=== PATIENT | female | born 1965 | race American Indian/Alaskan Native ===

== ENCOUNTER 2022-03-15 17:10 | Emergency (ER) | payer MEDICARE ==
[2022-03-15 18:33] LABS: Basophils % (Auto) 0.3 % (0.0-1.8); Eosinophils % (Auto) 0.7 % (0.0-4.3); Hematocrit 37.6 % (30.3-42.9); Hemoglobin 12.7 gm/dl (10.1-14.3); Lymphocytes # (Auto) 1.6 K/mm3 (1.2-5.4); Lymphocytes % (Auto) 24.8 % (13.4-35.0); Mean Corpuscular HGB Conc 34 % (30-34); Mean Corpuscular Volume 92 fl (79-97); Monocytes # (Auto) 0.2 K/mm3 (0.0-0.8); Monocytes % (Auto) 3.7 % (0.0-7.3); Platelet Count 331 K/mm3 (140-440); Red Blood Count 4.07 M/mm3 (3.65-5.03); Red Cell Distribution Width 14.6 % (13.2-15.2)
[2022-03-15 18:53] LABS: Alanine Aminotransferase 14 units/L (7-56); Albumin 3.9 g/dL (3.9-5); BUN/Creatinine Ratio 15; Blood Urea Nitrogen 17 mg/dL (7-17); Calcium 8.9 mg/dL (8.4-10.2); Hemolysis Index 5
[2022-03-16] MEDS ORDERED: POTASSIUM CHLORIDE ER 20 MEQ TAB PO ONE (08:43)
[2022-03-16 11:48] LABS: Bacteria,Urine 1+ /HPF (Negative); Hyaline Casts,Urine 48 /LPF
[2022-03-16 11:56] LABS: Bilirubin,Urine Negative (Negative); Blood,Urine Negative (Negative); Color,Urine Yellow (Yellow)
--- NOTE | 2022-03-16 12:18 | Cat Scan Report ---
CT head/brain wo con INDICATION: Weakness, dizziness. TECHNIQUE: Routine CT head. All CT scans at this location are performed using CT dose reduction for A BILL by means of automated exposure control. COMPARISON: None. FINDINGS: Intracranial: Bifrontal midline encephalomalacia which extends into the frontal horns of the lateral ventricles. Garrett-white matter differentiation is maintained. No intracranial hemorrhage. No extra axi al collection. No hydrocephalus. No herniation. Sinuses: Paranasal sinuses and mastoid air cells are essentially clear. Orbits: Globes are intact. Calvarium: Prior left frontal craniectomy. IMPRESSION: 1. No acute intracranial abnormality. 2. Postoperative changes. Signer Name: Lon Christianson MD Signed: 03/16/2022 12:14 PM Workstation Name: [id number]
--- NOTE | 2022-03-16 13:09 | Emergency Department Report ---
ED General Adult HPI - General Chief complaint: Weakness Stated complaint: GENERAL WEAKNESS Time Seen by Provider: 03/16/22 08:43 Source: EMS Mode of arrival: Stretcher Limitations: Other - History of Present Illness Initial comments: Patient is a 57-year-old female with history of cognitive delay brought in by EMS for evaluation. Family reports patient has been weak and falling at home. - Related Data Allergies Allergy/AdvReac Type Severity Reaction Status Date / Time No Known Allergies Allergy Verified 03/15/22 17:15 ED Review of Systems ROS: Stated complaint: GENERAL WEAKNESS Other details as noted in HPI Constitutional: denies: chills, fever Respiratory: denies: cough, shortness of breath, wheezing Cardiovascular: denies: chest pain, palpitations Gastrointestinal: denies: abdominal pain, nausea, diarrhea Genitourinary: denies: urgency, dysuria, discharge Musculoskeletal: denies: back pain, joint swelling, arthralgia Skin: denies: rash, lesions Neurological: denies: headache, weakness, paresthesias Psychiatric: denies: anxiety, depression ED Past Medical Hx - Past Medical History Previous Medical History?: Yes Hx Seizures: Yes Additional medical history: CAREGIVER STATES PATIENT IS MR. - Surgical History Past Surgical History?: Yes Additional Surgical History: PT HAS A SCAR ON THE SIDE OF HER HEAD, CAREGIVER IS UNSURE OF SURGERY ED Physical Exam - General Limitations: Other General appearance: alert, in no apparent distress - Head Head exam: Present: atraumatic, normocephalic - Respiratory Respiratory exam: Present: normal lung sounds bilaterally. Absent: respiratory distress - Cardiovascular Cardiovascular Exam: Present: regular rate, normal rhythm, normal heart sounds - GI/Abdominal GI/Abdominal exam: Present: soft. Absent: distended, tenderness - Rectal Rectal exam: Present: deferred - Neurological Exam Neurological exam: Present: alert, oriented X3 - Psychiatric Psychiatric exam: Present: normal affect, normal mood - Skin Skin exam: Present: warm, dry, intact, normal color ED Course Vital Signs 03/15/22 03/16/22 03/16/22 17:14 10:30 11:02 Temperature 98 F Pulse Rate 93 H 84 Respiratory 18 13 18 Rate Blood Pressure 121/78 Blood Pressure 108/55 143/82 [Left] O2 Sat by Pulse 96 99 99 Oximetry ED Medical Decision Making - Lab Data Result diagrams: 03/15/22 17:47 03/15/22 17:47 - Medical Decision Making CT head shows no acute processes. Serum potassium 3.2. Patient given oral replacement. UTI also present. Vital signs are stable. Will discharge home on Keflex with instructions to follow-up with PCP in 1 week. Critical care attestation.: If time is entered above; I have spent that time in minutes in the direct care of this critically ill patient, excluding procedure time. ED Disposition Clinical Impression: Urinary tract infection, Generalized weakness Disposition: 01 HOME / SELF CARE / HOMELESS Is pt being admited?: No Condition: Stable Instructions: Weakness, Urinary Tract Infection, Adult, [id number] Referrals: PRIMARY CARE, [Primary Care Provider] - 3-5 Days
[2022-03-16 15:18] VITALS: BP 142/65
--- NOTE | 2022-03-16 18:50 | Electrocardiograph Report ---
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
== END 2022-03-16 15:17 | disposition home or self-care (01) ==
LOC: ED 17:10
DX: N39.0 Urinary tract infection, site not specified (principal); R53.1 Weakness
CPT/HCPCS: 36415; 70450; 80053; 81001; 83735; 84484; 85025; 93005; 99284; 99285

== ENCOUNTER 2022-03-21 20:30 | Inpatient (IN) | payer MEDICARE ==
[2022-03-22 13:03] LABS: Basophils % (Auto) 0.2 % (0.0-1.8); Eosinophils % (Auto) 0.3 % (0.0-4.3); Hematocrit 39.9 % (30.3-42.9); Lymphocytes # (Auto) 1.5 K/mm3 (1.2-5.4); Lymphocytes % (Auto) 18.8 % (13.4-35.0); Mean Corpuscular HGB Conc 33 % (30-34); Mean Corpuscular Volume 93 fl (79-97); Monocytes # (Auto) 0.4 K/mm3 (0.0-0.8); Monocytes % (Auto) 4.5 % (0.0-7.3); Red Blood Count 4.31 M/mm3 (3.65-5.03); Red Cell Distribution Width 14.9 % (13.2-15.2)
[2022-03-22 13:07] LABS: Alanine Aminotransferase 16 units/L (7-56); Albumin 4.1 g/dL (3.9-5); BUN/Creatinine Ratio 23; Blood Urea Nitrogen 25 mg/dL (7-17); Calcium 9.3 mg/dL (8.4-10.2); Hemolysis Index 47
[2022-03-22 13:10] LABS: Platelet Count 374 K/mm3 (140-440)
[2022-03-22] MEDS ORDERED: SODIUM CHLORIDE 0.9% 1000 ML 1,000 ML IV ONE (13:10)
--- NOTE | 2022-03-22 13:30 | Emergency Department Report ---
- General Chief complaint: Weakness Stated complaint: FAILURE TO THRIVE Time Seen by Provider: 03/22/22 10:41 Source: patient, EMS Mode of arrival: Stretcher Limitations: Physical Limitation - History of Present Illness Initial comments: 57-year-old female with a past medical history of MR and seizures presents to the hospital with increased weakness and inability to ambulate for the last week. Information obtained from both patient and her caregiver Felicia. Pascual has been her cousin/caregiver and guardian for 3 years. Up until 1 week ago patient was able to ambulate unassisted. For the past week she has been unable to stand and having frequent falls. She has been crawling on the floor on her knees. Patient complains of generalized leg pain not worse with movement or palpation. She denies headache or neck pain. Patient was seen here on March 16 with similar symptoms and prescribed Keflex for UTI PID x7 days. Patient currently has 7 tablets left (3.5 days worth). Severity scale (0 -10): 0 - Related Data Previous Rx's Medication Instructions Recorded Last Taken Type cephALEXin [Keflex] 500 mg PO Q12HR #14 cap 03/16/22 Unknown Rx Allergies Allergy/AdvReac Type Severity Reaction Status Date / Time No Known Allergies Allergy Verified 03/15/22 17:15 ED Review of Systems ROS: Stated complaint: FAILURE TO THRIVE Other details as noted in HPI Comment: All other systems reviewed and negative ED Past Medical Hx - Past Medical History Hx Seizures: Yes Additional medical history: CAREGIVER STATES PATIENT IS MR. - Surgical History Additional Surgical History: PT HAS A SCAR ON THE SIDE OF HER HEAD, CAREGIVER IS UNSURE OF SURGERY - Social History Smoking Status: Never Smoker Substance Use Type: None - Medications Home Medications: Home Medications Medication Instructions Recorded Confirmed Last Taken Type cephALEXin [Keflex] 500 mg PO Q12HR #14 cap 03/16/22 Unknown Rx ED Physical Exam - General Limitations: Physical Limitation - Other Other exam information: General: No acute distress Head: Atraumatic Eyes: normal appearance ENT: Moist mucous membranes Neck: Normal appearance, no midline tenderness Chest: Clear to auscultation bilaterally CV: Regular rate and rhythm Abdomen: Soft, normal bowel sounds, nontender, nondistended, no rebound or guarding Back: Normal inspection Extremity: Normal inspection, full range of motion Neuro: Alert O x 3, no facial asymmetry, speech clear, unable to lift right leg off the bed (3/5) compared to left (5/5), upper extermity left and right 5/5 strength Psych: Appropriate behavior Skin: No rash ED Course Vital Signs 03/21/22 03/22/22 03/22/22 21:13 10:47 14:46 Temperature 98.9 F 97.5 F L 98.6 F Pulse Rate 88 86 72 Respiratory 16 20 20 Rate Blood Pressure 150/88 Blood Pressure 151/90 150/88 134/78 [Right] O2 Sat by Pulse 100 100 97 Oximetry - EJ/Peripheral Line Neck R Time Out Performed: Yes Indications: nurses unable to establis Skin Cleansed in Sterile Fashion: Yes Dressing Placed: Tegaderm, tape Patient Tolerated Procedure: well, no complications ED Medical Decision Making - Lab Data Result diagrams: 03/22/22 11:49 03/22/22 11:49 Lab Results 03/22/22 03/22/22 03/22/22 Range/Units 11:49 11:49 11:49 WBC 8.0 (4.5-11.0) K/mm3 RBC 4.31 (3.65-5.03) M/mm3 Hgb 13.0 (10.1-14.3) gm/dl Hct 39.9 (30.3-42.9) % MCV 93 (79-97) fl MCH 30 (28-32) pg MCHC 33 (30-34) % RDW 14.9 (13.2-15.2) % Plt Count 374 (140-440) K/mm3 Lymph % (Auto) 18.8 (13.4-35.0) % [place] % (Auto) 4.5 (0.0-7.3) % Eos % (Auto) 0.3 (0.0-4.3) % Baso % (Auto) 0.2 (0.0-1.8) % Lymph # (Auto) 1.5 (1.2-5.4) K/mm3 [place] # (Auto) 0.4 (0.0-0.8) K/mm3 Eos # (Auto) 0.0 (0.0-0.4) K/mm3 Baso # (Auto) 0.0 (0.0-0.1) K/mm3 Seg Neutrophils % 76.2 H (40.0-70.0) % Seg Neutrophils # 6.1 (1.8-7.7) K/mm3 Sodium 138 (137-145) mmol/L Potassium 4.0 (3.6-5.0) mmol/L Chloride 100.2 (98-107) mmol/L Carbon Dioxide 24 (22-30) mmol/L Anion Gap 18 mmol/L BUN 25 H (7-17) mg/dL Creatinine 1.1 (0.6-1.2) mg/dL Estimated GFR > 60 ml/min BUN/Creatinine Ratio 23 % Glucose 113 H (65-100) mg/dL Calcium 9.3 (8.4-10.2) mg/dL Magnesium 2.00 (1.7-2.3) mg/dL Total Bilirubin 0.20 (0.1-1.2) mg/dL AST 19 (5-40) units/L ALT 16 (7-56) units/L Alkaline Phosphatase 153 H (35-129) units/L Total Protein 8.7 H (6.3-8.2) g/dL Albumin 4.1 (3.9-5) g/dL Albumin/Globulin Ratio 0.9 % - EKG Data -: EKG Interpreted by Mn EKG shows normal: sinus rhythm, ST-T waves (no stemi) Rate: normal - Radiology Data Radiology results: report reviewed CT head/brain wo con INDICATION: unable to ambulate, left leg weakness. TECHNIQUE: Routine CT head. All CT scans at this location are performed using CT dose reduction for ALARA by means of automated exposure control. COMPARISON: 03/16/2022. FINDINGS: Intracranial: Encephalomalacia extending from the left frontal craniectomy site in the midline and extending inferiorly from the superior frontal gyri to the frontal horns of the lateral ventricles. Brain parenchyma is also unchanged. Garrett-white matter differentiation is maintained. No intracranial hemorrhage. No extra axial collection. No hydrocephalus. No herniation. Sinuses: Paranasal sinuses and mastoid air cells are essentially clear. Orbits: Globes are intact. Calvarium: Prior left frontal craniectomy. IMPRESSION: 1. No acute intracranial abnormality or significant change. 2. Postoperative changes. CT lumbar spine wo con INDICATION: unable to ambulate, left leg weakness. TECHNIQUE: Axial CT images of the lumbar spine were obtained. Sagittal and coronal reformatted images were produced. All CT scans at this location are performed using CT dose reduction for ALARA by means of automated exposure control. COMPARISON: None available. FINDINGS: ALIGNMENT: Normal alignment. VERTEBRAE: No fracture. Vertebral body heights are preserved. SPONDYLOSIS: Advanced right L5-S1 facet arthropathy. Moderate right L3-4 and mild L4-5 facet arthropathy.. No significant spinal canal or foraminal stenosis at any level. SOFT TISSUES: No significant soft tissue abnormality. ADDITIONAL FINDINGS: Calcified fibroids in the uterus. Remote right 11th rib fracture.. IMPRESSION: 1. No acute lumbar spine abnormality. 2. Advanced right L5-S1 facet arthropathy. No significant spinal canal foramin al stenosis and level. - Medical Decision Making 57-year-old female presents to the hospital with inability to ambulate for about 1 week. There is new onset as per cousin and strategic sourcing specialist. Because of inability to ambulate not identified during ED visit. No significant abnormality seen on CT head, CT lumbar spine, and labs show only mild dehydration as indicated by e levated BUN level. Normal renal function noted. Repeat urine collection pending. Case management consult appreciated with recommendation and arrangements for physical therapy, Occupational Therapy, and snf assistance. Hospitalist to admit for further evaluation and work-up Critical Care Time: No Critical care attestation.: If time is entered above; I have spent that time in minutes in the direct care of this critically ill patient, excluding procedure time. ED Disposition Clinical Impression: Unable to ambulate, Right leg weakness, Mental disability, Dehydration Disposition: ADMITTED INPATIENT Is pt being admited?: Yes Condition: Stable Time of Disposition: 15:01 (Dr Ling/Hospital)
--- NOTE | 2022-03-22 14:21 | Cat Scan Report ---
CT head/brain wo con INDICATION: unable to ambulate, left leg weakness. TECHNIQUE: Routine CT head. All CT scans at this location are performed using CT dose reduction for A BILL by means of automated exposure control. COMPARISON: 03/16/2022. FINDINGS: Intracranial: Encephalomalacia extending from the left frontal craniectomy site in the midline and ex tending inferiorly from the superior frontal gyri to the frontal horns of the lateral ventricles. Bra in parenchyma is also unchanged. Garrett-white matter differentiation is maintained. No intracranial hem orrhage. No extra axial collection. No hydrocephalus. No herniation. Sinuses: Paranasal sinuses and mastoid air cells are essentially clear. Orbits: Globes are intact. Calvarium: Prior left frontal craniectomy. IMPRESSION: 1. No acute intracranial abnormality or significant change. 2. Postoperative changes. Signer Name: Lon Christianson MD Signed: 03/22/2022 2:17 PM Workstation Name: [id number]
--- NOTE | 2022-03-22 14:25 | Cat Scan Report ---
CT lumbar spine wo con INDICATION: unable to ambulate, left leg weakness. TECHNIQUE: Axial CT images of the lumbar spine were obtained. Sagittal and coronal reformatted images were produ shay. All CT scans at this location are performed using CT dose reduction for ALARA by means of automa ugo exposure control. COMPARISON: None available. FINDINGS: ALIGNMENT: Normal alignment. VERTEBRAE: No fracture. Vertebral body heights are preserved. SPONDYLOSIS: Advanced right L5-S1 facet arthropathy. Moderate right L3-4 and mild L4-5 facet arthropa thy.. No significant spinal canal or foraminal stenosis at any level. SOFT TISSUES: No significant soft tissue abnormality. ADDITIONAL FINDINGS: Calcified fibroids in the uterus. Remote right 11th rib fracture.. IMPRESSION: 1. No acute lumbar spine abnormality. 2. Advanced right L5-S1 facet arthropathy. No significant spinal canal foraminal stenosis and level. Signer Name: Lon Christianson MD Signed: 03/22/2022 2:21 PM Workstation Name: [id number]
[2022-03-22] MEDS ORDERED: ONDANSETRON 4 MG/2 ML INJ IV PRN (15:02)
[2022-03-22] MEDS ORDERED: MORPHINE 2 MG/1 ML INJ IV PRN (15:03)
[2022-03-22 16:05] LABS: Bilirubin,Urine Negative (Negative); Blood,Urine Negative (Negative); Color,Urine Straw (Yellow)
[2022-03-22 17:20] LABS: Bacteria,Urine 2+ /HPF (Negative)
--- NOTE | 2022-03-22 21:06 | History and Physical Report ---
History of Present Illness Date of examination: 03/22/22 Date of admission: 03/22/22 15:02 Chief complaint: Difficulty walking for 1 week History of present illness: 57-year-old female with a past medical history of MR and seizures presents to the hospital with increased weakness and inability to ambulate for the last week. Information obtained from both patient and her caregiver Samara. Samara has been her cousin/caregiver and guardian for 3 years. Up until 1 week ago patient was able to ambulate unassisted. For the past week she has been unable to stand and having frequent falls. She has been crawling on the floor on her knees. Patient complains of generalized leg pain not worse with movement or palpation. She denies headache or neck pain. Patient was seen here on March 16 with similar symptoms and prescribed Keflex for UTI PID x7 days. Debbie parson currently has 7 tablets left (3.5 days worth). Patient is a very poor historian. The only complaint she has difficulty walking for 1 week - Past Medical History Hx Seizures: Yes Additional medical history: CAREGIVER STATES PATIENT IS MR. - Surgical History Additional Surgical History: PT HAS A SCAR ON THE SIDE OF HER HEAD, CAREGIVER IS UNSURE OF SURGERY - Social History Smoking Status: Never Smoker Substance Use Type: None - Medications Home Medications: Home Medications Medication Instructions Recorded Confirmed Last Taken Type cephALEXin [Keflex] 500 mg PO Q12HR #14 cap 03/16/22 Unknown Rx Review of Systems ROS: Stated complaint: FAILURE TO THRIVE Other details as noted in HPI Comment: All other systems reviewed and negative Medications and Allergies Allergies Allergy/AdvReac Type Severity Reaction Status Date / Time No Known Allergies Allergy Verified 03/15/22 17:15 Home Medications Medication Instructions Recorded Confirmed Last Taken Type cephALEXin [Keflex] 500 mg PO Q12HR #14 cap 03/16/22 03/22/22 Unknown Rx AtorvaSTATin [Lipitor] 20 mg PO QHS 03/22/22 03/22/22 Unknown History Phenytoin Sodium Extended 200 mg PO BID 03/22/22 03/22/22 Unknown History Active Meds: Active Medications Acetaminophen (Acetaminophen 325 Mg Tab) 650 mg PO Q4H PRN PRN Reason: Pain MILD(1-3)/Fever >100.5/VALLADARES Morphine Sulfate (Morphine 2 Mg/1 Ml Inj) 2 mg IV Q4H PRN PRN Reason: Pain, Moderate (4-6) Ondansetron HCl (Ondansetron 4 Mg/2 Ml Inj) 4 mg IV Q8H PRN PRN Reason: Nausea And Vomiting Sodium Chloride (Sodium Chloride 0.9% 10 Ml Flush Syringe) 10 ml IV BID ISIAH Sodium Chloride (Sodium Chloride 0.9% 10 Ml Flush Syringe) 10 ml IV PRN PRN PRN Reason: LINE FLUSH Exam - Constitutional Vitals: Temp Pulse Resp BP Pulse Ox 98.6 F 72 20 134/78 100 03/22/22 14:46 03/22/22 14:46 03/22/22 16:14 03/22/22 14:46 03/22/22 16:14 General appearance: Present: no acute distress, well-nourished - EENT Eyes: Present: PERRL ENT: hearing intact, clear oral mucosa - Neck Neck: Present: supple, normal ROM - Respiratory Respiratory effort: normal Respiratory: bilateral: CTA - Cardiovascular Rhythm: regular Heart Sounds: Present: S1 & S2. Absent: rub, click - Extremities Extremities: no ischemia (78), pulses symmetrical, No edema, abnormal (Unable to lift both lower extremities more than 6 inches) Peripheral Pulses: within normal limits - Abdominal General gastrointestinal: Present: soft, non-tender, non-distended, normal bowel sounds Female genitourinary: Present: normal - Integumentary Integumentary: Present: clear, warm, dry - Musculoskeletal Musculoskeletal: generalized weakness - Psychiatric Psychiatric: appropriate mood/affect, intact judgment & insight - Neurologic Neurologic: CNII-XII intact, moves all extremities (3/5 power both lower EXTREMITIES) - Allied Health Allied health notes reviewed: nursing, case management Results - Labs CBC & Chem 7: 03/22/22 11:49 03/22/22 11:49 Labs: Laboratory Last Values WBC 8.0 K/mm3 (4.5-11.0) 03/22/22 11:49 RBC 4.31 M/mm3 (3.65-5.03) 03/22/22 11:49 Hgb 13.0 gm/dl (10.1-14.3) 03/22/22 11:49 Hct 39.9 % (30.3-42.9) 03/22/22 11:49 MCV 93 fl (79-97) 03/22/22 11:49 MCH 30 pg (28-32) 03/22/22 11:49 MCHC 33 % (30-34) 03/22/22 11:49 RDW 14.9 % (13.2-15.2) 03/22/22 11:49 Plt Count 374 K/mm3 (140-440) 03/22/22 11:49 Lymph % (Auto) 18.8 % (13.4-35.0) 03/22/22 11:49 [place] % (Auto) 4.5 % (0.0-7.3) 03/22/22 11:49 Eos % (Auto) 0.3 % (0.0-4.3) 03/22/22 11:49 Baso % (Auto) 0.2 % (0.0-1.8) 03/22/22 11:49 Lymph # (Auto) 1.5 K/mm3 (1.2-5.4) 03/22/22 11:49 [place] # (Auto) 0.4 K/mm3 (0.0-0.8) 03/22/22 11:49 Eos # (Auto) 0.0 K/mm3 (0.0-0.4) 03/22/22 11:49 Baso # (Auto) 0.0 K/mm3 (0.0-0.1) 03/22/22 11:49 Seg Neutrophils % 76.2 % (40.0-70.0) H 03/22/22 11:49 Seg Neutrophils # 6.1 K/mm3 (1.8-7.7) 03/22/22 11:49 Sodium 138 mmol/L (137-145) 03/22/22 11:49 Potassium 4.0 mmol/L (3.6-5.0) 03/22/22 11:49 Chloride 100.2 mmol/L (98-107) 03/22/22 11:49 Carbon Dioxide 24 mmol/L (22-30) 03/22/22 11:49 Anion Gap 18 mmol/L 03/22/22 11:49 BUN 25 mg/dL (7-17) H 03/22/22 11:49 Creatinine 1.1 mg/dL (0.6-1.2) 03/22/22 11:49 Estimated GFR > 60 ml/min 03/22/22 11:49 BUN/Creatinine Ratio 23 % 03/22/22 11:49 Glucose 113 mg/dL (65-100) H 03/22/22 11:49 Calcium 9.3 mg/dL (8.4-10.2) 03/22/22 11:49 Magnesium 2.00 mg/dL (1.7-2.3) 03/22/22 11:49 Total Bilirubin 0.20 mg/dL (0.1-1.2) 03/22/22 11:49 AST 19 units/L (5-40) 03/22/22 11:49 ALT 16 units/L (7-56) 03/22/22 11:49 Alkaline Phosphatase 153 units/L (35-129) H 03/22/22 11:49 Total Protein 8.7 g/dL (6.3-8.2) H 03/22/22 11:49 Albumin 4.1 g/dL (3.9-5) 03/22/22 11:49 Albumin/Globulin Ratio 0.9 % 03/22/22 11:49 Urine Color Straw (Yellow) 03/22/22 14:33 Urine Turbidity Clear (Clear) 03/22/22 14:33 Urine pH 6.0 (5.0-7.0) 03/22/22 14:33 Ur Specific [place] 1.015 (1.003-1.030) 03/22/22 14:33 Urine Protein 30 mg/dl mg/dL (Negative) 03/22/22 14:33 Urine Glucose (UA) Negative mg/dL (Negative) 03/22/22 14:33 Urine Ketones Negative mg/dL (Negative) 03/22/22 14:33 Urine Blood Negative (Negative) 03/22/22 14:33 Urine Nitrite Negative (Negative) 03/22/22 14:33 Urine Bilirubin Negative (Negative) 03/22/22 14:33 Urine Urobilinogen 0.0 mg/dL (<2.0) 03/22/22 14:33 Ur Leukocyte Esterase 1+ (Negative) 03/22/22 14:33 Urine WBC (Auto) 0.0 /HPF (0.0-6.0) 03/22/22 14:33 Urine RBC (Auto) 2.0 /HPF (0.0-6.0) 03/22/22 14:33 U Epithel Cells (Auto) 5.0 /HPF (0-13.0) 03/22/22 14:33 Urine Bacteria (Auto) 2+ /HPF (Negative) 03/22/22 14:33 - Imaging and Cardiology EKG: report reviewed (No acute ST-T wave changes) Imaging and Cardiology: CT LS-spine No acute lumbar spine abnormality Advanced right L5-S1 facet arthropathy. No significant spinal cord canal foraminal stenosis and level. Head CT No acute intracranial abnormalities or significant change Postoperative changes Mckeon/IV: Voiding Method External Female Catheter Assessment and Plan Advance Directives: Yes (Full code) VTE prophylaxis?: Chemical Plan of care discussed with patient/family: Yes - Patient Problems (1) Physical debility Current Visit: Yes Status: Acute Plan to address problem: Severe physical debility Patient needs physical therapy and Occupational Therapy Patient needs placement Unable to ambulate Possible myopathy Statin started (2) Seizure disorder Current Visit: Yes Status: Chronic Plan to address problem: No recent seizures Continue phenytoin Check phenytoin level Will defer to primary team regarding switching to Keppra (3) Advance care planning Current Visit: Yes Status: Acute Plan to address problem: Disease education collected, care plan discussed, diagnosis discussed and prognosis discussed. Patient acknowledged understanding with care plan. +30 mi nutes. (4) DVT prophylaxis Current Visit: Yes Status: Acute Plan to address problem: On heparin GI prophylaxis
--- NOTE | 2022-03-23 09:43 | Progress Note ---
Assessment and Plan Assessment and plan: - Patient Problems -- General physical debility Severe physical debility PT evaluated the patient, recommend oral rolling walker and home health PT OT evaluated the patient recommend rolling walker and home health OT Continue supportive care --Dilantin toxicity /overdose DC Dilantin, closely monitor levels Seizure precautions --seizure disorder No new episodes of seizures Dilantin toxicity, Dilantin discontinued Check phenytoin level After Dilantin levels come back to normal levels We may switch to Keppra -- Advance care planning Disease education collected, care plan discussed, diagnosis discussed and prognosis discussed. Patient acknowledged understanding with care plan. +30 minutes. --DVT prophylaxis On heparin GI prophylaxis We will closely monitor the patient and adjust management as needed Plan of care reviewed with the patient and her nurse DC planning per case management History Interval history: Seen and examined the patient at the bedside Patient's chart and medications reviewed Patient has mild encephalopathy Has history of craniotomy in the past Vital signs noted Hospitalist Physical - Constitutional Vitals: Temp Pulse Resp BP Pulse Ox 98 F 84 20 141/86 98 03/23/22 06:14 03/23/22 06:14 03/23/22 06:14 03/23/22 06:14 03/23/22 06:14 General appearance: Present: no acute distress, well-nourished - EENT Eyes: Present: PERRL, EOM intact - Neck Neck: Present: supple, normal ROM - Respiratory Respiratory effort: normal Respiratory: bilateral: diminished, negative: rales, rhonchi, wheezing - Cardiovascular Rhythm: regular Heart Sounds: Present: S1 & S2 - Extremities Extremities: no ischemia, No edema - Integumentary Integumentary: Present: clear, warm - Psychiatric Psychiatric: appropriate mood/affect, cooperative, other (Confused) - Neurologic Neurologic: moves all extremities Results - Labs CBC & Chem 7: 03/22/22 11:49 03/22/22 11:49 Labs: Laboratory Last Values WBC 8.0 K/mm3 (4.5-11.0) 03/22/22 11:49 RBC 4.31 M/mm3 (3.65-5.03) 03/22/22 11:49 Hgb 13.0 gm/dl (10.1-14.3) 03/22/22 11:49 Hct 39.9 % (30.3-42.9) 03/22/22 11:49 MCV 93 fl (79-97) 03/22/22 11:49 MCH 30 pg (28-32) 03/22/22 11:49 MCHC 33 % (30-34) 03/22/22 11:49 RDW 14.9 % (13.2-15.2) 03/22/22 11:49 Plt Count 374 K/mm3 (140-440) 03/22/22 11:49 Lymph % (Auto) 18.8 % (13.4-35.0) 03/22/22 11:49 [place] % (Auto) 4.5 % (0.0-7.3) 03/22/22 11:49 Eos % (Auto) 0.3 % (0.0-4.3) 03/22/22 11:49 Baso % (Auto) 0.2 % (0.0-1.8) 03/22/22 11:49 Lymph # (Auto) 1.5 K/mm3 (1.2-5.4) 03/22/22 11:49 [place] # (Auto) 0.4 K/mm3 (0.0-0.8) 03/22/22 11:49 Eos # (Auto) 0.0 K/mm3 (0.0-0.4) 03/22/22 11:49 Baso # (Auto) 0.0 K/mm3 (0.0-0.1) 03/22/22 11:49 Seg Neutrophils % 76.2 % (40.0-70.0) H 03/22/22 11:49 Seg Neutrophils # 6.1 K/mm3 (1.8-7.7) 03/22/22 11:49 Sodium 138 mmol/L (137-145) 03/22/22 11:49 Potassium 4.0 mmol/L (3.6-5.0) 03/22/22 11:49 Chloride 100.2 mmol/L (98-107) 03/22/22 11:49 Carbon Dioxide 24 mmol/L (22-30) 03/22/22 11:49 Anion Gap 18 mmol/L 03/22/22 11:49 BUN 25 mg/dL (7-17) H 03/22/22 11:49 Creatinine 1.1 mg/dL (0.6-1.2) 03/22/22 11:49 Estimated GFR > 60 ml/min 03/22/22 11:49 BUN/Creatinine Ratio 23 % 03/22/22 11:49 Glucose 113 mg/dL (65-100) H 03/22/22 11:49 Calcium 9.3 mg/dL (8.4-10.2) 03/22/22 11:49 Magnesium 2.00 mg/dL (1.7-2.3) 03/22/22 11:49 Total Bilirubin 0.20 mg/dL (0.1-1.2) 03/22/22 11:49 AST 19 units/L (5-40) 03/22/22 11:49 ALT 16 units/L (7-56) 03/22/22 11:49 Alkaline Phosphatase 153 units/L (35-129) H 03/22/22 11:49 Total Protein 8.7 g/dL (6.3-8.2) H 03/22/22 11:49 Albumin 4.1 g/dL (3.9-5) 03/22/22 11:49 Albumin/Globulin Ratio 0.9 % 03/22/22 11:49 Urine Color Straw (Yellow) 03/22/22 14:33 Urine Turbidity Clear (Clear) 03/22/22 14:33 Urine pH 6.0 (5.0-7.0) 03/22/22 14:33 Ur Specific [place] 1.015 (1.003-1.030) 03/22/22 14:33 Urine Protein 30 mg/dl mg/dL (Negative) 03/22/22 14:33 Urine Glucose (UA) Negative mg/dL (Negative) 03/22/22 14:33 Urine Ketones Negative mg/dL (Negative) 03/22/22 14:33 Urine Blood Negative (Negative) 03/22/22 14:33 Urine Nitrite Negative (Negative) 03/22/22 14:33 Urine Bilirubin Negative (Negative) 03/22/22 14:33 Urine Urobilinogen 0.0 mg/dL (<2.0) 03/22/22 14:33 Ur Leukocyte Esterase 1+ (Negative) 03/22/22 14:33 Urine WBC (Auto) 0.0 /HPF (0.0-6.0) 03/22/22 14:33 Urine RBC (Auto) 2.0 /HPF (0.0-6.0) 03/22/22 14:33 U Epithel Cells (Auto) 5.0 /HPF (0-13.0) 03/22/22 14:33 Urine Bacteria (Auto) 2+ /HPF (Negative) 03/22/22 14:33 Mckeon/IV: Voiding Method External Female Catheter Active Medications - Current Medications Current Medications: Generic Name Dose Route Start Last Admin Trade Name Freq PRN Reason Stop Dose Admin Acetaminophen 650 mg 03/22/22 15:02 Acetaminophen 325 Mg Tab PO Q4H PRN Pain MILD(1-3)/Fever >100.5/VALLADARES Morphine Sulfate 2 mg 03/22/22 15:03 Morphine 2 Mg/1 Ml Inj IV Q4H PRN Pain, Moderate (4-6) Ondansetron HCl 4 mg 03/22/22 15:02 Ondansetron 4 Mg/2 Ml Inj IV Q8H PRN Nausea And Vomiting Phenytoin 200 mg 03/23/22 10:00 Phenytoin 100 Mg Capsule.Er PO BID ISIAH Sodium Chloride 10 ml 03/22/22 22:00 03/22/22 22:11 Sodium Chloride 0.9% 10 Ml Flush Syringe IV 10 ml BID ISIAH Administration Sodium Chloride 10 ml 03/22/22 15:02 Sodium Chloride 0.9% 10 Ml Flush Syringe IV PRN PRN LINE FLUSH
[2022-03-23] MEDS ORDERED: PHENYTOIN 100 MG CAPSULE.ER PO SCH (10:00)
--- NOTE | 2022-03-24 08:48 | Electrocardiograph Report ---
[facility] Test Date: 2022-03-22 Test Time: 13:34:25 Pat Name: ELIZABETH MATHUR Department: Room: A366 1 Gender: F Bottle Gauger: 911 : 1965 Requested By: GRACE FINN Order Number: [id number] Reading MD: Dandy Regalado Measurements Intervals [place] Rate: 77 P: 67 MO: 169 QRS: -9 QRSD: 89 T: 76 QT: 369 QTc: 419 Interpretive Statements Sinus rhythm Consider left ventricular hypertrophy nonspecific st-t anterior leads Compared to ECG 03/16/2022 10:39:19 No significant changes Electronically Signed On 03-24-2022 8:48:06 EDT by Dandy Regalado
--- NOTE | 2022-03-24 19:50 | Progress Note ---
Assessment and Plan Assessment and plan: Dilantin level 44.0-41.7 --Dilantin toxicity /overdose DC Dilantin, closely monitor levels Seizure precautions -- General physical debility Severe physical debility PT evaluated the patient, recommend oral rolling walker and home health PT OT evaluated the patient recommend rolling walker and home health OT Continue supportive care --seizure disorder No new episodes of seizures Dilantin toxicity, Dilantin discontinued Check phenytoin level After Dilantin levels come back to normal levels We may switch to Keppra -- Advance care planning Disease education collected, care plan discussed, diagnosis discussed and prognosis discussed. Patient acknowledged understanding with care plan. +30 minutes. --DVT prophylaxis On heparin GI prophylaxis We will closely monitor the patient and adjust management as needed Plan of care reviewed with the patient and her nurse DC planning per case management 03/24/2022 Dilantin level 44.0-41.7 Closely monitor Possible discharge in 1 to 2 days if stable and Dilantin levels are reasonable Plan of care reviewed with the patient and her nurse History Interval history: I have seen and examined the patient at the bedside Patient's chart and medications reviewed Patient states that she does not feel good Slow speech probably baseline Patient is admitted with Dilantin toxicity Dilantin #still above 40 Vital signs noted Hospitalist Physical - Constitutional Vitals: Temp Pulse Resp BP Pulse Ox 97.6 F 91 H 20 135/74 98 03/24/22 15:35 03/24/22 15:35 03/24/22 15:35 03/24/22 15:35 03/24/22 16:00 General appearance: Present: no acute distress, well-nourished - EENT Eyes: Present: PERRL, EOM intact - Neck Neck: Present: supple, normal ROM - Respiratory Respiratory effort: normal Respiratory: bilateral: diminished, negative: rales, rhonchi, wheezing - Cardiovascular Rhythm: regular Heart Sounds: Present: S1 & S2 - Extremities Extremities: no ischemia, No edema - Abdominal General gastrointestinal: soft, non-tender, non-distended, normal bowel sounds - Integumentary Integumentary: Present: clear, warm - Psychiatric Psychiatric: other (Slight confusion and coagulopathy) - Neurologic Neurologic: other (Slight confusion encephalopathy/history of craniotomy) Results - Labs CBC & Chem 7: 03/22/22 11:49 03/22/22 11:49 Labs: Laboratory Last Values WBC 8.0 K/mm3 (4.5-11.0) 03/22/22 11:49 RBC 4.31 M/mm3 (3.65-5.03) 03/22/22 11:49 Hgb 13.0 gm/dl (10.1-14.3) 03/22/22 11:49 Hct 39.9 % (30.3-42.9) 03/22/22 11:49 MCV 93 fl (79-97) 03/22/22 11:49 MCH 30 pg (28-32) 03/22/22 11:49 MCHC 33 % (30-34) 03/22/22 11:49 RDW 14.9 % (13.2-15.2) 03/22/22 11:49 Plt Count 374 K/mm3 (140-440) 03/22/22 11:49 Lymph % (Auto) 18.8 % (13.4-35.0) 03/22/22 11:49 [place] % (Auto) 4.5 % (0.0-7.3) 03/22/22 11:49 Eos % (Auto) 0.3 % (0.0-4.3) 03/22/22 11:49 Baso % (Auto) 0.2 % (0.0-1.8) 03/22/22 11:49 Lymph # (Auto) 1.5 K/mm3 (1.2-5.4) 03/22/22 11:49 [place] # (Auto) 0.4 K/mm3 (0.0-0.8) 03/22/22 11:49 Eos # (Auto) 0.0 K/mm3 (0.0-0.4) 03/22/22 11:49 Baso # (Auto) 0.0 K/mm3 (0.0-0.1) 03/22/22 11:49 Seg Neutrophils % 76.2 % (40.0-70.0) H 03/22/22 11:49 Seg Neutrophils # 6.1 K/mm3 (1.8-7.7) 03/22/22 11:49 Sodium 138 mmol/L (137-145) 03/22/22 11:49 Potassium 4.0 mmol/L (3.6-5.0) 03/22/22 11:49 Chloride 100.2 mmol/L (98-107) 03/22/22 11:49 Carbon Dioxide 24 mmol/L (22-30) 03/22/22 11:49 Anion Gap 18 mmol/L 03/22/22 11:49 BUN 25 mg/dL (7-17) H 03/22/22 11:49 Creatinine 1.1 mg/dL (0.6-1.2) 03/22/22 11:49 Estimated GFR > 60 ml/min 03/22/22 11:49 BUN/Creatinine Ratio 23 % 03/22/22 11:49 Glucose 113 mg/dL (65-100) H 03/22/22 11:49 Calcium 9.3 mg/dL (8.4-10.2) 03/22/22 11:49 Magnesium 2.00 mg/dL (1.7-2.3) 03/22/22 11:49 Total Bilirubin 0.20 mg/dL (0.1-1.2) 03/22/22 11:49 AST 19 units/L (5-40) 03/22/22 11:49 ALT 16 units/L (7-56) 03/22/22 11:49 Alkaline Phosphatase 153 units/L (35-129) H 03/22/22 11:49 Total Protein 8.7 g/dL (6.3-8.2) H 03/22/22 11:49 Albumin 4.1 g/dL (3.9-5) 03/22/22 11:49 Albumin/Globulin Ratio 0.9 % 03/22/22 11:49 Urine Color Straw (Yellow) 03/22/22 14:33 Urine Turbidity Clear (Clear) 03/22/22 14:33 Urine pH 6.0 (5.0-7.0) 03/22/22 14:33 Ur Specific [place] 1.015 (1.003-1.030) 03/22/22 14:33 Urine Protein 30 mg/dl mg/dL (Negative) 03/22/22 14:33 Urine Glucose (UA) Negative mg/dL (Negative) 03/22/22 14:33 Urine Ketones Negative mg/dL (Negative) 03/22/22 14:33 Urine Blood Negative (Negative) 03/22/22 14:33 Urine Nitrite Negative (Negative) 03/22/22 14:33 Urine Bilirubin Negative (Negative) 03/22/22 14:33 Urine Urobilinogen 0.0 mg/dL (<2.0) 03/22/22 14:33 Ur Leukocyte Esterase 1+ (Negative) 03/22/22 14:33 Urine WBC (Auto) 0.0 /HPF (0.0-6.0) 03/22/22 14:33 Urine RBC (Auto) 2.0 /HPF (0.0-6.0) 03/22/22 14:33 U Epithel Cells (Auto) 5.0 /HPF (0-13.0) 03/22/22 14:33 Urine Bacteria (Auto) 2+ /HPF (Negative) 03/22/22 14:33 Phenytoin 41.7 ug/mL (10.0-20.0) H* 03/24/22 05:55 Mckeon/IV: Voiding Method External Female Catheter Active Medications - Current Medications Current Medications: Generic Name Dose Route Start Last Admin Trade Name Freq PRN Reason Stop Dose Admin Acetaminophen 650 mg 03/22/22 15:02 Acetaminophen 325 Mg Tab PO Q4H PRN Pain MILD(1-3)/Fever >100.5/VALLADARES Morphine Sulfate 2 mg 03/22/22 15:03 Morphine 2 Mg/1 Ml Inj IV Q4H PRN Pain, Moderate (4-6) Ondansetron HCl 4 mg 03/22/22 15:02 Ondansetron 4 Mg/2 Ml Inj IV Q8H PRN Nausea And Vomiting Sodium Chloride 10 ml 03/22/22 22:00 03/23/22 22:13 Sodium Chloride 0.9% 10 Ml Flush Syringe IV 10 ml BID ISIAH Administration Sodium Chloride 10 ml 03/22/22 15:02 Sodium Chloride 0.9% 10 Ml Flush Syringe IV PRN PRN LINE FLUSH Nutrition/Malnutrition Assess - Dietary Evaluation Nutrition/Malnutrition Findings: Nutrition Notes Start: 03/23/22 15:24 Freq: Status: Active Protocol: Document 03/23/22 15:24 JOSI (Rec: 03/23/22 15:40 JOSI [id number]) Nutrition Notes Need for Assessment generated from: tree scout,MST Initial or Follow up Assessment Other Pertinent Diagnosis Seizure Disorder, Debility. Current Diet Regular Diet (since L 03/23). Labs/Tests 03/23: BUN 25, Glu 113. Pertinent Medications 03/23: Nutritionally unremarkable. 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 Weight Status Overweight Subjective/Other Information RD consult for risk of malnutrition assessment. Pt's PO intake of meals has been Good (100%) and well tolerated, according to ADL notes. Pt is on Room Air, O2 saturation @ 98%, according to Physical Assessment History notes. Pt has missing teeth, according to Physical Assessment History notes. Pt shows no signs of concern for risk of malnutritiona at the time, according to Physical Assessment History notes. Percent of energy/protein needs met: Prescribed Regular Diet provides for energy/protein needs (2,289 Kcal/89 g) during LOS. Burn Absent Trauma Absent GI Symptoms None Food Allergy No Skin Integrity/Comment Assessment WNL. Current % PO Good (75-100%) Minimum of two criteria No Fluid Accumulation N/A Reduced Can Filling And Closing Machine Tender Strength N/A (non-severe) Protein-Calorie Malnutrition N\A #1 Nutrition Diagnosis No nutrition diagnosis at this time Is patient on ventilator? No Is Patient Ambulatory and/or Out of Bed No REE-([facility]-confined to bed) 3091.712 Calculation Used for Recommendations [facility] Additional Notes Protein: 0.8-1 g/Kg ABW; 70-87 g/day. Fluids: 1 ml/Kcal, or as per MD. Nutrition Intervention Change Diet Order: Continue Regular Diet as tolerated. Follow-Up By: 03/30/22 Additional Comments Continue monitoring food tolerance, %PO intake of meals , and BM.
[2022-03-25 07:26] LABS: BUN/Creatinine Ratio 23; Blood Urea Nitrogen 18 mg/dL (7-17); Calcium 8.6 mg/dL (8.4-10.2); Hemolysis Index 7
--- NOTE | 2022-03-25 09:32 | Progress Note ---
Assessment and Plan Assessment and plan: Dilantin level 44.0-41.7-34.3 --Dilantin toxicity /overdose DC Dilantin, closely monitor levels Seizure precautions -- General physical debility Severe physical debility PT evaluated the patient, recommend oral rolling walker and home health PT OT evaluated the patient recommend rolling walker and home health OT Continue supportive care --seizure disorder No new episodes of seizures Dilantin toxicity, Dilantin discontinued Check phenytoin level After Dilantin levels come back to normal levels We may switch to Keppra -- Advance care planning Disease education collected, care plan discussed, diagnosis discussed and prognosis discussed. Patient acknowledged understanding with care plan. +30 minutes. --DVT prophylaxis On heparin GI prophylaxis We will closely monitor the patient and adjust management as needed Plan of care reviewed with the patient and her nurse DC planning per case management 03/24/2022 Dilantin level 44.0-41.7 Closely monitor 03/25; Dilantin levels 34.3 Possible discharge in 1 to 2 days if stable and Dilantin levels are reasonable Plan of care reviewed with the patient and her nurse History Interval history: I have seen and examined the patient at the bedside Patient's chart and medications reviewed No new events reported per the nursing Patient does not want to get out of the bed as she is scared where she will fall PT has recommended rolling walker Dilantin levels significantly trending down today 34.3 Vital signs noted Hospitalist Physical - Constitutional Vitals: Temp Pulse Resp BP Pulse Ox 98.3 F 86 20 141/73 96 03/25/22 05:00 03/25/22 05:00 03/25/22 05:00 03/25/22 05:00 03/25/22 05:00 General appearance: Present: no acute distress, well-nourished - EENT Eyes: Present: PERRL, EOM intact - Neck Neck: Present: supple, normal ROM - Respiratory Respiratory effort: normal Respiratory: bilateral: diminished, negative: rales, rhonchi, wheezing - Cardiovascular Rhythm: regular Heart Sounds: Present: S1 & S2 - Extremities Extremities: no ischemia, No edema - Abdominal General gastrointestinal: soft, non-tender, non-distended, normal bowel sounds - Integumentary Integumentary: Present: clear, warm - Psychiatric Psychiatric: appropriate mood/affect, cooperative - Neurologic Neurologic: CNII-XII intact, moves all extremities Results - Labs CBC & Chem 7: 03/22/22 11:49 03/25/22 06:40 Labs: Laboratory Last Values WBC 8.0 K/mm3 (4.5-11.0) 03/22/22 11:49 RBC 4.31 M/mm3 (3.65-5.03) 03/22/22 11:49 Hgb 13.0 gm/dl (10.1-14.3) 03/22/22 11:49 Hct 39.9 % (30.3-42.9) 03/22/22 11:49 MCV 93 fl (79-97) 03/22/22 11:49 MCH 30 pg (28-32) 03/22/22 11:49 MCHC 33 % (30-34) 03/22/22 11:49 RDW 14.9 % (13.2-15.2) 03/22/22 11:49 Plt Count 374 K/mm3 (140-440) 03/22/22 11:49 Lymph % (Auto) 18.8 % (13.4-35.0) 03/22/22 11:49 [place] % (Auto) 4.5 % (0.0-7.3) 03/22/22 11:49 Eos % (Auto) 0.3 % (0.0-4.3) 03/22/22 11:49 Baso % (Auto) 0.2 % (0.0-1.8) 03/22/22 11:49 Lymph # (Auto) 1.5 K/mm3 (1.2-5.4) 03/22/22 11:49 [place] # (Auto) 0.4 K/mm3 (0.0-0.8) 03/22/22 11:49 Eos # (Auto) 0.0 K/mm3 (0.0-0.4) 03/22/22 11:49 Baso # (Auto) 0.0 K/mm3 (0.0-0.1) 03/22/22 11:49 Seg Neutrophils % 76.2 % (40.0-70.0) H 03/22/22 11:49 Seg Neutrophils # 6.1 K/mm3 (1.8-7.7) 03/22/22 11:49 Sodium 141 mmol/L (137-145) 03/25/22 06:40 Potassium 4.7 mmol/L (3.6-5.0) 03/25/22 06:40 Chloride 101.3 mmol/L (98-107) 03/25/22 06:40 Carbon Dioxide 27 mmol/L (22-30) 03/25/22 06:40 Anion Gap 17 mmol/L 03/25/22 06:40 BUN 18 mg/dL (7-17) H 03/25/22 06:40 Creatinine 0.8 mg/dL (0.6-1.2) 03/25/22 06:40 Estimated GFR > 60 ml/min 03/25/22 06:40 BUN/Creatinine Ratio 23 % 03/25/22 06:40 Glucose 92 mg/dL (65-100) 03/25/22 06:40 Calcium 8.6 mg/dL (8.4-10.2) 03/25/22 06:40 Magnesium 2.00 mg/dL (1.7-2.3) 03/22/22 11:49 Total Bilirubin 0.20 mg/dL (0.1-1.2) 03/22/22 11:49 AST 19 units/L (5-40) 03/22/22 11:49 ALT 16 units/L (7-56) 03/22/22 11:49 Alkaline Phosphatase 153 units/L (35-129) H 03/22/22 11:49 Total Protein 8.7 g/dL (6.3-8.2) H 03/22/22 11:49 Albumin 4.1 g/dL (3.9-5) 03/22/22 11:49 Albumin/Globulin Ratio 0.9 % 03/22/22 11:49 Urine Color Straw (Yellow) 03/22/22 14:33 Urine Turbidity Clear (Clear) 03/22/22 14:33 Urine pH 6.0 (5.0-7.0) 03/22/22 14:33 Ur Specific [place] 1.015 (1.003-1.030) 03/22/22 14:33 Urine Protein 30 mg/dl mg/dL (Negative) 03/22/22 14:33 Urine Glucose (UA) Negative mg/dL (Negative) 03/22/22 14:33 Urine Ketones Negative mg/dL (Negative) 03/22/22 14:33 Urine Blood Negative (Negative) 03/22/22 14:33 Urine Nitrite Negative (Negative) 03/22/22 14:33 Urine Bilirubin Negative (Negative) 03/22/22 14:33 Urine Urobilinogen 0.0 mg/dL (<2.0) 03/22/22 14:33 Ur Leukocyte Esterase 1+ (Negative) 03/22/22 14:33 Urine WBC (Auto) 0.0 /HPF (0.0-6.0) 03/22/22 14:33 Urine RBC (Auto) 2.0 /HPF (0.0-6.0) 03/22/22 14:33 U Epithel Cells (Auto) 5.0 /HPF (0-13.0) 03/22/22 14:33 Urine Bacteria (Auto) 2+ /HPF (Negative) 03/22/22 14:33 Phenytoin 34.3 ug/mL (10.0-20.0) H 03/25/22 06:40 Mckeon/IV: Voiding Method Incontinent Active Medications - Current Medications Current Medications: Generic Name Dose Route Start Last Admin Trade Name Freq PRN Reason Stop Dose Admin Acetaminophen 650 mg 03/22/22 15:02 Acetaminophen 325 Mg Tab PO Q4H PRN Pain MILD(1-3)/Fever >100.5/VALLADARES Morphine Sulfate 2 mg 03/22/22 15:03 Morphine 2 Mg/1 Ml Inj IV Q4H PRN Pain, Moderate (4-6) Ondansetron HCl 4 mg 03/22/22 15:02 Ondansetron 4 Mg/2 Ml Inj IV Q8H PRN Nausea And Vomiting Sodium Chloride 10 ml 03/22/22 22:00 03/25/22 09:02 Sodium Chloride 0.9% 10 Ml Flush Syringe IV 10 ml BID ISIAH Administration Sodium Chloride 10 ml 03/22/22 15:02 Sodium Chloride 0.9% 10 Ml Flush Syringe IV PRN PRN LINE FLUSH Nutrition/Malnutrition Assess - Dietary Evaluation Nutrition/Malnutrition Findings: Nutrition Notes Start: 03/23/22 15:24 Freq: Status: Active Protocol: Document 03/23/22 15:24 JOSI (Rec: 03/23/22 15:40 JOSI [id number]) Nutrition Notes Need for Assessment generated from: food and nutrition teacher,MST Initial or Follow up Assessment Other Pertinent Diagnosis Seizure Disorder, Debility. Current Diet Regular Diet (since L 03/23). Labs/Tests 03/23: BUN 25, Glu 113. Pertinent Medications 03/23: Nutritionally unremarkable. 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 Weight Status Overweight Subjective/Other Information RD consult for risk of malnutrition assessment. Pt's PO intake of meals has been Good (100%) and well tolerated, according to ADL notes. Pt is on Room Air, O2 saturation @ 98%, according to Physical Assessment History notes. Pt has missing teeth, according to Physical Assessment History notes. Pt shows no signs of concern for risk of malnutritiona at the time, according to Physical Assessment History notes. Percent of energy/protein needs met: Prescribed Regular Diet provides for energy/protein needs (2,289 Kcal/89 g) during LOS. Burn Absent Trauma Absent GI Symptoms None Food Allergy No Skin Integrity/Comment Assessment WNL. Current % PO Good (75-100%) Minimum of two criteria No Fluid Accumulation N/A Reduced Poll Watcher Strength N/A (non-severe) Protein-Calorie Malnutrition N\A #1 Nutrition Diagnosis No nutrition diagnosis at this time Is patient on ventilator? No Is Patient Ambulatory and/or Out of Bed No REE-([facility]-confined to bed) 2995.386 Calculation Used for Recommendations [facility] Additional Notes Protein: 0.8-1 g/Kg ABW; 70-87 g/day. Fluids: 1 ml/Kcal, or as per MD. Nutrition Intervention Change Diet Order: Continue Regular Diet as tolerated. Follow-Up By: 03/30/22 Additional Comments Continue monitoring food tolerance, %PO intake of meals , and BM.
[2022-03-25] MEDS: ACETAMINOPHEN 325 MG TAB PO PRN (21:25)
[2022-03-26 06:19] VITALS: BP 114/63
[2022-03-26] MEDS: ACETAMINOPHEN 325 MG TAB PO PRN (06:20)
--- NOTE | 2022-03-26 09:10 | Discharge Summary ---
Providers - Providers Date of Admission: 03/22/22 15:02 Date of discharge: 03/26/22 Attending physician: DEMETRIO LANDA 03/22/22 11:37 Consult to Case Management [CONS] Urgent Services Needed at Discharge: [employer] Officer Notified:: y 03/22/22 21:08 Occupational Therapy Evaluate and Treat [CONS] Routine Comment: Reason For Exam: Severe debility Physical Therapy Evaluation and Treat [CONS] Routine Comment: Reason For Exam: Severe debility Speech Therapy Evaluation and Treat [CONS] Routine Reason For Exam: Dysphagia 03/23/22 06:33 Physical Therapy Evaluation and Treat [CONS] Routine Comment: Reason For Exam: Neuro deficits Primary care physician: [employer]ESS [employer] TE[employer] Hospitalization Reason for admission: Difficulty walking for 1 week Condition: Stable Hospital course: 57-year-old female patient with significant past medical history of craniotomy mental retardation and seizure disorder was admitted through emergency room with generalized weakness inability to walk for the last 1 week. Patient has a caregiver by name Samara who gives a history 1 week prior to admission patient was able to walk unassisted patient also had frequent falls initial examination in the ED with CT head with contrast no acute abnormality noted and CT lumbar spine no acute abnormality noted. Patient was admitted symptomatically managed with IV fluids physical therapy occupational therapy evaluated and recommended home health PT and rolling walker. However patient's Dilantin levels were in toxic range at 44.0, Dilantin was discontinued patient managed symptomatically and with supportive care.. Gradually Dilantin levels decreased to 40.7 and then 234.3 Meanwhile patient symptoms significantly improved. Today patient is comfortable, no new complaints, vital signs seem stable, physical examination prior to discharge no new changes. Patient is hemodynamically and clinically stable at discharge Patient also complains of some respiratory symptoms and an mild cough. Today patient is comfortable no new complaints, generalized weakness significantly improved, hemodynamically stable And patient is being discharged home with home health and rolling walker Total time spent to coordinate this discharge 65 minutes. 57-year-old female patient with a past medical history of MR /craniotomy and seizures presents to the hospital with increased weakness and inability to ambulate for the last week. Information obtained from both patient and her caregiver Felicia. Pascual has been her cousin/caregiver and guardian for 3 years. Up until 1 week ago patient was able to ambulate unassisted. For the past week she has been unable to stand and having frequent falls. She has been crawling on the floor on her knees. Patient complains of generalized leg pain not worse with movement or palpation. She denies headache or neck pain. Patient was seen here on March 16 with similar symptoms and prescribed Keflex for UTI PID x7 days. Patient currently has 7 tablets left (3.5 days worth). Patient is a very poor historian. The only complaint she has difficulty walking for 1 week - Past Medical History Hx Seizures: Yes Additional medical history: CAREGIVER STATES PATIENT IS MR. - Surgical History Additional Surgical History: PT HAS A SCAR ON THE SIDE OF HER HEAD, CAREGIVER IS UNSURE OF SURGERY --Dilantin toxicity ; DC Dilantin, closely monitor levels Seizure precautions -- General physical debility Severe physical debility PT evaluated the patient, recommend oral rolling walker and home health PT OT evaluated the patient recommend rolling walker and home health OT Continue supportive care --seizure disorder No new episodes of seizures Dilantin toxicity, Dilantin discontinued Check phenytoin level After Dilantin levels come back to normal levels We may switch to Keppra -- Advance care planning Disease education collected, care plan discussed, diagnosis discussed and prognosis discussed. Patient acknowledged understanding with care plan. +30 minutes. --DVT prophylaxis On heparin GI prophylaxis We will closely monitor the patient and adjust management as needed Plan of care reviewed with the patient and her nurse DC planning per case management 03/24/2022 Dilantin level 44.0-41.7 Closely monitor 03/25; Dilantin levels 34.3 Possible discharge in 1 to 2 days if stable and Dilantin levels are reasonable Plan of care reviewed with the patient and her nurse Disposition: 06 HOME HEALTH CARE SERVICE Final Discharge Diagnosis (Prints w/discharge instructions): I Dilantin toxicity /Dilantin levels improved. General physical debility/probably due to Dilantin toxicity improved. History of seizure disorder/no new episodes of seizure Time spent for discharge: 35 minutes Core Measure Documentation - Palliative Care Palliative Care/ Comfort Measures: Not Applicable - Core Measures Any of the following diagnoses?: none Exam - Constitutional Vitals: Temp Pulse Resp BP Pulse Ox 100.1 F H 100 H 17 114/63 97 03/26/22 06:14 03/26/22 06:14 03/26/22 07:20 03/26/22 06:14 03/26/22 06:14 General appearance: Present: no acute distress, well-nourished - EENT Eyes: Present: PERRL, EOM intact - Neck Neck: Present: supple, normal ROM - Respiratory Respiratory effort: normal Respiratory: bilateral: diminished, negative: rales, rhonchi, wheezing - Cardiovascular Rhythm: regular Heart Sounds: Present: S1 & S2 - Extremities Extremities: no ischemia, No edema - Abdominal General gastrointestinal: Present: soft, non-tender, non-distended, normal bowel sounds - Integumentary Integumentary: Present: clear, warm - Musculoskeletal Musculoskeletal: strength equal bilaterally, generalized weakness - Psychiatric Psychiatric: appropriate mood/affect, cooperative - Neurologic Neurologic: moves all extremities Plan Activity: advance as tolerated, no driving until cleared by PCP, fall precautions, other (Seizure precautions) Diet: regular Special Instructions: physical therapy Additional Instructions: If you have worsening symptoms contact MD or go to the nearest emergency room as needed. Fall precautions. Seizure precaution advised to see primary care physician in 1 week. Advised to see primary neurologist in 1 to 2 weeks. Advised to use rolling walker for safety Follow up with: PRIMARY CARE, [Primary Care Provider] - 3-5 Days BRANDI RESTREPO MD [Staff Physician] - 14 Days Prescriptions: Acetaminophen [Acetaminophen TAB] 650 mg PO Q4H PRN #20 tablet PRN Reason: Pain MILD(1-3)/Fever >100.5/VALLADARES levETIRAcetam [Keppra TAB] 500 mg PO BID #60 tablet guaiFENesin [Robitussin] 200 mg PO Q4H #20 Azithromycin [Zithromax Z-SAI] 0 mg PO DAILY #1 tab
[2022-03-26] MEDS ORDERED: levETIRAcetam 500 MG/5 ML ORAL LIQD PO SCH (10:00)
== END 2022-03-26 14:45 | disposition home health service (06) | DRG 918 ==
LOC: ED 20:30 → 3A 03-22 15:02
PROVIDERS: ADMIT Internal Medicine; ATTEND Internal Medicine
DX: T42.0X1A Poisoning by hydantoin derivatives, accidental (unintentional), initial encounter (principal); R29.898 Other symptoms and signs involving the musculoskeletal system; R26.2 Difficulty in walking, not elsewhere classified; E86.0 Dehydration; R53.81 Other malaise; G40.909 Epilepsy, unspecified, not intractable, without status epilepticus; Y92.89 Other specified places as the place of occurrence of the external cause
CPT/HCPCS: 36415; 70450; 72131; 80048; 80053; 80185; 81001; 83735; 85025; 93005; 99406; G0378; J7030

== ENCOUNTER 2022-04-12 09:01 | Inpatient (IN) | payer MEDICARE ==
[2022-04-12] MEDS ORDERED: levETIRAcetam 1000 MG/NS 0.75% 1,000 MG/100 ML BAG IV ONE (09:07)
[2022-04-12] MEDS ORDERED: SODIUM CHLORIDE 0.9% 500 ML 500 ML IV ONE (09:07)
[2022-04-12] MEDS ORDERED: MIDAZOLAM 2 MG/2 ML INJ IM STA (09:09)
[2022-04-12] MEDS ORDERED: MIDAZOLAM 5 MG/5 ML INJ MDV IV NR (09:30)
[2022-04-12] MEDS ORDERED: SODIUM CHLORIDE 0.9% 1000 ML IV SOLN IV ONE (09:32)
[2022-04-12] MEDS ORDERED: cefTRIAXone/NS 2 GM/100 ML 2 GM/100 ML BAG IV ONE (09:33)
[2022-04-12] MEDS ORDERED: LIP THERAPY VASELINE TP PRN (09:35)
[2022-04-12] MEDS ORDERED: MINERAL OIL/PETROLATUM, WHITE OPHTH OINT 3.5 GM OU PRN (09:35)
[2022-04-12] MEDS ORDERED: MIDAZOLAM 2 MG/2 ML INJ IV PRN (09:36)
--- NOTE | 2022-04-12 09:45 | Emergency Department Report ---
ED General Adult HPI - General Chief complaint: Seizure Stated complaint: SEIZURES Time Seen by Provider: 04/12/22 09:07 Source: EMS (Verbal report received from emergency medical services. EMS documentation not available at time of chart dictation ), RN notes reviewed, old records reviewed Mode of arrival: Stretcher Limitations: Altered Mental Status, Physical Limitation - History of Present Illness Initial comments: The patient was evaluated in the emergency department for symptoms described in the history of present illness. He/she was evaluated in the context of the global COVID-19 pandemic, which necessitated consideration that the patient might be at risk for infection with the virus that causes COVID-19. Institutional protocols and algorithms that pertain to the evaluation of patients at risk for COVID-19 are in a state of rapid change based on information released by regulatory bodies including the CDC and federal and state organizations. These policies and algorithms were followed during the patient's care in the emergency department. Please note that these policies, procedures and recommendations changed on a rapid basis. The patient is a 57-year-old female. Her past medical history is remarkable for craniotomy, mental retardation, and seizure disorder. Patient is brought to the hospital by emergency medical services with an EMS articulated complaint of possible seizures and altered mental status. EMS reports unremarkable vital signs and Accu-Chek in the field, and report that they are unable to obtain IV access. They state that there is no history of trauma that they are aware of, and the patient is picked up from the bed. They gave the patient 5 mg of midazolam in the field. In the emergency room, the patient is having a seizure, and we are unable to initially obtain IV access. Her Accu-Chek is within normal limits. Patient received an additional 5 mg of midazolam IM under my direct instruction. She has improvement in convulsive activity, definitive IV access is required. I obtained emergent ultrasound-guided IV access, and patient received additional midazolam, 5 mg, Keppra is also ordered. Seizure stopped. No further convulsive activity is noted. At this point time, the patient had difficulty breathing, did not have a gag reflex, and was intubated with RSI techniques for airway protection. No history is available at this time. Her last known well time is not known. -: unknown - Related Data Home Medications Medication Instructions Recorded Confirmed Last Taken AtorvaSTATin [Lipitor] 20 mg PO QHS 03/22/22 03/22/22 Unknown Previous Rx's Medication Instructions Recorded Last Taken Type Acetaminophen [Acetaminophen TAB] 650 mg PO Q4H PRN #20 tablet 03/26/22 Unknown Rx Azithromycin [Zithromax Z-SAI] 0 mg PO DAILY #1 tab 03/26/22 Unknown Rx guaiFENesin [Robitussin] 200 mg PO Q4H #20 03/26/22 Unknown Rx levETIRAcetam [Keppra TAB] 500 mg PO BID #60 tablet 03/26/22 Unknown Rx Allergies Allergy/AdvReac Type Severity Reaction Status Date / Time No Known Allergies Allergy Verified 03/15/22 17:15 ED Review of Systems ROS: Stated complaint: SEIZURES Other details as noted in HPI ED Past Medical Hx - Past Medical History Hx Seizures: Yes Additional medical history: CAREGIVER STATES PATIENT IS MR. - Surgical History Additional Surgical History: PT HAS A SCAR ON THE SIDE OF HER HEAD, CAREGIVER IS UNSURE OF SURGERY - Social History Smoking Status: Current Some Day Smoker - Medications Home Medications: Home Medications Medication Instructions Recorded Confirmed Last Taken Type AtorvaSTATin [Lipitor] 20 mg PO QHS 03/22/22 03/22/22 Unknown History Acetaminophen [Acetaminophen TAB] 650 mg PO Q4H PRN #20 tablet 03/26/22 Unknown Rx Azithromycin [Zithromax Z-SAI] 0 mg PO DAILY #1 tab 03/26/22 Unknown Rx guaiFENesin [Robitussin] 200 mg PO Q4H #20 03/26/22 Unknown Rx levETIRAcetam [Keppra TAB] 500 mg PO BID #60 tablet 03/26/22 Unknown Rx ED Physical Exam - General Limitations: Altered Mental Status General appearance: lethargic, in distress - Head Head exam: Present: atraumatic, normocephalic - Eye Eye exam: Present: normal appearance - ENT ENT exam: Present: mucous membranes dry, normal external ear exam - Neck Neck exam: Present: normal inspection. Absent: tenderness, meningismus - Respiratory Respiratory exam: Present: respiratory distress, rhonchi. Absent: stridor - Cardiovascular Cardiovascular Exam: Present: normal rhythm, tachycardia, normal heart sounds. Absent: bradycardia, irregular rhythm, systolic murmur, diastolic murmur, rubs, gallop - GI/Abdominal GI/Abdominal exam: Present: soft. Absent: distended, tenderness, guarding, rebound, rigid, pulsatile mass - Rectal Rectal exam: Present: normal inspection - External exam: Present: normal external exam - Extremities Exam Extremities exam: Present: full ROM (The patient is moving 4 extremities.), pedal edema, other (2+ pulses noted in the bilateral upper and lower extremitie s. There is no palpable cord. negative Homans sign. Muscular compartments are soft. The pelvis is stable.). Absent: normal inspection (Chronic appearing garcia noted to the upper extremity) - Back Exam Back exam: Present: normal inspection. Absent: tenderness, CVA tenderness (R), CVA tenderness (L), paraspinal tenderness, vertebral tenderness - Neurological Exam Neurological exam: Present: altered, other (Patient moving 4 extremities. Patient is postictal) - Skin Skin exam: Present: warm, dry, intact, normal color. Absent: rash ED Course Vital Signs 04/12/22 04/12/22 04/12/22 09:01 09:45 09:57 Temperature 100.7 F H Pulse Rate 96 H 124 H Respiratory 16 18 Rate Blood Pressure Blood Pressure 70/45 75/42 [Left] O2 Sat by Pulse 98 100 Oximetry 04/12/22 04/12/22 04/12/22 10:13 10:22 10:30 Temperature Pulse Rate 108 H 105 H 101 H Respiratory 18 16 19 Rate Blood Pressure Blood Pressure 90/64 [Left] O2 Sat by Pulse 100 100 100 Oximetry 04/12/22 04/12/22 04/12/22 10:46 11:00 11:01 Temperature Pulse Rate 96 H 94 H 99 H Respiratory 18 18 19 Rate Blood Pressure 132/101 135/94 Blood Pressure 135/94 [Left] O2 Sat by Pulse 100 100 100 Oximetry 04/12/22 04/12/22 04/12/22 11:16 11:30 11:58 Temperature Pulse Rate 94 H 105 H 106 H Respiratory 18 18 15 Rate Blood Pressure 143/96 137/97 151/98 Blood Pressure [Left] O2 Sat by Pulse 100 100 97 Oximetry 04/12/22 12:00 Temperature Pulse Rate Respiratory Rate Blood Pressure Blood Pressure [Left] O2 Sat by Pulse 100 Oximetry - Reevaluation(s) Reevaluation #1: 04/12/22 11:17 Differential diagnosis, including but limited to: Seizure, pneumonia, UTI, renal insufficiency, intracranial lesion, perforated viscus Assessment and plan: 57-year-old female presenting with seizures, required multiple rounds of midazolam to terminate seizures. Seizures terminated, but after multiple doses of midazolam, requires intubation for airway protection. It should be noted that seizure stopped after midazolam doses Patient intubated for airway protection, and a code sepsis is called overhead. She is found to have lactic acidosis, renal insufficiency, and systemic inflammatory response syndrome. Rectal acetaminophen ordered. Urinalysis pending. Noncontrast CT scan of the brain pending. Noncontrast CT scan abdomen pelvis pending. She is also loaded with Keppra. EKG is pending. Discussed the patient's history, physical, and clinical impression with critical care physician on-call, Dr. Heather Ortiz, who will follow in consultation. Once remainder of imaging studies have resulted, we will admit the patient to the ICU 04/12/22 12:23 Patient found to have evidence of UTI, COVID, renal insufficiency, right l sided pneumonia. Noncontrast CT scan of the brain negative for acute findings. CT scan abdomen pelvis demonstrates uterine fibroid disease, and right-sided pneumonia. Blood pressure improved at this time. Antibiotics, fluids are ordered. Isolation precautions are continued. Hospital physician, Dr. Hartman, to admit patient to the medical service - EJ/Peripheral Line Other Additional Comments: Patient actively seizing. Unable to obtain peripheral IV access. Using ultraso und guidance in real-time, a 3 inch 18-gauge Angiocath was inserted under direct visualization in the left internal jugular vein, under emergent circumstances The skin was prepped with typical alcohol swabs. This line may be used for up to 24 hours, but it should be taken out as soon as possible, as it was placed under crash situation, without maximum barrier sterile technique. - Intubation Time Out Performed: No (Emergency situation) Sedative: Etomidate Mg Given: 20 Paralytic: Rocuronium Mg Given: 50 Size: 3 Assist Device Used: fiberoptic device ET Tube Size: 7.5 Tube Secured Depth (cm): 24 Tube Secured Location: teeth Tube Placement Confirmation: visualized tube passing t, equal breath sounds bilat, no breath sounds over epi, confirmation by capnometr Patient Tolerated Procedure: well Intubation Complications: none Additional Comments: Patient placed on nasal cannula 15 L/min. Received simultaneous [id number] ventilation. Preoxygenated to 99/100%. Video laryngoscopy is performed, with a curved S4 video laryngoscope scope blade, and a 7.5 endotracheal tube is gently inserted into the oropharynx, after appropriate suctioning. The tube is placed through the trachea without difficulty, stylette is removed, helicopter pilot balloon is inflated, and end-tidal capnography confirmatory device is attached to the endotracheal tube, and there is appropriate end-tidal capnography color change. Condensation is noted on the tube, and there are appropriate breath sounds appreciated bilaterally. The patient tolerated the procedure well, without obvious complication ED Medical Decision Making - Lab Data Result diagrams: 04/12/22 09:11 04/12/22 09:11 Vital Signs 04/12/22 04/12/22 04/12/22 09:01 09:45 09:57 Temperature 100.7 F H Pulse Rate 96 H 124 H Respiratory 16 18 Rate Blood Pressure Blood Pressure 70/45 75/42 [Left] O2 Sat by Pulse 98 100 Oximetry 04/12/22 04/12/22 04/12/22 10:13 10:22 10:30 Temperature Pulse Rate 108 H 105 H 101 H Respiratory 18 16 19 Rate Blood Pressure Blood Pressure 90/64 [Left] O2 Sat by Pulse 100 100 100 Oximetry 04/12/22 04/12/22 10:46 11:01 Temperature Pulse Rate 96 H 99 H Respiratory 18 19 Rate Blood Pressure 132/101 Blood Pressure 135/94 [Left] O2 Sat by Pulse 100 100 Oximetry Lab Results 04/12/22 04/12/22 04/12/22 Range/Units 09:11 09:11 09:11 WBC 12.8 H (4.5-11.0) K/mm3 RBC 4.08 (3.65-5.03) M/mm3 Hgb 12.8 (10.1-14.3) gm/dl Hct 37.7 (30.3-42.9) % MCV 92 (79-97) fl MCH 31 (28-32) pg MCHC 34 (30-34) % RDW 14.2 (13.2-15.2) % Plt Count 366 (140-440) K/mm3 Seg Neutrophils % Mixing Plant Operator PT (12.2-14.9) Sec. INR (0.87-1.13) APTT (24.2-36.6) Sec. Sodium 148 H (137-145) mmol/L Potassium 4.7 (3.6-5.0) mmol/L Chloride 107.2 H (98-107) mmol/L Carbon Dioxide 21 L (22-30) mmol/L Anion Gap 25 mmol/L BUN 37 H (7-17) mg/dL Creatinine 3.2 H (0.6-1.2) mg/dL Estimated GFR 18 ml/min BUN/Creatinine Ratio 12 % Glucose 102 H (65-100) mg/dL Lactic Acid (0.7-2.0) mmol/L Calcium 10.2 (8.4-10.2) mg/dL Total Bilirubin 0.50 (0.1-1.2) mg/dL AST 48 H (5-40) units/L ALT 35 (7-56) units/L Alkaline Phosphatase 118 (35-129) units/L Total Protein 9.0 H (6.3-8.2) g/dL Albumin 4.6 (3.9-5) g/dL Albumin/Globulin Ratio 1.0 % Salicylates < 0.3 L (2.8-20.0) mg/dL Acetaminophen (10.0-30.0) ug/mL Valproic Acid < 2.8 L (50-100) ug/mL Plasma/Serum Alcohol (0-0.07) % 04/12/22 04/12/22 04/12/22 Range/Units 09:11 09:11 09:11 WBC (4.5-11.0) K/mm3 RBC (3.65-5.03) M/mm3 Hgb (10.1-14.3) gm/dl Hct (30.3-42.9) % MCV (79-97) fl MCH (28-32) pg MCHC (30-34) % RDW (13.2-15.2) % Plt Count (140-440) K/mm3 Seg Neutrophils % PT 15.3 H (12.2-14.9) Sec. INR 1.09 (0.87-1.13) APTT 27.4 (24.2-36.6) Sec. Sodium (137-145) mmol/L Potassium (3.6-5.0) mmol/L Chloride (98-107) mmol/L Carbon Dioxide (22-30) mmol/L Anion Gap mmol/L BUN (7-17) mg/dL Creatinine (0.6-1.2) mg/dL Estimated GFR ml/min BUN/Creatinine Ratio % Glucose (65-100) mg/dL Lactic Acid (0.7-2.0) mmol/L Calcium (8.4-10.2) mg/dL Total Bilirubin (0.1-1.2) mg/dL AST (5-40) units/L ALT (7-56) units/L Alkaline Phosphatase (35-129) units/L Total Protein (6.3-8.2) g/dL Albumin (3.9-5) g/dL Albumin/Globulin Ratio % Salicylates (2.8-20.0) mg/dL Acetaminophen 5.0 L (10.0-30.0) ug/mL Valproic Acid (50-100) ug/mL Plasma/Serum Alcohol < 0.01 (0-0.07) % 04/12/22 Range/Units 09:38 WBC (4.5-11.0) K/mm3 RBC (3.65-5.03) M/mm3 Hgb (10.1-14.3) gm/dl Hct (30.3-42.9) % MCV (79-97) fl MCH (28-32) pg MCHC (30-34) % RDW (13.2-15.2) % Plt Count (140-440) K/mm3 Seg Neutrophils % PT (12.2-14.9) Sec. INR (0.87-1.13) APTT (24.2-36.6) Sec. Sodium (137-145) mmol/L Potassium (3.6-5.0) mmol/L Chloride (98-107) mmol/L Carbon Dioxide (22-30) mmol/L Anion Gap mmol/L BUN (7-17) mg/dL Creatinine (0.6-1.2) mg/dL Estimated GFR ml/min BUN/Creatinine Ratio % Glucose (65-100) mg/dL Lactic Acid 3.30 H* (0.7-2.0) mmol/L Calcium (8.4-10.2) mg/dL Total Bilirubin (0.1-1.2) mg/dL AST (5-40) units/L ALT (7-56) units/L Alkaline Phosphatase (35-129) units/L Total Protein (6.3-8.2) g/dL Albumin (3.9-5) g/dL Albumin/Globulin Ratio % Salicylates (2.8-20.0) mg/dL Acetaminophen (10.0-30.0) ug/mL Valproic Acid (50-100) ug/mL Plasma/Serum Alcohol (0-0.07) % - EKG Data 04/12/22 12:22 The EKG is interpreted at 12: 10 Sinus tachycardia, rate 104 bpm. Left axis deviation. Left anterior fascicular block. LVH. Nonspecific T wave abnormalities. Not a STEMI. - Radiology Data Radiology results: pending, report reviewed, image reviewed XR chest 1V ap, XR abdomen 1V ap INDICATION / CLINICAL INFORMATION: Seizures with rhonchi. COMPARISON: None available. FINDINGS: TUBES / LINES: Endotracheal tube projects in the midtrachea. Enteric catheter tip projects over the proximal duodenum. CHEST: Heart size is normal. Lungs are clear. No pleural effusion or pneumothorax. BOWEL GAS PATTERN: Gas-filled small and large bowel loops with moderate colonic stool burden in the right colon. No significant small bowel dilatation. FREE AIR / EXTRALUMINAL GAS: None seen. ADDITIONAL FINDINGS: Calcified uterine fibroids. IMPRESSION: 1. No acute findings the chest. 2. Nonspecific bowel gas pattern. Diffuse gas-filled small and large bowel loops likely reflect ileus. No evidence of obstruction. 3. Support devices, as above. Signer Name: Quentin Kent MD Signed: 04/12/2022 8:58 AM Workstation Name: [email or web address] cn CT ABDOMEN AND PELVIS WITHOUT CONTRAST HISTORY: Abdominal distention with renal insufficiency COMPARISON: None. TECHNIQUE: Axial CT images were obtained through the abdomen and pelvis without IV contrast. Sagittal and coronal reformatted images. All CT scans at this location are performed using CT dose reduction for ALARA by means of automated exposure control. FINDINGS: CT ABDOMEN: Lung Bases: There is infiltrate or atelectasis in the medial right lower lobe. Otherwise the lung bases are clear. Normal heart size. Liver: No significant abnormality. Biliary: The gallbladder appears to be collapsed and unremarkable. No biliary dilatation. Spleen: No significant abnormality. Unenlarged. Pancreas: No significant abnormality. Adrenals: No significant abnormality. Kidneys: The right kidney is anteriorly rotated. No evidence for obstructive uropathy, nephrolithiasis or focal renal lesion. Lymphatics: No lymphadenopathy. Vasculature: No significant abnormality. Bowel/Peritoneum: A nasogastric tube terminates in the duodenal bulb. No evidence for bowel ob struction or focal inflammation. The appendix is not confidently identified. CT PELVIS: : There is a large partially calcified fibroid in the posterior fundal region measuring up to 6 cm in diameter. Smaller noncalcified fibroids are suspected. No adnexal abnormality. A Mckeon catheter is present in the bladder. There is poor bladder distention there is suggestion of mild bladder wall thickening. A cystitis could be considered. Osseous Structures: No significant abnormality. Additional Findings: None IMPRESSION: Right lower lobe infiltrate or atelectasis. Uterine fibroid disease. Mild bladder wall thickening is suggested which could represent cystitis. Signer Name: Smith Gallardo Jr, MD Signed: 04/12/2022 11:08 AM Workstation Name: [id number] CT HEAD WITHOUT CONTRAST INDICATION / CLINICAL INFORMATION: Seizure. TECHNIQUE: Axial imaging performed from the skull apex through the skull base without the use of contrast. Sagittal and coronal reformatted images. All CT scans at this location are performed using CT dose reduction for [place] by means of automated exposure control. COMPARISON: 03/22/2022 FINDINGS: CEREBRAL PARENCHYMA: Moderate sized areas of encephalomalacia in the medial right frontal lobe and anterolateral left frontal lobe are unchanged. No acute parenchymal a bnormality is detected. HEMORRHAGE: None. EXTRA-AXIAL SPACES: Normal in size and morphology for the patient's age. VENTRICULAR SYSTEM: Normal in size and morphology for the patient's age. MIDLINE SHIFT OR HERNIATION: None. CEREBELLUM / BRAINSTEM: No significant abnormality. 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 ORBITS: Normal as visualized. PARANASAL SINUSES / MASTOID AIR CELLS: Normal as visualized. SOFT TISSUES of HEAD: No significant abnormality. ADDITIONAL FINDINGS: None. IMPRESSION: No acute intracranial abnormality. Chronic encephalomalacia/surgical changes in the frontal lobes as described. No change since 03/22/2022. Signer Name: Smith Gallardo Jr, MD Signed: 04/12/2022 11:04 AM Workstation Name: [id number] Critical Care Time: Yes Critical care time in (mins) excluding proc time.: 45 Critical care attestation.: If time is entered above; I have spent that time in minutes in the direct care of this critically ill patient, excluding procedure time. ED Disposition Clinical Impression: Acute respiratory failure, Acute renal failure, Systemic inflammatory response syndrome (SIRS), Seizure, UTI (urinary tract infection), COVID-19, Pulmonary infiltrate Disposition: 09 ADMITTED INPATIENT Is pt being admited?: Yes Does the pt Need Aspirin: No Condition: Critical Referrals: PRIMARY CARE,MD [Primary Care Provider] - 3-5 Days
[2022-04-12] MEDS ORDERED: MIDAZOLAM/NS Drip 100mg/100ml 100 MG/100 ML BAG IV SCH (10:00)
--- NOTE | 2022-04-12 10:03 | XRay Report ---
XR chest 1V ap, XR abdomen 1V ap INDICATION / CLINICAL INFORMATION: Seizures with rhonchi. COMPARISON: None available. FINDINGS: TUBES / LINES: Endotracheal tube projects in the midtrachea. Enteric catheter tip projects over the p roximal duodenum. CHEST: Heart size is normal. Lungs are clear. No pleural effusion or pneumothorax. BOWEL GAS PATTERN: Gas-filled small and large bowel loops with moderate colonic stool burden in the r ight colon. No significant small bowel dilatation. FREE AIR / EXTRALUMINAL GAS: None seen. ADDITIONAL FINDINGS: Calcified uterine fibroids. IMPRESSION: 1. No acute findings the chest. 2. Nonspecific bowel gas pattern. Diffuse gas-filled small and large bowel loops likely reflect ileus . No evidence of obstruction. 3. Support devices, as above. Signer Name: Quentin Kent MD Signed: 04/12/2022 9:58 AM Workstation Name: [id number]
[2022-04-12 10:12] LABS: Hematocrit 37.7 % (30.3-42.9); Hemoglobin 12.8 gm/dl (10.1-14.3); Mean Corpuscular HGB Conc 34 % (30-34); Mean Corpuscular Volume 92 fl (79-97); Platelet Count 366 K/mm3 (140-440); Red Blood Count 4.08 M/mm3 (3.65-5.03); Red Cell Distribution Width 14.2 % (13.2-15.2)
[2022-04-12 10:24] LABS: INR 1.09 (0.87-1.13)
[2022-04-12 10:25] LABS: Albumin 4.6 g/dL (3.9-5); Calcium 10.2 mg/dL (8.4-10.2); Partial Thromboplastin Time 27.4 Sec. (24.2-36.6)
[2022-04-12] MEDS ORDERED: levETIRAcetam 1,000 MG in DEXTROSE 5% IN WATER 100 ML IV ONE (10:30)
[2022-04-12] MEDS: SENNOSIDES/DOCUSATE SODIUM 8.6/50 MG TAB FEEDTUBE SCH ×2 (10:30→22:20)
[2022-04-12] MEDS ORDERED: ACETAMINOPHEN 650 MG RECT SUPP PR ONE (11:08)
[2022-04-12 11:16] LABS: Mucus,Urine 3+ /HPF
[2022-04-12 11:20] LABS: Color,Urine Yellow (Yellow); WBC,Urine < 182.0 /HPF (0.0-6.0)
[2022-04-12 12:04] LABS: ABG Base Excess -4.2 mmol/L (-2.0-3.0); ABG HCO3 20.3 mmol/L (20.0-26.0); ABG Methemoglobin 0.6 % (0.0-1.5); ABG Oxygen Saturation 98.9 % (95.0-99.0); ABG PCO2 35.4 mm Hg; ABG PH 7.376 pH Units (7.350-7.450); ABG PO2 152.6 mm Hg (80.0-90.0)
--- NOTE | 2022-04-12 12:09 | Cat Scan Report ---
CT HEAD WITHOUT CONTRAST INDICATION / CLINICAL INFORMATION: Seizure. TECHNIQUE: Axial imaging performed from the skull apex through the skull base without the use of cont rast. Sagittal and coronal reformatted images. All CT scans at this location are performed using CT dose reduction for ALARA by means of automated exposure control. COMPARISON: 03/22/2022 FINDINGS: CEREBRAL PARENCHYMA: Moderate sized areas of encephalomalacia in the medial right frontal lobe and an terolateral left frontal lobe are unchanged. No acute parenchymal abnormality is detected. HEMORRHAGE: None. EXTRA-AXIAL SPACES: Normal in size and morphology for the patient's age. VENTRICULAR SYSTEM: Normal in size and morphology for the patient's age. MIDLINE SHIFT OR HERNIATION: None. CEREBELLUM / BRAINSTEM: No significant abnormality. 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 ORBITS: Normal as visualized. PARANASAL SINUSES / MASTOID AIR CELLS: Normal as visualized. SOFT TISSUES of HEAD: No significant abnormality. ADDITIONAL FINDINGS: None. IMPRESSION: No acute intracranial abnormality. Chronic encephalomalacia/surgical changes in the frontal lobes as described. No change since 03/22/2022. Signer Name: Smith Gallardo Jr, MD Signed: 04/12/2022 12:04 PM Workstation Name: [id number]
--- NOTE | 2022-04-12 12:12 | Cat Scan Report ---
CT ABDOMEN AND PELVIS WITHOUT CONTRAST HISTORY: Abdominal distention with renal insufficiency COMPARISON: None. TECHNIQUE: Axial CT images were obtained through the abdomen and pelvis without IV contrast. Sagittal and coronal reformatted images. All CT scans at this location are performed using CT dose reduction for ALARA by means of automated exposure control. FINDINGS: CT ABDOMEN: Lung Bases: There is infiltrate or atelectasis in the medial right lower lobe. Otherwise the lung bas es are clear. Normal heart size. Liver: No significant abnormality. Biliary: The gallbladder appears to be collapsed and unremarkable. No biliary dilatation. Spleen: No significant abnormality. Unenlarged. Pancreas: No significant abnormality. Adrenals: No significant abnormality. Kidneys: The right kidney is anteriorly rotated. No evidence for obstructive uropathy, nephrolithiasi s or focal renal lesion. Lymphatics: No lymphadenopathy. Vasculature: No significant abnormality. Bowel/Peritoneum: A nasogastric tube terminates in the duodenal bulb. No evidence for bowel obstructi on or focal inflammation. The appendix is not confidently identified. CT PELVIS: : There is a large partially calcified fibroid in the posterior fundal region measuring up to 6 cm in diameter. Smaller noncalcified fibroids are suspected. No adnexal abnormality. A Mckeon catheter is present in the bladder. There is poor bladder distention there is suggestion of mild bladder wall th ickening. A cystitis could be considered. Osseous Structures: No significant abnormality. Additional Findings: None IMPRESSION: Right lower lobe infiltrate or atelectasis. Uterine fibroid disease. Mild bladder wall thickening is suggested which could represent cystitis. Signer Name: Smith Gallardo Jr, MD Signed: 04/12/2022 12:08 PM Workstation Name: [id number]
[2022-04-12] MEDS ORDERED: ONDANSETRON 4 MG/2 ML INJ IV PRN (12:38)
[2022-04-12] MEDS ORDERED: ACETAMINOPHEN 325 MG TAB PO PRN (12:38)
[2022-04-12] MEDS ORDERED: ALBUTEROL 2.5 MG/3 ML NEBU IH PRN (12:38)
[2022-04-12] MEDS ORDERED: oxyCODONE /ACETAMINOPHEN 5-325MG TAB PO PRN (12:38)
--- NOTE | 2022-04-12 12:38 | History and Physical Report ---
History of Present Illness Chief complaint: She is having seizures History of present illness: 57 YO Female with Obesity, MR, Nicotine Dependence, Seizure Disorder presents to ED for evaluation. Patient is intubated and on ventilatory support at time of evaluation and is unable to provide history. Patient history taken by EMS staff, ED staff, as well as patient family was made available by telephone for interview. As per family the patient was found to have multiple recurrent seizures this morning. EMS was notified and upon arrival the patient was found to be in distress and subsequently transported to [facility] for further care and evaluation of the aforementioned symptoms. Patient seen and evaluated in the em ergency department. All lab and imaging studies reviewed. Patient found to have multiple recurrent seizures while in the emergency department which is consistent with status epilepticus. Patient also was found to become hypoxic and and unable to protect her airway. The patient was found to have acute hypoxemic respiratory failure and was intubated and placed on ventilatory support. The patient was also found to have coronavirus infection, as well as urinary tract infection. No reports of fever, chills, chest pain, palpitation, trauma, recent contact, known exposure to COVID-19. Prior mission on 1821 reviewed. All medication listed at time of admission has been reconciled. Advanced care planning conducted in ED. Past History Past Medical History: seizures, other (See HPI) Past Surgical History: Other (Craniotomy) Social history: single, smoking. denies: alcohol abuse, prescription drug abuse Family history: hypertension Medications and Allergies Allergies Allergy/AdvReac Type Severity Reaction Status Date / Time No Known Allergies Allergy Verified 03/15/22 17:15 Home Medications Medication Instructions Recorded Confirmed Last Taken Type AtorvaSTATin [Lipitor] 20 mg PO QHS 03/22/22 03/22/22 Unknown History Acetaminophen [Acetaminophen TAB] 650 mg PO Q4H PRN #20 tablet 03/26/22 Unknown Rx Azithromycin [Zithromax Z-SAI] 0 mg PO DAILY #1 tab 03/26/22 Unknown Rx guaiFENesin [Robitussin] 200 mg PO Q4H #20 03/26/22 Unknown Rx levETIRAcetam [Keppra TAB] 500 mg PO BID #60 tablet 03/26/22 Unknown Rx Active Meds: Active Medications Famotidine (Famotidine 20 Mg/2 Ml Inj) 20 mg IV BID ISIAH Hydrophilic Ointment (Lip Therapy Vaseline) 1 applic TP Q2HR PRN PRN Reason: Dry Lips MIDAZOLAM/NS Drip 100mg/100ml (Midazolam/Ns Drip 100mg/100ml) 100 mg in 100 mls @ 1 mls/hr IV TITR ISIAH; Protocol Midazolam HCl (Midazolam 5 Mg/5 Ml Inj Mdv) 5 mg IV ONCE NR Stop: 04/12/22 13:00 Last Admin: 04/12/22 09:30 Dose: 5 mg Midazolam HCl (Midazolam 2 Mg/2 Ml Inj) 2 mg IV Q10MIN PRN PRN Reason: Sedation Multi-Ingred Cream/Lotion/Oil/Oint (Mineral Oil/Petrolatum, White Ophth Oint 3.5 Gm) 1 applic OU Q4HR PRN PRN Reason: Dry Eye(s) Senna/Docusate Sodium (Sennosides/Docusate Sodium 8.6/50 Mg Tab) 1 tab FEEDTUBE BID ISIAH Last Admin: 04/12/22 10:30 Dose: Not Given Review of Systems ROS unobtainable: due to endotracheal tube, due to mental status Exam - Constitutional Vitals: Temp Pulse Resp BP Pulse Ox 100.7 F H 106 H 15 151/98 100 04/12/22 09:01 04/12/22 11:58 04/12/22 11:58 04/12/22 11:58 04/12/22 12:00 General appearance: Present: mild distress, obese - EENT Eyes: Present: miosis ENT: hearing decreased - Neck Neck: Present: supple, normal ROM - Respiratory Respiratory effort: labored Respiratory: bilateral: diminished - Cardiovascular Heart Sounds: Present: S1 & S2. Absent: rub, click - Extremities Extremities: pulses symmetrical, No edema Peripheral Pulses: within normal limits - Abdominal General gastrointestinal: Present: soft, non-tender, non-distended, normal bowel sounds Female genitourinary: Present: normal - Integumentary Integumentary: Present: clear, warm, dry - Musculoskeletal Musculoskeletal: generalized weakness - Psychiatric Psychiatric: no appropriate mood/affect, no intact judgment & insight, no memory intact - Neurologic Neurologic: CNII-XII intact, no focal deficits, moves all extremities, no gait normal Results - Labs CBC & Chem 7: 04/12/22 09:11 04/12/22 09:11 Labs: Abnormal lab results 04/12/22 04/12/22 04/12/22 Range/Units 09:11 09:11 09:11 WBC 12.8 H (4.5-11.0) K/mm3 PT (12.2-14.9) Sec. ABG pO2 (80.0-90.0) mm Hg ABG Base Excess (-2.0-3.0) mmol/L Sodium 148 H (137-145) mmol/L Chloride 107.2 H (98-107) mmol/L Carbon Dioxide 21 L (22-30) mmol/L BUN 37 H (7-17) mg/dL Creatinine 3.2 H (0.6-1.2) mg/dL Glucose 102 H (65-100) mg/dL Lactic Acid (0.7-2.0) mmol/L AST 48 H (5-40) units/L Total Creatine Kinase (30-135) units/L Total Protein 9.0 H (6.3-8.2) g/dL Urine WBC (Auto) (0.0-6.0) /HPF Salicylates < 0.3 L (2.8-20.0) mg/dL Acetaminophen (10.0-30.0) ug/mL Phenytoin 1.2 L (10.0-20.0) ug/mL Valproic Acid < 2.8 L (50-100) ug/mL SARS-CoV-2 (PCR) (Negative) 04/12/22 04/12/22 04/12/22 Range/Units 09:11 09:11 09:38 WBC (4.5-11.0) K/mm3 PT 15.3 H (12.2-14.9) Sec. ABG pO2 (80.0-90.0) mm Hg ABG Base Excess (-2.0-3.0) mmol/L Sodium (137-145) mmol/L Chloride (98-107) mmol/L Carbon Dioxide (22-30) mmol/L BUN (7-17) mg/dL Creatinine (0.6-1.2) mg/dL Glucose (65-100) mg/dL Lactic Acid 3.30 H* (0.7-2.0) mmol/L AST (5-40) units/L Total Creatine Kinase (30-135) units/L Total Protein (6.3-8.2) g/dL Urine WBC (Auto) (0.0-6.0) /HPF Salicylates (2.8-20.0) mg/dL Acetaminophen 5.0 L (10.0-30.0) ug/mL Phenytoin (10.0-20.0) ug/mL Valproic Acid (50-100) ug/mL SARS-CoV-2 (PCR) (Negative) 04/12/22 04/12/22 04/12/22 Range/Units 10:56 11:29 11:42 WBC (4.5-11.0) K/mm3 PT (12.2-14.9) Sec. ABG pO2 152.6 H (80.0-90.0) mm Hg ABG Base Excess -4.2 L (-2.0-3.0) mmol/L Sodium (137-145) mmol/L Chloride (98-107) mmol/L Carbon Dioxide (22-30) mmol/L BUN (7-17) mg/dL Creatinine (0.6-1.2) mg/dL Glucose (65-100) mg/dL Lactic Acid (0.7-2.0) mmol/L AST (5-40) units/L Total Creatine Kinase 1568 H (30-135) units/L Total Protein (6.3-8.2) g/dL Urine WBC (Auto) (0.0-6.0) /HPF Salicylates (2.8-20.0) mg/dL Acetaminophen (10.0-30.0) ug/mL Phenytoin (10.0-20.0) ug/mL Valproic Acid (50-100) ug/mL SARS-CoV-2 (PCR) Positive A (Negative) 04/12/22 Range/Units Unknown WBC (4.5-11.0) K/mm3 PT (12.2-14.9) Sec. ABG pO2 (80.0-90.0) mm Hg ABG Base Excess (-2.0-3.0) mmol/L Sodium (137-145) mmol/L Chloride (98-107) mmol/L Carbon Dioxide (22-30) mmol/L BUN (7-17) mg/dL Creatinine (0.6-1.2) mg/dL Glucose (65-100) mg/dL Lactic Acid (0.7-2.0) mmol/L AST (5-40) units/L Total Creatine Kinase (30-135) units/L Total Protein (6.3-8.2) g/dL Urine WBC (Auto) < 182.0 H (0.0-6.0) /HPF Salicylates (2.8-20.0) mg/dL Acetaminophen (10.0-30.0) ug/mL Phenytoin (10.0-20.0) ug/mL Valproic Acid (50-100) ug/mL SARS-CoV-2 (PCR) (Negative) Assessment and Plan - Patient Problems (1) Acute respiratory failure Current Visit: Yes Status: Acute Plan to address problem: Patient intubated and on ventilatory support. Wean vent as tolerated, critical care team consulted, wean vent as tolerated, sedation holiday, daily spontaneous breathing trial, daily arterial blood gas. The high probability of a clinically significant, sudden or life threatening deterioration of the [pulmonary, neuro, infectious disease] system(s) required my full and direct attention, intervention and personal management. The aggregate critical care time was [95] minutes. This time is in addition to time spent performing reported procedures but includes the following: [x] Data Review and interpretation [x] Patient assessment and monitoring of vital signs [x] Documentation [x] Medication orders and management (2) Coronavirus infection Current Visit: Yes Status: Acute Plan to address problem: Coronavirus protocol: IV antibiotic therapy, vitamin C therapy, vitamin D therapy, zinc therapy, prophylactic anticoagulation (3) UTI (urinary tract infection) Current Visit: Yes Status: Acute Qualifiers: Encounter type: initial encounter Plan to address problem: Urinalysis, IV antibiotic therapy, (4) Mental disability Current Visit: No Status: Acute Plan to address problem: Chronic, supportive care. (5) DVT prophylaxis Current Visit: No Status: Acute Plan to address problem: SCD to bilateral lower extremities while in bed (6) Advance care planning Current Visit: No Status: Acute Plan to address problem: Disease education done, care plan discussed, diagnoses discussed, prognosis discussed, +30 minutes. (7) Preventative health care Current Visit: Yes Status: Acute Plan to address problem: Patient to follow-up with primary care physician for age and risk factor appropriate screening tests, risk factor reduction, +30 minutes.
--- NOTE | 2022-04-12 12:41 | Procedure Note ---
Date of procedure: 04/12/22 Pre-op diagnosis: Acute hypoxemic respiratory failure Post-op diagnosis: same Procedure: Right internal jugular vein triple-lumen catheter under ultrasound guidance After informed consent was obtained the patient was prepped and draped in the usual sterile fashion. A timeout was taken with the patient's nurse at bedside to verify the correct patient, the correct procedure, and the correct operative site. Local anesthesia obtained with 1% lidocaine. The Seldinger technique was utilized to access the right internal jugular vein with a seeker needle under ultrasound guidance without difficulty. A guidewire was then advanced via the seeker needle into the right internal jugular vein and the seeker needle subsequently removed over the guidewire. A scalpel was used to incise the skin at the insertion site. A dilator was then passed over the guidewire into the right internal jugular vein without difficulty and subsequently removed. A preflush triple-lumen catheter was then advanced into the right internal jugular vein and the guidewire removed. A Biopatch was placed at the insertion site. 3-0 silk suture was utilized to suture the the triple-lumen catheter in place. A sterile dressing was then applied over the triple-lumen catheter. Estimated blood loss minimal. Complications none. Postoperative chest x-ray reveals the right internal jugular veins triple-lumen catheter in expected position. No evidence of pneumothorax. Anesthesia: local Surgeon: LIAM AVILES Estimated blood loss: none Pathology: none Condition: critical Disposition: ICU
--- NOTE | 2022-04-12 13:13 | XRay Report ---
CHEST 1 VIEW 04/12/2022 12:04 PM INDICATION / CLINICAL INFORMATION: central line. COMPARISON: Exam done earlier today FINDINGS: SUPPORT DEVICES: Right IJ central venous catheter tip projects over the superior cavoatrial junction. Otherwise stable. HEART / MEDIASTINUM: No significant abnormality. LUNGS / PLEURA: No significant pulmonary or pleural abnormality. No pneumothorax. ADDITIONAL FINDINGS: No significant additional findings. IMPRESSION: 1. Right IJ CVL in good position. Signer Name: Aj Catherine MD Signed: 04/12/2022 1:09 PM Workstation Name: [email or web address]
[2022-04-12] MEDS: FAMOTIDINE 20 MG/2 ML INJ IV SCH ×2 (13:20→22:20)
--- NOTE | 2022-04-12 15:58 | Consultation ---
History of Present Illness Consult date: 04/12/22 Requesting physician: PAIGE GRAY Reason for consult: other (Acute hypoxemic resp failure on MVS; Seizures) History of present illness: This is a 57-year-old female with known past medical history of MR, obesity, nicotine dependence, seizure disorder admitted for status epilepticus and was intubated in the ED for airway protection Patient had a low-grade fever of 100.7 F. Labs showed leukocytosis, UA showed significant pyuria. Patient tested positive for COVID-19, Creatinine was 3.2, showing improvement Total CK was 1568 Chest x-ray did not reveal any pneumonia. CT head showed no acute intracranial abnormality CT abdomen pelvis without contrast revealed mild bladder wall thickening suggestive of cystitis, right lower lobe infiltrate versus atelectasis. Patient admitted to the ICU for ongoing care. Patient seen and examined. Orally inubated, calm Past History Past Medical History: seizures, other (See HPI) Past Surgical History: Other (Craniotomy) Social history: single, smoking. denies: alcohol abuse, prescription drug abuse Family history: hypertension Medications and Allergies Allergies Allergy/AdvReac Type Severity Reaction Status Date / Time No Known Allergies Allergy Verified 04/12/22 15:15 Home Medications Medication Instructions Recorded Confirmed Last Taken Type AtorvaSTATin [Lipitor] 20 mg PO QHS 03/22/22 04/13/22 Unknown History levETIRAcetam [Keppra TAB] 500 mg PO BID #60 tablet 03/26/22 04/13/22 Unknown Rx Active Meds: Active Medications Acetaminophen (Acetaminophen 325 Mg Tab) 650 mg PO Q6H PRN PRN Reason: Pain MILD(1-3)/Fever >100.5/VALLADARES Albuterol (Albuterol 2.5 Mg/3 Ml Nebu) 2.5 mg IH Q3HRT PRN PRN Reason: Shortness Of Breath Ascorbic Acid (Ascorbic Acid 500 Mg Tab) 500 mg PO BID ISIAH Azithromycin (Azithromycin 250 Mg Tab) 500 mg PO QDAY [facility]; Protocol Cholecalciferol (Cholecalciferol (Vit D3) 1000 Unit (25 Mcg) Tab) 1,000 unit PO QDAY ISIAH Famotidine (Famotidine 20 Mg/2 Ml Inj) 20 mg IV BID [facility] Last Admin: 04/12/22 13:20 Dose: 20 mg Heparin Sodium (Porcine) (Heparin 5,000 Unit/1 Ml Vial) 5,000 unit SUB-Q Q12HR ISIAH Hydromorphone HCl (Hydromorphone 0.5 Mg/0.5 Ml Inj) 0.5 mg IV Q23H PRN PRN Reason: Pain , Severe (7-10) Hydrophilic Ointment (Lip Therapy Vaseline) 1 applic TP Q2HR PRN PRN Reason: Dry Lips MIDAZOLAM/NS Drip 100mg/100ml (Midazolam/Ns Drip 100mg/100ml) 100 mg in 100 mls @ 1 mls/hr IV TITR ISIAH; Protocol Levetiracetam 500 mg/ Dextrose 105 mls @ 400 mls/hr IV Q12H ISIAH Ceftriaxone Sodium (Rocephin/Ns 2 Gm/100 Ml) 2 gm in 100 mls @ 200 mls/hr IV Q24H [facility]; Protocol Methylprednisolone Sodium Succinate (Methylprednisolone Sod Succinate 40 Mg/1 Ml Inj) 40 mg IV Q8H ISIAH Midazolam HCl (Midazolam 2 Mg/2 Ml Inj) 2 mg IV Q10MIN PRN PRN Reason: Sedation Multi-Ingred Cream/Lotion/Oil/Oint (Mineral Oil/Petrolatum, White Ophth Oint 3.5 Gm) 1 applic OU Q4HR PRN PRN Reason: Dry Eye(s) Ondansetron HCl (Ondansetron 4 Mg/2 Ml Inj) 4 mg IV Q8H PRN PRN Reason: Nausea And Vomiting Oxycodone/Acetaminophen (Oxycodone /Acetaminophen 5-325mg Tab) 1 tab PO Q16H PRN PRN Reason: Pain, Moderate (4-6) Senna/Docusate Sodium (Sennosides/Docusate Sodium 8.6/50 Mg Tab) 1 tab FEEDTUBE BID [facility] Last Admin: 04/12/22 10:30 Dose: Not Given Sodium Chloride (Sodium Chloride 0.9% 10 Ml Flush Syringe) 10 ml IV BID [facility] Sodium Chloride (Sodium Chloride 0.9% 10 Ml Flush Syringe) 10 ml IV PRN PRN PRN Reason: LINE FLUSH Zinc Sulfate (Zinc Sulfate 220 Mg Cap) 220 mg PO BID [facility] Review of Systems ROS unobtainable: due to endotracheal tube, due to mental status Physical Examination Vital signs: Vital Signs Temp 100.7 F H 04/12/22 09:01 Constitutional: no acute distress, other (middle aged female with normal respiratory effort at rest on MVS) Eyes: non-icteric ENT: oropharynx moist, other (ETT 24 cm RUBÉN) Neck: supple, no lymphadenopathy, no JVD Effort: normal Ascultation: Bilateral: diminished breath sounds, rhonchi (scant) Percussion: Bilateral: not dull Cardiovascular: regular rate and rhythm Gastrointestinal: normoactive bowel sounds, soft, non-tender, non-distended Integumentary: normal Extremities: no cyanosis, no edema, pulses normal, no ischemia or petechiae Neurologic: pupils equal and round, unable to assess, other (mot moving limbs to command but increased tone in left sided musculature) Results - Laboratory Findings CBC and BMP: 04/14/22 04:04 04/14/22 04:04 ABG ABG pH 7.376 pH Units (7.350-7.450) 04/12/22 11:42 ABG pCO2 35.4 mm Hg 04/12/22 11:42 ABG pO2 152.6 mm Hg (80.0-90.0) H 04/12/22 11:42 ABG O2 Saturation 98.9 % (95.0-99.0) 04/12/22 11:42 PT/INR, D-dimer PT 15.3 Sec. (12.2-14.9) H 04/12/22 09:11 INR 1.09 (0.87-1.13) 04/12/22 09:11 Abnormal lab findings: Abnormal Labs 04/12/22 04/12/22 04/12/22 09:11 09:11 09:11 WBC 12.8 H PT ABG pO2 ABG Base Excess Sodium 148 H Chloride 107.2 H Carbon Dioxide 21 L BUN 37 H Creatinine 3.2 H Glucose 102 H Lactic Acid AST 48 H Total Creatine Kinase Total Protein 9.0 H Urine WBC (Auto) Salicylates < 0.3 L Acetaminophen Phenytoin 1.2 L Valproic Acid < 2.8 L SARS-CoV-2 (PCR) 04/12/22 04/12/22 04/12/22 09:11 09:11 09:38 WBC PT 15.3 H ABG pO2 ABG Base Excess Sodium Chloride Carbon Dioxide BUN Creatinine Glucose Lactic Acid 3.30 H* AST Total Creatine Kinase Total Protein Urine WBC (Auto) Salicylates Acetaminophen 5.0 L Phenytoin Valproic Acid SARS-CoV-2 (PCR) 04/12/22 04/12/22 04/12/22 10:56 11:29 11:42 WBC PT ABG pO2 152.6 H ABG Base Excess -4.2 L Sodium Chloride Carbon Dioxide BUN Creatinine Glucose Lactic Acid AST Total Creatine Kinase 1568 H Total Protein Urine WBC (Auto) Salicylates Acetaminophen Phenytoin Valproic Acid SARS-CoV-2 (PCR) Positive A 04/12/22 Unknown WBC PT ABG pO2 ABG Base Excess Sodium Chloride Carbon Dioxide BUN Creatinine Glucose Lactic Acid AST Total Creatine Kinase Total Protein Urine WBC (Auto) < 182.0 H Salicylates Acetaminophen Phenytoin Valproic Acid SARS-CoV-2 (PCR) Assessment and Plan Acute hypoxemic respiratory failure on MVS Seizures UTI (urinary tract infection) Mental disability Chronic Left Frontal encephalomalacia / Post surgical changes- COVID positive - continue to titrate supplemental oxygen to keep SpO2 90-92% - VAP bundle addressed, aspiration precautions HOB >40 -On minimal vent support- start SAT,SBT in the morning -Get EEG -Continue with seizure precautions and AEDs - continue lung protective strategies - bronchodilators with pulmonary hygiene per RT - avoid nephrotoxins - accuchecks with glycemic control per SSI (While critically ill target blood glucose of 140-180 mg/dL; avoid hypoglycemia) - sedation prn for target RASS 0 to -1 - reduce the possibility of delirium - Has elevated inflammatory markers and leukocytosis- empiric antibiotics, monitor hemodynamics closely, follow up cultures then adjust the antibiotics and de-escalate per clinical response and culture data - prn analgesia per CPOT score - Maintenance of sleep-wake cycle, avoid delirium - enteral nutritional support , place OGT and initiate tube feeding once placement is confirmed - Stress and VTE prophylaxis - PT/OT/ROM exercises - Mobility per protocol - continue other care per attending / other consultants COVID SPECIFIC INTERVENTIONS - Remdesivir as per ID/Pulmonary developed protocols - Monitor inflammatory markers per facility protocol - ferritin, D-dimer, CRP - therapeutic anticoagulation per system Protocol based on d-dimer and clinical considerations - Contact and airborne isolation -ID consult placed by primary service CONDITION: CRITICAL PROGNOSIS: GUARDED CODE STATUS: FULL CODE The high probability of a clinically significant, sudden or life-threatening deterioration of the [respiratory, cardiovascular, renal & neurologic] system(s) required my full and direct attention, intervention and personal management. The aggregate critical care time was [35] minutes without overlap. Time includes spent on; [x] Data Review and interpretation [x] Patient assessment and monitoring of vital signs [x] Documentation [x] Medication orders and management
[2022-04-12 16:43] LABS: Basophils % (Manual) 0 % (0.0-1.8); Eosinophils % (Manual) 0 % (0.0-4.3); Platelet Estimate Consistent w Auto; RBC Morphology Normal; Total Cells Counted 100
[2022-04-12] MEDS: methylPREDNISolone Sod Succinate 40 MG/1 ML INJ IV SCH (18:06)
[2022-04-12] MEDS: AZITHROMYCIN 250 MG TAB PO SCH (18:06)
[2022-04-12] MEDS: SODIUM CHLORIDE 0.45% 1000 ML 1,000 ML IV SCH (19:38)
[2022-04-12] MEDS: ASCORBIC ACID 500 MG TAB PO SCH (22:20)
[2022-04-12] MEDS: ZINC SULFATE 220 MG CAP PO SCH (22:20)
[2022-04-12] MEDS: HEPARIN 5,000 UNIT/1 ML VIAL SUB-Q SCH (22:20)
[2022-04-13] MEDS: methylPREDNISolone Sod Succinate 40 MG/1 ML INJ IV SCH ×3 (00:33→16:15)
[2022-04-13] MEDS: levETIRAcetam 500 MG in DEXTROSE 5% IN WATER 100 ML IV SCH ×2 (00:33→09:24)
[2022-04-13] MEDS: SODIUM CHLORIDE 0.45% 1000 ML 1,000 ML IV SCH ×2 (03:24→11:22)
--- NOTE | 2022-04-13 03:46 | XRay Report ---
CHEST 1 VIEW INDICATION / CLINICAL INFORMATION: follow up respiratory failure. Dyspnea FINDINGS: SUPPORT DEVICES: No significant change in position. HEART / MEDIASTINUM: The cardiomediastinal silhouette has not significantly changed in the interim. LUNGS / PLEURA: Lungs remain clear. No pneumothorax. Signer Name: Lexa Pires MD Signed: 04/13/2022 3:41 AM Workstation Name: [email or web address]
[2022-04-13 04:01] LABS: Hematocrit 37.7 % (30.3-42.9); Hemoglobin 12.2 gm/dl (10.1-14.3); Mean Corpuscular HGB Conc 32 % (30-34); Mean Corpuscular Volume 93 fl (79-97); Platelet Count 267 K/mm3 (140-440); Red Blood Count 4.04 M/mm3 (3.65-5.03); Red Cell Distribution Width 14.3 % (13.2-15.2)
[2022-04-13 04:08] LABS: Calcium 8.9 mg/dL (8.4-10.2)
[2022-04-13 04:44] LABS: Basophils % (Manual) 0 % (0.0-1.8); Eosinophils % (Manual) 0 % (0.0-4.3); Platelet Estimate Consistent w Auto; Total Cells Counted 100
[2022-04-13 05:02] LABS: ABG Base Excess -2.7 mmol/L (-2.0-3.0); ABG HCO3 21.4 mmol/L (20.0-26.0); ABG Methemoglobin 0.6 % (0.0-1.5); ABG Oxygen Saturation 98.7 % (95.0-99.0); ABG PCO2 34.7 mm Hg; ABG PH 7.407 pH Units (7.350-7.450); ABG PO2 135.1 mm Hg (80.0-90.0)
[2022-04-13] MEDS ORDERED: POTASSIUM CHLORIDE 20 MEQ PACKET FEEDTUBE SCH ×3 (09:00→12:00)
[2022-04-13] MEDS: cefTRIAXone/NS 2 GM/100 ML 2 GM/100 ML BAG IV SCH (09:19)
[2022-04-13] MEDS: FAMOTIDINE 20 MG/2 ML INJ IV SCH (09:19)
[2022-04-13] MEDS: AZITHROMYCIN 250 MG TAB PO SCH (09:20)
[2022-04-13] MEDS: HEPARIN 5,000 UNIT/1 ML VIAL SUB-Q SCH ×2 (09:20→21:30)
[2022-04-13] MEDS: ZINC SULFATE 220 MG CAP PO SCH ×2 (09:20→21:30)
[2022-04-13] MEDS: SENNOSIDES/DOCUSATE SODIUM 8.6/50 MG TAB FEEDTUBE SCH ×2 (09:20→21:30)
[2022-04-13] MEDS: ASCORBIC ACID 500 MG TAB PO SCH ×2 (09:20→21:30)
[2022-04-13] MEDS: CHOLECALCIFEROL (VIT D3) 1000 UNIT (25 mcg) TAB PO SCH (09:20)
--- NOTE | 2022-04-13 11:57 | Progress Note ---
<RIKKI FINK - Last Filed: 04/13/22 19:05> Assessment and Plan Assessment and plan: This is a 57-year-old female with known past medical history of MR, obesity, nicotine dependence, seizure disorder admitted for status epilepticus and was intubated in the ED for airway protection Hospital Course to Date: 04/13: Stable on low vent setting this am. Off sedation, awake and tracking, not following commands. Patient does have history of MR, patient is functional and can voice her needs per the caregiver. No seizure like activity reported, EEG and Neurology consult pending. Continue IV Keppra. Patient remains afebrile and hemodynamicaly stable. PRN hydralazine added for hypertension. Continue current IV steroids, and empiric IV Abx. ID consulted for further rec for COVID infection. Renal function and CKP are improving post IVF hydration, continue IVF resuscitation. K repleted, continue to monitor electrolytes and replete as needed. Plan for PSV trial today, plan to wean for possible extubation per CCM. Assessment and Plan #Status Epilepticus #H/o Seizure Disorder #H/o Mental Retardation(MR) - Multifactorial - Patient with UTI and COVID positive - Per records from 09/2021, patient phenytoin level was elevated last admit and meds was held. Patient was D/Dany with PO Keppra BID - CT head/brain with chronic encephalomalacia/surgical changes in the frontal lobes. No acute intracranial abnormality. - Treated underlying cause, currently on empiric IV abx. ID consulted - Intubated, awake and tracking. S/p Versed gtt. - Continue IV keppra - EEG and Neurology consult pending - PRN Ativan for seizure like activities - Frequent reorientation - Aspiration and Seizure precaution - PRN Analgesia for CPOT greater than 3 - Maintenance of sleep-wake cycle #Acute Hypoxic Respiratory Failure - Intubated in the ED on 04/12 for airway protection secondary to above - Vent setting: PRVC-30%,6,6,420 - AM ABG noted - CCM consulted, appreciate recommendations - VAP bundle addressed - Aspiration precaution HOB above 30 - Daily PSV trial as tolerated - Daily ABG and CXR - Continue SPO2 monitoring for SPO2 goal above 92% #Sepsis #Possible RLL Pneumonia #Coronavirus Infection #Urinary Tract Infection(UTI)/Cystitis - COVID PCR came back positive - CT reveal right lower lobe infiltrate vs atelectasis - UA consistent with UTI, CT scan shows mild bladder wall thickening suggesting cystitis - COVID PCR came back positive - Blood cultures and sputum culture pending - Patient is afebrile, with Leukocytosis, VSS - On IV steroids and empiric IV Abx - ID consulted - F/U on cultures - Daily CBC monitor #Rhabdomyolysis - Probably due to multiple seizures - Continue IVF resuscitation - Trend CPK #Acute Kidney Injury(JONA) most likely Vasomotor Nephropathy #Hypokalemia - probably secondary to above - Per records, baseline scr is 1.1, Scr. as high as 3.2 this admit - Renal function with significant improvement post IVF Hydration - Continue IVF resuscitation for now - Strict intake and output - Avoid nephrotoxic medications; Renally dose medications - Luo in place, UOP improved. Keep luo X1 more day - Monitor and replace electrolytes as needed - Trend BMP #Hypertension - SBP in the 170-180s this am, no prior history of HTN reported - PRN analgesia for pain control - Continue blood pressure monitor per protocol - PRN Hydralazine for SBP greater than 160 - Might benefits from antihypertensive regimen at discharge #GI/DVT Prophylaxis - PPI- Pepcid - Heparin SubQ - SCD to bilateral lower extremities while in bed #Advance Care Planning - Disease education data, care plan, diagnoses, and prognosis were discussed with patient's cousin and caregiver via phone. Patient is a FULL code. Patient's family acknowledged understanding and agreed with current care plan. The high probability of a clinically significant, sudden or life threatening deterioration of the [multiple] system(s) required my full and direct attention, intervention and personal management. The aggregate critical care time was [60] minutes. This time is in addition to time spent performing reported procedures but includes the following: [x] Data Review and interpretation [x] Patient assessment and monitoring of vital signs [x] Documentation [x] Medication orders and management Disposition Plan: ICU Total Time Spent with Patient (Minutes): 60 History Interval history: Patient seen and examined at the bedside. Stable on the vent, off sedation. Awake and tracking, not following commands. Hypertensive this am, otherwise vital signs are stable. Hospitalist Physical - Constitutional Vitals: Temp Pulse Resp BP Pulse Ox 98.6 F 111 H 20 143/100 100 04/13/22 11:36 04/13/22 11:40 04/13/22 11:40 04/13/22 11:39 04/13/22 11:40 General appearance: Present: no acute distress, well-nourished, obese, other (on the vent) - EENT Eyes: Present: PERRL ENT: hearing intact - Neck Neck: Present: normal ROM - Respiratory Respiratory effort: normal Respiratory: bilateral: rhonchi - Cardiovascular Rhythm: regular Heart Sounds: Present: S1 & S2 - Extremities Extremities: no ischemia, pulses intact, pulses symmetrical Extremity abnormal: edema - Peripheral Assessment Bilateral Lower Extremity Edema Type: Non-pitting Edema Degree: 2+ Capillary Refill: < 3 seconds Skin Temperature: Warm Generalized Edema Type: Non-pitting Edema Degree: 1+ Capillary Refill: < 3 seconds Skin Temperature: Warm Peripheral Pulses: within normal limits - Abdominal General gastrointestinal: soft, non-distended, normal bowel sounds - Integumentary Integumentary: Present: warm, dry - Psychiatric Psychiatric: other (Awake and tracking, not following commands) - Neurologic Neurologic: moves all extremities, other (Awake and tracking, not following co mmands) - Allied Health Allied health notes reviewed: nursing, case management Results - Labs CBC & Chem 7: 04/13/22 03:44 04/13/22 03:44 Labs: Laboratory Last Values WBC 18.7 K/mm3 (4.5-11.0) H 04/13/22 03:44 RBC 4.04 M/mm3 (3.65-5.03) 04/13/22 03:44 Hgb 12.2 gm/dl (10.1-14.3) 04/13/22 03:44 Hct 37.7 % (30.3-42.9) 04/13/22 03:44 MCV 93 fl (79-97) 04/13/22 03:44 MCH 30 pg (28-32) 04/13/22 03:44 MCHC 32 % (30-34) 04/13/22 03:44 RDW 14.3 % (13.2-15.2) 04/13/22 03:44 Plt Count 267 K/mm3 (140-440) 04/13/22 03:44 Add Manual Diff Complete 04/13/22 03:44 Total Counted 100 04/13/22 03:44 Seg Neutrophils % Registered Nurse First Assistant 04/13/22 03:44 Seg Neuts % (Manual) 97.0 % (40.0-70.0) H 04/13/22 03:44 Band Neutrophils % 0 % 04/13/22 03:44 Lymphocytes % (Manual) 2.0 % (13.4-35.0) L 04/13/22 03:44 Reactive Lymphs % (Man) 0 % 04/13/22 03:44 Monocytes % (Manual) 1.0 % (0.0-7.3) 04/13/22 03:44 Eosinophils % (Manual) 0 % (0.0-4.3) 04/13/22 03:44 Basophils % (Manual) 0 % (0.0-1.8) 04/13/22 03:44 Metamyelocytes % 0 % 04/13/22 03:44 Myelocytes % 0 % 04/13/22 03:44 Promyelocytes % 0 % 04/13/22 03:44 Blast Cells % 0 % 04/13/22 03:44 Nucleated RBC % Not Reportable 04/13/22 03:44 Seg Neutrophils # Man 18.1 K/mm3 (1.8-7.7) H 04/13/22 03:44 Band Neutrophils # 0.0 K/mm3 04/13/22 03:44 Lymphocytes # (Manual) 0.4 K/mm3 (1.2-5.4) L 04/13/22 03:44 Abs React Lymphs (Man) 0.0 K/mm3 04/13/22 03:44 Monocytes # (Manual) 0.2 K/mm3 (0.0-0.8) 04/13/22 03:44 Eosinophils # (Manual) 0.0 K/mm3 (0.0-0.4) 04/13/22 03:44 Basophils # (Manual) 0.0 K/mm3 (0.0-0.1) 04/13/22 03:44 Metamyelocytes # 0.0 K/mm3 04/13/22 03:44 Myelocytes # 0.0 K/mm3 04/13/22 03:44 Promyelocytes # 0.0 K/mm3 04/13/22 03:44 Blast Cells # 0.0 K/mm3 04/13/22 03:44 WBC Morphology Not Reportable 04/13/22 03:44 Hypersegmented Neuts Not Reportable 04/13/22 03:44 Hyposegmented Neuts Not Reportable 04/13/22 03:44 Hypogranular Neuts Not Reportable 04/13/22 03:44 Smudge Cells Not Reportable 04/13/22 03:44 Toxic Granulation Not Reportable 04/13/22 03:44 Toxic Vacuolation Not Reportable 04/13/22 03:44 Dohle Bodies Not Reportable 04/13/22 03:44 Pelger-Huet Anomaly Not Reportable 04/13/22 03:44 Neeta Rods Not Reportable 04/13/22 03:44 Platelet Estimate Consistent w auto 04/13/22 03:44 Clumped Platelets Not Reportable 04/13/22 03:44 Plt Clumps, EDTA Not Reportable 04/13/22 03:44 Large Platelets Not Reportable 04/13/22 03:44 Giant Platelets Not Reportable 04/13/22 03:44 Platelet Satelliting Not Reportable 04/13/22 03:44 Plt Morphology Comment Not Reportable 04/13/22 03:44 RBC Morphology Not Reportable 04/13/22 03:44 Dimorphic RBCs Not Reportable 04/13/22 03:44 Polychromasia Not Reportable 04/13/22 03:44 Hypochromasia Not Reportable 04/13/22 03:44 Poikilocytosis Not Reportable 04/13/22 03:44 Anisocytosis Not Reportable 04/13/22 03:44 Microcytosis Not Reportable 04/13/22 03:44 Macrocytosis Not Reportable 04/13/22 03:44 Spherocytes Not Reportable 04/13/22 03:44 Pappenheimer Bodies Not Reportable 04/13/22 03:44 Sickle Cells Not Reportable 04/13/22 03:44 Target Cells Not Reportable 04/13/22 03:44 Tear Drop Cells Not Reportable 04/13/22 03:44 Ovalocytes Not Reportable 04/13/22 03:44 Helmet Cells Not Reportable 04/13/22 03:44 [place] Bodies Not Reportable 04/13/22 03:44 [place] Rings Not Reportable 04/13/22 03:44 Raj Cells Not Reportable 04/13/22 03:44 Bite Cells Not Reportable 04/13/22 03:44 Crenated Cell Not Reportable 04/13/22 03:44 Elliptocytes Not Reportable 04/13/22 03:44 Acanthocytes (Spur) Not Reportable 04/13/22 03:44 Rouleaux Not Reportable 04/13/22 03:44 Hemoglobin C Crystals Not Reportable 04/13/22 03:44 Schistocytes Not Reportable 04/13/22 03:44 Malaria parasites Not Reportable 04/13/22 03:44 Sanjay Bodies Not Reportable 04/13/22 03:44 Hem Pathologist Commnt No 04/13/22 03:44 PT 15.3 Sec. (12.2-14.9) H 04/12/22 09:11 INR 1.09 (0.87-1.13) 04/12/22 09:11 APTT 27.4 Sec. (24.2-36.6) 04/12/22 09:11 ABG pH 7.407 pH Units (7.350-7.450) 04/13/22 04:15 ABG pCO2 34.7 mm Hg 04/13/22 04:15 ABG pO2 135.1 mm Hg (80.0-90.0) H 04/13/22 04:15 ABG HCO3 21.4 mmol/L (20.0-26.0) 04/13/22 04:15 ABG O2 Saturation 98.7 % (95.0-99.0) 04/13/22 04:15 ABG O2 Content 16.5 (0.0-44) 04/13/22 04:15 ABG Base Excess -2.7 mmol/L (-2.0-3.0) L 04/13/22 04:15 ABG Hemoglobin 11.9 gm/dl (12.0-16.0) L 04/13/22 04:15 ABG Carboxyhemoglobin 1.2 % (0.0-5.0) 04/13/22 04:15 ABG Methemoglobin 0.6 % (0.0-1.5) 04/13/22 04:15 Oxyhemoglobin 97.0 % (95.0-99.0) 04/13/22 04:15 FiO2 30 % 04/13/22 04:15 Sodium 142 mmol/L (137-145) 04/13/22 03:44 Potassium 3.3 mmol/L (3.6-5.0) L D 04/13/22 03:44 Chloride 107.2 mmol/L (98-107) H 04/13/22 03:44 Carbon Dioxide 22 mmol/L (22-30) 04/13/22 03:44 Anion Gap 16 mmol/L 04/13/22 03:44 BUN 41 mg/dL (7-17) H 04/13/22 03:44 Creatinine 1.4 mg/dL (0.6-1.2) H D 04/13/22 03:44 Estimated GFR 47 ml/min 04/13/22 03:44 BUN/Creatinine Ratio 29 % 04/13/22 03:44 Glucose 123 mg/dL (65-100) H 04/13/22 03:44 POC Glucose 119 mg/dL (70-105) H 04/13/22 11:47 Lactic Acid 1.60 mmol/L (0.7-2.0) 04/12/22 11:42 Calcium 8.9 mg/dL (8.4-10.2) 04/13/22 03:44 Total Bilirubin 0.50 mg/dL (0.1-1.2) 04/12/22 09:11 AST 48 units/L (5-40) H 04/12/22 09:11 ALT 35 units/L (7-56) 04/12/22 09:11 Alkaline Phosphatase 118 units/L (35-129) 04/12/22 09:11 Total Creatine Kinase 1568 units/L (30-135) H 04/12/22 11:29 Total Protein 9.0 g/dL (6.3-8.2) H 04/12/22 09:11 Albumin 4.6 g/dL (3.9-5) 04/12/22 09:11 Albumin/Globulin Ratio 1.0 % 04/12/22 09:11 Urine Color Yellow (Yellow) 04/12/22 Unknown Urine Turbidity Cloudy (Clear) 04/12/22 Unknown Specific [place] (Man) 1.020 (1.003-1.030) 04/12/22 Unknown Ur Protein (Man) 4+ mg/dL (Negative) 04/12/22 Unknown Ur Ketones (Man) Negative (Negative) 04/12/22 Unknown Ur Nitrite (Man) Negative (Negative) 04/12/22 Unknown Ur Reducing Substances Not Reportable 04/12/22 Unknown Urine Bilirubin (Man) Negative (Negative) 04/12/22 Unknown Urine Ictotest Not Reportable 04/12/22 Unknown Leukocyte Esterase (Man) Large (Negative) 04/12/22 Unknown Urine WBC (Auto) < 182.0 /HPF (0.0-6.0) H 04/12/22 Unknown Urine RBC (Auto) 60.0 /HPF (0.0-6.0) 04/12/22 Unknown U Epithel Cells (Auto) 12.0 /HPF (0-13.0) 04/12/22 Unknown Urine RBC (Manual) 3+ (Negative) 04/12/22 Unknown Urine WBC Clumps 3+ /HPF 04/12/22 Unknown Urine Mucus 3+ /HPF 04/12/22 Unknown Salicylates < 0.3 mg/dL (2.8-20.0) L 04/12/22 09:11 Acetaminophen 5.0 ug/mL (10.0-30.0) L 04/12/22 09:11 Phenytoin 1.2 ug/mL (10.0-20.0) L 04/12/22 09:11 Valproic Acid < 2.8 ug/mL (50-100) L 04/12/22 09:11 Plasma/Serum Alcohol < 0.01 % (0-0.07) 04/12/22 09:11 SARS-CoV-2 (PCR) Positive (Negative) A 04/12/22 10:56 Microbiology: Microbiology 04/12/22 09:38 Peripheral/Venous Blood Culture - Preliminary NO GROWTH AFTER 24 HOURS 04/12/22 09:38 Peripheral/Venous Blood Culture - Preliminary NO GROWTH AFTER 24 HOURS Luo/IV: Voiding Method Indwelling Catheter Active Medications - Current Medications Current Medications: Generic Name Dose Route Start Last Admin Trade Name Freq PRN Reason Stop Dose Admin Acetaminophen 650 mg 04/12/22 12:38 Acetaminophen 325 Mg Tab PO Q6H PRN Pain MILD(1-3)/Fever >100.5/VALLADARES Albuterol 2.5 mg 04/12/22 12:38 Albuterol 2.5 Mg/3 Ml Nebu IH Q3HRT PRN Shortness Of Breath Ascorbic Acid 500 mg 04/12/22 22:00 04/13/22 09:20 Ascorbic Acid 500 Mg Tab PO 500 mg BID ISIAH Administration Azithromycin 500 mg 04/12/22 16:00 04/13/22 09:20 Azithromycin 250 Mg Tab PO 500 mg QDAY ISIAH Administration Protocol Cholecalciferol 1,000 unit 04/13/22 10:00 04/13/22 09:20 Cholecalciferol (Vit D3) 1000 Unit (25 Mcg) Tab PO 1,000 unit QDAY ISIAH Administration Famotidine 10 mg 04/13/22 22:00 Famotidine 10 Mg Tab FEEDTUBE BID ISIAH Heparin Sodium (Porcine) 5,000 unit 04/12/22 22:00 04/13/22 09:20 Heparin 5,000 Unit/1 Ml Vial SUB-Q 5,000 unit Q12HR ISIAH Administration Hydromorphone HCl 0.5 mg 04/12/22 12:38 Hydromorphone 0.5 Mg/0.5 Ml Inj IV Q23H PRN Pain , Severe (7-10) Hydrophilic Ointment 1 applic 04/12/22 09:35 Lip Therapy Vaseline TP Q2HR PRN Dry Lips MIDAZOLAM/NS Drip 100mg/100ml 100 mg in 100 mls @ 1 mls/hr 04/12/22 10:00 04/13/22 00:54 Midazolam/Ns Drip 100mg/100ml IV 0 mg/hr TITR ISIAH 0 mls/hr Titration Protocol 1 MG/HR Levetiracetam 500 mg/ Dextrose 105 mls @ 400 mls/hr 04/12/22 22:00 04/13/22 09:40 IV Infused Q12H ISIAH Infusion Ceftriaxone Sodium 2 gm in 100 mls @ 200 mls/hr 04/13/22 10:00 04/13/22 09:49 Rocephin/Ns 2 Gm/100 Ml IV Infused Q24H ISIAH Infusion Protocol Sodium Chloride 1,000 mls @ 125 mls/hr 04/12/22 20:00 04/13/22 11:22 Nacl 0.45% 1000 Ml IV 125 mls/hr DIRECT ISIAH Administration Methylprednisolone Sodium Succinate 40 mg 04/12/22 16:00 04/13/22 08:00 Methylprednisolone Sod Succinate 40 Mg/1 Ml Inj IV 40 mg Q8H ISIAH Administration Midazolam HCl 2 mg 04/12/22 09:36 Midazolam 2 Mg/2 Ml Inj IV Q10MIN PRN Sedation Multi-Ingred Cream/Lotion/Oil/Oint 1 applic 04/12/22 09:35 Mineral Oil/Petrolatum, White Ophth Oint 3.5 Gm OU Q4HR PRN Dry Eye(s) Ondansetron HCl 4 mg 04/12/22 12:38 Ondansetron 4 Mg/2 Ml Inj IV Q8H PRN Nausea And Vomiting Oxycodone/Acetaminophen 1 tab 04/12/22 12:38 Oxycodone /Acetaminophen 5-325mg Tab PO Q16H PRN Pain, Moderate (4-6) Potassium Chloride 40 meq 04/13/22 09:00 04/13/22 09:20 Potassium Chloride 20 Meq Packet FEEDTUBE 04/13/22 12:00 40 meq ONCE@0900 ISIAH Administration Potassium Chloride 20 meq 04/13/22 12:00 04/13/22 11:22 Potassium Chloride 20 Meq Packet FEEDTUBE 04/13/22 15:00 20 meq ONCE@1200 ISIAH Administration Senna/Docusate Sodium 1 tab 04/12/22 10:00 04/13/22 09:20 Sennosides/Docusate Sodium 8.6/50 Mg Tab FEEDTUBE 1 tab BID ISIAH Administration Sodium Chloride 10 ml 04/12/22 22:00 04/13/22 09:20 Sodium Chloride 0.9% 10 Ml Flush Syringe IV 10 ml BID ISIAH Administration Sodium Chloride 10 ml 04/12/22 12:38 Sodium Chloride 0.9% 10 Ml Flush Syringe IV PRN PRN LINE FLUSH Zinc Sulfate 220 mg 04/12/22 22:00 04/13/22 09:20 Zinc Sulfate 220 Mg Cap PO 220 mg BID ISIAH Administration Nutrition/Malnutrition Assess - Dietary Evaluation Nutrition/Malnutrition Findings: Nutrition Notes Start: 04/12/22 16:12 Freq: Status: Active Protocol: Document 04/13/22 10:05 JOSI (Rec: 04/13/22 10:58 JOSI [id number]) Nutrition Notes Need for Assessment generated from: MD Order Initial or Follow up Assessment Current Diagnosis Respiratory Failure Other Pertinent Diagnosis Seizures, COVID-19, UTI, Mental Disability. Current Diet NPO (since 04/12 04/21), TF- Vital AF 1.2 Dajuan @ 65 ml/hr ( from L 04/13). Labs/Tests 04/13: K 3.3, Cl 107.2, BUN 41 , Crea 1.4, Glu 123. Pertinent Medications 04/13: Vit C, Vit D3 , KCl 40mEq, ZnSo4, otrhers nutritionally unremarkable. Height 5 ft 8 in Weight 113.398 kg [place] Body Weight (kg) 63.63 BMI 38.0 Weight change and time frame No body weight change reported in 1 day. Weight Status Obese Subjective/Other Information RD consult for write/mange TF assessment. Pt continues on NPO. I will prescribe TF to provide Pt with energy/protein needs during LOS. Pt is on Mechanical Ventilation, O2 saturation @ 100%, according to Physical Assessment Histroy notes. Pt is incontinent, according to Physical Assessment Histroy notes. Pt has missing teeth, according to Physical Assessment Histroy notes. Pt shows a R-Hip wound as sign of concern for skin risk at the time, according to Physical Assessment Histroy notes. Percent of energy/protein needs met: Prescribed TF-Vital AF 1.2 Dajuan @ 65 ml/hr provides for energy/protein needs (1,860 Kcal/116 g) during LOS, 103% Kcal; 100% AA. Burn Absent Trauma Absent GI Symptoms Other Food Allergy No Skin Integrity/Comment R-Hip wound. Current % PO Other Minimum of two criteria No Fluid Accumulation N/A Reduced Towel Stretcher Strength N/A (non-severe) Protein-Calorie Malnutrition N\A #1 Nutrition Diagnosis Inadequate oral intake Etiology Pt is on Mechanical Ventilation. As Evidenced by Signs and Symptoms Pt on NPO. Is patient on ventilator? Yes Is Patient Ambulatory and/or Out of Bed No REE-([facility]-confined to bed) 2136.900 Kcal/Kg value to use for calculation 16 Approximate Energy Requirements Using 1814 kcal/Kg Calculation Used for Recommendations Kcal/kg Additional Notes Protein: 1.2-2 g/Kg AdjBW; 107 -178 g/day. Fluids: 1 ml/Kcal, or as per MD. Nutrition Intervention Nutrition Support: Start TF-Vital AF 1.2 Dajuan @ 65 ml/hr. Flush: 100 ml water Q 4 hr, or as per MD. Kcal 1,860 Protein (gm) 116 Carbohydrates (gm) 171 Fat (gm) 84 Fluid (mL) 1,257 Fiber (gm) 8 % RDI: 103% Kcal; 100% AA. Goal #1 Provide at least 75% of energy /protein needs through Enteral Feeding during LOS. Follow-Up By: 04/14/22 Additional Comments Start monitoring TF tolerance and BM. <PAIGE GRAY - Last Filed: 04/13/22 19:43> Assessment and Plan Assessment and plan: I saw and evaluated the patient. I agree with the findings and the plan of care as documented in the Nurse Practitioner's~note, with the following corrections and additions. Hospitalist Physical - Constitutional Vitals: Temp Pulse Resp BP Pulse Ox 98.6 F 91 H 12 146/87 100 04/13/22 19:34 04/13/22 18:30 04/13/22 18:30 04/13/22 18:30 04/13/22 18:30 Results - Labs CBC & Chem 7: 04/13/22 03:44 04/13/22 15:45 Labs: Laboratory Last Values WBC 18.7 K/mm3 (4.5-11.0) H 04/13/22 03:44 RBC 4.04 M/mm3 (3.65-5.03) 04/13/22 03:44 Hgb 12.2 gm/dl (10.1-14.3) 04/13/22 03:44 Hct 37.7 % (30.3-42.9) 04/13/22 03:44 MCV 93 fl (79-97) 04/13/22 03:44 MCH 30 pg (28-32) 04/13/22 03:44 MCHC 32 % (30-34) 04/13/22 03:44 RDW 14.3 % (13.2-15.2) 04/13/22 03:44 Plt Count 267 K/mm3 (140-440) 04/13/22 03:44 Add Manual Diff Complete 04/13/22 03:44 Total Counted 100 04/13/22 03:44 Seg Neutrophils % Registered Nurse First Assistant 04/13/22 03:44 Seg Neuts % (Manual) 97.0 % (40.0-70.0) H 04/13/22 03:44 Band Neutrophils % 0 % 04/13/22 03:44 Lymphocytes % (Manual) 2.0 % (13.4-35.0) L 04/13/22 03:44 Reactive Lymphs % (Man) 0 % 04/13/22 03:44 Monocytes % (Manual) 1.0 % (0.0-7.3) 04/13/22 03:44 Eosinophils % (Manual) 0 % (0.0-4.3) 04/13/22 03:44 Basophils % (Manual) 0 % (0.0-1.8) 04/13/22 03:44 Metamyelocytes % 0 % 04/13/22 03:44 Myelocytes % 0 % 04/13/22 03:44 Promyelocytes % 0 % 04/13/22 03:44 Blast Cells % 0 % 04/13/22 03:44 Nucleated RBC % Not Reportable 04/13/22 03:44 Seg Neutrophils # Man 18.1 K/mm3 (1.8-7.7) H 04/13/22 03:44 Band Neutrophils # 0.0 K/mm3 04/13/22 03:44 Lymphocytes # (Manual) 0.4 K/mm3 (1.2-5.4) L 04/13/22 03:44 Abs React Lymphs (Man) 0.0 K/mm3 04/13/22 03:44 Monocytes # (Manual) 0.2 K/mm3 (0.0-0.8) 04/13/22 03:44 Eosinophils # (Manual) 0.0 K/mm3 (0.0-0.4) 04/13/22 03:44 Basophils # (Manual) 0.0 K/mm3 (0.0-0.1) 04/13/22 03:44 Metamyelocytes # 0.0 K/mm3 04/13/22 03:44 Myelocytes # 0.0 K/mm3 04/13/22 03:44 Promyelocytes # 0.0 K/mm3 04/13/22 03:44 Blast Cells # 0.0 K/mm3 04/13/22 03:44 WBC Morphology Not Reportable 04/13/22 03:44 Hypersegmented Neuts Not Reportable 04/13/22 03:44 Hyposegmented Neuts Not Reportable 04/13/22 03:44 Hypogranular Neuts Not Reportable 04/13/22 03:44 Smudge Cells Not Reportable 04/13/22 03:44 Toxic Granulation Not Reportable 04/13/22 03:44 Toxic Vacuolation Not Reportable 04/13/22 03:44 Dohle Bodies Not Reportable 04/13/22 03:44 Pelger-Huet Anomaly Not Reportable 04/13/22 03:44 Neeta Rods Not Reportable 04/13/22 03:44 Platelet Estimate Consistent w auto 04/13/22 03:44 Clumped Platelets Not Reportable 04/13/22 03:44 Plt Clumps, EDTA Not Reportable 04/13/22 03:44 Large Platelets Not Reportable 04/13/22 03:44 Giant Platelets Not Reportable 04/13/22 03:44 Platelet Satelliting Not Reportable 04/13/22 03:44 Plt Morphology Comment Not Reportable 04/13/22 03:44 RBC Morphology Not Reportable 04/13/22 03:44 Dimorphic RBCs Not Reportable 04/13/22 03:44 Polychromasia Not Reportable 04/13/22 03:44 Hypochromasia Not Reportable 04/13/22 03:44 Poikilocytosis Not Reportable 04/13/22 03:44 Anisocytosis Not Reportable 04/13/22 03:44 Microcytosis Not Reportable 04/13/22 03:44 Macrocytosis Not Reportable 04/13/22 03:44 Spherocytes Not Reportable 04/13/22 03:44 Pappenheimer Bodies Not Reportable 04/13/22 03:44 Sickle Cells Not Reportable 04/13/22 03:44 Target Cells Not Reportable 04/13/22 03:44 Tear Drop Cells Not Reportable 04/13/22 03:44 Ovalocytes Not Reportable 04/13/22 03:44 Helmet Cells Not Reportable 04/13/22 03:44 [place] Bodies Not Reportable 04/13/22 03:44 [place] Rings Not Reportable 04/13/22 03:44 Raj Cells Not Reportable 04/13/22 03:44 Bite Cells Not Reportable 04/13/22 03:44 Crenated Cell Not Reportable 04/13/22 03:44 Elliptocytes Not Reportable 04/13/22 03:44 Acanthocytes (Spur) Not Reportable 04/13/22 03:44 Rouleaux Not Reportable 04/13/22 03:44 Hemoglobin C Crystals Not Reportable 04/13/22 03:44 Schistocytes Not Reportable 04/13/22 03:44 Malaria parasites Not Reportable 04/13/22 03:44 Sanjay Bodies Not Reportable 04/13/22 03:44 Hem Pathologist Commnt No 04/13/22 03:44 PT 15.3 Sec. (12.2-14.9) H 04/12/22 09:11 INR 1.09 (0.87-1.13) 04/12/22 09:11 APTT 27.4 Sec. (24.2-36.6) 04/12/22 09:11 ABG pH 7.380 pH Units (7.350-7.450) 04/13/22 18:18 ABG pCO2 36.2 mm Hg 04/13/22 18:18 ABG pO2 119.0 mm Hg (80.0-90.0) H 04/13/22 18:18 ABG HCO3 20.9 mmol/L (20.0-26.0) 04/13/22 18:18 ABG O2 Saturation 98.2 % (95.0-99.0) 04/13/22 18:18 ABG O2 Content 16.3 (0.0-44) 04/13/22 18:18 ABG Base Excess -3.7 mmol/L (-2.0-3.0) L 04/13/22 18:18 ABG Hemoglobin 11.8 gm/dl (12.0-16.0) L 04/13/22 18:18 ABG Carboxyhemoglobin 0.9 % (0.0-5.0) 04/13/22 18:18 ABG Methemoglobin 0.5 % (0.0-1.5) 04/13/22 18:18 Oxyhemoglobin 96.8 % (95.0-99.0) 04/13/22 18:18 FiO2 30 % 04/13/22 18:18 Sodium 140 mmol/L (137-145) 04/13/22 15:45 Potassium 5.1 mmol/L (3.6-5.0) H D 04/13/22 15:45 Chloride 107.5 mmol/L (98-107) H 04/13/22 15:45 Carbon Dioxide 14 mmol/L (22-30) L D 04/13/22 15:45 Anion Gap 24 mmol/L 04/13/22 15:45 BUN 36 mg/dL (7-17) H 04/13/22 15:45 Creatinine 1.2 mg/dL (0.6-1.2) 04/13/22 15:45 Estimated GFR 56 ml/min 04/13/22 15:45 BUN/Creatinine Ratio 30 % 04/13/22 15:45 Glucose 104 mg/dL (65-100) H 04/13/22 15:45 POC Glucose 119 mg/dL (70-105) H 04/13/22 11:47 Lactic Acid 1.60 mmol/L (0.7-2.0) 04/12/22 11:42 Calcium 9.0 mg/dL (8.4-10.2) 04/13/22 15:45 Total Bilirubin 0.40 mg/dL (0.1-1.2) 04/13/22 15:45 AST 47 units/L (5-40) H 04/13/22 15:45 ALT 24 units/L (7-56) 04/13/22 15:45 Alkaline Phosphatase 101 units/L (35-129) 04/13/22 15:45 Total Creatine Kinase 1568 units/L (30-135) H 04/12/22 11:29 Total Protein 7.4 g/dL (6.3-8.2) 04/13/22 15:45 Albumin 3.6 g/dL (3.9-5) L 04/13/22 15:45 Albumin/Globulin Ratio 0.9 % 04/13/22 15:45 Urine Color Yellow (Yellow) 04/12/22 Unknown Urine Turbidity Cloudy (Clear) 04/12/22 Unknown Specific [place] (Man) 1.020 (1.003-1.030) 04/12/22 Unknown Ur Protein (Man) 4+ mg/dL (Negative) 04/12/22 Unknown Ur Ketones (Man) Negative (Negative) 04/12/22 Unknown Ur Nitrite (Man) Negative (Negative) 04/12/22 Unknown Ur Reducing Substances Not Reportable 04/12/22 Unknown Urine Bilirubin (Man) Negative (Negative) 04/12/22 Unknown Urine Ictotest Not Reportable 04/12/22 Unknown Leukocyte Esterase (Man) Large (Negative) 04/12/22 Unknown Urine WBC (Auto) < 182.0 /HPF (0.0-6.0) H 04/12/22 Unknown Urine RBC (Auto) 60.0 /HPF (0.0-6.0) 04/12/22 Unknown U Epithel Cells (Auto) 12.0 /HPF (0-13.0) 04/12/22 Unknown Urine RBC (Manual) 3+ (Negative) 04/12/22 Unknown Urine WBC Clumps 3+ /HPF 04/12/22 Unknown Urine Mucus 3+ /HPF 04/12/22 Unknown Salicylates < 0.3 mg/dL (2.8-20.0) L 04/12/22 09:11 Acetaminophen 5.0 ug/mL (10.0-30.0) L 04/12/22 09:11 Phenytoin 1.2 ug/mL (10.0-20.0) L 04/12/22 09:11 Valproic Acid < 2.8 ug/mL (50-100) L 04/12/22 09:11 Plasma/Serum Alcohol < 0.01 % (0-0.07) 04/12/22 09:11 SARS-CoV-2 (PCR) Positive (Negative) A 04/12/22 10:56 Microbiology: Microbiology 04/13/22 Unknown Tracheal Aspirate Sputum Culture - Preliminary 04/12/22 09:38 Peripheral/Venous Blood Culture - Preliminary 04/12/22 09:38 Peripheral/Venous Blood Culture - Preliminary NO GROWTH AFTER 24 HOURS Luo/IV: Voiding Method Indwelling Catheter Active Medications - Current Medications Current Medications: Generic Name Dose Route Start Last Admin Trade Name Freq PRN Reason Stop Dose Admin Acetaminophen 650 mg 04/12/22 12:38 Acetaminophen 325 Mg Tab PO Q6H PRN Pain MILD(1-3)/Fever >100.5/VALLADARES Albuterol 2.5 mg 04/12/22 12:38 Albuterol 2.5 Mg/3 Ml Nebu IH Q3HRT PRN Shortness Of Breath Ascorbic Acid 500 mg 04/12/22 22:00 04/13/22 09:20 Ascorbic Acid 500 Mg Tab PO 500 mg BID ISIAH Administration Cholecalciferol 1,000 unit 04/13/22 10:00 04/13/22 09:20 Cholecalciferol (Vit D3) 1000 Unit (25 Mcg) Tab PO 1,000 unit QDAY ISIAH Administration Famotidine 10 mg 04/13/22 22:00 Famotidine 10 Mg Tab FEEDTUBE BID ISIAH Heparin Sodium (Porcine) 5,000 unit 04/12/22 22:00 04/13/22 09:20 Heparin 5,000 Unit/1 Ml Vial SUB-Q 5,000 unit Q12HR ISIAH Administration Hydralazine HCl 10 mg 04/13/22 13:00 04/13/22 14:12 Hydralazine 20 Mg/1 Ml Inj IV 10 mg Q4H PRN Administration Hypertension Hydromorphone HCl 0.5 mg 04/12/22 12:38 04/13/22 18:11 Hydromorphone 0.5 Mg/0.5 Ml Inj IV 0.5 mg Q23H PRN Administration Pain , Severe (7-10) Hydrophilic Ointment 1 applic 04/12/22 09:35 Lip Therapy Vaseline TP Q2HR PRN Dry Lips MIDAZOLAM/NS Drip 100mg/100ml 100 mg in 100 mls @ 1 mls/hr 04/12/22 10:00 04/13/22 14:31 Midazolam/Ns Drip 100mg/100ml IV 0 mg/hr TITR ISIAH 0 mls/hr Titration Protocol 1 MG/HR Ceftriaxone Sodium 2 gm in 100 mls @ 200 mls/hr 04/13/22 10:00 04/13/22 09:49 Rocephin/Ns 2 Gm/100 Ml IV Infused Q24H ISIAH Infusion Protocol Sodium Chloride 1,000 mls @ 75 mls/hr 04/12/22 20:00 04/13/22 11:22 Nacl 0.45% 1000 Ml IV 125 mls/hr DIRECT ISIAH Administration Remdesivir 100 mg/ Sodium 250 mls @ 500 mls/hr 04/14/22 14:00 Chloride IV 04/17/22 14:29 Q24HR@1400 ISIAH Levetiracetam 750 mg/ Dextrose 107.5 mls @ 400 mls/hr 04/13/22 22:00 IV Q12H ISIAH Labetalol HCl 10 mg 04/13/22 17:00 04/13/22 16:28 Labetalol 20 Mg/4 Ml Inj IV 10 mg ONCE ISIAH Administration Methylprednisolone Sodium Succinate 40 mg 04/12/22 16:00 04/13/22 16:15 Methylprednisolone Sod Succinate 40 Mg/1 Ml Inj IV 40 mg Q8H ISIAH Administration Midazolam HCl 2 mg 04/12/22 09:36 Midazolam 2 Mg/2 Ml Inj IV Q10MIN PRN Sedation Multi-Ingred Cream/Lotion/Oil/Oint 1 applic 04/12/22 09:35 Mineral Oil/Petrolatum, White Ophth Oint 3.5 Gm OU Q4HR PRN Dry Eye(s) Ondansetron HCl 4 mg 04/12/22 12:38 Ondansetron 4 Mg/2 Ml Inj IV Q8H PRN Nausea And Vomiting Oxycodone/Acetaminophen 1 tab 04/12/22 12:38 Oxycodone /Acetaminophen 5-325mg Tab PO Q16H PRN Pain, Moderate (4-6) Senna/Docusate Sodium 1 tab 04/12/22 10:00 04/13/22 09:20 Sennosides/Docusate Sodium 8.6/50 Mg Tab FEEDTUBE 1 tab BID IISAH Administration Sodium Chloride 10 ml 04/12/22 22:00 04/13/22 09:20 Sodium Chloride 0.9% 10 Ml Flush Syringe IV 10 ml BID ISIAH Administration Sodium Chloride 10 ml 04/12/22 12:38 Sodium Chloride 0.9% 10 Ml Flush Syringe IV PRN PRN LINE FLUSH Sodium Chloride 50 ml 04/13/22 15:00 04/13/22 15:04 Sodium Chloride 0.9% 50 Ml Ivpb IV 04/17/22 14:01 50 ml Q24HR@1400 ISIAH Administration Zinc Sulfate 220 mg 04/12/22 22:00 04/13/22 09:20 Zinc Sulfate 220 Mg Cap PO 220 mg BID ISIAH Administration Nutrition/Malnutrition Assess - Dietary Evaluation Nutrition/Malnutrition Findings: Nutrition Notes Start: 04/12/22 16:12 Freq: Status: Active Protocol: Document 04/13/22 10:05 JOSI (Rec: 04/13/22 10:58 JOSI [id number]) Nutrition Notes Need for Assessment generated from: 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 Current Diet NPO (since 04/12 04/21), TF- Vital AF 1.2 Dajuan @ 65 ml/hr ( from L 04/13). Labs/Tests 04/13: K 3.3, Cl 107.2, BUN 41 , Crea 1.4, Glu 123. Pertinent Medications 04/13: Vit C, Vit D3 , KCl 40mEq, ZnSo4, otrhers nutritionally unremarkable. Height 5 ft 8 in Weight 113.398 kg [place] Body Weight (kg) 63.63 BMI 38.0 Weight change and time frame No body weight change reported in 1 day. Weight Status Obese Subjective/Other Information RD consult for risk of malnutrition and write/mange TF assessments. Pt continues on NPO. I will prescribe TF to provide Pt with energy/protein needs during LOS. Pt is on Mechanical Ventilation, O2 saturation @ 100%, according to Physical Assessment Histroy notes. Pt is incontinent, according to Physical Assessment Histroy notes. Pt has missing teeth, according to Physical Assessment Histroy notes. Pt shows a R-Hip wound as sign of concern for skin risk at the time, according to Physical Assessment Histroy notes. Pt shows no signs of concern for risk of malnutrition at the time, according to Physical Assessment Histroy notes. Percent of energy/protein needs met: Prescribed TF-Vital AF 1.2 Dajuan @ 65 ml/hr provides for energy/protein needs (1,860 Kcal/116 g) during LOS, 103% Kcal; 100% AA. Burn Absent Trauma Absent GI Symptoms Other Food Allergy No Skin Integrity/Comment R-Hip wound. Current % PO Other Minimum of two criteria No Fluid Accumulation N/A Reduced Towel Stretcher Strength N/A (non-severe) Protein-Calorie Malnutrition N\A #1 Nutrition Diagnosis Inadequate oral intake Etiology Pt is on Mechanical Ventilation. As Evidenced by Signs and Symptoms Pt on NPO. Is patient on ventilator? Yes Is Patient Ambulatory and/or Out of Bed No REE-([facility]-confined to bed) 2136.900 Kcal/Kg value to use for calculation 16 Approximate Energy Requirements Using 1814 kcal/Kg Calculation Used for Recommendations Kcal/kg Additional Notes Protein: 1.2-2 g/Kg AdjBW; 107 -178 g/day. Fluids: 1 ml/Kcal, or as per MD. Nutrition Intervention Nutrition Support: Start TF-Vital AF 1.2 Dajuan @ 65 ml/hr. Flush: 100 ml water Q 4 hr, or as per MD. Kcal 1,860 Protein (gm) 116 Carbohydrates (gm) 171 Fat (gm) 84 Fluid (mL) 1,257 Fiber (gm) 8 % RDI: 103% Kcal; 100% AA. Goal #1 Provide at least 75% of energy /protein needs through Enteral Feeding during LOS. Follow-Up By: 04/14/22 Additional Comments Start monitoring TF tolerance and BM.
--- NOTE | 2022-04-13 12:44 | Progress Note ---
Assessment and Plan Acute hypoxemic respiratory failure COVID-19 infection UTI (urinary tract infection) Mental disability - increase Keppra to 750 mg q12h re: breakthrough seizures - neurology evaluation - placed back on SBT vis PSV with p-supp @ 10 cm H2O - ABG at 9 pm if still tolerating - tentative trial of extubation in am - otherwise continue daily SAT and SBT assessment as tolerated - continue to wean supplemental oxygen for target O2 sat's > 90% acutely - VAP bundle addressed - continue lung protective strategies - bronchodilators with pulmonary hygiene per RT - wean per pulmonary driven protocols otherwise - avoid nephrotoxins, renally dose all medications - accuchecks with glycemic control per SSI (While critically ill target blood glucose of 140-180 mg/dL; avoid hypoglycemia) - sedation prn for target RASS 0 to -1 - reduce the possibility of delirium - AB's per ID rec's (empiric CAP Rx with Rocephin and Azithromycin - prn analgesia per CPOT score - Maintenance of sleep-wake cycle, avoid delirium - enteral nutritional support at goal rate as tolerated - G.I. & VTE prophylaxis - PT/OT/ROM exercises - continue mobility protocols for pressure ulcer prophylaxis - Monitor hemodynamics closely - continue other care per attending / other consultants - discharge planning ongoing concurrently COVID SPECIFIC INTERVENTIONS - Remdesivir as per ID/Pulmonary developed protocols (ordered) - systemic steroids for severe COVID-19 infection empirically (receiving) - follow repeat COVID tests results - zinc and vitamin C supplementation - Monitor inflammatory markers per facility protocol - ferritin, D-dimer, CRP - therapeutic anticoagulation per system Protocol based on d-dimer and clinical considerations - Continue contact and airborne isolation .... Re-evaluate in am & prn CONDITION: CRITICAL PROGNOSIS: GUARDED CODE STATUS: FULL CODE The high probability of a clinically significant, sudden or life-threatening d eterioration of the [respiratory, cardiovascular, renal & neurologic] system(s) required my full and direct attention, intervention and personal management. The aggregate critical care time was [35] minutes without overlap. Time includes spent on; [x] Data Review and interpretation [x] Patient assessment and monitoring of vital signs [x] Documentation [x] Medication orders and management Subjective Date of service: 04/13/22 Principal diagnosis: Acute hypoxemic respiratory failure; COVID-19 infxn; UTI; Mental disability Interval history: Patient is seen today for: Acute hypoxemic respiratory failure; COVID-19 infection; UTI (urinary tract infection); Mental disability Seen and examined at bedside; 24hour events reviewed; nursing and respiratory care staff consulted; no adverse overnight events reported to me; resting peacefully in bed; remains on MVS; nodded head yes to pain question but did not move right side to command; no emesis or overt aspiration; afebrile; no active seizures at my exam Objective Vital Signs - 12hr 04/13/22 04/13/22 04/13/22 01:00 01:30 02:00 Temperature Pulse Rate 110 H 113 H 105 H Pulse Rate [ From Monitor] Respiratory 18 18 18 Rate Blood Pressure 143/90 147/95 150/99 O2 Sat by Pulse 100 100 Oximetry 04/13/22 04/13/22 04/13/22 02:30 03:00 03:30 Temperature Pulse Rate 98 H 113 H 103 H Pulse Rate [ From Monitor] Respiratory 18 18 18 Rate Blood Pressure 159/91 156/99 153/97 O2 Sat by Pulse 100 100 100 Oximetry 04/13/22 04/13/22 04/13/22 04:00 04:27 04:30 Temperature 98.8 F Pulse Rate 105 H 109 H 108 H Pulse Rate [ 108 H From Monitor] Respiratory 19 18 Rate Blood Pressure 161/89 161/89 166/95 O2 Sat by Pulse 100 100 100 Oximetry 04/13/22 04/13/22 04/13/22 05:00 05:30 06:00 Temperature Pulse Rate 111 H 105 H 101 H Pulse Rate [ From Monitor] Respiratory 18 18 21 Rate Blood Pressure 175/97 155/96 160/104 O2 Sat by Pulse 100 100 100 Oximetry 04/13/22 04/13/22 04/13/22 06:30 07:00 07:20 Temperature 98.8 F Pulse Rate 103 H 93 H Pulse Rate [ From Monitor] Respiratory 18 18 Rate Blood Pressure 175/97 180/87 O2 Sat by Pulse 100 100 Oximetry 04/13/22 04/13/22 04/13/22 07:28 07:30 07:36 Temperature Pulse Rate 98 H 99 H Pulse Rate [ 98 H From Monitor] Respiratory 19 18 Rate Blood Pressure 183/107 O2 Sat by Pulse 100 Oximetry 04/13/22 04/13/22 04/13/22 08:00 08:30 09:00 Temperature Pulse Rate 105 H 102 H 103 H Pulse Rate [ From Monitor] Respiratory 17 19 18 Rate Blood Pressure 171/96 171/96 170/93 O2 Sat by Pulse 100 99 Oximetry 04/13/22 04/13/22 04/13/22 09:30 10:00 10:30 Temperature Pulse Rate 94 H 101 H 106 H Pulse Rate [ From Monitor] Respiratory 19 22 19 Rate Blood Pressure 175/97 156/82 158/99 O2 Sat by Pulse 100 100 100 Oximetry 04/13/22 04/13/22 04/13/22 11:00 11:30 11:36 Temperature 98.6 F Pulse Rate 103 H 110 H Pulse Rate [ From Monitor] Respiratory 18 17 Rate Blood Pressure 158/99 143/100 O2 Sat by Pulse 100 Oximetry 04/13/22 04/13/22 04/13/22 11:37 11:39 11:40 Temperature Pulse Rate 111 H 106 H Pulse Rate [ 111 H From Monitor] Respiratory 20 Rate Blood Pressure 143/100 O2 Sat by Pulse 99 100 Oximetry 04/13/22 04/13/22 12:00 12:30 Temperature Pulse Rate 98 H 101 H Pulse Rate [ From Monitor] Respiratory 16 16 Rate Blood Pressure 145/81 149/86 O2 Sat by Pulse 100 Oximetry Constitutional: no acute distress, other (middle aged female with normal res piratory effort at rest on MVS) Eyes: non-icteric ENT: oropharynx moist, other (ETT 24 cm RUBÉN) Neck: supple, no lymphadenopathy, no JVD Effort: normal Ascultation: Bilateral: diminished breath sounds, rhonchi (scant) Percussion: Bilateral: not dull Cardiovascular: regular rate and rhythm Gastrointestinal: normoactive bowel sounds, soft, non-tender, non-distended Integumentary: normal Extremities: no cyanosis, no edema, pulses normal, no ischemia or petechiae Neurologic: pupils equal and round, unable to assess, other (mot moving right leg or arms to command) CBC and BMP: 04/13/22 03:44 04/13/22 03:44 ABG, PT/INR, D-dimer: ABG ABG pH 7.407 pH Units (7.350-7.450) 04/13/22 04:15 ABG pCO2 34.7 mm Hg 04/13/22 04:15 ABG pO2 135.1 mm Hg (80.0-90.0) H 04/13/22 04:15 ABG O2 Saturation 98.7 % (95.0-99.0) 04/13/22 04:15 PT/INR, D-dimer PT 15.3 Sec. (12.2-14.9) H 04/12/22 09:11 INR 1.09 (0.87-1.13) 04/12/22 09:11 Abnormal lab findings: Abnormal Labs 04/12/22 04/12/22 04/12/22 09:11 09:11 09:11 WBC 12.8 H Seg Neuts % (Manual) 83.0 H Lymphocytes % (Manual) 12.0 L Seg Neutrophils # Man 10.6 H Lymphocytes # (Manual) PT ABG pO2 ABG Base Excess ABG Hemoglobin Sodium 148 H Potassium Chloride 107.2 H Carbon Dioxide 21 L BUN 37 H Creatinine 3.2 H Glucose 102 H POC Glucose Lactic Acid AST 48 H Total Creatine Kinase Total Protein 9.0 H Urine WBC (Auto) Salicylates < 0.3 L Acetaminophen Phenytoin 1.2 L Valproic Acid < 2.8 L SARS-CoV-2 (PCR) 04/12/22 04/12/22 04/12/22 09:11 09:11 09:38 WBC Seg Neuts % (Manual) Lymphocytes % (Manual) Seg Neutrophils # Man Lymphocytes # (Manual) PT 15.3 H ABG pO2 ABG Base Excess ABG Hemoglobin Sodium Potassium Chloride Carbon Dioxide BUN Creatinine Glucose POC Glucose Lactic Acid 3.30 H* AST Total Creatine Kinase Total Protein Urine WBC (Auto) Salicylates Acetaminophen 5.0 L Phenytoin Valproic Acid SARS-CoV-2 (PCR) 04/12/22 04/12/22 04/12/22 10:56 11:29 11:42 WBC Seg Neuts % (Manual) Lymphocytes % (Manual) Seg Neutrophils # Man Lymphocytes # (Manual) PT ABG pO2 152.6 H ABG Base Excess -4.2 L ABG Hemoglobin Sodium Potassium Chloride Carbon Dioxide BUN Creatinine Glucose POC Glucose Lactic Acid AST Total Creatine Kinase 1568 H Total Protein Urine WBC (Auto) Salicylates Acetaminophen Phenytoin Valproic Acid SARS-CoV-2 (PCR) Positive A 04/12/22 04/13/22 04/13/22 Unknown 00:56 03:44 WBC 18.7 H Seg Neuts % (Manual) 97.0 H Lymphocytes % (Manual) 2.0 L Seg Neutrophils # Man 18.1 H Lymphocytes # (Manual) 0.4 L PT ABG pO2 ABG Base Excess ABG Hemoglobin Sodium Potassium Chloride Carbon Dioxide BUN Creatinine Glucose POC Glucose 111 H Lactic Acid AST Total Creatine Kinase Total Protein Urine WBC (Auto) < 182.0 H Salicylates Acetaminophen Phenytoin Valproic Acid SARS-CoV-2 (PCR) 04/13/22 04/13/22 04/13/22 03:44 04:15 11:47 WBC Seg Neuts % (Manual) Lymphocytes % (Manual) Seg Neutrophils # Man Lymphocytes # (Manual) PT ABG pO2 135.1 H ABG Base Excess -2.7 L ABG Hemoglobin 11.9 L Sodium Potassium 3.3 L D Chloride 107.2 H Carbon Dioxide BUN 41 H Creatinine 1.4 H D Glucose 123 H POC Glucose 119 H Lactic Acid AST Total Creatine Kinase Total Protein Urine WBC (Auto) Salicylates Acetaminophen Phenytoin Valproic Acid SARS-CoV-2 (PCR) Chest x-ray: image reviewed (ETT and RIL CVL in good positiuon; no infiltrates) Allied health notes reviewed: nursing
--- NOTE | 2022-04-13 12:45 | Consultation ---
History of Present Illness - Reason for Consult Consult date: 04/13/22 COVID, UTI Requesting physician: RIKKI FINK - History of Present Illness The patient is a 57-year-old female with morbid obesity, seizure disorder, smoker was brought into the emergency room yesterday by EMS with complaint of possible seizures and altered mental status. She was intubated in the emergency room. Upon evaluation in the ED, there was concern for status epilepticus. Bryce marcus had a low-grade fever of 100.7 F. Labs showed leukocytosis, UA showed significant pyuria. Patient tested positive for COVID-19, hence infectious diseases was consulted. Creatinine was 3.2, showing improvement down to 1.4. Total CK was 1568 Chest x-ray did not reveal any pneumonia. CT head showed no acute intracranial abnormality CT abdomen pelvis without contrast revealed mild bladder wall thickening suggestive of cystitis, right lower lobe infiltrate versus atelectasis. Repeat chest x-ray today continues to show clear lungs. ID was consulted for additional evaluation. Review of Systems: Limited due to vent Past History Past Medical History: seizures, other (See HPI) Past Surgical History: Other (Craniotomy) Social history: single, smoking. denies: alcohol abuse, prescription drug abuse Family history: hypertension Medications and Allergies Allergies Allergy/AdvReac Type Severity Reaction Status Date / Time No Known Allergies Allergy Verified 04/12/22 15:15 Home Medications Medication Instructions Recorded Confirmed Last Taken Type AtorvaSTATin [Lipitor] 20 mg PO QHS 03/22/22 04/13/22 Unknown History levETIRAcetam [Keppra TAB] 500 mg PO BID #60 tablet 03/26/22 04/13/22 Unknown Rx Active Meds: Active Medications Acetaminophen (Acetaminophen 325 Mg Tab) 650 mg PO Q6H PRN PRN Reason: Pain MILD(1-3)/Fever >100.5/VALLADARES Albuterol (Albuterol 2.5 Mg/3 Ml Nebu) 2.5 mg IH Q3HRT PRN PRN Reason: Shortness Of Breath Ascorbic Acid (Ascorbic Acid 500 Mg Tab) 500 mg PO BID [facility] Last Admin: 04/13/22 09:20 Dose: 500 mg Azithromycin (Azithromycin 250 Mg Tab) 500 mg PO QDAY [facility]; Protocol Last Admin: 04/13/22 09:20 Dose: 500 mg Cholecalciferol (Cholecalciferol (Vit D3) 1000 Unit (25 Mcg) Tab) 1,000 unit PO QDAY [facility] Last Admin: 04/13/22 09:20 Dose: 1,000 unit Famotidine (Famotidine 10 Mg Tab) 10 mg FEEDTUBE BID [facility] Heparin Sodium (Porcine) (Heparin 5,000 Unit/1 Ml Vial) 5,000 unit SUB-Q Q12HR [facility] Last Admin: 04/13/22 09:20 Dose: 5,000 unit Hydralazine HCl (Hydralazine 20 Mg/1 Ml Inj) 10 mg IV Q4H PRN PRN Reason: Hypertension Hydromorphone HCl (Hydromorphone 0.5 Mg/0.5 Ml Inj) 0.5 mg IV Q23H PRN PRN Reason: Pain , Severe (7-10) Hydrophilic Ointment (Lip Therapy Vaseline) 1 applic TP Q2HR PRN PRN Reason: Dry Lips MIDAZOLAM/NS Drip 100mg/100ml (Midazolam/Ns Drip 100mg/100ml) 100 mg in 100 mls @ 1 mls/hr IV TITR [facility]; Protocol Last Titration: 04/13/22 00:54 Dose: 0 mg/hr, 0 mls/hr Levetiracetam 500 mg/ Dextrose 105 mls @ 400 mls/hr IV Q12H [facility] Last Infusion: 04/13/22 09:40 Dose: Infused Ceftriaxone Sodium (Rocephin/Ns 2 Gm/100 Ml) 2 gm in 100 mls @ 200 mls/hr IV Q24H [facility]; Protocol Last Infusion: 04/13/22 09:49 Dose: Infused Sodium Chloride (Nacl 0.45% 1000 Ml) 1,000 mls @ 125 mls/hr IV DIRECT [facility] Last Admin: 04/13/22 11:22 Dose: 125 mls/hr Methylprednisolone Sodium Succinate (Methylprednisolone Sod Succinate 40 Mg/1 Ml Inj) 40 mg IV Q8H [facility] Last Admin: 04/13/22 08:00 Dose: 40 mg Midazolam HCl (Midazolam 2 Mg/2 Ml Inj) 2 mg IV Q10MIN PRN PRN Reason: Sedation Multi-Ingred Cream/Lotion/Oil/Oint (Mineral Oil/Petrolatum, White Ophth Oint 3.5 Gm) 1 applic OU Q4HR PRN PRN Reason: Dry Eye(s) Ondansetron HCl (Ondansetron 4 Mg/2 Ml Inj) 4 mg IV Q8H PRN PRN Reason: Nausea And Vomiting Oxycodone/Acetaminophen (Oxycodone /Acetaminophen 5-325mg Tab) 1 tab PO Q16H PRN PRN Reason: Pain, Moderate (4-6) Potassium Chloride (Potassium Chloride 20 Meq Packet) 20 meq FEEDTUBE ONCE@1200 [facility] Stop: 04/13/22 15:00 Last Admin: 04/13/22 11:22 Dose: 20 meq Senna/Docusate Sodium (Sennosides/Docusate Sodium 8.6/50 Mg Tab) 1 tab FEEDTUBE BID [facility] Last Admin: 04/13/22 09:20 Dose: 1 tab Sodium Chloride (Sodium Chloride 0.9% 10 Ml Flush Syringe) 10 ml IV BID [facility] Last Admin: 04/13/22 09:20 Dose: 10 ml Sodium Chloride (Sodium Chloride 0.9% 10 Ml Flush Syringe) 10 ml IV PRN PRN PRN Reason: LINE FLUSH Zinc Sulfate (Zinc Sulfate 220 Mg Cap) 220 mg PO BID [facility] Last Admin: 04/13/22 09:20 Dose: 220 mg Physical Examination - Physical Exam Narrative exam: Physical Exam: Constitutional: sedated, intubated, on the vent Head, Ears, Nose: Normocephalic, atraumatic. External ears, nose normal Eyes: Conjunctivae/corneas clear. No icterus. No ptosis. Neck: intubated Oral: intubated Cardiovascular: S1, S2 + Respiratory: AE fair bilaterally and equal GI: Soft, bowel sounds + Musculoskeletal: No pedal edema, no cyanosis. Skin: No rash or abscess Hem/Lymphatic: No palpable cervical or supraclavicular nodes. No lymphangitis Psych: no agitation Neurological: sedated, intubated, on the vent, exam limited - Constitutional Vitals: Vital Signs Temp Pulse Resp BP Pulse Ox 98.6 F 101 H 16 149/86 100 04/13/22 11:36 04/13/22 12:30 04/13/22 12:30 04/13/22 12:30 04/13/22 12:00 Temperature -Last 24 Hours Temperature 98.6 F Temperature 98.8 F Temperature 98.8 F Temperature 98.8 F Temperature 99 F Results - Labs CBC & Chem 7: 04/13/22 03:44 04/13/22 03:44 Labs: Abnormal lab results 04/12/22 04/13/22 04/13/22 Range/Units 09:11 00:56 03:44 WBC 18.7 H (4.5-11.0) K/mm3 Seg Neuts % (Manual) 83.0 H 97.0 H (40.0-70.0) % Lymphocytes % (Manual) 12.0 L 2.0 L (13.4-35.0) % Seg Neutrophils # Man 10.6 H 18.1 H (1.8-7.7) K/mm3 Lymphocytes # (Manual) 0.4 L (1.2-5.4) K/mm3 ABG pO2 (80.0-90.0) mm Hg ABG Base Excess (-2.0-3.0) mmol/L ABG Hemoglobin (12.0-16.0) gm/dl Potassium (3.6-5.0) mmol/L Chloride (98-107) mmol/L BUN (7-17) mg/dL Creatinine (0.6-1.2) mg/dL Glucose (65-100) mg/dL POC Glucose 111 H (70-105) mg/dL 04/13/22 04/13/22 04/13/22 Range/Units 03:44 04:15 11:47 WBC (4.5-11.0) K/mm3 Seg Neuts % (Manual) (40.0-70.0) % Lymphocytes % (Manual) (13.4-35.0) % Seg Neutrophils # Man (1.8-7.7) K/mm3 Lymphocytes # (Manual) (1.2-5.4) K/mm3 ABG pO2 135.1 H (80.0-90.0) mm Hg ABG Base Excess -2.7 L (-2.0-3.0) mmol/L ABG Hemoglobin 11.9 L (12.0-16.0) gm/dl Potassium 3.3 L D (3.6-5.0) mmol/L Chloride 107.2 H (98-107) mmol/L BUN 41 H (7-17) mg/dL Creatinine 1.4 H D (0.6-1.2) mg/dL Glucose 123 H (65-100) mg/dL POC Glucose 119 H (70-105) mg/dL - Imaging and Cardiology Chest x-ray: report reviewed, image reviewed (no pneumonia) Assessment and Plan Cultures: SARS CoV2 PCR: Positive 04/12/2022 blood culture: No growth so far A/P: 57-year-old female with morbid obesity, seizure disorder, smoker: #COVID-19 infection: Chest x-ray appears clear. Intubated for airway protection. #Acute hypoxic respiratory failure: On the vent #UTI: UA showed pyuria, CT showed bladder wall thickening consistent with cystitis. #SIRS versus sepsis: Likely secondary to above and status epilepticus #Seizures Recs: -IV remdesivir x 5 days ordered due to improvement in renal function -Given lack of significant pulmonary infiltrates, no role for Actemra at this time -prophylactic anticoagulation based on d-dimer per hospital protocol -Continue ceftriaxone. Azithromycin discontinued -Follow-up blood and urine cultures -Trend ferritin, d-dimer, CRP every 2-3 days Angel Alas MD, FACP, [facility] ([facility] O: [phone] F: [phone] C: [phone]
[2022-04-13] MEDS: hydrALAZINE 20 MG/1 ML INJ IV PRN ×2 (14:12→21:33)
[2022-04-13] MEDS ORDERED: REMDESIVIR 200 MG in SODIUM CHLORIDE 0.9% 250ML 250 ML IV ONE (15:00)
[2022-04-13] MEDS: SODIUM CHLORIDE 0.9% 50 ML IVPB IV SCH (15:04)
--- NOTE | 2022-04-13 16:14 | Consultation ---
History of Present Illness Consult date: 04/13/22 Chief complaint: Seizures History of present illness: The patient has COVID - ( spoke with Nurse , patient has been on Dilantin which has been discontinued ). Past History Past Medical History: seizures, other (See HPI) Past Surgical History: Other (Craniotomy) Social history: single, smoking. denies: alcohol abuse, prescription drug abuse Family history: hypertension Medications and Allergies Allergies Allergy/AdvReac Type Severity Reaction Status Date / Time No Known Allergies Allergy Verified 04/12/22 15:15 Home Medications Medication Instructions Recorded Confirmed Last Taken Type AtorvaSTATin [Lipitor] 20 mg PO QHS 03/22/22 04/13/22 Unknown History levETIRAcetam [Keppra TAB] 500 mg PO BID #60 tablet 03/26/22 04/13/22 Unknown Rx Active Meds: Active Medications Acetaminophen (Acetaminophen 325 Mg Tab) 650 mg PO Q6H PRN PRN Reason: Pain MILD(1-3)/Fever >100.5/[facility]ES Albuterol (Albuterol 2.5 Mg/3 Ml Nebu) 2.5 mg IH Q3HRT PRN PRN Reason: Shortness Of Breath Ascorbic Acid (Ascorbic Acid 500 Mg Tab) 500 mg PO BID [facility] Last Admin: 04/13/22 09:20 Dose: 500 mg Cholecalciferol (Cholecalciferol (Vit D3) 1000 Unit (25 Mcg) Tab) 1,000 unit PO QDAY [facility] Last Admin: 04/13/22 09:20 Dose: 1,000 unit Famotidine (Famotidine 10 Mg Tab) 10 mg FEEDTUBE BID [facility] Heparin Sodium (Porcine) (Heparin 5,000 Unit/1 Ml Vial) 5,000 unit SUB-Q Q12HR [facility] Last Admin: 04/13/22 09:20 Dose: 5,000 unit Hydralazine HCl (Hydralazine 20 Mg/1 Ml Inj) 10 mg IV Q4H PRN PRN Reason: Hypertension Last Admin: 04/13/22 14:12 Dose: 10 mg Hydromorphone HCl (Hydromorphone 0.5 Mg/0.5 Ml Inj) 0.5 mg IV Q23H PRN PRN Reason: Pain , Severe (7-10) Hydrophilic Ointment (Lip Therapy Vaseline) 1 applic TP Q2HR PRN PRN Reason: Dry Lips MIDAZOLAM/NS Drip 100mg/100ml (Midazolam/Ns Drip 100mg/100ml) 100 mg in 100 mls @ 1 mls/hr IV TITR [facility]; Protocol Last Titration: 04/13/22 14:31 Dose: 0 mg/hr, 0 mls/hr Ceftriaxone Sodium (Rocephin/Ns 2 Gm/100 Ml) 2 gm in 100 mls @ 200 mls/hr IV Q24H [facility]; Protocol Last Infusion: 04/13/22 09:49 Dose: Infused Sodium Chloride (Nacl 0.45% 1000 Ml) 1,000 mls @ 75 mls/hr IV DIRECT [facility] Last Admin: 04/13/22 11:22 Dose: 125 mls/hr Remdesivir 100 mg/ Sodium (Chloride) 250 mls @ 500 mls/hr IV Q24HR@1400 [facility] Stop: 04/17/22 14:29 Levetiracetam 750 mg/ Dextrose 107.5 mls @ 400 mls/hr IV Q12H [facility] Methylprednisolone Sodium Succinate (Methylprednisolone Sod Succinate 40 Mg/1 Ml Inj) 40 mg IV Q8H [facility] Last Admin: 04/13/22 08:00 Dose: 40 mg Midazolam HCl (Midazolam 2 Mg/2 Ml Inj) 2 mg IV Q10MIN PRN PRN Reason: Sedation Multi-Ingred Cream/Lotion/Oil/Oint (Mineral Oil/Petrolatum, White Ophth Oint 3.5 Gm) 1 applic OU Q4HR PRN PRN Reason: Dry Eye(s) Ondansetron HCl (Ondansetron 4 Mg/2 Ml Inj) 4 mg IV Q8H PRN PRN Reason: Nausea And Vomiting Oxycodone/Acetaminophen (Oxycodone /Acetaminophen 5-325mg Tab) 1 tab PO Q16H PRN PRN Reason: Pain, Moderate (4-6) Senna/Docusate Sodium (Sennosides/Docusate Sodium 8.6/50 Mg Tab) 1 tab FEEDTUBE BID [facility] Last Admin: 04/13/22 09:20 Dose: 1 tab Sodium Chloride (Sodium Chloride 0.9% 10 Ml Flush Syringe) 10 ml IV BID [facility] Last Admin: 04/13/22 09:20 Dose: 10 ml Sodium Chloride (Sodium Chloride 0.9% 10 Ml Flush Syringe) 10 ml IV PRN PRN PRN Reason: LINE FLUSH Sodium Chloride (Sodium Chloride 0.9% 50 Ml Ivpb) 50 ml IV Q24HR@1400 ISIAH Stop: 04/17/22 14:01 Last Admin: 04/13/22 15:04 Dose: 50 ml Zinc Sulfate (Zinc Sulfate 220 Mg Cap) 220 mg PO BID [facility] Last Admin: 04/13/22 09:20 Dose: 220 mg Physical Examination - Vital Signs Vital Signs: Vital Signs Temp 100.7 F H 04/12/22 09:01 Results - Laboratory Findings CBC and BMP: 04/13/22 03:44 04/13/22 03:44 Abnormal Lab Findings: Abnormal Labs 04/12/22 04/12/22 04/12/22 09:11 09:11 09:11 WBC 12.8 H Seg Neuts % (Manual) 83.0 H Lymphocytes % (Manual) 12.0 L Seg Neutrophils # Man 10.6 H Lymphocytes # (Manual) PT ABG pO2 ABG Base Excess ABG Hemoglobin Sodium 148 H Potassium Chloride 107.2 H Carbon Dioxide 21 L BUN 37 H Creatinine 3.2 H Glucose 102 H POC Glucose Lactic Acid AST 48 H Total Creatine Kinase Total Protein 9.0 H Urine WBC (Auto) Salicylates < 0.3 L Acetaminophen Phenytoin 1.2 L Valproic Acid < 2.8 L SARS-CoV-2 (PCR) 04/12/22 04/12/22 04/12/22 09:11 09:11 09:38 WBC Seg Neuts % (Manual) Lymphocytes % (Manual) Seg Neutrophils # Man Lymphocytes # (Manual) PT 15.3 H ABG pO2 ABG Base Excess ABG Hemoglobin Sodium Potassium Chloride Carbon Dioxide BUN Creatinine Glucose POC Glucose Lactic Acid 3.30 H* AST Total Creatine Kinase Total Protein Urine WBC (Auto) Salicylates Acetaminophen 5.0 L Phenytoin Valproic Acid SARS-CoV-2 (PCR) 04/12/22 04/12/22 04/12/22 10:56 11:29 11:42 WBC Seg Neuts % (Manual) Lymphocytes % (Manual) Seg Neutrophils # Man Lymphocytes # (Manual) PT ABG pO2 152.6 H ABG Base Excess -4.2 L ABG Hemoglobin Sodium Potassium Chloride Carbon Dioxide BUN Creatinine Glucose POC Glucose Lactic Acid AST Total Creatine Kinase 1568 H Total Protein Urine WBC (Auto) Salicylates Acetaminophen Phenytoin Valproic Acid SARS-CoV-2 (PCR) Positive A 04/12/22 04/13/22 04/13/22 Unknown 00:56 03:44 WBC 18.7 H Seg Neuts % (Manual) 97.0 H Lymphocytes % (Manual) 2.0 L Seg Neutrophils # Man 18.1 H Lymphocytes # (Manual) 0.4 L PT ABG pO2 ABG Base Excess ABG Hemoglobin Sodium Potassium Chloride Carbon Dioxide BUN Creatinine Glucose POC Glucose 111 H Lactic Acid AST Total Creatine Kinase Total Protein Urine WBC (Auto) < 182.0 H Salicylates Acetaminophen Phenytoin Valproic Acid SARS-CoV-2 (PCR) 04/13/22 04/13/22 04/13/22 03:44 04:15 11:47 WBC Seg Neuts % (Manual) Lymphocytes % (Manual) Seg Neutrophils # Man Lymphocytes # (Manual) PT ABG pO2 135.1 H ABG Base Excess -2.7 L ABG Hemoglobin 11.9 L Sodium Potassium 3.3 L D Chloride 107.2 H Carbon Dioxide BUN 41 H Creatinine 1.4 H D Glucose 123 H POC Glucose 119 H Lactic Acid AST Total Creatine Kinase Total Protein Urine WBC (Auto) Salicylates Acetaminophen Phenytoin Valproic Acid SARS-CoV-2 (PCR) Assessment and Plan 1. Seizure ( Secondarily Generalized ) Continue Keppra 750mg IV q 12 hours for now once awake and patient able to take oral medications - switch to 1000 mg PO Keppra BID . 2. Call Back with questions . Dr. Ramos
[2022-04-13 16:56] LABS: Albumin 3.6 g/dL (3.9-5)
[2022-04-13] MEDS: HYDROmorphone 0.5 MG/0.5 ML INJ IV PRN (18:11)
[2022-04-13 18:25] LABS: ABG Base Excess -3.7 mmol/L (-2.0-3.0); ABG HCO3 20.9 mmol/L (20.0-26.0); ABG Methemoglobin 0.5 % (0.0-1.5); ABG Oxygen Saturation 98.2 % (95.0-99.0); ABG PCO2 36.2 mm Hg; ABG PH 7.38 pH Units (7.350-7.450)
[2022-04-13] MEDS: FAMOTIDINE 10 MG TAB FEEDTUBE SCH (21:30)
[2022-04-13] MEDS: levETIRAcetam 750 MG in DEXTROSE 5% IN WATER 100 ML IV SCH (21:31)
[2022-04-14] MEDS: HYDROmorphone 0.5 MG/0.5 ML INJ IV PRN ×3 (00:12→14:17)
[2022-04-14] MEDS: SODIUM CHLORIDE 0.45% 1000 ML 1,000 ML IV SCH (00:12)
[2022-04-14] MEDS: methylPREDNISolone Sod Succinate 40 MG/1 ML INJ IV SCH ×3 (00:12→15:52)
--- NOTE | 2022-04-14 03:04 | XRay Report ---
CHEST 1 VIEW INDICATION / CLINICAL INFORMATION: follow up respiratory failure. FINDINGS: SUPPORT DEVICES: No significant change in position. HEART / MEDIASTINUM: The cardiomediastinal silhouette has not significantly changed in the interim. LUNGS / PLEURA: The lungs remain grossly clear. Signer Name: Lexa Pires MD Signed: 04/14/2022 3:00 AM Workstation Name: [id number]
[2022-04-14 05:03] LABS: Hematocrit 34.4 % (30.3-42.9); Hemoglobin 11.2 gm/dl (10.1-14.3); Mean Corpuscular HGB Conc 33 % (30-34); Mean Corpuscular Volume 92 fl (79-97); Platelet Count 288 K/mm3 (140-440); Red Blood Count 3.72 M/mm3 (3.65-5.03); Red Cell Distribution Width 14.4 % (13.2-15.2)
[2022-04-14 05:15] LABS: BUN/Creatinine Ratio 41
[2022-04-14 05:17] LABS: Alanine Aminotransferase 29 units/L (7-56); Albumin 3.6 g/dL (3.9-5); BUN/Creatinine Ratio 43; Blood Urea Nitrogen 34 mg/dL (7-17); Calcium 8.8 mg/dL (8.4-10.2); Hemolysis Index 0
[2022-04-14 05:24] LABS: Blood Urea Nitrogen 33 mg/dL (7-17); Calcium 9.1 mg/dL (8.4-10.2); Hemolysis Index 1
[2022-04-14] MEDS: HEPARIN 5,000 UNIT/1 ML VIAL SUB-Q SCH ×2 (10:49→22:02)
[2022-04-14] MEDS: ZINC SULFATE 220 MG CAP PO SCH (10:49)
[2022-04-14] MEDS: cefTRIAXone/NS 2 GM/100 ML 2 GM/100 ML BAG IV SCH (10:49)
[2022-04-14] MEDS: levETIRAcetam 750 MG in DEXTROSE 5% IN WATER 100 ML IV SCH ×2 (10:49→22:02)
[2022-04-14] MEDS: CHOLECALCIFEROL (VIT D3) 1000 UNIT (25 mcg) TAB PO SCH (10:50)
[2022-04-14] MEDS: ASCORBIC ACID 500 MG TAB PO SCH (10:50)
[2022-04-14] MEDS: SENNOSIDES/DOCUSATE SODIUM 8.6/50 MG TAB FEEDTUBE SCH ×2 (10:50→22:04)
[2022-04-14] MEDS: FAMOTIDINE 10 MG TAB FEEDTUBE SCH ×2 (10:50→22:03)
[2022-04-14] MEDS ORDERED: VANCOMYCIN PHARMACY TO DOSE IV SCH (11:00)
--- NOTE | 2022-04-14 11:03 | Progress Note ---
Assessment and Plan Cultures: SARS CoV2 PCR: Positive 04/12/2022 blood culture: 1 out of 4 bottles with GPC 04/13/2022 sputum culture: In process A/P: 57-year-old female with morbid obesity, seizure disorder, smoker: #COVID-19 infection: Chest x-ray appears clear. Was intubated for airway protection. CRP 9.7, ferritin 318. #GPC bacteremia: Suspect contaminant, especially if it turns out to be coagulase-negative staph. #Acute hypoxic respiratory failure: On the vent. #UTI: UA showed pyuria, CT showed bladder wall thickening consistent with cystitis. #SIRS versus sepsis: Likely secondary to above and status epilepticus #Seizures Recs: -Discussed with ICU pharmacist, start IV vancomycin for now, if blood culture GPC is identified as coagulase-negative staph, discontinue vancomycin -continue IV remdesivir x 5 days, D2 -Continue Ceftriaxone x 5 days, procal is still pending -Given lack of significant pulmonary infiltrates, no role for Actemra at this time -prophylactic anticoagulation based on d-dimer per hospital protocol Angel Alas MD, FACP, [facility] ([facility] O: [phone] F: [phone] C: [phone] Subjective Date of service: 04/14/22 Principal diagnosis: Acute hypoxemic respiratory failure; COVID-19 infxn; UTI; Mental disability Interval history: Afebrile, T-max 99 F. Remains on the vent. CRP 9.7, ferritin 318. Objective - Exam Narrative Exam: Physical Exam: Constitutional: sedated, intubated, on the vent Head, Ears, Nose: Normocephalic, atraumatic. External ears, nose normal Eyes: Conjunctivae/corneas clear. No icterus. No ptosis. Neck: intubated Oral: intubated Cardiovascular: S1, S2 + Respiratory: AE fair bilaterally and equal GI: Soft, bowel sounds + Musculoskeletal: No pedal edema, no cyanosis. Skin: No rash or abscess Hem/Lymphatic: No palpable cervical or supraclavicular nodes. No lymphangitis Psych: no agitation Neurological: sedated, intubated, on the vent, exam limited - Constitutional Vitals: Vital Signs Temp Pulse Resp BP Pulse Ox 98.2 F 89 18 158/80 100 04/14/22 07:19 04/14/22 10:04 04/14/22 10:04 04/14/22 10:04 04/14/22 10:04 Temperature -Last 24 Hours Temperature 98.2 F Temperature 99 F Temperature 99 F Temperature 98.8 F Temperature 99 F Temperature 98.8 F Temperature 98.6 F Temperature 98.8 F Temperature 98.6 F - Labs CBC & Chem 7: 04/14/22 04:04 04/14/22 04:04 Labs: Abnormal lab results 04/12/22 04/13/22 04/13/22 Range/Units 14:34 11:47 15:45 WBC (4.5-11.0) K/mm3 ABG pO2 (80.0-90.0) mm Hg ABG Base Excess (-2.0-3.0) mmol/L ABG Hemoglobin (12.0-16.0) gm/dl Potassium 5.1 H D (3.6-5.0) mmol/L Chloride 107.5 H (98-107) mmol/L Carbon Dioxide 14 L D (22-30) mmol/L BUN 36 H (7-17) mg/dL Glucose 104 H (65-100) mg/dL POC Glucose 119 H (70-105) mg/dL Ferritin (10.0-200.0) ng/mL AST 47 H (5-40) units/L Total Creatine Kinase (30-135) units/L C-Reactive Protein (0.00-1.30) mg/dL Albumin 3.6 L (3.9-5) g/dL Levetiracetam <2.0 L (6.0-46.0) mcg/mL 04/13/22 04/14/22 04/14/22 Range/Units 18:18 00:06 04:04 WBC (4.5-11.0) K/mm3 ABG pO2 119.0 H (80.0-90.0) mm Hg ABG Base Excess -3.7 L (-2.0-3.0) mmol/L ABG Hemoglobin 11.8 L (12.0-16.0) gm/dl Potassium (3.6-5.0) mmol/L Chloride 107.6 H (98-107) mmol/L Carbon Dioxide (22-30) mmol/L BUN 33 H (7-17) mg/dL Glucose 148 H (65-100) mg/dL POC Glucose 120 H (70-105) mg/dL Ferritin (10.0-200.0) ng/mL AST (5-40) units/L Total Creatine Kinase 807 H (30-135) units/L C-Reactive Protein 9.70 H (0.00-1.30) mg/dL Albumin (3.9-5) g/dL Levetiracetam (6.0-46.0) mcg/mL 04/14/22 04/14/22 04/14/22 Range/Units 04:04 04:04 04:04 WBC 18.2 H (4.5-11.0) K/mm3 ABG pO2 (80.0-90.0) mm Hg ABG Base Excess (-2.0-3.0) mmol/L ABG Hemoglobin (12.0-16.0) gm/dl Potassium (3.6-5.0) mmol/L Chloride 108.8 H (98-107) mmol/L Carbon Dioxide (22-30) mmol/L BUN 34 H (7-17) mg/dL Glucose 149 H (65-100) mg/dL POC Glucose (70-105) mg/dL Ferritin 318.6 H (10.0-200.0) ng/mL AST (5-40) units/L Total Creatine Kinase (30-135) units/L C-Reactive Protein (0.00-1.30) mg/dL Albumin 3.6 L (3.9-5) g/dL Levetiracetam (6.0-46.0) mcg/mL 04/14/22 Range/Units 05:06 WBC (4.5-11.0) K/mm3 ABG pO2 (80.0-90.0) mm Hg ABG Base Excess (-2.0-3.0) mmol/L ABG Hemoglobin (12.0-16.0) gm/dl Potassium (3.6-5.0) mmol/L Chloride (98-107) mmol/L Carbon Dioxide (22-30) mmol/L BUN (7-17) mg/dL Glucose (65-100) mg/dL POC Glucose 143 H (70-105) mg/dL Ferritin (10.0-200.0) ng/mL AST (5-40) units/L Total Creatine Kinase (30-135) units/L C-Reactive Protein (0.00-1.30) mg/dL Albumin (3.9-5) g/dL Levetiracetam (6.0-46.0) mcg/mL - Imaging and cardiology Chest x-ray: report reviewed, image reviewed (no pneumonia)
[2022-04-14] MEDS ORDERED: VANCOMYCIN 1,500 MG in SODIUM CHLORIDE 0.9% 500 ML 500 ML IV SCH (12:00)
--- NOTE | 2022-04-14 12:48 | Progress Note ---
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) - continue Rocephin and Vancomycin; consult ID today - reduced p-supp to 8 cm H2O as still pulling TV's >/= 400 mls - increased apnea limit to 40 seconds pending 2 hour ABG - will hold on extubation for now re: AMS - neurology recommendations noted and will continue Keppra at 750 mg q12h - continue care as below otherwise; - continue daily SAT and SBT assessment as tolerated - continue to wean supplemental oxygen for target O2 sat's > 90% acutely - VAP bundle addressed - continue lung protective strategies - bronchodilators with pulmonary hygiene per RT - wean per pulmonary driven protocols otherwise - avoid nephrotoxins, renally dose all medications - accuchecks with glycemic control per SSI (While critically ill target blood glucose of 140-180 mg/dL; avoid hypoglycemia) - sedation prn for target RASS 0 to -1 - reduce the possibility of delirium - prn analgesia per CPOT score - Maintenance of sleep-wake cycle, avoid delirium - enteral nutritional support at goal rate as tolerated - G.I. & VTE prophylaxis - PT/OT/ROM exercises - continue mobility protocols for pressure ulcer prophylaxis - Monitor hemodynamics closely - continue other care per attending / other consultants - discharge planning ongoing concurrently COVID SPECIFIC INTERVENTIONS - Remdesivir as per ID/Pulmonary developed protocols (ordered) - systemic steroids for severe COVID-19 infection empirically (receiving) - follow repeat COVID tests results - zinc and vitamin C supplementation - Monitor inflammatory markers per facility protocol - ferritin, D-dimer, CRP - therapeutic anticoagulation per system Protocol based on d-dimer and clinical considerations - Continue contact and airborne isolation .... Re-evaluate in am & prn CONDITION: CRITICAL PROGNOSIS: GUARDED CODE STATUS: FULL CODE The high probability of a clinically significant, sudden or life-threatening deterioration of the [respiratory, cardiovascular, renal & neurologic] system(s) required my full and direct attention, intervention and personal management. The aggregate critical care time was [32] minutes without overlap. Time includes spent on; [x] Data Review and interpretation [x] Patient assessment and monitoring of vital signs [x] Documentation [x] Medication orders and management Subjective Date of service: 04/14/22 Principal diagnosis: Acute hypoxemic respiratory failure; COVID-19 infxn; UTI; Mental disability Interval history: Patient is seen today for: Acute hypoxemic respiratory failure; COVID-19 infection; UTI (urinary tract infection); Mental disability Seen and examined at bedside; 24hour events reviewed; nursing and respiratory care staff consulted; no adverse overnight events reported to me; resting peacefully in bed; remains on MVS; follows simple commands but still lethargic; on SBT via PSV with p-supp @ 12 cm H2O but triggering the apnea alarm in termittently Objective Vital Signs - 12hr 04/14/22 04/14/22 04/14/22 01:00 01:30 02:00 Temperature Pulse Rate 101 H 99 H 93 H Pulse Rate [ From Monitor] Respiratory 13 13 12 Rate Blood Pressure 132/76 135/71 144/75 O2 Sat by Pulse 100 100 100 Oximetry 04/14/22 04/14/22 04/14/22 02:30 03:00 03:30 Temperature Pulse Rate 106 H 124 H 111 H Pulse Rate [ From Monitor] Respiratory 12 20 14 Rate Blood Pressure 140/84 164/93 173/95 O2 Sat by Pulse 100 100 100 Oximetry 04/14/22 04/14/22 04/14/22 03:41 04:00 04:30 Temperature 99 F 99 F Pulse Rate 111 H 98 H Pulse Rate [ 108 H From Monitor] Respiratory 17 19 Rate Blood Pressure 144/88 151/81 O2 Sat by Pulse 100 100 Oximetry 04/14/22 04/14/22 04/14/22 05:00 05:07 05:30 Temperature Pulse Rate 106 H 108 H 104 H Pulse Rate [ From Monitor] Respiratory 19 12 Rate Blood Pressure 145/87 145/87 166/91 O2 Sat by Pulse 100 100 100 Oximetry 04/14/22 04/14/22 04/14/22 06:00 06:30 07:00 Temperature Pulse Rate 99 H 86 80 Pulse Rate [ From Monitor] Respiratory 13 12 12 Rate Blood Pressure 141/82 165/74 139/70 O2 Sat by Pulse 100 100 100 Oximetry 04/14/22 04/14/22 04/14/22 07:19 07:20 07:21 Temperature 98.2 F Pulse Rate 89 Pulse Rate [ 89 From Monitor] Respiratory 12 Rate Blood Pressure O2 Sat by Pulse 100 Oximetry 04/14/22 04/14/22 04/14/22 07:30 08:00 08:30 Temperature Pulse Rate 105 H 98 H 86 Pulse Rate [ From Monitor] Respiratory 14 17 14 Rate Blood Pressure 145/79 167/83 148/77 O2 Sat by Pulse 100 100 100 Oximetry 04/14/22 04/14/22 04/14/22 09:00 09:25 09:30 Temperature Pulse Rate 81 105 H 88 Pulse Rate [ From Monitor] Respiratory 12 13 Rate Blood Pressure 146/75 145/79 158/78 O2 Sat by Pulse 100 100 100 Oximetry 04/14/22 04/14/22 04/14/22 10:00 10:04 10:30 Temperature Pulse Rate 83 89 81 Pulse Rate [ From Monitor] Respiratory 12 18 13 Rate Blood Pressure 157/77 158/80 140/70 O2 Sat by Pulse 100 100 100 Oximetry 04/14/22 04/14/22 04/14/22 11:00 11:30 12:00 Temperature Pulse Rate 97 H 90 99 H Pulse Rate [ From Monitor] Respiratory 12 12 12 Rate Blood Pressure 182/101 178/94 154/93 O2 Sat by Pulse 100 100 100 Oximetry 04/14/22 04/14/22 12:07 12:08 Temperature 99 F Pulse Rate 95 H Pulse Rate [ 95 H From Monitor] Respiratory 12 Rate Blood Pressure O2 Sat by Pulse 100 Oximetry Constitutional: no acute distress, other (middle aged female with normal respiratory effort at rest on MVS) Eyes: non-icteric ENT: oropharynx moist, other (ETT 24 cm RUBÉN) Neck: supple, no lymphadenopathy, no JVD Effort: normal Ascultation: Bilateral: diminished breath sounds, rhonchi (scant) Percussion: Bilateral: not dull Cardiovascular: regular rate and rhythm Gastrointestinal: normoactive bowel sounds, soft, non-tender, non-distended Integumentary: normal Extremities: no cyanosis, no edema, pulses normal, no ischemia or petechiae Neurologic: pupils equal and round, unable to assess, other (mot moving limbs to command but increased tone in left sided musculature) Psychiatric: other (flat affect) CBC and BMP: 04/14/22 04:04 04/14/22 04:04 ABG, PT/INR, D-dimer: ABG ABG pH 7.380 pH Units (7.350-7.450) 04/13/22 18:18 ABG pCO2 36.2 mm Hg 04/13/22 18:18 ABG pO2 119.0 mm Hg (80.0-90.0) H 04/13/22 18:18 ABG O2 Saturation 98.2 % (95.0-99.0) 04/13/22 18:18 PT/INR, D-dimer PT 15.3 Sec. (12.2-14.9) H 04/12/22 09:11 INR 1.09 (0.87-1.13) 04/12/22 09:11 Abnormal lab findings: Abnormal Labs 04/12/22 04/12/22 04/12/22 09:11 09:11 09:11 WBC 12.8 H Seg Neuts % (Manual) 83.0 H Lymphocytes % (Manual) 12.0 L Seg Neutrophils # Man 10.6 H Lymphocytes # (Manual) PT ABG pO2 ABG Base Excess ABG Hemoglobin Sodium 148 H Potassium Chloride 107.2 H Carbon Dioxide 21 L BUN 37 H Creatinine 3.2 H Glucose 102 H POC Glucose Lactic Acid Ferritin AST 48 H Total Creatine Kinase C-Reactive Protein Total Protein 9.0 H Albumin Urine WBC (Auto) Salicylates < 0.3 L Acetaminophen Phenytoin 1.2 L Valproic Acid < 2.8 L Levetiracetam SARS-CoV-2 (PCR) 04/12/22 04/12/22 04/12/22 09:11 09:11 09:38 WBC Seg Neuts % (Manual) Lymphocytes % (Manual) Seg Neutrophils # Man Lymphocytes # (Manual) PT 15.3 H ABG pO2 ABG Base Excess ABG Hemoglobin Sodium Potassium Chloride Carbon Dioxide BUN Creatinine Glucose POC Glucose Lactic Acid 3.30 H* Ferritin AST Total Creatine Kinase C-Reactive Protein Total Protein Albumin Urine WBC (Auto) Salicylates Acetaminophen 5.0 L Phenytoin Valproic Acid Levetiracetam SARS-CoV-2 (PCR) 04/12/22 04/12/22 04/12/22 10:56 11:29 11:42 WBC Seg Neuts % (Manual) Lymphocytes % (Manual) Seg Neutrophils # Man Lymphocytes # (Manual) PT ABG pO2 152.6 H ABG Base Excess -4.2 L ABG Hemoglobin Sodium Potassium Chloride Carbon Dioxide BUN Creatinine Glucose POC Glucose Lactic Acid Ferritin AST Total Creatine Kinase 1568 H C-Reactive Protein Total Protein Albumin Urine WBC (Auto) Salicylates Acetaminophen Phenytoin Valproic Acid Levetiracetam SARS-CoV-2 (PCR) Positive A 04/12/22 04/12/22 04/13/22 14:34 Unknown 00:56 WBC Seg Neuts % (Manual) Lymphocytes % (Manual) Seg Neutrophils # Man Lymphocytes # (Manual) PT ABG pO2 ABG Base Excess ABG Hemoglobin Sodium Potassium Chloride Carbon Dioxide BUN Creatinine Glucose POC Glucose 111 H Lactic Acid Ferritin AST Total Creatine Kinase C-Reactive Protein Total Protein Albumin Urine WBC (Auto) < 182.0 H Salicylates Acetaminophen Phenytoin Valproic Acid Levetiracetam <2.0 L SARS-CoV-2 (PCR) 04/13/22 04/13/22 04/13/22 03:44 03:44 04:15 WBC 18.7 H Seg Neuts % (Manual) 97.0 H Lymphocytes % (Manual) 2.0 L Seg Neutrophils # Man 18.1 H Lymphocytes # (Manual) 0.4 L PT ABG pO2 135.1 H ABG Base Excess -2.7 L ABG Hemoglobin 11.9 L Sodium Potassium 3.3 L D Chloride 107.2 H Carbon Dioxide BUN 41 H Creatinine 1.4 H D Glucose 123 H POC Glucose Lactic Acid Ferritin AST Total Creatine Kinase C-Reactive Protein Total Protein Albumin Urine WBC (Auto) Salicylates Acetaminophen Phenytoin Valproic Acid Levetiracetam SARS-CoV-2 (PCR) 04/13/22 04/13/22 04/13/22 11:47 15:45 18:18 WBC Seg Neuts % (Manual) Lymphocytes % (Manual) Seg Neutrophils # Man Lymphocytes # (Manual) PT ABG pO2 119.0 H ABG Base Excess -3.7 L ABG Hemoglobin 11.8 L Sodium Potassium 5.1 H D Chloride 107.5 H Carbon Dioxide 14 L D BUN 36 H Creatinine Glucose 104 H POC Glucose 119 H Lactic Acid Ferritin AST 47 H Total Creatine Kinase C-Reactive Protein Total Protein Albumin 3.6 L Urine WBC (Auto) Salicylates Acetaminophen Phenytoin Valproic Acid Levetiracetam SARS-CoV-2 (PCR) 04/14/22 04/14/22 04/14/22 00:06 04:04 04:04 WBC 18.2 H Seg Neuts % (Manual) Lymphocytes % (Manual) Seg Neutrophils # Man Lymphocytes # (Manual) PT ABG pO2 ABG Base Excess ABG Hemoglobin Sodium Potassium Chloride 107.6 H Carbon Dioxide BUN 33 H Creatinine Glucose 148 H POC Glucose 120 H Lactic Acid Ferritin AST Total Creatine Kinase 807 H C-Reactive Protein 9.70 H Total Protein Albumin Urine WBC (Auto) Salicylates Acetaminophen Phenytoin Valproic Acid Levetiracetam SARS-CoV-2 (PCR) 04/14/22 04/14/22 04/14/22 04:04 04:04 05:06 WBC Seg Neuts % (Manual) Lymphocytes % (Manual) Seg Neutrophils # Man Lymphocytes # (Manual) PT ABG pO2 ABG Base Excess ABG Hemoglobin Sodium Potassium Chloride 108.8 H Carbon Dioxide BUN 34 H Creatinine Glucose 149 H POC Glucose 143 H Lactic Acid Ferritin 318.6 H AST Total Creatine Kinase C-Reactive Protein Total Protein Albumin 3.6 L Urine WBC (Auto) Salicylates Acetaminophen Phenytoin Valproic Acid Levetiracetam SARS-CoV-2 (PCR) Chest x-ray: image reviewed (no acute process; tubes and lines in good position) Allied health notes reviewed: nursing
--- NOTE | 2022-04-14 13:25 | Electrocardiograph Report ---
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
--- NOTE | 2022-04-14 13:28 | Progress Note ---
<RIKKI FINK - Last Filed: 04/14/22 16:41> Assessment and Plan Assessment and plan: This is a 57-year-old female with known past medical history of MR, obesity, nicotine dependence, seizure disorder admitted for status epilepticus and was intubated in the ED for airway protection Hospital Course to Date: 04/13: Stable on low vent setting this am. Off sedation, awake and tracking, not following commands. Patient does have history of MR, patient is functional and can voice her needs per the caregiver. No seizure like activity reported, EEG and Neurology consult pending. Continue IV Keppra. Patient remains afebrile and hemodynamicaly stable. PRN hydralazine added for hypertension. Continue current IV steroids, and empiric IV Abx. ID consulted for further rec for COVID infection. Renal function and CKP are improving post IVF hydration, continue IVF resuscitation. K repleted, continue to monitor electrolytes and replete as needed. Plan for PSV trial today, plan to wean for possible extubation per CCM. 04/14: Remains stable on the vent. No seizures like activities reported in the las t 48hrs. Neurology recommendation noted. Patient tolerated PSV trial yesterday. Continue daily PSV trial, plan to wean for possible extubation per CCM. Hypertensive this am low dose BB added for BP control. Continue IV steroids, on Rocephin and Remdeservir per ID. Assessment and Plan #Status Epilepticus #H/o Seizure Disorder #H/o Mental Retardation(MR) - Multifactorial - Patient with UTI and COVID positive - Per records from 09/2021, patient phenytoin level was elevated last admit and meds was held. Patient was D/Dany with PO Keppra BID - CT head/brain with chronic encephalomalacia/surgical changes in the frontal lobes. No acute intracranial abnormality. - Treated underlying cause, currently on empiric IV abx. ID consulted - Intubated, awake and tracking. S/p Versed gtt. - Continue IV keppra - EEG pedning - Neurology consult, appreciate recommendation - Per Neuro- continue Keppra 750mg IV q 12 hours for now once awake and patient able to take oral medications - switch to 1000 mg PO Keppra BID - PRN Ativan for seizure like activities - Frequent reorientation - Aspiration and Seizure precaution - PRN Analgesia for CPOT greater than 3 - Maintenance of sleep-wake cycle #Acute Hypoxic Respiratory Failure - Intubated in the ED on 04/12 for airway protection secondary to above - Vent setting: PRVC-30%,6,6,420 - AM ABG noted - CCM consulted, appreciate recommendations - VAP bundle addressed - Aspiration precaution HOB above 30 - Daily PSV trial as tolerated - Daily ABG and CXR - Continue SPO2 monitoring for SPO2 goal above 92% #Sepsis #Possible RLL Pneumonia #Coronavirus Infection #Urinary Tract Infection(UTI)/Cystitis - COVID PCR came back positive - CT reveal right lower lobe infiltrate vs atelectasis - UA consistent with UTI, CT scan shows mild bladder wall thickening suggesting cystitis - COVID PCR came back positive - Blood cultures and sputum culture pending - Patient is afebrile, with Leukocytosis, VSS - On IV steroids and empiric IV Abx - ID consulted, appreciate recommendations - Remdesevir added - F/U on cultures - Daily CBC monitor #Rhabdomyolysis - Probably due to multiple seizures - s/p IVF resuscitation, CPK improved - Trend CPK #Acute Kidney Injury(JONA) most likely Vasomotor Nephropathy #Hypokalemia - probably secondary to above - Per records, baseline scr is 1.1, Scr. as high as 3.2 this admit - Renal function back to baseline post IVF hydration - Strict intake and output - Avoid nephrotoxic medications; Renally dose medications - Luo in place, remove luo - Monitor and replace electrolytes as needed - Trend BMP #Hypertension - SBP in the 170-180s this am - BB added BID - Continue blood pressure monitor per protocol - PRN Hydralazine for SBP greater than 160 - Might benefits from antihypertensive regimen at discharge #GI/DVT Prophylaxis - PPI- Pepcid - Heparin SubQ - SCD to bilateral lower extremities while in bed #Advance Care Planning - Disease education data, care plan, diagnoses, and prognosis were discussed with patient's cousin and caregiver via phone. Patient is a FULL code. Patient's family acknowledged understanding and agreed with current care plan. The high probability of a clinically significant, sudden or life threatening deterioration of the [multiple] system(s) required my full and direct attention, intervention and personal management. The aggregate critical care time was [60] minutes. This time is in addition to time spent performing reported procedures but includes the following: [x] Data Review and interpretation [x] Patient assessment and monitoring of vital signs [x] Documentation [x] Medication orders and management Disposition Plan: ICU Total Time Spent with Patient (Minutes): 60 History Interval history: Patient seen and examined at the bedside. Stable on the vent, off sedation. Awake and tracking, not following commands. Tolerated PSV trial for over 3hr yesterday. Remains hypertensive this am, otherwise vital signs are stable. [facility] overnight Hospitalist Physical - Physical exam Narrative exam: General appearance: Present: no acute distress, well-nourished, obese, other (on the vent) - EENT Eyes: Present: PERRL ENT: hearing intact - Neck Neck: Present: normal ROM - Respiratory Respiratory effort: normal Respiratory: bilateral: rhonchi - Cardiovascular Rhythm: regular Heart Sounds: Present: S1 & S2 - Extremities Extremities: no ischemia, pulses intact, pulses symmetrical Extremity abnormal: edema - Peripheral Assessment Bilateral Lower Extremity Edema Type: Non-pitting Edema Degree: 2+ Capillary Refill: < 3 seconds Skin Temperature: Warm Generalized Edema Type: Non-pitting Edema Degree: 1+ Capillary Refill: < 3 seconds Skin Temperature: Warm Peripheral Pulses: within normal limits - Abdominal General gastrointestinal: soft, non-distended, normal bowel sounds - Integumentary Integumentary: Present: warm, dry - Psychiatric Psychiatric: other (Awake and tracking, not following commands) - Neurologic Neurologic: moves all extremities, other (Awake and tracking, not following commands) - Allied Health Allied health notes reviewed: nursing, case management - Constitutional Vitals: Temp Pulse Resp BP Pulse Ox 99 F 95 H 12 154/93 100 04/14/22 12:07 04/14/22 12:08 04/14/22 12:08 04/14/22 12:00 04/14/22 12:08 Results - Labs CBC & Chem 7: 04/14/22 04:04 04/14/22 04:04 Labs: Laboratory Last Values WBC 18.2 K/mm3 (4.5-11.0) H 04/14/22 04:04 RBC 3.72 M/mm3 (3.65-5.03) 04/14/22 04:04 Hgb 11.2 gm/dl (10.1-14.3) 04/14/22 04:04 Hct 34.4 % (30.3-42.9) 04/14/22 04:04 MCV 92 fl (79-97) 04/14/22 04:04 MCH 30 pg (28-32) 04/14/22 04:04 MCHC 33 % (30-34) 04/14/22 04:04 RDW 14.4 % (13.2-15.2) 04/14/22 04:04 Plt Count 288 K/mm3 (140-440) 04/14/22 04:04 Add Manual Diff Complete 04/13/22 03:44 Total Counted 100 04/13/22 03:44 Seg Neutrophils % Geographic Analyst 04/13/22 03:44 Seg Neuts % (Manual) 97.0 % (40.0-70.0) H 04/13/22 03:44 Band Neutrophils % 0 % 04/13/22 03:44 Lymphocytes % (Manual) 2.0 % (13.4-35.0) L 04/13/22 03:44 Reactive Lymphs % (Man) 0 % 04/13/22 03:44 Monocytes % (Manual) 1.0 % (0.0-7.3) 04/13/22 03:44 Eosinophils % (Manual) 0 % (0.0-4.3) 04/13/22 03:44 Basophils % (Manual) 0 % (0.0-1.8) 04/13/22 03:44 Metamyelocytes % 0 % 04/13/22 03:44 Myelocytes % 0 % 04/13/22 03:44 Promyelocytes % 0 % 04/13/22 03:44 Blast Cells % 0 % 04/13/22 03:44 Nucleated RBC % Not Reportable 04/13/22 03:44 Seg Neutrophils # Man 18.1 K/mm3 (1.8-7.7) H 04/13/22 03:44 Band Neutrophils # 0.0 K/mm3 04/13/22 03:44 Lymphocytes # (Manual) 0.4 K/mm3 (1.2-5.4) L 04/13/22 03:44 Abs React Lymphs (Man) 0.0 K/mm3 04/13/22 03:44 Monocytes # (Manual) 0.2 K/mm3 (0.0-0.8) 04/13/22 03:44 Eosinophils # (Manual) 0.0 K/mm3 (0.0-0.4) 04/13/22 03:44 Basophils # (Manual) 0.0 K/mm3 (0.0-0.1) 04/13/22 03:44 Metamyelocytes # 0.0 K/mm3 04/13/22 03:44 Myelocytes # 0.0 K/mm3 04/13/22 03:44 Promyelocytes # 0.0 K/mm3 04/13/22 03:44 Blast Cells # 0.0 K/mm3 04/13/22 03:44 WBC Morphology Not Reportable 04/13/22 03:44 Hypersegmented Neuts Not Reportable 04/13/22 03:44 Hyposegmented Neuts Not Reportable 04/13/22 03:44 Hypogranular Neuts Not Reportable 04/13/22 03:44 Smudge Cells Not Reportable 04/13/22 03:44 Toxic Granulation Not Reportable 04/13/22 03:44 Toxic Vacuolation Not Reportable 04/13/22 03:44 Dohle Bodies Not Reportable 04/13/22 03:44 Pelger-Huet Anomaly Not Reportable 04/13/22 03:44 Neeta Rods Not Reportable 04/13/22 03:44 Platelet Estimate Consistent w auto 04/13/22 03:44 Clumped Platelets Not Reportable 04/13/22 03:44 Plt Clumps, EDTA Not Reportable 04/13/22 03:44 Large Platelets Not Reportable 04/13/22 03:44 Giant Platelets Not Reportable 04/13/22 03:44 Platelet Satelliting Not Reportable 04/13/22 03:44 Plt Morphology Comment Not Reportable 04/13/22 03:44 RBC Morphology Not Reportable 04/13/22 03:44 Dimorphic RBCs Not Reportable 04/13/22 03:44 Polychromasia Not Reportable 04/13/22 03:44 Hypochromasia Not Reportable 04/13/22 03:44 Poikilocytosis Not Reportable 04/13/22 03:44 Anisocytosis Not Reportable 04/13/22 03:44 Microcytosis Not Reportable 04/13/22 03:44 Macrocytosis Not Reportable 04/13/22 03:44 Spherocytes Not Reportable 04/13/22 03:44 Pappenheimer Bodies Not Reportable 04/13/22 03:44 Sickle Cells Not Reportable 04/13/22 03:44 Target Cells Not Reportable 04/13/22 03:44 Tear Drop Cells Not Reportable 04/13/22 03:44 Ovalocytes Not Reportable 04/13/22 03:44 Helmet Cells Not Reportable 04/13/22 03:44 [place] Bodies Not Reportable 04/13/22 03:44 [place] Rings Not Reportable 04/13/22 03:44 [place] Cells Not Reportable 04/13/22 03:44 Bite Cells Not Reportable 04/13/22 03:44 Crenated Cell Not Reportable 04/13/22 03:44 Elliptocytes Not Reportable 04/13/22 03:44 Acanthocytes (Spur) Not Reportable 04/13/22 03:44 Rouleaux Not Reportable 04/13/22 03:44 Hemoglobin C Crystals Not Reportable 04/13/22 03:44 Schistocytes Not Reportable 04/13/22 03:44 Malaria parasites Not Reportable 04/13/22 03:44 Sanjay Bodies Not Reportable 04/13/22 03:44 Hem Pathologist Commnt No 04/13/22 03:44 PT 15.3 Sec. (12.2-14.9) H 04/12/22 09:11 INR 1.09 (0.87-1.13) 04/12/22 09:11 APTT 27.4 Sec. (24.2-36.6) 04/12/22 09:11 ABG pH 7.380 pH Units (7.350-7.450) 04/13/22 18:18 ABG pCO2 36.2 mm Hg 04/13/22 18:18 ABG pO2 119.0 mm Hg (80.0-90.0) H 04/13/22 18:18 ABG HCO3 20.9 mmol/L (20.0-26.0) 04/13/22 18:18 ABG O2 Saturation 98.2 % (95.0-99.0) 04/13/22 18:18 ABG O2 Content 16.3 (0.0-44) 04/13/22 18:18 ABG Base Excess -3.7 mmol/L (-2.0-3.0) L 04/13/22 18:18 ABG Hemoglobin 11.8 gm/dl (12.0-16.0) L 04/13/22 18:18 ABG Carboxyhemoglobin 0.9 % (0.0-5.0) 04/13/22 18:18 ABG Methemoglobin 0.5 % (0.0-1.5) 04/13/22 18:18 Oxyhemoglobin 96.8 % (95.0-99.0) 04/13/22 18:18 FiO2 30 % 04/13/22 18:18 Sodium 142 mmol/L (137-145) 04/14/22 04:04 Sodium 143 mmol/L (137-145) 04/14/22 04:04 Potassium 3.7 mmol/L (3.6-5.0) 04/14/22 04:04 Potassium 3.8 mmol/L (3.6-5.0) D 04/14/22 04:04 Chloride 107.6 mmol/L (98-107) H 04/14/22 04:04 Chloride 108.8 mmol/L (98-107) H 04/14/22 04:04 Carbon Dioxide 22 mmol/L (22-30) 04/14/22 04:04 Carbon Dioxide 22 mmol/L (22-30) D 04/14/22 04:04 Anion Gap 16 mmol/L 04/14/22 04:04 Anion Gap 16 mmol/L 04/14/22 04:04 BUN 33 mg/dL (7-17) H 04/14/22 04:04 BUN 34 mg/dL (7-17) H 04/14/22 04:04 Creatinine 0.8 mg/dL (0.6-1.2) 04/14/22 04:04 Creatinine 0.9 mg/dL (0.6-1.2) 04/14/22 04:04 Estimated GFR > 60 ml/min 04/14/22 04:04 Estimated GFR > 60 ml/min 04/14/22 04:04 BUN/Creatinine Ratio 41 % 04/14/22 04:04 BUN/Creatinine Ratio 43 % 04/14/22 04:04 Glucose 148 mg/dL (65-100) H 04/14/22 04:04 Glucose 149 mg/dL (65-100) H 04/14/22 04:04 POC Glucose 143 mg/dL (70-105) H 04/14/22 05:06 Lactic Acid 1.60 mmol/L (0.7-2.0) 04/12/22 11:42 Calcium 8.8 mg/dL (8.4-10.2) 04/14/22 04:04 Calcium 9.1 mg/dL (8.4-10.2) 04/14/22 04:04 Phosphorus 2.50 mg/dL (2.5-4.5) 04/14/22 04:04 Magnesium 2.00 mg/dL (1.7-2.3) 04/14/22 04:04 Ferritin 318.6 ng/mL (10.0-200.0) H 04/14/22 04:04 Total Bilirubin 0.20 mg/dL (0.1-1.2) 04/14/22 04:04 AST 37 units/L (5-40) 04/14/22 04:04 ALT 29 units/L (7-56) 04/14/22 04:04 Alkaline Phosphatase 103 units/L (35-129) 04/14/22 04:04 Total Creatine Kinase 807 units/L (30-135) H 04/14/22 04:04 C-Reactive Protein 9.70 mg/dL (0.00-1.30) H 04/14/22 04:04 Total Protein 7.5 g/dL (6.3-8.2) 04/14/22 04:04 Albumin 3.6 g/dL (3.9-5) L 04/14/22 04:04 Albumin/Globulin Ratio 0.9 % 04/14/22 04:04 Urine Color Yellow (Yellow) 04/12/22 Unknown Urine Turbidity Cloudy (Clear) 04/12/22 Unknown Specific [place] (Man) 1.020 (1.003-1.030) 04/12/22 Unknown Ur Protein (Man) 4+ mg/dL (Negative) 04/12/22 Unknown Ur Ketones (Man) Negative (Negative) 04/12/22 Unknown Ur Nitrite (Man) Negative (Negative) 04/12/22 Unknown Ur Reducing Substances Not Reportable 04/12/22 Unknown Urine Bilirubin (Man) Negative (Negative) 04/12/22 Unknown Urine Ictotest Not Reportable 04/12/22 Unknown Leukocyte Esterase (Man) Large (Negative) 04/12/22 Unknown Urine WBC (Auto) < 182.0 /HPF (0.0-6.0) H 04/12/22 Unknown Urine RBC (Auto) 60.0 /HPF (0.0-6.0) 04/12/22 Unknown U Epithel Cells (Auto) 12.0 /HPF (0-13.0) 04/12/22 Unknown Urine RBC (Manual) 3+ (Negative) 04/12/22 Unknown Urine WBC Clumps 3+ /HPF 04/12/22 Unknown Urine Mucus 3+ /HPF 04/12/22 Unknown Salicylates < 0.3 mg/dL (2.8-20.0) L 04/12/22 09:11 Acetaminophen 5.0 ug/mL (10.0-30.0) L 04/12/22 09:11 Phenytoin 1.2 ug/mL (10.0-20.0) L 04/12/22 09:11 Valproic Acid < 2.8 ug/mL (50-100) L 04/12/22 09:11 Levetiracetam <2.0 mcg/mL (6.0-46.0) L 04/12/22 14:34 Plasma/Serum Alcohol < 0.01 % (0-0.07) 04/12/22 09:11 SARS-CoV-2 (PCR) Positive (Negative) A 04/12/22 10:56 Microbiology: Microbiology 04/12/22 09:38 Peripheral/Venous Blood Culture - Preliminary Coag Negative Staphylococcus 04/13/22 Unknown Tracheal Aspirate Sputum Culture - Preliminary 04/12/22 09:38 Peripheral/Venous Blood Culture - Preliminary NO GROWTH AFTER 48 HOURS Luo/IV: Voiding Method Indwelling Catheter Active Medications - Current Medications Current Medications: Generic Name Dose Route Start Last Admin Trade Name Freq PRN Reason Stop Dose Admin Acetaminophen 650 mg 04/12/22 12:38 Acetaminophen 325 Mg Tab PO Q6H PRN Pain MILD(1-3)/Fever >100.5/VALLDAARES Albuterol 2.5 mg 04/12/22 12:38 Albuterol 2.5 Mg/3 Ml Nebu IH Q3HRT PRN Shortness Of Breath Cholecalciferol 1,000 unit 04/13/22 10:00 04/14/22 10:50 Cholecalciferol (Vit D3) 1000 Unit (25 Mcg) Tab PO 1,000 unit QDAY ISIAH Administration Dexamethasone 6 mg 09/03/22 10:00 Dexamethasone 4 Mg/Ml Vial IV 04/22/22 10:01 Q24HR ISIAH Famotidine 10 mg 04/13/22 22:00 04/14/22 10:50 Famotidine 10 Mg Tab FEEDTUBE 10 mg BID ISIAH Administration Heparin Sodium (Porcine) 5,000 unit 04/12/22 22:00 04/14/22 10:49 Heparin 5,000 Unit/1 Ml Vial SUB-Q 5,000 unit Q12HR ISIAH Administration Hydralazine HCl 10 mg 04/13/22 13:00 04/13/22 21:33 Hydralazine 20 Mg/1 Ml Inj IV 10 mg Q4H PRN Administration Hypertension Hydromorphone HCl 0.5 mg 04/14/22 10:48 Hydromorphone 0.5 Mg/0.5 Ml Inj IV Q6H PRN Pain , Severe (7-10) Hydrophilic Ointment 1 applic 04/12/22 09:35 Lip Therapy Vaseline TP Q2HR PRN Dry Lips MIDAZOLAM/NS Drip 100mg/100ml 100 mg in 100 mls @ 1 mls/hr 04/12/22 10:00 04/13/22 14:31 Midazolam/Ns Drip 100mg/100ml IV 0 mg/hr TITR ISIAH 0 mls/hr Titration Protocol 1 MG/HR Ceftriaxone Sodium 2 gm in 100 mls @ 200 mls/hr 04/13/22 10:00 04/14/22 11:19 Rocephin/Ns 2 Gm/100 Ml IV Infused Q24H ISIAH Infusion Protocol Remdesivir 100 mg/ Sodium 250 mls @ 500 mls/hr 04/14/22 14:00 Chloride IV 04/17/22 14:29 Q24HR@1400 ISIAH Levetiracetam 750 mg/ Dextrose 107.5 mls @ 400 mls/hr 04/13/22 22:00 04/14/22 11:06 IV Infused Q12H ISIAH Infusion Vancomycin HCl 1,500 mg/ 530 mls @ 333.333 mls/hr 04/14/22 12:00 04/14/22 1 1:14 Sodium Chloride IV 333.333 mls/hr Q12H ISIAH Administration Methylprednisolone Sodium Succinate 40 mg 04/12/22 16:00 04/14/22 08:22 Methylprednisolone Sod Succinate 40 Mg/1 Ml Inj IV 04/14/22 23:59 40 mg Q8H ISIAH Administration Midazolam HCl 2 mg 04/12/22 09:36 Midazolam 2 Mg/2 Ml Inj IV Q10MIN PRN Sedation Multi-Ingred Cream/Lotion/Oil/Oint 1 applic 04/12/22 09:35 Mineral Oil/Petrolatum, White Ophth Oint 3.5 Gm OU Q4HR PRN Dry Eye(s) Ondansetron HCl 4 mg 04/12/22 12:38 Ondansetron 4 Mg/2 Ml Inj IV Q8H PRN Nausea And Vomiting Oxycodone/Acetaminophen 1 tab 04/12/22 12:38 04/13/22 22:27 Oxycodone /Acetaminophen 5-325mg Tab PO 1 tab Q16H PRN Administration Pain, Moderate (4-6) Senna/Docusate Sodium 1 tab 04/12/22 10:00 04/14/22 10:50 Sennosides/Docusate Sodium 8.6/50 Mg Tab FEEDTUBE 1 tab BID ISIAH Administration Sodium Chloride 10 ml 04/12/22 22:00 04/14/22 10:49 Sodium Chloride 0.9% 10 Ml Flush Syringe IV 10 ml BID ISIAH Administration Sodium Chloride 10 ml 04/12/22 12:38 Sodium Chloride 0.9% 10 Ml Flush Syringe IV PRN PRN LINE FLUSH Sodium Chloride 50 ml 04/13/22 15:00 04/13/22 15:04 Sodium Chloride 0.9% 50 Ml Ivpb IV 04/17/22 14:01 50 ml Q24HR@1400 ISIAH Administration Nutrition/Malnutrition Assess - Dietary Evaluation Nutrition/Malnutrition Findings: Nutrition Notes Start: 04/12/22 16:12 Freq: Status: Active Protocol: Document 04/13/22 10:05 JOSI (Rec: 04/13/22 10:58 JOSI [id number]) Nutrition Notes Need for Assessment generated from: MD Order,retail department manager,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 Current Diet NPO (since 04/12 04/21), TF- Vital AF 1.2 Dajuan @ 65 ml/hr ( from L 04/13). Labs/Tests 04/13: K 3.3, Cl 107.2, BUN 41 , Crea 1.4, Glu 123. Pertinent Medications 04/13: Vit C, Vit D3 , KCl 40mEq, ZnSo4, otrhers nutritionally unremarkable. Height 5 ft 8 in Weight 113.398 kg [place] Body Weight (kg) 63.63 BMI 38.0 Weight change and time frame No body weight change reported in 1 day. Weight Status Obese Subjective/Other Information RD consult for risk of malnutrition and write/mange TF assessments. Pt continues on NPO. I will prescribe TF to provide Pt with energy/protein needs during LOS. Pt is on Mechanical Ventilation, O2 saturation @ 100%, according to Physical Assessment Histroy notes. Pt is incontinent, according to Physical Assessment Histroy notes. Pt has missing teeth, according to Physical Assessment Histroy notes. Pt shows a R-Hip wound as sign of concern for skin risk at the time, according to Physical Assessment Histroy notes. Pt shows no signs of concern for risk of malnutrition at the time, according to Physical Assessment Histroy notes. Percent of energy/protein needs met: Prescribed TF-Vital AF 1.2 Dajuan @ 65 ml/hr provides for energy/protein needs (1,860 Kcal/116 g) during LOS, 103% Kcal; 100% AA. Burn Absent Trauma Absent GI Symptoms Other Food Allergy No Skin Integrity/Comment R-Hip wound. Current % PO Other Minimum of two criteria No Fluid Accumulation N/A Reduced Commercial Diver Strength N/A (non-severe) Protein-Calorie Malnutrition N\A #1 Nutrition Diagnosis Inadequate oral intake Etiology Pt is on Mechanical Ventilation. As Evidenced by Signs and Symptoms Pt on NPO. Is patient on ventilator? Yes Is Patient Ambulatory and/or Out of Bed No REE-([facility]-confined to bed) 2136.900 Kcal/Kg value to use for calculation 16 Approximate Energy Requirements Using 1814 kcal/Kg Calculation Used for Recommendations Kcal/kg Additional Notes Protein: 1.2-2 g/Kg AdjBW; 107 -178 g/day. Fluids: 1 ml/Kcal, or as per MD. Nutrition Intervention Nutrition Support: Start TF-Vital AF 1.2 Dajuan @ 65 ml/hr. Flush: 100 ml water Q 4 hr, or as per MD. Kcal 1,860 Protein (gm) 116 Carbohydrates (gm) 171 Fat (gm) 84 Fluid (mL) 1,257 Fiber (gm) 8 % RDI: 103% Kcal; 100% AA. Goal #1 Provide at least 75% of energy /protein needs through Enteral Feeding during LOS. Follow-Up By: 04/14/22 Additional Comments Start monitoring TF tolerance and BM. <[id number] - Last Filed: 04/15/22 10:29> Assessment and Plan Assessment and plan: I saw and evaluated the patient. I agree with the findings and the plan of care as documented in the Nurse Practitioner's~note, with the following corrections and additions. Hospitalist Physical - Constitutional Vitals: Temp Pulse Resp BP Pulse Ox 100.2 F H 104 H 17 158/76 100 04/15/22 08:19 04/15/22 10:00 04/15/22 10:00 04/15/22 10:00 04/15/22 10:00 Results - Labs CBC & Chem 7: 04/15/22 04:31 04/15/22 04:31 Labs: Laboratory Last Values WBC 15.7 K/mm3 (4.5-11.0) H 04/15/22 04:31 RBC 3.74 M/mm3 (3.65-5.03) 04/15/22 04:31 Hgb 11.4 gm/dl (10.1-14.3) 04/15/22 04:31 Hct 34.6 % (30.3-42.9) 04/15/22 04:31 MCV 92 fl (79-97) 04/15/22 04:31 MCH 30 pg (28-32) 04/15/22 04:31 MCHC 33 % (30-34) 04/15/22 04:31 RDW 14.7 % (13.2-15.2) 04/15/22 04:31 Plt Count 316 K/mm3 (140-440) 04/15/22 04:31 Add Manual Diff Complete 04/13/22 03:44 Total Counted 100 04/13/22 03:44 Seg Neutrophils % Geographic Analyst 04/13/22 03:44 Seg Neuts % (Manual) 97.0 % (40.0-70.0) H 04/13/22 03:44 Band Neutrophils % 0 % 04/13/22 03:44 Lymphocytes % (Manual) 2.0 % (13.4-35.0) L 04/13/22 03:44 Reactive Lymphs % (Man) 0 % 04/13/22 03:44 Monocytes % (Manual) 1.0 % (0.0-7.3) 04/13/22 03:44 Eosinophils % (Manual) 0 % (0.0-4.3) 04/13/22 03:44 Basophils % (Manual) 0 % (0.0-1.8) 04/13/22 03:44 Metamyelocytes % 0 % 04/13/22 03:44 Myelocytes % 0 % 04/13/22 03:44 Promyelocytes % 0 % 04/13/22 03:44 Blast Cells % 0 % 04/13/22 03:44 Nucleated RBC % Not Reportable 04/13/22 03:44 Seg Neutrophils # Man 18.1 K/mm3 (1.8-7.7) H 04/13/22 03:44 Band Neutrophils # 0.0 K/mm3 04/13/22 03:44 Lymphocytes # (Manual) 0.4 K/mm3 (1.2-5.4) L 04/13/22 03:44 Abs React Lymphs (Man) 0.0 K/mm3 04/13/22 03:44 Monocytes # (Manual) 0.2 K/mm3 (0.0-0.8) 04/13/22 03:44 Eosinophils # (Manual) 0.0 K/mm3 (0.0-0.4) 04/13/22 03:44 Basophils # (Manual) 0.0 K/mm3 (0.0-0.1) 04/13/22 03:44 Metamyelocytes # 0.0 K/mm3 04/13/22 03:44 Myelocytes # 0.0 K/mm3 04/13/22 03:44 Promyelocytes # 0.0 K/mm3 04/13/22 03:44 Blast Cells # 0.0 K/mm3 04/13/22 03:44 WBC Morphology Not Reportable 04/13/22 03:44 Hypersegmented Neuts Not Reportable 04/13/22 03:44 Hyposegmented Neuts Not Reportable 04/13/22 03:44 Hypogranular Neuts Not Reportable 04/13/22 03:44 Smudge Cells Not Reportable 04/13/22 03:44 Toxic Granulation Not Reportable 04/13/22 03:44 Toxic Vacuolation Not Reportable 04/13/22 03:44 Dohle Bodies Not Reportable 04/13/22 03:44 Pelger-Huet Anomaly Not Reportable 04/13/22 03:44 Neeta Rods Not Reportable 04/13/22 03:44 Platelet Estimate Consistent w auto 04/13/22 03:44 Clumped Platelets Not Reportable 04/13/22 03:44 Plt Clumps, EDTA Not Reportable 04/13/22 03:44 Large Platelets Not Reportable 04/13/22 03:44 Giant Platelets Not Reportable 04/13/22 03:44 Platelet Satelliting Not Reportable 04/13/22 03:44 Plt Morphology Comment Not Reportable 04/13/22 03:44 RBC Morphology Not Reportable 04/13/22 03:44 Dimorphic RBCs Not Reportable 04/13/22 03:44 Polychromasia Not Reportable 04/13/22 03:44 Hypochromasia Not Reportable 04/13/22 03:44 Poikilocytosis Not Reportable 04/13/22 03:44 Anisocytosis Not Reportable 04/13/22 03:44 Microcytosis Not Reportable 04/13/22 03:44 Macrocytosis Not Reportable 04/13/22 03:44 Spherocytes Not Reportable 04/13/22 03:44 Pappenheimer Bodies Not Reportable 04/13/22 03:44 Sickle Cells Not Reportable 04/13/22 03:44 Target Cells Not Reportable 04/13/22 03:44 Tear Drop Cells Not Reportable 04/13/22 03:44 Ovalocytes Not Reportable 04/13/22 03:44 Helmet Cells Not Reportable 04/13/22 03:44 [place] Bodies Not Reportable 04/13/22 03:44 [place] Rings Not Reportable 04/13/22 03:44 Raj Cells Not Reportable 04/13/22 03:44 Bite Cells Not Reportable 04/13/22 03:44 Crenated Cell Not Reportable 04/13/22 03:44 Elliptocytes Not Reportable 04/13/22 03:44 Acanthocytes (Spur) Not Reportable 04/13/22 03:44 Rouleaux Not Reportable 04/13/22 03:44 Hemoglobin C Crystals Not Reportable 04/13/22 03:44 Schistocytes Not Reportable 04/13/22 03:44 Malaria parasites Not Reportable 04/13/22 03:44 Sanjay Bodies Not Reportable 04/13/22 03:44 Hem Pathologist Commnt No 04/13/22 03:44 PT 15.3 Sec. (12.2-14.9) H 04/12/22 09:11 INR 1.09 (0.87-1.13) 04/12/22 09:11 APTT 27.4 Sec. (24.2-36.6) 04/12/22 09:11 ABG pH 7.367 pH Units (7.350-7.450) 04/14/22 14:45 ABG pCO2 44.1 mm Hg 04/14/22 14:45 ABG pO2 100.5 mm Hg (80.0-90.0) H 04/14/22 14:45 ABG HCO3 24.7 mmol/L (20.0-26.0) 04/14/22 14:45 ABG O2 Saturation 97.5 % (95.0-99.0) 04/14/22 14:45 ABG O2 Content 9.7 (0.0-44) 04/14/22 14:45 ABG Base Excess -0.6 mmol/L (-2.0-3.0) 04/14/22 14:45 ABG Hemoglobin 7.0 gm/dl (12.0-16.0) L 04/14/22 14:45 ABG Carboxyhemoglobin 1.2 % (0.0-5.0) 04/14/22 14:45 ABG Methemoglobin 0.3 % (0.0-1.5) 04/14/22 14:45 Oxyhemoglobin 96.0 % (95.0-99.0) 04/14/22 14:45 FiO2 30 % 04/14/22 14:45 Sodium 146 mmol/L (137-145) H 04/15/22 04:31 Potassium 3.5 mmol/L (3.6-5.0) L 04/15/22 04:31 Chloride 110.6 mmol/L (98-107) H 04/15/22 04:31 Carbon Dioxide 23 mmol/L (22-30) 04/15/22 04:31 Anion Gap 16 mmol/L 04/15/22 04:31 BUN 28 mg/dL (7-17) H 04/15/22 04:31 Creatinine 0.8 mg/dL (0.6-1.2) 04/15/22 04:31 Estimated GFR > 60 ml/min 04/15/22 04:31 BUN/Creatinine Ratio 35 % 04/15/22 04:31 Glucose 116 mg/dL (65-100) H 04/15/22 04:31 POC Glucose 124 mg/dL (70-105) H 04/15/22 05:19 Lactic Acid 1.60 mmol/L (0.7-2.0) 04/12/22 11:42 Calcium 9.3 mg/dL (8.4-10.2) 04/15/22 04:31 Phosphorus 2.50 mg/dL (2.5-4.5) 04/14/22 04:04 Magnesium 2.00 mg/dL (1.7-2.3) 04/14/22 04:04 Ferritin 318.6 ng/mL (10.0-200.0) H 04/14/22 04:04 Total Bilirubin 0.30 mg/dL (0.1-1.2) 04/15/22 04:31 AST 36 units/L (5-40) 04/15/22 04:31 ALT 29 units/L (7-56) 04/15/22 04:31 Alkaline Phosphatase 96 units/L (35-129) 04/15/22 04:31 Total Creatine Kinase 807 units/L (30-135) H 04/14/22 04:04 C-Reactive Protein 9.70 mg/dL (0.00-1.30) H 04/14/22 04:04 Total Protein 7.5 g/dL (6.3-8.2) 04/15/22 04:31 Albumin 3.8 g/dL (3.9-5) L 04/15/22 04:31 Albumin/Globulin Ratio 1.0 % 04/15/22 04:31 Urine Color Yellow (Yellow) 04/12/22 Unknown Urine Turbidity Cloudy (Clear) 04/12/22 Unknown Specific [place] (Man) 1.020 (1.003-1.030) 04/12/22 Unknown Ur Protein (Man) 4+ mg/dL (Negative) 04/12/22 Unknown Ur Ketones (Man) Negative (Negative) 04/12/22 Unknown Ur Nitrite (Man) Negative (Negative) 04/12/22 Unknown Ur Reducing Substances Not Reportable 04/12/22 Unknown Urine Bilirubin (Man) Negative (Negative) 04/12/22 Unknown Urine Ictotest Not Reportable 04/12/22 Unknown Leukocyte Esterase (Man) Large (Negative) 04/12/22 Unknown Urine WBC (Auto) < 182.0 /HPF (0.0-6.0) H 04/12/22 Unknown Urine RBC (Auto) 60.0 /HPF (0.0-6.0) 04/12/22 Unknown U Epithel Cells (Auto) 12.0 /HPF (0-13.0) 04/12/22 Unknown Urine RBC (Manual) 3+ (Negative) 04/12/22 Unknown Urine WBC Clumps 3+ /HPF 04/12/22 Unknown Urine Mucus 3+ /HPF 04/12/22 Unknown Salicylates < 0.3 mg/dL (2.8-20.0) L 04/12/22 09:11 Acetaminophen 5.0 ug/mL (10.0-30.0) L 04/12/22 09:11 Phenytoin 1.2 ug/mL (10.0-20.0) L 04/12/22 09:11 Valproic Acid < 2.8 ug/mL (50-100) L 04/12/22 09:11 Levetiracetam <2.0 mcg/mL (6.0-46.0) L 04/12/22 14:34 Plasma/Serum Alcohol < 0.01 % (0-0.07) 04/12/22 09:11 SARS-CoV-2 (PCR) Positive (Negative) A 04/12/22 10:56 Microbiology: Microbiology 04/12/22 09:38 Peripheral/Venous Blood Culture - Preliminary Coag Negative Staphylococcus 04/13/22 Unknown Tracheal Aspirate Sputum Culture - Preliminary 04/12/22 09:38 Peripheral/Venous Blood Culture - Preliminary NO GROWTH AFTER 48 HOURS Luo/IV: Voiding Method External Female Catheter Active Medications - Current Medications Current Medications: Generic Name Dose Route Start Last Admin Trade Name Freq PRN Reason Stop Dose Admin Acetaminophen 650 mg 04/12/22 12:38 Acetaminophen 325 Mg Tab PO Q6H PRN Pain MILD(1-3)/Fever >100.5/VALLADARES Albuterol 2.5 mg 04/12/22 12:38 Albuterol 2.5 Mg/3 Ml Nebu IH Q3HRT PRN Shortness Of Breath Cholecalciferol 1,000 unit 04/13/22 10:00 04/15/22 09:06 Cholecalciferol (Vit D3) 1000 Unit (25 Mcg) Tab PO 1,000 unit QDAY ISIAH Administration Dexamethasone 6 mg 04/15/22 10:00 04/15/22 09:07 Dexamethasone 4 Mg/Ml Vial IV 04/22/22 10:01 6 mg Q24HR ISIAH Administration Famotidine 10 mg 04/13/22 22:00 04/15/22 09:07 Famotidine 10 Mg Tab FEEDTUBE 10 mg BID ISIAH Administration Heparin Sodium (Porcine) 5,000 unit 04/12/22 22:00 04/15/22 09:06 Heparin 5,000 Unit/1 Ml Vial SUB-Q 5,000 unit Q12HR ISIAH Administration Hydralazine HCl 10 mg 04/13/22 13:00 04/15/22 06:11 Hydralazine 20 Mg/1 Ml Inj IV 10 mg Q4H PRN Administration Hypertension Hydromorphone HCl 0.5 mg 04/14/22 10:48 04/15/22 08:34 Hydromorphone 0.5 Mg/0.5 Ml Inj IV 0.5 mg Q6H PRN Administration Pain , Severe (7-10) Hydrophilic Ointment 1 applic 04/12/22 09:35 Lip Therapy Vaseline TP Q2HR PRN Dry Lips Ceftriaxone Sodium 2 gm in 100 mls @ 200 mls/hr 04/13/22 10:00 04/15/22 09:32 Rocephin/Ns 2 Gm/100 Ml IV 04/17/22 10:29 100 mls/hr Q24H ISIAH Administration Protocol Remdesivir 100 mg/ Sodium 250 mls @ 500 mls/hr 04/14/22 14:00 04/14/22 14:33 Chloride IV 04/17/22 14:29 500 mls/hr Q24HR@1400 ISIAH Administration Levetiracetam 750 mg/ Dextrose 107.5 mls @ 400 mls/hr 04/13/22 22:00 04/15/22 09:33 IV 400 mls/hr Q12H ISIAH Administration Labetalol HCl 10 mg 04/15/22 09:00 Labetalol 20 Mg/4 Ml Inj IV Q4H PRN Hypertension Lisinopril 5 mg 04/15/22 10:00 04/15/22 09:06 Lisinopril 5 Mg Tab PO 5 mg QDAY ISIAH Administration Metoprolol Tartrate 12.5 mg 04/14/22 16:13 04/15/22 09:06 Metoprolol Tartrate 25 Mg Tab PO 12.5 mg BID ISIAH Administration Multi-Ingred Cream/Lotion/Oil/Oint 1 applic 04/12/22 09:35 Mineral Oil/Petrolatum, White Ophth Oint 3.5 Gm OU Q4HR PRN Dry Eye(s) Ondansetron HCl 4 mg 04/12/22 12:38 Ondansetron 4 Mg/2 Ml Inj IV Q8H PRN Nausea And Vomiting Oxycodone/Acetaminophen 1 tab 04/12/22 12:38 04/13/22 22:27 Oxycodone /Acetaminophen 5-325mg Tab PO 1 tab Q16H PRN Administration Pain, Moderate (4-6) Potassium Chloride 40 meq 04/15/22 09:00 04/15/22 09:07 Potassium Chloride 20 Meq Packet FEEDTUBE 04/15/22 13:00 40 meq ONCE@0900 ISIAH Administration Senna/Docusate Sodium 1 tab 04/12/22 10:00 04/15/22 09:08 Sennosides/Docusate Sodium 8.6/50 Mg Tab FEEDTUBE Not Given BID ISIAH Sodium Chloride 10 ml 04/12/22 22:00 04/15/22 09:07 Sodium Chloride 0.9% 10 Ml Flush Syringe IV 10 ml BID ISIAH Administration Sodium Chloride 10 ml 04/12/22 12:38 Sodium Chloride 0.9% 10 Ml Flush Syringe IV PRN PRN LINE FLUSH Sodium Chloride 50 ml 04/13/22 15:00 04/14/22 14:34 Sodium Chloride 0.9% 50 Ml Ivpb IV 04/17/22 14:01 50 ml Q24HR@1400 ISIAH Administration Nutrition/Malnutrition Assess - Dietary Evaluation Nutrition/Malnutrition Findings: Nutrition Notes Start: 04/12/22 16:12 Freq: Status: Active Protocol: Document 04/14/22 16:43 NHALL (Rec: 04/14/22 16:49 [id number]) Nutrition Notes Initial or Follow up Brief Note Current Diet TF - Vital AF 1.2 at 65ml/hr Height 5 ft 8 in Weight 113.3 kg [place] Body Weight (kg) 63.63 BMI 38.0 Subjective/Other Information Observed TF infusing at 55ml/ hr. Pt remains on vent support. Percent of energy/protein needs met: 74% energy 78% pro Is patient on ventilator? Yes Is Patient Ambulatory and/or Out of Bed No REE-([place]-confined to bed) 2135.724 Kcal/Kg value to use for calculation 15 Approximate Energy Requirements Using 1700 kcal/Kg Calculation Used for Recommendations Kcal/kg Additional Notes Pro needs 2g/kg IBW: 127g/day Fluid needs 1m/kcal Nutrition Intervention Nutrition Support: Decrease TF goal rate to 60ml/ hr with 100ml water flush q4h Kcal 1,728 Protein (gm) 108 Fluid (mL) 1,168 Goal #1 TF tolerance Goal #2 TF to meet 70-80% energy and at least 75% pro needs Follow-Up By: 04/18/22 Additional Comments F/U: TF goal rate/tolerance, vent status
[2022-04-14] MEDS: REMDESIVIR 100 MG in SODIUM CHLORIDE 0.9% 250ML 250 ML IV SCH (14:33)
[2022-04-14] MEDS: SODIUM CHLORIDE 0.9% 50 ML IVPB IV SCH (14:34)
[2022-04-14 15:42] LABS: ABG Base Excess -0.6 mmol/L (-2.0-3.0); ABG HCO3 24.7 mmol/L (20.0-26.0); ABG Methemoglobin 0.3 % (0.0-1.5); ABG Oxygen Saturation 97.5 % (95.0-99.0); ABG PCO2 44.1 mm Hg; ABG PH 7.367 pH Units (7.350-7.450); ABG PO2 100.5 mm Hg (80.0-90.0)
[2022-04-14] MEDS: hydrALAZINE 20 MG/1 ML INJ IV PRN (15:52)
[2022-04-14] MEDS: METOPROLOL TARTRATE 25 MG TAB PO SCH ×2 (16:55→22:02)
[2022-04-15 04:55] LABS: Hematocrit 34.6 % (30.3-42.9); Hemoglobin 11.4 gm/dl (10.1-14.3); Mean Corpuscular HGB Conc 33 % (30-34); Mean Corpuscular Volume 92 fl (79-97); Platelet Count 316 K/mm3 (140-440); Red Blood Count 3.74 M/mm3 (3.65-5.03); Red Cell Distribution Width 14.7 % (13.2-15.2)
[2022-04-15 05:39] LABS: Alanine Aminotransferase 29 units/L (7-56); Albumin 3.8 g/dL (3.9-5); BUN/Creatinine Ratio 35; Blood Urea Nitrogen 28 mg/dL (7-17); Calcium 9.3 mg/dL (8.4-10.2); Hemolysis Index 6
[2022-04-15] MEDS: hydrALAZINE 20 MG/1 ML INJ IV PRN (06:11)
--- NOTE | 2022-04-15 06:44 | XRay Report ---
CHEST 1 VIEW 04/15/2022 2:22 AM INDICATION / CLINICAL INFORMATION: follow up respiratory failure. COMPARISON: One view of the chest from 04/14/2022. FINDINGS: SUPPORT DEVICES: An ET tube is located 5.6 cm above the wei. An NG tube terminates over the gastri c fundus. There is a similarly positioned right internal jugular CVL, terminating over the mid SVC. HEART / MEDIASTINUM: No significant abnormality. LUNGS / PLEURA: There are increased bilateral interstitial opacities. No significant pleural effusion . No pneumothorax. ADDITIONAL FINDINGS: No significant additional findings. IMPRESSION: 1. Increased bilateral pulmonary opacities, likely representing atelectasis/edema. 2. Expected positioning of support lines/tubes. Signer Name: Tee Singleton MD Signed: 04/15/2022 6:40 AM Workstation Name: [id number]
[2022-04-15] MEDS: HYDROmorphone 0.5 MG/0.5 ML INJ IV PRN (08:34)
[2022-04-15] MEDS ORDERED: POTASSIUM CHLORIDE 20 MEQ PACKET FEEDTUBE SCH (09:00)
[2022-04-15] MEDS: METOPROLOL TARTRATE 25 MG TAB PO SCH ×2 (09:06→21:28)
[2022-04-15] MEDS: CHOLECALCIFEROL (VIT D3) 1000 UNIT (25 mcg) TAB PO SCH (09:06)
[2022-04-15] MEDS: HEPARIN 5,000 UNIT/1 ML VIAL SUB-Q SCH ×2 (09:06→21:28)
[2022-04-15] MEDS: FAMOTIDINE 10 MG TAB FEEDTUBE SCH (09:07)
[2022-04-15] MEDS: dexAMETHasone 4 MG/ML VIAL IV SCH (09:07)
[2022-04-15] MEDS: SENNOSIDES/DOCUSATE SODIUM 8.6/50 MG TAB FEEDTUBE SCH ×3 (09:08→21:28)
[2022-04-15] MEDS ORDERED: SODIUM CHLORIDE 0.9% 500 ML 500 ML ONE (09:29)
[2022-04-15] MEDS: cefTRIAXone/NS 2 GM/100 ML 2 GM/100 ML BAG IV SCH (09:32)
[2022-04-15] MEDS: levETIRAcetam 750 MG in DEXTROSE 5% IN WATER 100 ML IV SCH (09:33)
[2022-04-15] MEDS ORDERED: LISINOPRIL 5 MG TAB PO SCH (10:00)
--- NOTE | 2022-04-15 11:17 | Progress Note ---
Assessment and Plan Acute hypoxemic respiratory failure COVID-19 infection UTI (urinary tract infection) Mental disability Chronic Left Frontal encephalomalacia / Post surgical changes - ABG acceptable on SBT - extubate - prn BIPAP post extubation - continue Rocephin and Vancomycin; de-escalate per ID recommendations - continue Keppra at 750 mg q12h - continue care as below otherwise; - continue daily SAT and SBT assessment as tolerated - continue to wean supplemental oxygen for target O2 sat's > 90% acutely - VAP bundle addressed - continue lung protective strategies - bronchodilators with pulmonary hygiene per RT - wean per pulmonary driven protocols otherwise - avoid nephrotoxins, renally dose all medications - accuchecks with glycemic control per SSI (While critically ill target blood glucose of 140-180 mg/dL; avoid hypoglycemia) - sedation prn for target RASS 0 to -1 - reduce the possibility of delirium - prn analgesia per CPOT score - Maintenance of sleep-wake cycle, avoid delirium - enteral nutritional support at goal rate as tolerated - G.I. & VTE prophylaxis - PT/OT/ROM exercises - continue mobility protocols for pressure ulcer prophylaxis - Monitor hemodynamics closely - continue other care per attending / other consultants - discharge planning ongoing concurrently COVID SPECIFIC INTERVENTIONS - Remdesivir as per ID/Pulmonary developed protocols (ordered) - systemic steroids for severe COVID-19 infection empirically (receiving) - follow repeat COVID tests results - zinc and vitamin C supplementation - Monitor inflammatory markers per facility protocol - ferritin, D-dimer, CRP - therapeutic anticoagulation per system Protocol based on d-dimer and clinical considerations - Continue contact and airborne isolation .... Re-evaluate in am & prn CONDITION: CRITICAL PROGNOSIS: GUARDED CODE STATUS: FULL CODE The high probability of a clinically significant, sudden or life-threatening deterioration of the [respiratory, cardiovascular, renal & neurologic] system(s) required my full and direct attention, intervention and personal management. The aggregate critical care time was [34] minutes without overlap. Time includes spent on; [x] Data Review and interpretation [x] Patient assessment and monitoring of vital signs [x] Documentation [x] Medication orders and management Subjective Date of service: 04/15/22 Principal diagnosis: Acute hypoxemic respiratory failure; COVID-19 infxn; UTI; Mental disability Interval history: Patient is seen today for: Acute hypoxemic respiratory failure; COVID-19 infection; UTI (urinary tract infection); Mental disability Seen and examined at bedside; 24hour events reviewed; nursing and respiratory care staff consulted; no adverse overnight events reported to me; resting peacefully in bed; remains on MVS; somnolent but responds with head nodding appropriately; tolerating SBT via PSV with p-supp @ 8 cm H2O very well; no N/V/F/C Objective Vital Signs - 12hr 04/14/22 04/15/22 04/15/22 23:30 00:00 00:05 Temperature 99.3 F 99.3 F Pulse Rate 99 H 99 H 92 H Pulse Rate [ 97 H From Monitor] Respiratory 13 15 20 Rate Blood Pressure 152/85 158/87 158/87 O2 Sat by Pulse 100 100 100 Oximetry 04/15/22 04/15/22 04/15/22 00:19 00:30 01:00 Temperature Pulse Rate 104 H 95 H 97 H Pulse Rate [ From Monitor] Respiratory 15 17 18 Rate Blood Pressure 152/65 151/77 151/70 O2 Sat by Pulse 100 100 100 Oximetry 04/15/22 04/15/22 04/15/22 01:30 02:00 02:30 Temperature Pulse Rate 90 94 H 87 Pulse Rate [ From Monitor] Respiratory 17 19 18 Rate Blood Pressure 156/77 167/88 137/74 O2 Sat by Pulse 100 100 100 Oximetry 04/15/22 04/15/22 04/15/22 02:39 03:00 03:16 Temperature 99.5 F Pulse Rate 91 H 93 H Pulse Rate [ From Monitor] Respiratory 13 Rate Blood Pressure 137/74 148/72 O2 Sat by Pulse 100 100 Oximetry 04/15/22 04/15/22 04/15/22 03:30 04:00 04:01 Temperature 99.5 F Pulse Rate 104 H 118 H 105 H Pulse Rate [ 118 H From Monitor] Respiratory 20 13 17 Rate Blood Pressure 148/72 192/93 O2 Sat by Pulse 100 99 100 Oximetry 04/15/22 04/15/22 04/15/22 04:30 05:00 05:01 Temperature Pulse Rate 105 H 108 H 110 H Pulse Rate [ From Monitor] Respiratory 20 19 Rate Blood Pressure 155/83 172/95 140/70 O2 Sat by Pulse 100 100 99 Oximetry 04/15/22 04/15/22 04/15/22 05:30 06:00 06:11 Temperature Pulse Rate 108 H 113 H 102 H Pulse Rate [ From Monitor] Respiratory 17 19 Rate Blood Pressure 172/89 170/96 170/96 O2 Sat by Pulse 100 100 Oximetry 04/15/22 04/15/22 04/15/22 06:30 07:00 07:30 Temperature Pulse Rate 121 H 125 H 120 H Pulse Rate [ From Monitor] Respiratory 23 27 H 16 Rate Blood Pressure 151/78 147/81 141/74 O2 Sat by Pulse 100 100 100 Oximetry 04/15/22 04/15/22 04/15/22 08:00 08:19 08:20 Temperature 100.2 F H Pulse Rate 123 H 117 H Pulse Rate [ From Monitor] Respiratory 19 Rate Blood Pressure 153/75 136/78 O2 Sat by Pulse 100 100 Oximetry 04/15/22 04/15/22 04/15/22 08:21 08:30 09:00 Temperature Pulse Rate 119 H 116 H Pulse Rate [ 119 H From Monitor] Respiratory 20 19 16 Rate Blood Pressure 136/78 155/85 O2 Sat by Pulse 99 100 100 Oximetry 04/15/22 04/15/22 04/15/22 09:06 09:30 10:00 Temperature Pulse Rate 114 H 109 H 104 H Pulse Rate [ From Monitor] Respiratory 15 17 Rate Blood Pressure 155/85 159/76 158/76 O2 Sat by Pulse 100 100 Oximetry 04/15/22 04/15/22 04/15/22 10:20 10:30 11:00 Temperature Pulse Rate 100 H 98 H 110 H Pulse Rate [ From Monitor] Respiratory 15 17 20 Rate Blood Pressure 158/73 158/73 160/81 O2 Sat by Pulse 100 100 100 Oximetry Constitutional: no acute distress, other (middle aged female with normal respiratory effort at rest on MVS) Eyes: non-icteric ENT: oropharynx moist, other (ETT 24 cm RUBÉN) Neck: supple, no lymphadenopathy, no JVD Effort: normal Ascultation: Bilateral: clear, diminished breath sounds Percussion: Bilateral: not dull Cardiovascular: regular rate and rhythm Gastrointestinal: normoactive bowel sounds, soft, non-tender, non-distended Integumentary: normal Extremities: no cyanosis, no edema, pulses normal, no ischemia or petechiae Neurologic: pupils equal and round, unable to assess, other (mot moving limbs to command but increased tone in left sided musculature) Psychiatric: other (somnolent) CBC and BMP: 04/15/22 04:31 04/15/22 04:31 ABG, PT/INR, D-dimer: ABG ABG pH 7.367 pH Units (7.350-7.450) 04/14/22 14:45 ABG pCO2 44.1 mm Hg 04/14/22 14:45 ABG pO2 100.5 mm Hg (80.0-90.0) H 04/14/22 14:45 ABG O2 Saturation 97.5 % (95.0-99.0) 04/14/22 14:45 PT/INR, D-dimer PT 15.3 Sec. (12.2-14.9) H 04/12/22 09:11 INR 1.09 (0.87-1.13) 04/12/22 09:11 Abnormal lab findings: Abnormal Labs 04/12/22 04/12/22 04/12/22 09:11 09:11 09:11 WBC 12.8 H Seg Neuts % (Manual) 83.0 H Lymphocytes % (Manual) 12.0 L Seg Neutrophils # Man 10.6 H Lymphocytes # (Manual) PT ABG pO2 ABG Base Excess ABG Hemoglobin Sodium 148 H Potassium Chloride 107.2 H Carbon Dioxide 21 L BUN 37 H Creatinine 3.2 H Glucose 102 H POC Glucose Lactic Acid Ferritin AST 48 H Total Creatine Kinase C-Reactive Protein Total Protein 9.0 H Albumin Urine WBC (Auto) Salicylates < 0.3 L Acetaminophen Phenytoin 1.2 L Valproic Acid < 2.8 L Levetiracetam SARS-CoV-2 (PCR) 04/12/22 04/12/22 04/12/22 09:11 09:11 09:38 WBC Seg Neuts % (Manual) Lymphocytes % (Manual) Seg Neutrophils # Man Lymphocytes # (Manual) PT 15.3 H ABG pO2 ABG Base Excess ABG Hemoglobin Sodium Potassium Chloride Carbon Dioxide BUN Creatinine Glucose POC Glucose Lactic Acid 3.30 H* Ferritin AST Total Creatine Kinase C-Reactive Protein Total Protein Albumin Urine WBC (Auto) Salicylates Acetaminophen 5.0 L Phenytoin Valproic Acid Levetiracetam SARS-CoV-2 (PCR) 04/12/22 04/12/22 04/12/22 10:56 11:29 11:42 WBC Seg Neuts % (Manual) Lymphocytes % (Manual) Seg Neutrophils # Man Lymphocytes # (Manual) PT ABG pO2 152.6 H ABG Base Excess -4.2 L ABG Hemoglobin Sodium Potassium Chloride Carbon Dioxide BUN Creatinine Glucose POC Glucose Lactic Acid Ferritin AST Total Creatine Kinase 1568 H C-Reactive Protein Total Protein Albumin Urine WBC (Auto) Salicylates Acetaminophen Phenytoin Valproic Acid Levetiracetam SARS-CoV-2 (PCR) Positive A 04/12/22 04/12/22 04/13/22 14:34 Unknown 00:56 WBC Seg Neuts % (Manual) Lymphocytes % (Manual) Seg Neutrophils # Man Lymphocytes # (Manual) PT ABG pO2 ABG Base Excess ABG Hemoglobin Sodium Potassium Chloride Carbon Dioxide BUN Creatinine Glucose POC Glucose 111 H Lactic Acid Ferritin AST Total Creatine Kinase C-Reactive Protein Total Protein Albumin Urine WBC (Auto) < 182.0 H Salicylates Acetaminophen Phenytoin Valproic Acid Levetiracetam <2.0 L SARS-CoV-2 (PCR) 04/13/22 04/13/22 04/13/22 03:44 03:44 04:15 WBC 18.7 H Seg Neuts % (Manual) 97.0 H Lymphocytes % (Manual) 2.0 L Seg Neutrophils # Man 18.1 H Lymphocytes # (Manual) 0.4 L PT ABG pO2 135.1 H ABG Base Excess -2.7 L ABG Hemoglobin 11.9 L Sodium Potassium 3.3 L D Chloride 107.2 H Carbon Dioxide BUN 41 H Creatinine 1.4 H D Glucose 123 H POC Glucose Lactic Acid Ferritin AST Total Creatine Kinase C-Reactive Protein Total Protein Albumin Urine WBC (Auto) Salicylates Acetaminophen Phenytoin Valproic Acid Levetiracetam SARS-CoV-2 (PCR) 04/13/22 04/13/22 04/13/22 11:47 15:45 18:18 WBC Seg Neuts % (Manual) Lymphocytes % (Manual) Seg Neutrophils # Man Lymphocytes # (Manual) PT ABG pO2 119.0 H ABG Base Excess -3.7 L ABG Hemoglobin 11.8 L Sodium Potassium 5.1 H D Chloride 107.5 H Carbon Dioxide 14 L D BUN 36 H Creatinine Glucose 104 H POC Glucose 119 H Lactic Acid Ferritin AST 47 H Total Creatine Kinase C-Reactive Protein Total Protein Albumin 3.6 L Urine WBC (Auto) Salicylates Acetaminophen Phenytoin Valproic Acid Levetiracetam SARS-CoV-2 (PCR) 04/14/22 04/14/22 04/14/22 00:06 04:04 04:04 WBC 18.2 H Seg Neuts % (Manual) Lymphocytes % (Manual) Seg Neutrophils # Man Lymphocytes # (Manual) PT ABG pO2 ABG Base Excess ABG Hemoglobin Sodium Potassium Chloride 107.6 H Carbon Dioxide BUN 33 H Creatinine Glucose 148 H POC Glucose 120 H Lactic Acid Ferritin AST Total Creatine Kinase 807 H C-Reactive Protein 9.70 H Total Protein Albumin Urine WBC (Auto) Salicylates Acetaminophen Phenytoin Valproic Acid Levetiracetam SARS-CoV-2 (PCR) 04/14/22 04/14/22 04/14/22 04:04 04:04 05:06 WBC Seg Neuts % (Manual) Lymphocytes % (Manual) Seg Neutrophils # Man Lymphocytes # (Manual) PT ABG pO2 ABG Base Excess ABG Hemoglobin Sodium Potassium Chloride 108.8 H Carbon Dioxide BUN 34 H Creatinine Glucose 149 H POC Glucose 143 H Lactic Acid Ferritin 318.6 H AST Total Creatine Kinase C-Reactive Protein Total Protein Albumin 3.6 L Urine WBC (Auto) Salicylates Acetaminophen Phenytoin Valproic Acid Levetiracetam SARS-CoV-2 (PCR) 04/14/22 04/14/22 04/14/22 12:04 14:45 18:12 WBC Seg Neuts % (Manual) Lymphocytes % (Manual) Seg Neutrophils # Man Lymphocytes # (Manual) PT ABG pO2 100.5 H ABG Base Excess ABG Hemoglobin 7.0 L Sodium Potassium Chloride Carbon Dioxide BUN Creatinine Glucose POC Glucose 139 H 120 H Lactic Acid Ferritin AST Total Creatine Kinase C-Reactive Protein Total Protein Albumin Urine WBC (Auto) Salicylates Acetaminophen Phenytoin Valproic Acid Levetiracetam SARS-CoV-2 (PCR) 04/14/22 04/15/22 04/15/22 23:19 04:31 04:31 WBC 15.7 H Seg Neuts % (Manual) Lymphocytes % (Manual) Seg Neutrophils # Man Lymphocytes # (Manual) PT ABG pO2 ABG Base Excess ABG Hemoglobin Sodium 146 H Potassium 3.5 L Chloride 110.6 H Carbon Dioxide BUN 28 H Creatinine Glucose 116 H POC Glucose 122 H Lactic Acid Ferritin AST Total Creatine Kinase C-Reactive Protein Total Protein Albumin 3.8 L Urine WBC (Auto) Salicylates Acetaminophen Phenytoin Valproic Acid Levetiracetam SARS-CoV-2 (PCR) 04/15/22 05:19 WBC Seg Neuts % (Manual) Lymphocytes % (Manual) Seg Neutrophils # Man Lymphocytes # (Manual) PT ABG pO2 ABG Base Excess ABG Hemoglobin Sodium Potassium Chloride Carbon Dioxide BUN Creatinine Glucose POC Glucose 124 H Lactic Acid Ferritin AST Total Creatine Kinase C-Reactive Protein Total Protein Albumin Urine WBC (Auto) Salicylates Acetaminophen Phenytoin Valproic Acid Levetiracetam SARS-CoV-2 (PCR) Chest x-ray: image reviewed (rotated; no new infiltrate) Allied health notes reviewed: nursing
[2022-04-15 13:00] LABS: ABG Base Excess 1.8 mmol/L (-2.0-3.0); ABG HCO3 26.7 mmol/L (20.0-26.0); ABG Methemoglobin 0.5 % (0.0-1.5); ABG PCO2 43.3 mm Hg; ABG PH 7.408 pH Units (7.350-7.450); ABG PO2 110.6 mm Hg (80.0-90.0)
--- NOTE | 2022-04-15 13:13 | Progress Note ---
<RIKKI FINK - Last Filed: 04/15/22 17:54> Assessment and Plan Assessment and plan: This is a 57-year-old female with known past medical history of MR, obesity, nicotine dependence, seizure disorder admitted for status epilepticus and was intubated in the ED for airway protection Hospital Course to Date: 04/13: Stable on low vent setting this am. Off sedation, awake and tracking, not following commands. Patient does have history of MR, patient is functional and can voice her needs per the caregiver. No seizure like activity reported, EEG and Neurology consult pending. Continue IV Keppra. Patient remains afebrile and hemodynamicaly stable. PRN hydralazine added for hypertension. Continue current IV steroids, and empiric IV Abx. ID consulted for further rec for COVID infection. Renal function and CKP are improving post IVF hydration, continue IVF resuscitation. K repleted, continue to monitor electrolytes and replete as needed. Plan for PSV trial today, plan to wean for possible extubation per CCM. 04/14: Remains stable on the vent. No seizures like activities reported in the las t 48hrs. Neurology recommendation noted. Patient tolerated PSV trial yesterday. Continue daily PSV trial, plan to wean for possible extubation per CCM. Hypertensive this am low dose BB added for BP control. Continue IV steroids, on Rocephin and Remdeservir per ID. 04/15: Remains stable on the vent. Tolerating PSV trial this am, plan for possibe extubation today per CCM. Remains hypertensive with refractory tachycardia with PRN hydralazine. On BB and Lisinopril added for better control. PRN switched to IV labetalol for SBP greater than 160. FWF increased for hypernatremia and K repleted, continue to monitor electrolytes and replete as needed. Assessment and Plan #Status Epilepticus #H/o Seizure Disorder #H/o Mental Retardation(MR) - Multifactorial - Patient with UTI and COVID positive - Per records from 09/2021, patient phenytoin level was elevated last admit and meds was held. Patient was D/Dany with PO Keppra BID - CT head/brain with chronic encephalomalacia/surgical changes in the frontal lobes. No acute intracranial abnormality. - Treated underlying cause, currently on empiric IV abx. ID consulted - Intubated, awake and tracking. S/p Versed gtt. - Continue IV keppra - EEG pending - Neurology consult, appreciate recommendation - Per Neuro- continue Keppra 750mg IV q 12 hours for now once awake and patient able to take oral medications - switch to 1000 mg PO Keppra BID - PRN Ativan for seizure like activities - Frequent reorientation - Aspiration and Seizure precaution - PRN Analgesia for CPOT greater than 3 - Maintenance of sleep-wake cycle #Acute Hypoxic Respiratory Failure - Intubated in the ED on 04/12 for airway protection secondary to above - Vent setting: PSV- 30, 6 PS-8 - AM ABG noted - CCM consulted, appreciate recommendations - VAP bundle addressed - Aspiration precaution HOB above 30 - Daily PSV trial as tolerated - Daily ABG and CXR - Continue SPO2 monitoring for SPO2 goal above 92% - Plan for possibe extubation today per CCM. #Sepsis #Possible RLL Pneumonia #Coronavirus Infection #Urinary Tract Infection(UTI)/Cystitis - COVID PCR came back positive - CT reveal right lower lobe infiltrate vs atelectasis - UA consistent with UTI, CT scan shows mild bladder wall thickening suggesting cystitis - COVID PCR came back positive - Blood cultures and sputum culture pending - Patient is afebrile, with Leukocytosis, VSS - On IV steroids and empiric IV Abx - ID consulted, appreciate recommendations - Remdesevir added - F/U on cultures - Daily CBC monitor #Rhabdomyolysis - Probably due to multiple seizures - s/p IVF resuscitation, CPK improved - Trend CPK #Acute Kidney Injury(JONA) most likely Vasomotor Nephropathy #Hypokalemia - probably secondary to above - Per records, baseline scr is 1.1, Scr. as high as 3.2 this admit - Renal function back to baseline post IVF hydration - Strict intake and output - Avoid nephrotoxic medications; Renally dose medications - Luo in place, remove luo - Monitor and replace electrolytes as needed - Trend BMP #Hypertension - SBP in the 170-180s this am - BB added BID - Continue blood pressure monitor per protocol - PRN Hydralazine for SBP greater than 160 - Might benefits from antihypertensive regimen at discharge #GI/DVT Prophylaxis - PPI- Pepcid - Heparin SubQ - SCD to bilateral lower extremities while in bed #Advance Care Planning - Disease education data, care plan, diagnoses, and prognosis were discussed with patient's cousin and caregiver via phone. Patient is a FULL code. Patient's family acknowledged understanding and agreed with current care plan. The high probability of a clinically significant, sudden or life threatening deterioration of the [multiple] system(s) required my full and direct attention, intervention and personal management. The aggregate critical care time was [60] minutes. This time is in addition to time spent performing reported procedures but includes the following: [x] Data Review and interpretation [x] Patient assessment and monitoring of vital signs [x] Documentation [x] Medication orders and management Disposition Plan: ICU Total Time Spent with Patient (Minutes): 60 History Interval history: Patient seen and examined at the bedside. Stable on the vent, off sedation. Mentation unchanged, awake and tracking, not following commands. Tolerating PSV trial this am. Remains hypertensive this am, otherwise vital signs are stable. [facility] overnight Hospitalist Physical - Physical exam Narrative exam: General appearance: Present: no acute distress, well-nourished, obese, other (on the vent) - EENT Eyes: Present: PERRL ENT: hearing intact - Neck Neck: Present: normal ROM - Respiratory Respiratory effort: normal Respiratory: bilateral: rhonchi - Cardiovascular Rhythm: regular Heart Sounds: Present: S1 & S2 - Extremities Extremities: no ischemia, pulses intact, pulses symmetrical Extremity abnormal: edema - Peripheral Assessment Bilateral Lower Extremity Edema Type: Non-pitting Edema Degree: 2+ Capillary Refill: < 3 seconds Skin Temperature: Warm Generalized Edema Type: Non-pitting Edema Degree: 1+ Capillary Refill: < 3 seconds Skin Temperature: Warm Peripheral Pulses: within normal limits - Abdominal General gastrointestinal: soft, non-distended, normal bowel sounds - Integumentary Integumentary: Present: warm, dry - Psychiatric Psychiatric: other (Awake and tracking, not following commands) - Neurologic Neurologic: moves all extremities, other (Awake and tracking, not following commands) - Allied Health Allied health notes reviewed: nursing, case management - Constitutional Vitals: Temp Pulse Resp BP Pulse Ox 99.9 F H 103 H 15 147/73 100 04/15/22 11:37 04/15/22 12:00 04/15/22 12:00 04/15/22 12:00 04/15/22 12:00 Results - Labs CBC & Chem 7: 04/15/22 04:31 04/15/22 04:31 Labs: Laboratory Last Values WBC 15.7 K/mm3 (4.5-11.0) H 04/15/22 04:31 RBC 3.74 M/mm3 (3.65-5.03) 04/15/22 04:31 Hgb 11.4 gm/dl (10.1-14.3) 04/15/22 04:31 Hct 34.6 % (30.3-42.9) 04/15/22 04:31 MCV 92 fl (79-97) 04/15/22 04:31 MCH 30 pg (28-32) 04/15/22 04:31 MCHC 33 % (30-34) 04/15/22 04:31 RDW 14.7 % (13.2-15.2) 04/15/22 04:31 Plt Count 316 K/mm3 (140-440) 04/15/22 04:31 Add Manual Diff Complete 04/13/22 03:44 Total Counted 100 04/13/22 03:44 Seg Neutrophils % Janitorial Manager 04/13/22 03:44 Seg Neuts % (Manual) 97.0 % (40.0-70.0) H 04/13/22 03:44 Band Neutrophils % 0 % 04/13/22 03:44 Lymphocytes % (Manual) 2.0 % (13.4-35.0) L 04/13/22 03:44 Reactive Lymphs % (Man) 0 % 04/13/22 03:44 Monocytes % (Manual) 1.0 % (0.0-7.3) 04/13/22 03:44 Eosinophils % (Manual) 0 % (0.0-4.3) 04/13/22 03:44 Basophils % (Manual) 0 % (0.0-1.8) 04/13/22 03:44 Metamyelocytes % 0 % 04/13/22 03:44 Myelocytes % 0 % 04/13/22 03:44 Promyelocytes % 0 % 04/13/22 03:44 Blast Cells % 0 % 04/13/22 03:44 Nucleated RBC % Not Reportable 04/13/22 03:44 Seg Neutrophils # Man 18.1 K/mm3 (1.8-7.7) H 04/13/22 03:44 Band Neutrophils # 0.0 K/mm3 04/13/22 03:44 Lymphocytes # (Manual) 0.4 K/mm3 (1.2-5.4) L 04/13/22 03:44 Abs React Lymphs (Man) 0.0 K/mm3 04/13/22 03:44 Monocytes # (Manual) 0.2 K/mm3 (0.0-0.8) 04/13/22 03:44 Eosinophils # (Manual) 0.0 K/mm3 (0.0-0.4) 04/13/22 03:44 Basophils # (Manual) 0.0 K/mm3 (0.0-0.1) 04/13/22 03:44 Metamyelocytes # 0.0 K/mm3 04/13/22 03:44 Myelocytes # 0.0 K/mm3 04/13/22 03:44 Promyelocytes # 0.0 K/mm3 04/13/22 03:44 Blast Cells # 0.0 K/mm3 04/13/22 03:44 WBC Morphology Not Reportable 04/13/22 03:44 Hypersegmented Neuts Not Reportable 04/13/22 03:44 Hyposegmented Neuts Not Reportable 04/13/22 03:44 Hypogranular Neuts Not Reportable 04/13/22 03:44 Smudge Cells Not Reportable 04/13/22 03:44 Toxic Granulation Not Reportable 04/13/22 03:44 Toxic Vacuolation Not Reportable 04/13/22 03:44 Dohle Bodies Not Reportable 04/13/22 03:44 Pelger-Huet Anomaly Not Reportable 04/13/22 03:44 Neeta Rods Not Reportable 04/13/22 03:44 Platelet Estimate Consistent w auto 04/13/22 03:44 Clumped Platelets Not Reportable 04/13/22 03:44 Plt Clumps, EDTA Not Reportable 04/13/22 03:44 Large Platelets Not Reportable 04/13/22 03:44 Giant Platelets Not Reportable 04/13/22 03:44 Platelet Satelliting Not Reportable 04/13/22 03:44 Plt Morphology Comment Not Reportable 04/13/22 03:44 RBC Morphology Not Reportable 04/13/22 03:44 Dimorphic RBCs Not Reportable 04/13/22 03:44 Polychromasia Not Reportable 04/13/22 03:44 Hypochromasia Not Reportable 04/13/22 03:44 Poikilocytosis Not Reportable 04/13/22 03:44 Anisocytosis Not Reportable 04/13/22 03:44 Microcytosis Not Reportable 04/13/22 03:44 Macrocytosis Not Reportable 04/13/22 03:44 Spherocytes Not Reportable 04/13/22 03:44 Pappenheimer Bodies Not Reportable 04/13/22 03:44 Sickle Cells Not Reportable 04/13/22 03:44 Target Cells Not Reportable 04/13/22 03:44 Tear Drop Cells Not Reportable 04/13/22 03:44 Ovalocytes Not Reportable 04/13/22 03:44 Helmet Cells Not Reportable 04/13/22 03:44 Feng-Soham Bodies Not Reportable 04/13/22 03:44 [place] Rings Not Reportable 04/13/22 03:44 [place] Cells Not Reportable 04/13/22 03:44 Bite Cells Not Reportable 04/13/22 03:44 Crenated Cell Not Reportable 04/13/22 03:44 Elliptocytes Not Reportable 04/13/22 03:44 Acanthocytes (Spur) Not Reportable 04/13/22 03:44 Rouleaux Not Reportable 04/13/22 03:44 Hemoglobin C Crystals Not Reportable 04/13/22 03:44 Schistocytes Not Reportable 04/13/22 03:44 Malaria parasites Not Reportable 04/13/22 03:44 Sanjay Bodies Not Reportable 04/13/22 03:44 Hem Pathologist Commnt No 04/13/22 03:44 PT 15.3 Sec. (12.2-14.9) H 04/12/22 09:11 INR 1.09 (0.87-1.13) 04/12/22 09:11 APTT 27.4 Sec. (24.2-36.6) 04/12/22 09:11 ABG pH 7.408 pH Units (7.350-7.450) 04/15/22 12:35 ABG pCO2 43.3 mm Hg 04/15/22 12:35 ABG pO2 110.6 mm Hg (80.0-90.0) H 04/15/22 12:35 ABG HCO3 26.7 mmol/L (20.0-26.0) H 04/15/22 12:35 ABG O2 Saturation 98.0 % (95.0-99.0) 04/15/22 12:35 ABG O2 Content 11.8 (0.0-44) 04/15/22 12:35 ABG Base Excess 1.8 mmol/L (-2.0-3.0) 04/15/22 12:35 ABG Hemoglobin 8.6 gm/dl (12.0-16.0) L 04/15/22 12:35 ABG Carboxyhemoglobin 1.0 % (0.0-5.0) 04/15/22 12:35 ABG Methemoglobin 0.5 % (0.0-1.5) 04/15/22 12:35 Oxyhemoglobin 96.5 % (95.0-99.0) 04/15/22 12:35 FiO2 30 % 04/15/22 12:35 Sodium 146 mmol/L (137-145) H 04/15/22 04:31 Potassium 3.5 mmol/L (3.6-5.0) L 04/15/22 04:31 Chloride 110.6 mmol/L (98-107) H 04/15/22 04:31 Carbon Dioxide 23 mmol/L (22-30) 04/15/22 04:31 Anion Gap 16 mmol/L 04/15/22 04:31 BUN 28 mg/dL (7-17) H 04/15/22 04:31 Creatinine 0.8 mg/dL (0.6-1.2) 04/15/22 04:31 Estimated GFR > 60 ml/min 04/15/22 04:31 BUN/Creatinine Ratio 35 % 04/15/22 04:31 Glucose 116 mg/dL (65-100) H 04/15/22 04:31 POC Glucose 124 mg/dL (70-105) H 04/15/22 05:19 Lactic Acid 1.60 mmol/L (0.7-2.0) 04/12/22 11:42 Calcium 9.3 mg/dL (8.4-10.2) 04/15/22 04:31 Phosphorus 2.50 mg/dL (2.5-4.5) 04/14/22 04:04 Magnesium 2.00 mg/dL (1.7-2.3) 04/14/22 04:04 Ferritin 318.6 ng/mL (10.0-200.0) H 04/14/22 04:04 Total Bilirubin 0.30 mg/dL (0.1-1.2) 04/15/22 04:31 AST 36 units/L (5-40) 04/15/22 04:31 ALT 29 units/L (7-56) 04/15/22 04:31 Alkaline Phosphatase 96 units/L (35-129) 04/15/22 04:31 Total Creatine Kinase 807 units/L (30-135) H 04/14/22 04:04 C-Reactive Protein 9.70 mg/dL (0.00-1.30) H 04/14/22 04:04 Total Protein 7.5 g/dL (6.3-8.2) 04/15/22 04:31 Albumin 3.8 g/dL (3.9-5) L 04/15/22 04:31 Albumin/Globulin Ratio 1.0 % 04/15/22 04:31 Procalcitonin 1.92 ng/mL (<0.15) 04/14/22 04:04 Urine Color Yellow (Yellow) 04/12/22 Unknown Urine Turbidity Cloudy (Clear) 04/12/22 Unknown Specific [place] (Man) 1.020 (1.003-1.030) 04/12/22 Unknown Ur Protein (Man) 4+ mg/dL (Negative) 04/12/22 Unknown Ur Ketones (Man) Negative (Negative) 04/12/22 Unknown Ur Nitrite (Man) Negative (Negative) 04/12/22 Unknown Ur Reducing Substances Not Reportable 04/12/22 Unknown Urine Bilirubin (Man) Negative (Negative) 04/12/22 Unknown Urine Ictotest Not Reportable 04/12/22 Unknown Leukocyte Esterase (Man) Large (Negative) 04/12/22 Unknown Urine WBC (Auto) < 182.0 /HPF (0.0-6.0) H 04/12/22 Unknown Urine RBC (Auto) 60.0 /HPF (0.0-6.0) 04/12/22 Unknown U Epithel Cells (Auto) 12.0 /HPF (0-13.0) 04/12/22 Unknown Urine RBC (Manual) 3+ (Negative) 04/12/22 Unknown Urine WBC Clumps 3+ /HPF 04/12/22 Unknown Urine Mucus 3+ /HPF 04/12/22 Unknown Salicylates < 0.3 mg/dL (2.8-20.0) L 04/12/22 09:11 Acetaminophen 5.0 ug/mL (10.0-30.0) L 04/12/22 09:11 Phenytoin 1.2 ug/mL (10.0-20.0) L 04/12/22 09:11 Valproic Acid < 2.8 ug/mL (50-100) L 04/12/22 09:11 Levetiracetam <2.0 mcg/mL (6.0-46.0) L 04/12/22 14:34 Plasma/Serum Alcohol < 0.01 % (0-0.07) 04/12/22 09:11 SARS-CoV-2 (PCR) Positive (Negative) A 04/12/22 10:56 Microbiology: Microbiology 04/13/22 Unknown Tracheal Aspirate Sputum Culture - Final 04/12/22 09:38 Peripheral/Venous Blood Culture - Preliminary NO GROWTH AFTER 72 HOURS 04/12/22 09:38 Peripheral/Venous Blood Culture - Preliminary Coag Negative Staphylococcus Luo/IV: Voiding Method External Female Catheter Active Medications - Current Medications Current Medications: Generic Name Dose Route Start Last Admin Trade Name Freq PRN Reason Stop Dose Admin Acetaminophen 650 mg 04/12/22 12:38 Acetaminophen 325 Mg Tab PO Q6H PRN Pain MILD(1-3)/Fever >100.5/VALLADARES Albuterol 2.5 mg 04/12/22 12:38 Albuterol 2.5 Mg/3 Ml Nebu IH Q3HRT PRN Shortness Of Breath Dexamethasone 6 mg 04/15/22 10:00 04/15/22 09:07 Dexamethasone 4 Mg/Ml Vial IV 04/22/22 10:01 6 mg Q24HR ISIAH Administration Famotidine 20 mg 04/15/22 22:00 Famotidine 20 Mg Tab FEEDTUBE BID ISIAH Heparin Sodium (Porcine) 5,000 unit 04/12/22 22:00 04/15/22 09:06 Heparin 5,000 Unit/1 Ml Vial SUB-Q 5,000 unit Q12HR ISIAH Administration Hydralazine HCl 10 mg 04/13/22 13:00 04/15/22 06:11 Hydralazine 20 Mg/1 Ml Inj IV 10 mg Q4H PRN Administration Hypertension Hydromorphone HCl 0.5 mg 04/14/22 10:48 04/15/22 08:34 Hydromorphone 0.5 Mg/0.5 Ml Inj IV 0.5 mg Q6H PRN Administration Pain , Severe (7-10) Hydrophilic Ointment 1 applic 04/12/22 09:35 Lip Therapy Vaseline TP Q2HR PRN Dry Lips Ceftriaxone Sodium 2 gm in 100 mls @ 200 mls/hr 04/13/22 10:00 04/15/22 09:32 Rocephin/Ns 2 Gm/100 Ml IV 04/17/22 10:29 100 mls/hr Q24H ISIAH Administration Protocol Remdesivir 100 mg/ Sodium 250 mls @ 500 mls/hr 04/14/22 14:00 04/14/22 14:33 Chloride IV 04/17/22 14:29 500 mls/hr Q24HR@1400 ISIAH Administration Levetiracetam 750 mg/ Dextrose 107.5 mls @ 400 mls/hr 04/13/22 22:00 04/15/22 09:33 IV 400 mls/hr Q12H ISIAH Administration Labetalol HCl 10 mg 04/15/22 09:00 Labetalol 20 Mg/4 Ml Inj IV Q4H PRN Hypertension Lisinopril 5 mg 04/15/22 10:00 04/15/22 09:06 Lisinopril 5 Mg Tab PO 5 mg QDAY ISIAH Administration Metoprolol Tartrate 12.5 mg 04/14/22 16:13 04/15/22 09:06 Metoprolol Tartrate 25 Mg Tab PO 12.5 mg BID ISIAH Administration Multi-Ingred Cream/Lotion/Oil/Oint 1 applic 04/12/22 09:35 Mineral Oil/Petrolatum, White Ophth Oint 3.5 Gm OU Q4HR PRN Dry Eye(s) Ondansetron HCl 4 mg 04/12/22 12:38 Ondansetron 4 Mg/2 Ml Inj IV Q8H PRN Nausea And Vomiting Oxycodone/Acetaminophen 1 tab 04/12/22 12:38 04/13/22 22:27 Oxycodone /Acetaminophen 5-325mg Tab PO 1 tab Q16H PRN Administration Pain, Moderate (4-6) Senna/Docusate Sodium 1 tab 04/12/22 10:00 04/15/22 09:08 Sennosides/Docusate Sodium 8.6/50 Mg Tab FEEDTUBE Not Given BID ISIAH Sodium Chloride 10 ml 04/12/22 22:00 04/15/22 09:07 Sodium Chloride 0.9% 10 Ml Flush Syringe IV 10 ml BID ISIAH Administration Sodium Chloride 10 ml 04/12/22 12:38 Sodium Chloride 0.9% 10 Ml Flush Syringe IV PRN PRN LINE FLUSH Sodium Chloride 50 ml 04/13/22 15:00 04/14/22 14:34 Sodium Chloride 0.9% 50 Ml Ivpb IV 04/17/22 14:01 50 ml Q24HR@1400 ISIAH Administration Nutrition/Malnutrition Assess - Dietary Evaluation Nutrition/Malnutrition Findings: Nutrition Notes Start: 04/12/22 16:12 Freq: Status: Active Protocol: Document 04/14/22 16:43 ELEAZAR (Rec: 04/14/22 16:49 ELEAZAR [id number]) Nutrition Notes Initial or Follow up Brief Note Current Diet TF - Vital AF 1.2 at 65ml/hr Height 5 ft 8 in Weight 113.3 kg [place] Body Weight (kg) 63.63 BMI 38.0 Subjective/Other Information Observed TF infusing at 55ml/ hr. Pt remains on vent support. Percent of energy/protein needs met: 74% energy 78% pro Is patient on ventilator? Yes Is Patient Ambulatory and/or Out of Bed No REE-([facility]-confined to bed) 2135.724 Kcal/Kg value to use for calculation 15 Approximate Energy Requirements Using 1700 kcal/Kg Calculation Used for Recommendations Kcal/kg Additional Notes Pro needs 2g/kg IBW: 127g/day Fluid needs 1m/kcal Nutrition Intervention Nutrition Support: Decrease TF goal rate to 60ml/ hr with 100ml water flush q4h Kcal 1,728 Protein (gm) 108 Fluid (mL) 1,168 Goal #1 TF tolerance Goal #2 TF to meet 70-80% energy and at least 75% pro needs Follow-Up By: 04/18/22 Additional Comments F/U: TF goal rate/tolerance, vent status <PAIGE GRAY - Last Filed: 04/16/22 07:36> Assessment and Plan Assessment and plan: I saw and evaluated the patient. I agree with the findings and the plan of care as documented in the Nurse Practitioner's~note, with the following corrections and additions. Hospitalist Physical - Constitutional Vitals: Temp Pulse Resp BP Pulse Ox 97.7 F 102 H 34 H 195/96 100 04/16/22 07:15 04/16/22 06:00 04/16/22 06:00 04/16/22 06:00 04/16/22 06:00 Results - Labs CBC & Chem 7: 04/16/22 05:00 04/16/22 05:00 Labs: Laboratory Last Values WBC 11.0 K/mm3 (4.5-11.0) 04/16/22 05:00 RBC 3.74 M/mm3 (3.65-5.03) 04/16/22 05:00 Hgb 11.6 gm/dl (10.1-14.3) 04/16/22 05:00 Hct 34.5 % (30.3-42.9) 04/16/22 05:00 MCV 92 fl (79-97) 04/16/22 05:00 MCH 31 pg (28-32) 04/16/22 05:00 MCHC 34 % (30-34) 04/16/22 05:00 RDW 14.2 % (13.2-15.2) 04/16/22 05:00 Plt Count 271 K/mm3 (140-440) 04/16/22 05:00 Add Manual Diff Complete 04/13/22 03:44 Total Counted 100 04/13/22 03:44 Seg Neutrophils % Janitorial Manager 04/13/22 03:44 Seg Neuts % (Manual) 97.0 % (40.0-70.0) H 04/13/22 03:44 Band Neutrophils % 0 % 04/13/22 03:44 Lymphocytes % (Manual) 2.0 % (13.4-35.0) L 04/13/22 03:44 Reactive Lymphs % (Man) 0 % 04/13/22 03:44 Monocytes % (Manual) 1.0 % (0.0-7.3) 04/13/22 03:44 Eosinophils % (Manual) 0 % (0.0-4.3) 04/13/22 03:44 Basophils % (Manual) 0 % (0.0-1.8) 04/13/22 03:44 Metamyelocytes % 0 % 04/13/22 03:44 Myelocytes % 0 % 04/13/22 03:44 Promyelocytes % 0 % 04/13/22 03:44 Blast Cells % 0 % 04/13/22 03:44 Nucleated RBC % Not Reportable 04/13/22 03:44 Seg Neutrophils # Man 18.1 K/mm3 (1.8-7.7) H 04/13/22 03:44 Band Neutrophils # 0.0 K/mm3 04/13/22 03:44 Lymphocytes # (Manual) 0.4 K/mm3 (1.2-5.4) L 04/13/22 03:44 Abs React Lymphs (Man) 0.0 K/mm3 04/13/22 03:44 Monocytes # (Manual) 0.2 K/mm3 (0.0-0.8) 04/13/22 03:44 Eosinophils # (Manual) 0.0 K/mm3 (0.0-0.4) 04/13/22 03:44 Basophils # (Manual) 0.0 K/mm3 (0.0-0.1) 04/13/22 03:44 Metamyelocytes # 0.0 K/mm3 04/13/22 03:44 Myelocytes # 0.0 K/mm3 04/13/22 03:44 Promyelocytes # 0.0 K/mm3 04/13/22 03:44 Blast Cells # 0.0 K/mm3 04/13/22 03:44 WBC Morphology Not Reportable 04/13/22 03:44 Hypersegmented Neuts Not Reportable 04/13/22 03:44 Hyposegmented Neuts Not Reportable 04/13/22 03:44 Hypogranular Neuts Not Reportable 04/13/22 03:44 Smudge Cells Not Reportable 04/13/22 03:44 Toxic Granulation Not Reportable 04/13/22 03:44 Toxic Vacuolation Not Reportable 04/13/22 03:44 Dohle Bodies Not Reportable 04/13/22 03:44 Pelger-Huet Anomaly Not Reportable 04/13/22 03:44 Neeta Rods Not Reportable 04/13/22 03:44 Platelet Estimate Consistent w auto 04/13/22 03:44 Clumped Platelets Not Reportable 04/13/22 03:44 Plt Clumps, EDTA Not Reportable 04/13/22 03:44 Large Platelets Not Reportable 04/13/22 03:44 Giant Platelets Not Reportable 04/13/22 03:44 Platelet Satelliting Not Reportable 04/13/22 03:44 Plt Morphology Comment Not Reportable 04/13/22 03:44 RBC Morphology Not Reportable 04/13/22 03:44 Dimorphic RBCs Not Reportable 04/13/22 03:44 Polychromasia Not Reportable 04/13/22 03:44 Hypochromasia Not Reportable 04/13/22 03:44 Poikilocytosis Not Reportable 04/13/22 03:44 Anisocytosis Not Reportable 04/13/22 03:44 Microcytosis Not Reportable 04/13/22 03:44 Macrocytosis Not Reportable 04/13/22 03:44 Spherocytes Not Reportable 04/13/22 03:44 Pappenheimer Bodies Not Reportable 04/13/22 03:44 Sickle Cells Not Reportable 04/13/22 03:44 Target Cells Not Reportable 04/13/22 03:44 Tear Drop Cells Not Reportable 04/13/22 03:44 Ovalocytes Not Reportable 04/13/22 03:44 Helmet Cells Not Reportable 04/13/22 03:44 Feng-Soham Bodies Not Reportable 04/13/22 03:44 [place] Rings Not Reportable 04/13/22 03:44 Raj Cells Not Reportable 04/13/22 03:44 Bite Cells Not Reportable 04/13/22 03:44 Crenated Cell Not Reportable 04/13/22 03:44 Elliptocytes Not Reportable 04/13/22 03:44 Acanthocytes (Spur) Not Reportable 04/13/22 03:44 Rouleaux Not Reportable 04/13/22 03:44 Hemoglobin C Crystals Not Reportable 04/13/22 03:44 Schistocytes Not Reportable 04/13/22 03:44 Malaria parasites Not Reportable 04/13/22 03:44 Sanjay Bodies Not Reportable 04/13/22 03:44 Hem Pathologist Commnt No 04/13/22 03:44 PT 15.3 Sec. (12.2-14.9) H 04/12/22 09:11 INR 1.09 (0.87-1.13) 04/12/22 09:11 APTT 27.4 Sec. (24.2-36.6) 04/12/22 09:11 ABG pH 7.408 pH Units (7.350-7.450) 04/15/22 12:35 ABG pCO2 43.3 mm Hg 04/15/22 12:35 ABG pO2 110.6 mm Hg (80.0-90.0) H 04/15/22 12:35 ABG HCO3 26.7 mmol/L (20.0-26.0) H 04/15/22 12:35 ABG O2 Saturation 98.0 % (95.0-99.0) 04/15/22 12:35 ABG O2 Content 11.8 (0.0-44) 04/15/22 12:35 ABG Base Excess 1.8 mmol/L (-2.0-3.0) 04/15/22 12:35 ABG Hemoglobin 8.6 gm/dl (12.0-16.0) L 04/15/22 12:35 ABG Carboxyhemoglobin 1.0 % (0.0-5.0) 04/15/22 12:35 ABG Methemoglobin 0.5 % (0.0-1.5) 04/15/22 12:35 Oxyhemoglobin 96.5 % (95.0-99.0) 04/15/22 12:35 FiO2 30 % 04/15/22 12:35 Sodium 136 mmol/L (137-145) L 04/16/22 05:00 Sodium 141 mmol/L (137-145) 04/16/22 05:00 Potassium 4.1 mmol/L (3.6-5.0) 04/16/22 05:00 Potassium TNR 04/16/22 05:00 Chloride 104.0 mmol/L (98-107) 04/16/22 05:00 Chloride 104.8 mmol/L (98-107) 04/16/22 05:00 Carbon Dioxide 24 mmol/L (22-30) 04/16/22 05:00 Carbon Dioxide 27 mmol/L (22-30) 04/16/22 05:00 Anion Gap 14 mmol/L 04/16/22 05:00 Anion Gap TNR 04/16/22 05:00 BUN 26 mg/dL (7-17) H 04/16/22 05:00 BUN 26 mg/dL (7-17) H 04/16/22 05:00 Creatinine 0.6 mg/dL (0.6-1.2) 04/16/22 05:00 Creatinine 0.6 mg/dL (0.6-1.2) 04/16/22 05:00 Estimated GFR > 60 ml/min 04/16/22 05:00 Estimated GFR > 60 ml/min 04/16/22 05:00 BUN/Creatinine Ratio 43 % 04/16/22 05:00 BUN/Creatinine Ratio 43 % 04/16/22 05:00 Glucose 102 mg/dL (65-100) H 04/16/22 05:00 Glucose 104 mg/dL (65-100) H 04/16/22 05:00 POC Glucose 114 mg/dL (70-105) H 04/16/22 00:07 Lactic Acid 1.60 mmol/L (0.7-2.0) 04/12/22 11:42 Calcium 8.2 mg/dL (8.4-10.2) L 04/16/22 05:00 Calcium 8.8 mg/dL (8.4-10.2) 04/16/22 05:00 Phosphorus 1.90 mg/dL (2.5-4.5) L 04/16/22 05:00 Phosphorus 2.60 mg/dL (2.5-4.5) D 04/16/22 05:00 Magnesium 1.90 mg/dL (1.7-2.3) 04/16/22 05:00 Magnesium 2.20 mg/dL (1.7-2.3) 04/16/22 05:00 Ferritin 318.6 ng/mL (10.0-200.0) H 04/14/22 04:04 Total Bilirubin 0.40 mg/dL (0.1-1.2) 04/16/22 05:00 AST 34 units/L (5-40) 04/16/22 05:00 ALT 26 units/L (7-56) 04/16/22 05:00 Alkaline Phosphatase 92 units/L (35-129) 04/16/22 05:00 Total Creatine Kinase 377 units/L (30-135) H 04/16/22 05:00 Total Creatine Kinase 535 units/L (30-135) H 04/16/22 05:00 C-Reactive Protein 9.70 mg/dL (0.00-1.30) H 04/14/22 04:04 Total Protein 6.9 g/dL (6.3-8.2) 04/16/22 05:00 Albumin 3.4 g/dL (3.9-5) L 04/16/22 05:00 Albumin/Globulin Ratio 1.0 % 04/16/22 05:00 Procalcitonin 1.92 ng/mL (<0.15) 04/14/22 04:04 Urine Color Yellow (Yellow) 04/12/22 Unknown Urine Turbidity Cloudy (Clear) 04/12/22 Unknown Specific [place] (Man) 1.020 (1.003-1.030) 04/12/22 Unknown Ur Protein (Man) 4+ mg/dL (Negative) 04/12/22 Unknown Ur Ketones (Man) Negative (Negative) 04/12/22 Unknown Ur Nitrite (Man) Negative (Negative) 04/12/22 Unknown Ur Reducing Substances Not Reportable 04/12/22 Unknown Urine Bilirubin (Man) Negative (Negative) 04/12/22 Unknown Urine Ictotest Not Reportable 04/12/22 Unknown Leukocyte Esterase (Man) Large (Negative) 04/12/22 Unknown Urine WBC (Auto) < 182.0 /HPF (0.0-6.0) H 04/12/22 Unknown Urine RBC (Auto) 60.0 /HPF (0.0-6.0) 04/12/22 Unknown U Epithel Cells (Auto) 12.0 /HPF (0-13.0) 04/12/22 Unknown Urine RBC (Manual) 3+ (Negative) 04/12/22 Unknown Urine WBC Clumps 3+ /HPF 04/12/22 Unknown Urine Mucus 3+ /HPF 04/12/22 Unknown Salicylates < 0.3 mg/dL (2.8-20.0) L 04/12/22 09:11 Acetaminophen 5.0 ug/mL (10.0-30.0) L 04/12/22 09:11 Phenytoin 1.2 ug/mL (10.0-20.0) L 04/12/22 09:11 Valproic Acid < 2.8 ug/mL (50-100) L 04/12/22 09:11 Levetiracetam <2.0 mcg/mL (6.0-46.0) L 04/12/22 14:34 Plasma/Serum Alcohol < 0.01 % (0-0.07) 04/12/22 09:11 SARS-CoV-2 (PCR) Positive (Negative) A 04/12/22 10:56 Microbiology: Microbiology 04/13/22 Unknown Tracheal Aspirate Sputum Culture - Final 04/12/22 09:38 Peripheral/Venous Blood Culture - Preliminary NO GROWTH AFTER 72 HOURS Luo/IV: Voiding Method External Female Catheter Active Medications - Current Medications Current Medications: Generic Name Dose Route Start Last Admin Trade Name Freq PRN Reason Stop Dose Admin Acetaminophen 650 mg 04/12/22 12:38 Acetaminophen 325 Mg Tab PO Q6H PRN Pain MILD(1-3)/Fever >100.5/VALLADARES Albuterol 2.5 mg 04/12/22 12:38 Albuterol 2.5 Mg/3 Ml Nebu IH Q3HRT PRN Shortness Of Breath Bisacodyl 10 mg 04/15/22 17:00 04/15/22 17:13 Bisacodyl 10 Mg Rect Supp CO 04/17/22 16:59 10 mg QDAY ISIAH Administration Dexamethasone 6 mg 04/15/22 10:00 04/15/22 09:07 Dexamethasone 4 Mg/Ml Vial IV 04/22/22 10:01 6 mg Q24HR ISIAH Administration Docusate Sodium 100 mg 04/15/22 22:00 04/15/22 21:27 Docusate Sodium 100 Mg/10 Ml Oral Liqd PO 100 mg BID ISIAH Administration Famotidine 20 mg 04/15/22 22:00 04/15/22 21:28 Famotidine 20 Mg Tab FEEDTUBE 20 mg BID ISIAH Administration Heparin Sodium (Porcine) 5,000 unit 04/12/22 22:00 04/15/22 21:28 Heparin 5,000 Unit/1 Ml Vial SUB-Q 5,000 unit Q12HR ISIAH Administration Hydromorphone HCl 0.5 mg 04/14/22 10:48 04/15/22 08:34 Hydromorphone 0.5 Mg/0.5 Ml Inj IV 0.5 mg Q6H PRN Administration Pain , Severe (7-10) Hydrophilic Ointment 1 applic 04/12/22 09:35 Lip Therapy Vaseline TP Q2HR PRN Dry Lips Ceftriaxone Sodium 2 gm in 100 mls @ 200 mls/hr 04/13/22 10:00 04/15/22 10:32 Rocephin/Ns 2 Gm/100 Ml IV 04/17/22 10:29 Infused Q24H ISIAH Infusion Protocol Remdesivir 100 mg/ Sodium 250 mls @ 500 mls/hr 04/14/22 14:00 04/15/22 14:05 Chloride IV 04/17/22 14:29 500 mls/hr Q24HR@1400 ISIAH Administration Labetalol HCl 10 mg 04/15/22 09:00 04/16/22 05:05 Labetalol 20 Mg/4 Ml Inj IV 10 mg Q4H PRN Administration Hypertension Levetiracetam 750 mg 04/15/22 22:00 04/15/22 21:28 Levetiracetam 500 Mg/5 Ml Oral Liqd FEEDTUBE 750 mg BID ISIAH Administration Lisinopril 5 mg 04/15/22 10:00 04/15/22 09:06 Lisinopril 5 Mg Tab PO 5 mg QDAY ISIAH Administration Metoprolol Tartrate 12.5 mg 04/14/22 16:13 04/15/22 21:28 Metoprolol Tartrate 25 Mg Tab PO 12.5 mg BID ISIAH Administration Multi-Ingred Cream/Lotion/Oil/Oint 1 applic 04/12/22 09:35 Mineral Oil/Petrolatum, White Ophth Oint 3.5 Gm OU Q4HR PRN Dry Eye(s) Ondansetron HCl 4 mg 04/12/22 12:38 Ondansetron 4 Mg/2 Ml Inj IV Q8H PRN Nausea And Vomiting Oxycodone/Acetaminophen 1 tab 04/12/22 12:38 04/13/22 22:27 Oxycodone /Acetaminophen 5-325mg Tab PO 1 tab Q16H PRN Administration Pain, Moderate (4-6) Senna/Docusate Sodium 2 tab 04/15/22 17:30 04/15/22 21:28 Sennosides/Docusate Sodium 8.6/50 Mg Tab FEEDTUBE 2 tab BID ISIAH Administration Sodium Chloride 10 ml 04/12/22 22:00 04/15/22 21:28 Sodium Chloride 0.9% 10 Ml Flush Syringe IV 10 ml BID ISIAH Administration Sodium Chloride 10 ml 04/12/22 12:38 Sodium Chloride 0.9% 10 Ml Flush Syringe IV PRN PRN LINE FLUSH Sodium Chloride 50 ml 04/13/22 15:00 04/15/22 14:06 Sodium Chloride 0.9% 50 Ml Ivpb IV 04/17/22 14:01 50 ml Q24HR@1400 ISIAH Administration Nutrition/Malnutrition Assess - Dietary Evaluation Nutrition/Malnutrition Findings: Nutrition Notes Start: 04/12/22 16:12 Freq: Status: Active Protocol: Document 04/14/22 16:43 ELEAZAR (Rec: 04/14/22 16:49 ELEAZAR [id number]) Nutrition Notes Initial or Follow up Brief Note Current Diet TF - Vital AF 1.2 at 65ml/hr Height 5 ft 8 in Weight 113.3 kg [place] Body Weight (kg) 63.63 BMI 38.0 Subjective/Other Information Observed TF infusing at 55ml/ hr. Pt remains on vent support. Percent of energy/protein needs met: 74% energy 78% pro Is patient on ventilator? Yes Is Patient Ambulatory and/or Out of Bed No REE-([facility]-confined to bed) 2135.724 Kcal/Kg value to use for calculation 15 Approximate Energy Requirements Using 1700 kcal/Kg Calculation Used for Recommendations Kcal/kg Additional Notes Pro needs 2g/kg IBW: 127g/day Fluid needs 1m/kcal Nutrition Intervention Nutrition Support: Decrease TF goal rate to 60ml/ hr with 100ml water flush q4h Kcal 1,728 Protein (gm) 108 Fluid (mL) 1,168 Goal #1 TF tolerance Goal #2 TF to meet 70-80% energy and at least 75% pro needs Follow-Up By: 04/18/22 Additional Comments F/U: TF goal rate/tolerance, vent status
[2022-04-15] MEDS: REMDESIVIR 100 MG in SODIUM CHLORIDE 0.9% 250ML 250 ML IV SCH (14:05)
[2022-04-15] MEDS: SODIUM CHLORIDE 0.9% 50 ML IVPB IV SCH (14:06)
--- NOTE | 2022-04-15 15:53 | XRay Report ---
ABDOMEN 1 VIEW 04/15/2022 2:42 PM INDICATION / CLINICAL INFORMATION: s/p dht. COMPARISON: 04/12/2022 FINDINGS: TUBES / LINES: Enteric feeding tube tip is in the stomach. BOWEL GAS PATTERN: Multiple dilated loops of colon including a prominent loop of sigmoid colon, which is slightly displaced rightward. FREE AIR / EXTRALUMINAL GAS: None. ADDITIONAL FINDINGS: No significant additional findings. IMPRESSION: 1. Enteric feeding tube tip in the stomach. If transpyloric positioning is desired recommend further advancement by 10 to 15 cm and repeat imaging. 2. Nonspecific colonic dilation with prominent loop of sigmoid colon slightly displaced rightward. Re commend continued radiographic follow-up. Signer Name: Domenico Beatty MD Signed: 04/15/2022 3:49 PM Workstation Name: [email or web address]
[2022-04-15] MEDS: DOCUSATE SODIUM 100 MG/10 ML ORAL LIQD PO SCH (21:27)
[2022-04-15] MEDS: levETIRAcetam 500 MG/5 ML ORAL LIQD FEEDTUBE SCH (21:28)
[2022-04-15] MEDS: FAMOTIDINE 20 MG TAB FEEDTUBE SCH (21:28)
--- NOTE | 2022-04-16 02:26 | XRay Report ---
CHEST 1 VIEW 04/16/2022 1:41 AM INDICATION / CLINICAL INFORMATION: follow up respiratory failure. COMPARISON: One view of the chest from 04/15/2022. FINDINGS: SUPPORT DEVICES: The ET tube has been removed. The NG tube has been exchanged with the tip of the tub e located over the distal gastric body. HEART / MEDIASTINUM: No significant abnormality. LUNGS / PLEURA: Bilateral pulmonary opacities have nearly completely resolved. No significant pleural effusion. No pneumothorax. ADDITIONAL FINDINGS: No significant additional findings. IMPRESSION: 1. Interval extubation with improved aeration of the lungs. 2. Additional findings as above. Signer Name: Tee Singleton MD Signed: 04/16/2022 2:21 AM Workstation Name: [id number]
[2022-04-16 05:19] LABS: Hematocrit 34.5 % (30.3-42.9); Hemoglobin 11.6 gm/dl (10.1-14.3); Mean Corpuscular HGB Conc 34 % (30-34); Mean Corpuscular Volume 92 fl (79-97); Platelet Count 271 K/mm3 (140-440); Red Blood Count 3.74 M/mm3 (3.65-5.03); Red Cell Distribution Width 14.2 % (13.2-15.2)
[2022-04-16 05:42] LABS: Blood Urea Nitrogen 26 mg/dL (7-17); Calcium 8.2 mg/dL (8.4-10.2); Hemolysis Index 978
[2022-04-16 05:43] LABS: Alanine Aminotransferase 26 units/L (7-56); Albumin 3.4 g/dL (3.9-5); Blood Urea Nitrogen 26 mg/dL (7-17); Calcium 8.8 mg/dL (8.4-10.2); Hemolysis Index 62
[2022-04-16 05:56] LABS: BUN/Creatinine Ratio 43
[2022-04-16] MEDS: HEPARIN 5,000 UNIT/1 ML VIAL SUB-Q SCH ×2 (09:08→22:59)
[2022-04-16] MEDS: DOCUSATE SODIUM 100 MG/10 ML ORAL LIQD PO SCH ×2 (09:08→22:58)
[2022-04-16] MEDS: dexAMETHasone 4 MG/ML VIAL IV SCH (09:08)
[2022-04-16] MEDS: FAMOTIDINE 20 MG TAB FEEDTUBE SCH ×2 (09:09→22:58)
[2022-04-16] MEDS: METOPROLOL TARTRATE 25 MG TAB PO SCH ×2 (09:09→22:59)
[2022-04-16] MEDS: SENNOSIDES/DOCUSATE SODIUM 8.6/50 MG TAB FEEDTUBE SCH ×2 (09:09→22:58)
[2022-04-16] MEDS: levETIRAcetam 500 MG/5 ML ORAL LIQD FEEDTUBE SCH ×2 (09:09→22:58)
[2022-04-16] MEDS: cefTRIAXone/NS 2 GM/100 ML 2 GM/100 ML BAG IV SCH (09:15)
[2022-04-16] MEDS: LISINOPRIL 5 MG TAB PO SCH (09:20)
--- NOTE | 2022-04-16 10:23 | Progress Note ---
Assessment and Plan Cultures: SARS CoV2 PCR: Positive 04/12/2022 blood culture: 1 out of 4 bottles with coagulase-negative staph 04/13/2022 sputum culture: Normal respiratory fani A/P: 57-year-old female with morbid obesity, seizure disorder, smoker: #COVID-19 infection: Chest x-ray appears clear. Was intubated for airway prote ction. CRP 9.7, ferritin 318. #Coag-neg Staph bacteremia: contaminant. #Acute hypoxic respiratory failure: On the vent. Extubated. #UTI: UA showed pyuria, CT showed bladder wall thickening consistent with cystitis. #SIRS versus sepsis: Likely secondary to above and status epilepticus #Seizures Recs: -Continue IV remdesivir x 5 days, D4 -Continue dexamethasone for 10 days -Continue Ceftriaxone x 5 days, procal 1.9 Radha Garner MD [facility] ([facility]) Office [phone] Subjective Date of service: 04/16/22 Principal diagnosis: Acute hypoxemic respiratory failure; COVID-19 infxn; UTI; Mental disability Interval history: Patient does not follow commands. low-grade fever. Objective - Exam Narrative Exam: General appearance: Alert in NAD does not follow commands Eyes: anicteric sclerae, moist conjunctivae; no lid-lag; PERRLA HENT: Normocephalic, Atraumatic; normal external ears, nares open, oropharynx clear with moist mucous membranes and no oral thrush Neck: supple, tracheal midline, no JVD Lungs: Scattered rhonchi bilaterally CV: RRR no murmur Abdomen: Soft nontender Extremities: no edema, no cyanosis Skin: No rash. Psych: no agitated Neuro: alert does not follow commands - Constitutional Vitals: Vital Signs Temp Pulse Resp BP Pulse Ox 97.7 F 107 H 20 162/96 100 04/16/22 07:15 04/16/22 09:20 04/16/22 08:00 04/16/22 09:20 04/16/22 08:00 Temperature -Last 24 Hours Temperature 97.7 F Temperature 99.5 F Temperature 100.2 F Temperature 99.9 F Temperature 99.5 F Temperature 99.9 F - Labs CBC & Chem 7: 04/16/22 05:00 04/16/22 05:00 Labs: Abnormal lab results 04/15/22 04/15/22 04/15/22 Range/Units 11:52 12:35 18:08 ABG pO2 110.6 H (80.0-90.0) mm Hg ABG HCO3 26.7 H (20.0-26.0) mmol/L ABG Hemoglobin 8.6 L (12.0-16.0) gm/dl Sodium (137-145) mmol/L BUN (7-17) mg/dL Glucose (65-100) mg/dL POC Glucose 133 H 139 H (70-105) mg/dL Calcium (8.4-10.2) mg/dL Phosphorus (2.5-4.5) mg/dL Total Creatine Kinase (30-135) units/L Albumin (3.9-5) g/dL 04/16/22 04/16/22 04/16/22 Range/Units 00:07 05:00 05:00 ABG pO2 (80.0-90.0) mm Hg ABG HCO3 (20.0-26.0) mmol/L ABG Hemoglobin (12.0-16.0) gm/dl Sodium 136 L (137-145) mmol/L BUN 26 H 26 H (7-17) mg/dL Glucose 102 H 104 H (65-100) mg/dL POC Glucose 114 H (70-105) mg/dL Calcium 8.2 L (8.4-10.2) mg/dL Phosphorus 1.90 L (2.5-4.5) mg/dL Total Creatine Kinase 377 H 535 H (30-135) units/L Albumin 3.4 L (3.9-5) g/dL
--- NOTE | 2022-04-16 11:54 | Progress Note ---
<RIKKI FINK - Last Filed: 04/16/22 15:11> Assessment and Plan Assessment and plan: This is a 57-year-old female with known past medical history of MR, obesity, nicotine dependence, seizure disorder admitted for status epilepticus and was intubated in the ED for airway protection Hospital Course to Date: 04/13: Stable on low vent setting this am. Off sedation, awake and tracking, not following commands. Patient does have history of MR, patient is functional and can voice her needs per the caregiver. No seizure like activity reported, EEG and Neurology consult pending. Continue IV Keppra. Patient remains afebrile and hemodynamicaly stable. PRN hydralazine added for hypertension. Continue current IV steroids, and empiric IV Abx. ID consulted for further rec for COVID infection. Renal function and CKP are improving post IVF hydration, continue IVF resuscitation. K repleted, continue to monitor electrolytes and replete as needed. Plan for PSV trial today, plan to wean for possible extubation per CCM. 04/14: Remains stable on the vent. No seizures like activities reported in the las t 48hrs. Neurology recommendation noted. Patient tolerated PSV trial yesterday. Continue daily PSV trial, plan to wean for possible extubation per CCM. Hypertensive this am low dose BB added for BP control. Continue IV steroids, on Rocephin and Remdeservir per ID. 04/15: Remains stable on the vent. Tolerating PSV trial this am, plan for possibe extubation today per CCM. Remains hypertensive with refractory tachycardia with PRN hydralazine. On BB and Lisinopril added for better control. PRN switched to IV labetalol for SBP greater than 160. FWF increased for hypernatremia and K repleted, continue to monitor electrolytes and replete as needed. 04/16: s/p extubation, stable on RA. Currently nonverbal with Generalized weakness, however was able to shake head for yes or no this am. Lisinopril inc reased for BP control, continue low dose BB. Pending speech swallow eval, continue enteral nutrition via DHT for now. PT/OT also consulted for debility and discharge planning. Patient is stable for transfer to the floor. Assessment and Plan #Status Epilepticus #H/o Seizure Disorder #H/o Mental Retardation(MR) - Multifactorial - Patient with UTI and COVID positive - Per records from 09/2021, patient phenytoin level was elevated last admit and m eds was held. Patient was D/Dany with PO Keppra BID - CT head/brain with chronic encephalomalacia/surgical changes in the frontal lobes. No acute intracranial abnormality. - Treated underlying cause, currently on empiric IV abx. ID consulted - Intubated, awake and tracking. S/p Versed gtt. - Continue keppra - EEG pending - Neurology consult, appreciate recommendation - Per Neuro- continue Keppra 750mg IV q 12 hours for now once awake and patient able to take oral medications - switch to 1000 mg PO Keppra BID - PRN Ativan for seizure like activities - Frequent reorientation - Aspiration and Seizure precaution - PRN Analgesia for CPOT greater than 3 - Maintenance of sleep-wake cycle #Acute Hypoxic Respiratory Failure - Intubated in the ED on 04/12 for airway protection secondary to above - s/p extubation on 04/16, stable on RA this am - CCM consulted, appreciate recommendations - Aspiration precaution HOB above 30 - PRN ABG and CXR - Continue SPO2 monitoring for SPO2 goal above 92% - PRN O2 supplementation as needed #Sepsis #Possible RLL Pneumonia #Coronavirus Infection #Urinary Tract Infection(UTI)/Cystitis - COVID PCR came back positive - CT reveal right lower lobe infiltrate vs atelectasis - UA consistent with UTI, CT scan shows mild bladder wall thickening suggesting cystitis - COVID PCR came back positive - Blood cultures and sputum culture pending - Patient is afebrile, Leukocytosis improved, VSS - On IV steroids and empiric IV Abx - ID consulted, appreciate recommendations - Remdesevir added - F/U on cultures - Daily CBC monitor #Rhabdomyolysis - Probably due to multiple seizures - s/p IVF resuscitation, CPK improved - Trend CPK #Acute Kidney Injury(JONA) most likely Vasomotor Nephropathy #Hypokalemia - probably secondary to above - Per records, baseline scr is 1.1, Scr. as high as 3.2 this admit - Renal function back to baseline post IVF hydration - Strict intake and output - Avoid nephrotoxic medications; Renally dose medications - Monitor and replace electrolytes as needed - Trend BMP #Hypertension - Remains hypertensive - Continue low dose BB, lisinopril increased for better control - Continue blood pressure monitor per protocol - PRN Hydralazine for SBP greater than 160 - Might benefits from antihypertensive regimen at discharge #GI/DVT Prophylaxis - PPI- Pepcid - Heparin SubQ - SCD to bilateral lower extremities while in bed #Advance Care Planning - Disease education data, care plan, diagnoses, and prognosis were discussed with patient's cousin and caregiver via phone. Patient is a FULL code. Patient's family acknowledged understanding and agreed with current care plan. The high probability of a clinically significant, sudden or life threatening deterioration of the [multiple] system(s) required my full and direct attention, intervention and personal management. The aggregate critical care time was [60] minutes. This time is in addition to time spent performing reported procedures but includes the following: [x] Data Review and interpretation [x] Patient assessment and monitoring of vital signs [x] Documentation [x] Medication orders and management Disposition Plan: Transfer to the floor Total Time Spent with Patient (Minutes): 60 History Interval history: Patient seen and examined at the bedside. s/p extubation, awake and track, follow simple commands but shaking yes or no for simple questions. Stable on RA, no respiratory distress noted, VSS. [facility] overnight Hospitalist Physical - Physical exam Narrative exam: General appearance: Present: no acute distress, well-nourished, obese, - EENT Eyes: Present: PERRL ENT: hearing intact - Neck Neck: Present: normal ROM - Respiratory Respiratory effort: normal Respiratory: bilateral: rhonchi - Cardiovascular Rhythm: regular Heart Sounds: Present: S1 & S2 - Extremities Extremities: no ischemia, pulses intact, pulses symmetrical Extremity abnormal: edema - Peripheral Assessment Bilateral Lower Extremity Edema Type: Non-pitting Edema Degree: 2+ Capillary Refill: < 3 seconds Skin Temperature: Warm Generalized Edema Type: Non-pitting Edema Degree: 1+ Capillary Refill: < 3 seconds Skin Temperature: Warm Peripheral Pulses: within normal limits - Abdominal General gastrointestinal: soft, non-distended, normal bowel sounds - Integumentary Integumentary: Present: warm, dry - Psychiatric Psychiatric: other (Awake and tracking, shake head for yes or no) - Neurologic Neurologic: moves all extremities (Generalized weakness), other (Awake and tracking, shake head for yes or no) - Allied Health Allied health notes reviewed: nursing, case management - Constitutional Vitals: Temp Pulse Resp BP Pulse Ox 97.7 F 95 H 22 184/76 97 04/16/22 07:15 04/16/22 11:00 04/16/22 11:00 04/16/22 11:00 04/16/22 11:00 Results - Labs CBC & Chem 7: 04/16/22 05:00 04/16/22 05:00 Labs: Laboratory Last Values WBC 11.0 K/mm3 (4.5-11.0) 04/16/22 05:00 RBC 3.74 M/mm3 (3.65-5.03) 04/16/22 05:00 Hgb 11.6 gm/dl (10.1-14.3) 04/16/22 05:00 Hct 34.5 % (30.3-42.9) 04/16/22 05:00 MCV 92 fl (79-97) 04/16/22 05:00 MCH 31 pg (28-32) 04/16/22 05:00 MCHC 34 % (30-34) 04/16/22 05:00 RDW 14.2 % (13.2-15.2) 04/16/22 05:00 Plt Count 271 K/mm3 (140-440) 04/16/22 05:00 Add Manual Diff Complete 04/13/22 03:44 Total Counted 100 04/13/22 03:44 Seg Neutrophils % Gin Pole Operator 04/13/22 03:44 Seg Neuts % (Manual) 97.0 % (40.0-70.0) H 04/13/22 03:44 Band Neutrophils % 0 % 04/13/22 03:44 Lymphocytes % (Manual) 2.0 % (13.4-35.0) L 04/13/22 03:44 Reactive Lymphs % (Man) 0 % 04/13/22 03:44 Monocytes % (Manual) 1.0 % (0.0-7.3) 04/13/22 03:44 Eosinophils % (Manual) 0 % (0.0-4.3) 04/13/22 03:44 Basophils % (Manual) 0 % (0.0-1.8) 04/13/22 03:44 Metamyelocytes % 0 % 04/13/22 03:44 Myelocytes % 0 % 04/13/22 03:44 Promyelocytes % 0 % 04/13/22 03:44 Blast Cells % 0 % 04/13/22 03:44 Nucleated RBC % Not Reportable 04/13/22 03:44 Seg Neutrophils # Man 18.1 K/mm3 (1.8-7.7) H 04/13/22 03:44 Band Neutrophils # 0.0 K/mm3 04/13/22 03:44 Lymphocytes # (Manual) 0.4 K/mm3 (1.2-5.4) L 04/13/22 03:44 Abs React Lymphs (Man) 0.0 K/mm3 04/13/22 03:44 Monocytes # (Manual) 0.2 K/mm3 (0.0-0.8) 04/13/22 03:44 Eosinophils # (Manual) 0.0 K/mm3 (0.0-0.4) 04/13/22 03:44 Basophils # (Manual) 0.0 K/mm3 (0.0-0.1) 04/13/22 03:44 Metamyelocytes # 0.0 K/mm3 04/13/22 03:44 Myelocytes # 0.0 K/mm3 04/13/22 03:44 Promyelocytes # 0.0 K/mm3 04/13/22 03:44 Blast Cells # 0.0 K/mm3 04/13/22 03:44 WBC Morphology Not Reportable 04/13/22 03:44 Hypersegmented Neuts Not Reportable 04/13/22 03:44 Hyposegmented Neuts Not Reportable 04/13/22 03:44 Hypogranular Neuts Not Reportable 04/13/22 03:44 Smudge Cells Not Reportable 04/13/22 03:44 Toxic Granulation Not Reportable 04/13/22 03:44 Toxic Vacuolation Not Reportable 04/13/22 03:44 Dohle Bodies Not Reportable 04/13/22 03:44 Pelger-Huet Anomaly Not Reportable 04/13/22 03:44 Neeta Rods Not Reportable 04/13/22 03:44 Platelet Estimate Consistent w auto 04/13/22 03:44 Clumped Platelets Not Reportable 04/13/22 03:44 Plt Clumps, EDTA Not Reportable 04/13/22 03:44 Large Platelets Not Reportable 04/13/22 03:44 Giant Platelets Not Reportable 04/13/22 03:44 Platelet Satelliting Not Reportable 04/13/22 03:44 Plt Morphology Comment Not Reportable 04/13/22 03:44 RBC Morphology Not Reportable 04/13/22 03:44 Dimorphic RBCs Not Reportable 04/13/22 03:44 Polychromasia Not Reportable 04/13/22 03:44 Hypochromasia Not Reportable 04/13/22 03:44 Poikilocytosis Not Reportable 04/13/22 03:44 Anisocytosis Not Reportable 04/13/22 03:44 Microcytosis Not Reportable 04/13/22 03:44 Macrocytosis Not Reportable 04/13/22 03:44 Spherocytes Not Reportable 04/13/22 03:44 Pappenheimer Bodies Not Reportable 04/13/22 03:44 Sickle Cells Not Reportable 04/13/22 03:44 Target Cells Not Reportable 04/13/22 03:44 Tear Drop Cells Not Reportable 04/13/22 03:44 Ovalocytes Not Reportable 04/13/22 03:44 Helmet Cells Not Reportable 04/13/22 03:44 Feng-[place] Bodies Not Reportable 04/13/22 03:44 [place] Rings Not Reportable 04/13/22 03:44 Raj Cells Not Reportable 04/13/22 03:44 Bite Cells Not Reportable 04/13/22 03:44 Crenated Cell Not Reportable 04/13/22 03:44 Elliptocytes Not Reportable 04/13/22 03:44 Acanthocytes (Spur) Not Reportable 04/13/22 03:44 Rouleaux Not Reportable 04/13/22 03:44 Hemoglobin C Crystals Not Reportable 04/13/22 03:44 Schistocytes Not Reportable 04/13/22 03:44 Malaria parasites Not Reportable 04/13/22 03:44 Sanjay Bodies Not Reportable 04/13/22 03:44 Hem Pathologist Commnt No 04/13/22 03:44 PT 15.3 Sec. (12.2-14.9) H 04/12/22 09:11 INR 1.09 (0.87-1.13) 04/12/22 09:11 APTT 27.4 Sec. (24.2-36.6) 04/12/22 09:11 ABG pH 7.408 pH Units (7.350-7.450) 04/15/22 12:35 ABG pCO2 43.3 mm Hg 04/15/22 12:35 ABG pO2 110.6 mm Hg (80.0-90.0) H 04/15/22 12:35 ABG HCO3 26.7 mmol/L (20.0-26.0) H 04/15/22 12:35 ABG O2 Saturation 98.0 % (95.0-99.0) 04/15/22 12:35 ABG O2 Content 11.8 (0.0-44) 04/15/22 12:35 ABG Base Excess 1.8 mmol/L (-2.0-3.0) 04/15/22 12:35 ABG Hemoglobin 8.6 gm/dl (12.0-16.0) L 04/15/22 12:35 ABG Carboxyhemoglobin 1.0 % (0.0-5.0) 04/15/22 12:35 ABG Methemoglobin 0.5 % (0.0-1.5) 04/15/22 12:35 Oxyhemoglobin 96.5 % (95.0-99.0) 04/15/22 12:35 FiO2 30 % 04/15/22 12:35 Sodium 136 mmol/L (137-145) L 04/16/22 05:00 Sodium 141 mmol/L (137-145) 04/16/22 05:00 Potassium 4.1 mmol/L (3.6-5.0) 04/16/22 05:00 Potassium TNR 04/16/22 05:00 Chloride 104.0 mmol/L (98-107) 04/16/22 05:00 Chloride 104.8 mmol/L (98-107) 04/16/22 05:00 Carbon Dioxide 24 mmol/L (22-30) 04/16/22 05:00 Carbon Dioxide 27 mmol/L (22-30) 04/16/22 05:00 Anion Gap 14 mmol/L 04/16/22 05:00 Anion Gap TNR 04/16/22 05:00 BUN 26 mg/dL (7-17) H 04/16/22 05:00 BUN 26 mg/dL (7-17) H 04/16/22 05:00 Creatinine 0.6 mg/dL (0.6-1.2) 04/16/22 05:00 Creatinine 0.6 mg/dL (0.6-1.2) 04/16/22 05:00 Estimated GFR > 60 ml/min 04/16/22 05:00 Estimated GFR > 60 ml/min 04/16/22 05:00 BUN/Creatinine Ratio 43 % 04/16/22 05:00 BUN/Creatinine Ratio 43 % 04/16/22 05:00 Glucose 102 mg/dL (65-100) H 04/16/22 05:00 Glucose 104 mg/dL (65-100) H 04/16/22 05:00 POC Glucose 114 mg/dL (70-105) H 04/16/22 00:07 Lactic Acid 1.60 mmol/L (0.7-2.0) 04/12/22 11:42 Calcium 8.2 mg/dL (8.4-10.2) L 04/16/22 05:00 Calcium 8.8 mg/dL (8.4-10.2) 04/16/22 05:00 Phosphorus 1.90 mg/dL (2.5-4.5) L 04/16/22 05:00 Phosphorus 2.60 mg/dL (2.5-4.5) D 04/16/22 05:00 Magnesium 1.90 mg/dL (1.7-2.3) 04/16/22 05:00 Magnesium 2.20 mg/dL (1.7-2.3) 04/16/22 05:00 Ferritin 318.6 ng/mL (10.0-200.0) H 04/14/22 04:04 Total Bilirubin 0.40 mg/dL (0.1-1.2) 04/16/22 05:00 AST 34 units/L (5-40) 04/16/22 05:00 ALT 26 units/L (7-56) 04/16/22 05:00 Alkaline Phosphatase 92 units/L (35-129) 04/16/22 05:00 Total Creatine Kinase 377 units/L (30-135) H 04/16/22 05:00 Total Creatine Kinase 535 units/L (30-135) H 04/16/22 05:00 C-Reactive Protein 9.70 mg/dL (0.00-1.30) H 04/14/22 04:04 Total Protein 6.9 g/dL (6.3-8.2) 04/16/22 05:00 Albumin 3.4 g/dL (3.9-5) L 04/16/22 05:00 Albumin/Globulin Ratio 1.0 % 04/16/22 05:00 Procalcitonin 1.92 ng/mL (<0.15) 04/14/22 04:04 Urine Color Yellow (Yellow) 04/12/22 Unknown Urine Turbidity Cloudy (Clear) 04/12/22 Unknown Specific [place] (Man) 1.020 (1.003-1.030) 04/12/22 Unknown Ur Protein (Man) 4+ mg/dL (Negative) 04/12/22 Unknown Ur Ketones (Man) Negative (Negative) 04/12/22 Unknown Ur Nitrite (Man) Negative (Negative) 04/12/22 Unknown Ur Reducing Substances Not Reportable 04/12/22 Unknown Urine Bilirubin (Man) Negative (Negative) 04/12/22 Unknown Urine Ictotest Not Reportable 04/12/22 Unknown Leukocyte Esterase (Man) Large (Negative) 04/12/22 Unknown Urine WBC (Auto) < 182.0 /HPF (0.0-6.0) H 04/12/22 Unknown Urine RBC (Auto) 60.0 /HPF (0.0-6.0) 04/12/22 Unknown U Epithel Cells (Auto) 12.0 /HPF (0-13.0) 04/12/22 Unknown Urine RBC (Manual) 3+ (Negative) 04/12/22 Unknown Urine WBC Clumps 3+ /HPF 04/12/22 Unknown Urine Mucus 3+ /HPF 04/12/22 Unknown Salicylates < 0.3 mg/dL (2.8-20.0) L 04/12/22 09:11 Acetaminophen 5.0 ug/mL (10.0-30.0) L 04/12/22 09:11 Phenytoin 1.2 ug/mL (10.0-20.0) L 04/12/22 09:11 Valproic Acid < 2.8 ug/mL (50-100) L 04/12/22 09:11 Levetiracetam <2.0 mcg/mL (6.0-46.0) L 04/12/22 14:34 Plasma/Serum Alcohol < 0.01 % (0-0.07) 04/12/22 09:11 SARS-CoV-2 (PCR) Positive (Negative) A 04/12/22 10:56 Microbiology: Microbiology 04/12/22 09:38 Peripheral/Venous Blood Culture - Preliminary NO GROWTH AFTER 4 DAYS 04/13/22 Unknown Tracheal Aspirate Sputum Culture - Final Mckeon/IV: Voiding Method External Female Catheter Active Medications - Current Medications Current Medications: Generic Name Dose Route Start Last Admin Trade Name Freq PRN Reason Stop Dose Admin Acetaminophen 650 mg 04/12/22 12:38 Acetaminophen 325 Mg Tab PO Q6H PRN Pain MILD(1-3)/Fever >100.5/VALLADARES Albuterol 2.5 mg 04/12/22 12:38 Albuterol 2.5 Mg/3 Ml Nebu IH Q3HRT PRN Shortness Of Breath Bisacodyl 10 mg 04/15/22 17:00 04/16/22 09:08 Bisacodyl 10 Mg Rect Supp IA 04/17/22 16:59 10 mg QDAY ISIAH Administration Dexamethasone 6 mg 04/15/22 10:00 04/16/22 09:08 Dexamethasone 4 Mg/Ml Vial IV 04/22/22 10:01 6 mg Q24HR ISIAH Administration Docusate Sodium 100 mg 04/15/22 22:00 04/16/22 09:08 Docusate Sodium 100 Mg/10 Ml Oral Liqd PO 100 mg BID ISIAH Administration Famotidine 20 mg 04/15/22 22:00 04/16/22 09:09 Famotidine 20 Mg Tab FEEDTUBE 20 mg BID ISIAH Administration Heparin Sodium (Porcine) 5,000 unit 04/12/22 22:00 04/16/22 09:08 Heparin 5,000 Unit/1 Ml Vial SUB-Q 5,000 unit Q12HR ISIAH Administration Hydromorphone HCl 0.5 mg 04/14/22 10:48 04/15/22 08:34 Hydromorphone 0.5 Mg/0.5 Ml Inj IV 0.5 mg Q6H PRN Administration Pain , Severe (7-10) Hydrophilic Ointment 1 applic 04/12/22 09:35 Lip Therapy Vaseline TP Q2HR PRN Dry Lips Ceftriaxone Sodium 2 gm in 100 mls @ 200 mls/hr 04/13/22 10:00 04/16/22 09:15 Rocephin/Ns 2 Gm/100 Ml IV 04/17/22 10:29 200 mls/hr Q24H ISIAH Administration Protocol Remdesivir 100 mg/ Sodium 250 mls @ 500 mls/hr 04/14/22 14:00 04/15/22 14:05 Chloride IV 04/17/22 14:29 500 mls/hr Q24HR@1400 ISIAH Administration Labetalol HCl 10 mg 04/15/22 09:00 04/16/22 05:05 Labetalol 20 Mg/4 Ml Inj IV 10 mg Q4H PRN Administration Hypertension Levetiracetam 750 mg 04/15/22 22:00 04/16/22 09:09 Levetiracetam 500 Mg/5 Ml Oral Liqd FEEDTUBE 750 mg BID ISIAH Administration Lisinopril 10 mg 04/16/22 10:00 04/16/22 09:20 Lisinopril 5 Mg Tab PO 10 mg QDAY ISIAH Administration Metoprolol Tartrate 12.5 mg 04/14/22 16:13 04/16/22 09:09 Metoprolol Tartrate 25 Mg Tab PO 12.5 mg BID ISIAH Administration Multi-Ingred Cream/Lotion/Oil/Oint 1 applic 04/12/22 09:35 Mineral Oil/Petrolatum, White Ophth Oint 3.5 Gm OU Q4HR PRN Dry Eye(s) Ondansetron HCl 4 mg 04/12/22 12:38 Ondansetron 4 Mg/2 Ml Inj IV Q8H PRN Nausea And Vomiting Oxycodone/Acetaminophen 1 tab 04/12/22 12:38 04/13/22 22:27 Oxycodone /Acetaminophen 5-325mg Tab PO 1 tab Q16H PRN Administration Pain, Moderate (4-6) Senna/Docusate Sodium 2 tab 04/15/22 17:30 04/16/22 09:09 Sennosides/Docusate Sodium 8.6/50 Mg Tab FEEDTUBE 2 tab BID ISIAH Administration Sodium Chloride 10 ml 04/12/22 22:00 04/16/22 09:09 Sodium Chloride 0.9% 10 Ml Flush Syringe IV 10 ml BID ISIAH Administration Sodium Chloride 10 ml 04/12/22 12:38 Sodium Chloride 0.9% 10 Ml Flush Syringe IV PRN PRN LINE FLUSH Sodium Chloride 50 ml 04/13/22 15:00 04/15/22 14:06 Sodium Chloride 0.9% 50 Ml Ivpb IV 04/17/22 14:01 50 ml Q24HR@1400 ISIAH Administration Nutrition/Malnutrition Assess - Dietary Evaluation Nutrition/Malnutrition Findings: Nutrition Notes Start: 04/12/22 16:12 Freq: Status: Active Protocol: Document 04/14/22 16:43 ELEAZAR (Rec: 04/14/22 16:49 ELEAZAR [id number]) Nutrition Notes Initial or Follow up Brief Note Current Diet TF - Vital AF 1.2 at 65ml/hr Height 5 ft 8 in Weight 113.3 kg [place] Body Weight (kg) 63.63 BMI 38.0 Subjective/Other Information Observed TF infusing at 55ml/ hr. Pt remains on vent support. Percent of energy/protein needs met: 74% energy 78% pro Is patient on ventilator? Yes Is Patient Ambulatory and/or Out of Bed No REE-([facility]-confined to bed) 2135.724 Kcal/Kg value to use for calculation 15 Approximate Energy Requirements Using 1700 kcal/Kg Calculation Used for Recommendations Kcal/kg Additional Notes Pro needs 2g/kg IBW: 127g/day Fluid needs 1m/kcal Nutrition Intervention Nutrition Support: Decrease TF goal rate to 60ml/ hr with 100ml water flush q4h Kcal 1,728 Protein (gm) 108 Fluid (mL) 1,168 Goal #1 TF tolerance Goal #2 TF to meet 70-80% energy and at least 75% pro needs Follow-Up By: 04/18/22 Additional Comments F/U: TF goal rate/tolerance, vent status <PAIGE GRAY - Last Filed: 04/17/22 07:26> Assessment and Plan Assessment and plan: I saw and evaluated the patient. I agree with the findings and the plan of care as documented in the Nurse Practitioner's~note, with the following corrections and additions. Hospitalist Physical - Constitutional Vitals: Temp Pulse Resp BP Pulse Ox 99.6 F 113 H 18 134/72 98 04/17/22 06:00 04/17/22 06:00 04/17/22 06:00 04/17/22 06:00 04/17/22 06:00 Results - Labs CBC & Chem 7: 04/16/22 05:00 04/16/22 05:00 Labs: Laboratory Last Values WBC 11.0 K/mm3 (4.5-11.0) 04/16/22 05:00 RBC 3.74 M/mm3 (3.65-5.03) 04/16/22 05:00 Hgb 11.6 gm/dl (10.1-14.3) 04/16/22 05:00 Hct 34.5 % (30.3-42.9) 04/16/22 05:00 MCV 92 fl (79-97) 04/16/22 05:00 MCH 31 pg (28-32) 04/16/22 05:00 MCHC 34 % (30-34) 04/16/22 05:00 RDW 14.2 % (13.2-15.2) 04/16/22 05:00 Plt Count 271 K/mm3 (140-440) 04/16/22 05:00 Add Manual Diff Complete 04/13/22 03:44 Total Counted 100 04/13/22 03:44 Seg Neutrophils % Gin Pole Operator 04/13/22 03:44 Seg Neuts % (Manual) 97.0 % (40.0-70.0) H 04/13/22 03:44 Band Neutrophils % 0 % 04/13/22 03:44 Lymphocytes % (Manual) 2.0 % (13.4-35.0) L 04/13/22 03:44 Reactive Lymphs % (Man) 0 % 04/13/22 03:44 Monocytes % (Manual) 1.0 % (0.0-7.3) 04/13/22 03:44 Eosinophils % (Manual) 0 % (0.0-4.3) 04/13/22 03:44 Basophils % (Manual) 0 % (0.0-1.8) 04/13/22 03:44 Metamyelocytes % 0 % 04/13/22 03:44 Myelocytes % 0 % 04/13/22 03:44 Promyelocytes % 0 % 04/13/22 03:44 Blast Cells % 0 % 04/13/22 03:44 Nucleated RBC % Not Reportable 04/13/22 03:44 Seg Neutrophils # Man 18.1 K/mm3 (1.8-7.7) H 04/13/22 03:44 Band Neutrophils # 0.0 K/mm3 04/13/22 03:44 Lymphocytes # (Manual) 0.4 K/mm3 (1.2-5.4) L 04/13/22 03:44 Abs React Lymphs (Man) 0.0 K/mm3 04/13/22 03:44 Monocytes # (Manual) 0.2 K/mm3 (0.0-0.8) 04/13/22 03:44 Eosinophils # (Manual) 0.0 K/mm3 (0.0-0.4) 04/13/22 03:44 Basophils # (Manual) 0.0 K/mm3 (0.0-0.1) 04/13/22 03:44 Metamyelocytes # 0.0 K/mm3 04/13/22 03:44 Myelocytes # 0.0 K/mm3 04/13/22 03:44 Promyelocytes # 0.0 K/mm3 04/13/22 03:44 Blast Cells # 0.0 K/mm3 04/13/22 03:44 WBC Morphology Not Reportable 04/13/22 03:44 Hypersegmented Neuts Not Reportable 04/13/22 03:44 Hyposegmented Neuts Not Reportable 04/13/22 03:44 Hypogranular Neuts Not Reportable 04/13/22 03:44 Smudge Cells Not Reportable 04/13/22 03:44 Toxic Granulation Not Reportable 04/13/22 03:44 Toxic Vacuolation Not Reportable 04/13/22 03:44 Dohle Bodies Not Reportable 04/13/22 03:44 Pelger-Huet Anomaly Not Reportable 04/13/22 03:44 Neeta Rods Not Reportable 04/13/22 03:44 Platelet Estimate Consistent w auto 04/13/22 03:44 Clumped Platelets Not Reportable 04/13/22 03:44 Plt Clumps, EDTA Not Reportable 04/13/22 03:44 Large Platelets Not Reportable 04/13/22 03:44 Giant Platelets Not Reportable 04/13/22 03:44 Platelet Satelliting Not Reportable 04/13/22 03:44 Plt Morphology Comment Not Reportable 04/13/22 03:44 RBC Morphology Not Reportable 04/13/22 03:44 Dimorphic RBCs Not Reportable 04/13/22 03:44 Polychromasia Not Reportable 04/13/22 03:44 Hypochromasia Not Reportable 04/13/22 03:44 Poikilocytosis Not Reportable 04/13/22 03:44 Anisocytosis Not Reportable 04/13/22 03:44 Microcytosis Not Reportable 04/13/22 03:44 Macrocytosis Not Reportable 04/13/22 03:44 Spherocytes Not Reportable 04/13/22 03:44 Pappenheimer Bodies Not Reportable 04/13/22 03:44 Sickle Cells Not Reportable 04/13/22 03:44 Target Cells Not Reportable 04/13/22 03:44 Tear Drop Cells Not Reportable 04/13/22 03:44 Ovalocytes Not Reportable 04/13/22 03:44 Helmet Cells Not Reportable 04/13/22 03:44 Feng-[place] Bodies Not Reportable 04/13/22 03:44 [place] Rings Not Reportable 04/13/22 03:44 Raj Cells Not Reportable 04/13/22 03:44 Bite Cells Not Reportable 04/13/22 03:44 Crenated Cell Not Reportable 04/13/22 03:44 Elliptocytes Not Reportable 04/13/22 03:44 Acanthocytes (Spur) Not Reportable 04/13/22 03:44 Rouleaux Not Reportable 04/13/22 03:44 Hemoglobin C Crystals Not Reportable 04/13/22 03:44 Schistocytes Not Reportable 04/13/22 03:44 Malaria parasites Not Reportable 04/13/22 03:44 Sajnay Bodies Not Reportable 04/13/22 03:44 Hem Pathologist Commnt No 04/13/22 03:44 PT 15.3 Sec. (12.2-14.9) H 04/12/22 09:11 INR 1.09 (0.87-1.13) 04/12/22 09:11 APTT 27.4 Sec. (24.2-36.6) 04/12/22 09:11 ABG pH 7.408 pH Units (7.350-7.450) 04/15/22 12:35 ABG pCO2 43.3 mm Hg 04/15/22 12:35 ABG pO2 110.6 mm Hg (80.0-90.0) H 04/15/22 12:35 ABG HCO3 26.7 mmol/L (20.0-26.0) H 04/15/22 12:35 ABG O2 Saturation 98.0 % (95.0-99.0) 04/15/22 12:35 ABG O2 Content 11.8 (0.0-44) 04/15/22 12:35 ABG Base Excess 1.8 mmol/L (-2.0-3.0) 04/15/22 12:35 ABG Hemoglobin 8.6 gm/dl (12.0-16.0) L 04/15/22 12:35 ABG Carboxyhemoglobin 1.0 % (0.0-5.0) 04/15/22 12:35 ABG Methemoglobin 0.5 % (0.0-1.5) 04/15/22 12:35 Oxyhemoglobin 96.5 % (95.0-99.0) 04/15/22 12:35 FiO2 30 % 04/15/22 12:35 Sodium 136 mmol/L (137-145) L 04/16/22 05:00 Sodium 141 mmol/L (137-145) 04/16/22 05:00 Potassium 4.1 mmol/L (3.6-5.0) 04/16/22 05:00 Potassium TNR 04/16/22 05:00 Chloride 104.0 mmol/L (98-107) 04/16/22 05:00 Chloride 104.8 mmol/L (98-107) 04/16/22 05:00 Carbon Dioxide 24 mmol/L (22-30) 04/16/22 05:00 Carbon Dioxide 27 mmol/L (22-30) 04/16/22 05:00 Anion Gap 14 mmol/L 04/16/22 05:00 Anion Gap TNR 04/16/22 05:00 BUN 26 mg/dL (7-17) H 04/16/22 05:00 BUN 26 mg/dL (7-17) H 04/16/22 05:00 Creatinine 0.6 mg/dL (0.6-1.2) 04/16/22 05:00 Creatinine 0.6 mg/dL (0.6-1.2) 04/16/22 05:00 Estimated GFR > 60 ml/min 04/16/22 05:00 Estimated GFR > 60 ml/min 04/16/22 05:00 BUN/Creatinine Ratio 43 % 04/16/22 05:00 BUN/Creatinine Ratio 43 % 04/16/22 05:00 Glucose 102 mg/dL (65-100) H 04/16/22 05:00 Glucose 104 mg/dL (65-100) H 04/16/22 05:00 POC Glucose 134 mg/dL (70-105) H 04/16/22 17:24 Lactic Acid 1.60 mmol/L (0.7-2.0) 04/12/22 11:42 Calcium 8.2 mg/dL (8.4-10.2) L 04/16/22 05:00 Calcium 8.8 mg/dL (8.4-10.2) 04/16/22 05:00 Phosphorus 1.90 mg/dL (2.5-4.5) L 04/16/22 05:00 Phosphorus 2.60 mg/dL (2.5-4.5) D 04/16/22 05:00 Magnesium 1.90 mg/dL (1.7-2.3) 04/16/22 05:00 Magnesium 2.20 mg/dL (1.7-2.3) 04/16/22 05:00 Ferritin 318.6 ng/mL (10.0-200.0) H 04/14/22 04:04 Total Bilirubin 0.40 mg/dL (0.1-1.2) 04/16/22 05:00 AST 34 units/L (5-40) 04/16/22 05:00 ALT 26 units/L (7-56) 04/16/22 05:00 Alkaline Phosphatase 92 units/L (35-129) 04/16/22 05:00 Total Creatine Kinase 377 units/L (30-135) H 04/16/22 05:00 Total Creatine Kinase 535 units/L (30-135) H 04/16/22 05:00 C-Reactive Protein 9.70 mg/dL (0.00-1.30) H 04/14/22 04:04 Total Protein 6.9 g/dL (6.3-8.2) 04/16/22 05:00 Albumin 3.4 g/dL (3.9-5) L 04/16/22 05:00 Albumin/Globulin Ratio 1.0 % 04/16/22 05:00 Procalcitonin 1.92 ng/mL (<0.15) 04/14/22 04:04 Urine Color Yellow (Yellow) 04/12/22 Unknown Urine Turbidity Cloudy (Clear) 04/12/22 Unknown Specific [place] (Man) 1.020 (1.003-1.030) 04/12/22 Unknown Ur Protein (Man) 4+ mg/dL (Negative) 04/12/22 Unknown Ur Ketones (Man) Negative (Negative) 04/12/22 Unknown Ur Nitrite (Man) Negative (Negative) 04/12/22 Unknown Ur Reducing Substances Not Reportable 04/12/22 Unknown Urine Bilirubin (Man) Negative (Negative) 04/12/22 Unknown Urine Ictotest Not Reportable 04/12/22 Unknown Leukocyte Esterase (Man) Large (Negative) 04/12/22 Unknown Urine WBC (Auto) < 182.0 /HPF (0.0-6.0) H 04/12/22 Unknown Urine RBC (Auto) 60.0 /HPF (0.0-6.0) 04/12/22 Unknown U Epithel Cells (Auto) 12.0 /HPF (0-13.0) 04/12/22 Unknown Urine RBC (Manual) 3+ (Negative) 04/12/22 Unknown Urine WBC Clumps 3+ /HPF 04/12/22 Unknown Urine Mucus 3+ /HPF 04/12/22 Unknown Salicylates < 0.3 mg/dL (2.8-20.0) L 04/12/22 09:11 Acetaminophen 5.0 ug/mL (10.0-30.0) L 04/12/22 09:11 Phenytoin 1.2 ug/mL (10.0-20.0) L 04/12/22 09:11 Valproic Acid < 2.8 ug/mL (50-100) L 04/12/22 09:11 Levetiracetam <2.0 mcg/mL (6.0-46.0) L 04/12/22 14:34 Plasma/Serum Alcohol < 0.01 % (0-0.07) 04/12/22 09:11 SARS-CoV-2 (PCR) Positive (Negative) A 04/12/22 10:56 Microbiology: Microbiology 04/12/22 09:38 Peripheral/Venous Blood Culture - Preliminary NO GROWTH AFTER 4 DAYS Mckeon/IV: Voiding Method External Female Catheter Active Medications - Current Medications Current Medications: Generic Name Dose Route Start Last Admin Trade Name Freq PRN Reason Stop Dose Admin Acetaminophen 650 mg 04/12/22 12:38 04/16/22 23:44 Acetaminophen 325 Mg Tab PO 650 mg Q6H PRN Administration Pain MILD(1-3)/Fever >100.5/VALLADARES Albuterol 2.5 mg 04/12/22 12:38 Albuterol 2.5 Mg/3 Ml Nebu IH Q3HRT PRN Shortness Of Breath Bisacodyl 10 mg 04/15/22 17:00 04/16/22 09:08 Bisacodyl 10 Mg Rect Supp IA 04/17/22 16:59 10 mg QDAY ISIAH Administration Dexamethasone 6 mg 04/15/22 10:00 04/16/22 09:08 Dexamethasone 4 Mg/Ml Vial IV 04/22/22 10:01 6 mg Q24HR ISIAH Administration Docusate Sodium 100 mg 04/15/22 22:00 04/16/22 22:58 Docusate Sodium 100 Mg/10 Ml Oral Liqd PO 100 mg BID ISIAH Administration Famotidine 20 mg 04/15/22 22:00 04/16/22 22:58 Famotidine 20 Mg Tab FEEDTUBE 20 mg BID ISIAH Administration Heparin Sodium (Porcine) 5,000 unit 04/12/22 22:00 04/16/22 22:59 Heparin 5,000 Unit/1 Ml Vial SUB-Q 5,000 unit Q12HR ISIAH Administration Hydromorphone HCl 0.5 mg 04/14/22 10:48 04/15/22 08:34 Hydromorphone 0.5 Mg/0.5 Ml Inj IV 0.5 mg Q6H PRN Administration Pain , Severe (7-10) Hydrophilic Ointment 1 applic 04/12/22 09:35 Lip Therapy Vaseline TP Q2HR PRN Dry Lips Ceftriaxone Sodium 2 gm in 100 mls @ 200 mls/hr 04/13/22 10:00 04/16/22 09:15 Rocephin/Ns 2 Gm/100 Ml IV 04/17/22 10:29 200 mls/hr Q24H ISIAH Administration Protocol Remdesivir 100 mg/ Sodium 250 mls @ 500 mls/hr 04/14/22 14:00 04/16/22 16:00 Chloride IV 04/17/22 14:29 500 mls/hr Q24HR@1400 ISIAH Administration Labetalol HCl 10 mg 04/15/22 09:00 04/16/22 05:05 Labetalol 20 Mg/4 Ml Inj IV 10 mg Q4H PRN Administration Hypertension Levetiracetam 750 mg 04/15/22 22:00 04/16/22 22:58 Levetiracetam 500 Mg/5 Ml Oral Liqd FEEDTUBE 750 mg BID ISIAH Administration Lisinopril 10 mg 04/16/22 10:00 04/16/22 09:20 Lisinopril 5 Mg Tab PO 10 mg QDAY ISIAH Administration Metoprolol Tartrate 12.5 mg 04/14/22 16:13 04/16/22 22:59 Metoprolol Tartrate 25 Mg Tab PO 12.5 mg BID ISIAH Administration Multi-Ingred Cream/Lotion/Oil/Oint 1 applic 04/12/22 09:35 Mineral Oil/Petrolatum, White Ophth Oint 3.5 Gm OU Q4HR PRN Dry Eye(s) Ondansetron HCl 4 mg 04/12/22 12:38 Ondansetron 4 Mg/2 Ml Inj IV Q8H PRN Nausea And Vomiting Oxycodone/Acetaminophen 1 tab 04/12/22 12:38 04/13/22 22:27 Oxycodone /Acetaminophen 5-325mg Tab PO 1 tab Q16H PRN Administration Pain, Moderate (4-6) Senna/Docusate Sodium 2 tab 04/15/22 17:30 04/16/22 22:58 Sennosides/Docusate Sodium 8.6/50 Mg Tab FEEDTUBE 2 tab BID ISIAH Administration Sodium Chloride 10 ml 04/12/22 22:00 04/16/22 23:00 Sodium Chloride 0.9% 10 Ml Flush Syringe IV 10 ml BID ISIAH Administration Sodium Chloride 10 ml 04/12/22 12:38 Sodium Chloride 0.9% 10 Ml Flush Syringe IV PRN PRN LINE FLUSH Sodium Chloride 50 ml 04/13/22 15:00 04/16/22 16:00 Sodium Chloride 0.9% 50 Ml Ivpb IV 04/17/22 14:01 50 ml Q24HR@1400 ISIAH Administration Nutrition/Malnutrition Assess - Dietary Evaluation Nutrition/Malnutrition Findings: Nutrition Notes Start: 04/12/22 16:12 Freq: Status: Active Protocol: Document 04/14/22 16:43 ELEAZAR (Rec: 04/14/22 16:49 ELEAZAR [id number]) Nutrition Notes Initial or Follow up Brief Note Current Diet TF - Vital AF 1.2 at 65ml/hr Height 5 ft 8 in Weight 113.3 kg [place] Body Weight (kg) 63.63 BMI 38.0 Subjective/Other Information Observed TF infusing at 55ml/ hr. Pt remains on vent support. Percent of energy/protein needs met: 74% energy 78% pro Is patient on ventilator? Yes Is Patient Ambulatory and/or Out of Bed No REE-([place]-confined to bed) 2135.724 Kcal/Kg value to use for calculation 15 Approximate Energy Requirements Using 1700 kcal/Kg Calculation Used for Recommendations Kcal/kg Additional Notes Pro needs 2g/kg IBW: 127g/day Fluid needs 1m/kcal Nutrition Intervention Nutrition Support: Decrease TF goal rate to 60ml/ hr with 100ml water flush q4h Kcal 1,728 Protein (gm) 108 Fluid (mL) 1,168 Goal #1 TF tolerance Goal #2 TF to meet 70-80% energy and at least 75% pro needs Follow-Up By: 04/18/22 Additional Comments F/U: TF goal rate/tolerance, vent status
--- NOTE | 2022-04-16 14:42 | Progress Note ---
Assessment and Plan Acute hypoxemic respiratory failure COVID-19 infection UTI (urinary tract infection) Mental disability Chronic Left Frontal encephalomalacia / Post surgical changes - get swallow evaluation - continue enteral nutritional support at goal rate as tolerated for now - continue Rocephin - continue care as below otherwise; - enteral nutritional support at goal rate as tolerated - prn supplemental oxygen for target O2 sat's > 90% acutely - aspiration precautions - prn bronchodilators with pulmonary hygiene per RT - wean per pulmonary driven protocols otherwise - avoid nephrotoxins, renally dose all medications - accuchecks with glycemic control per SSI for target blood glucose of <180 mg/dL; avoid hypoglycemia - prn analgesia per CPOT score - Maintenance of sleep-wake cycle, avoid delirium - G.I. & VTE prophylaxis - PT/OT/ROM exercises - continue mobility protocols for pressure ulcer prophylaxis - Monitor hemodynamics closely - continue other care per attending / other consultants - discharge planning ongoing concurrently COVID SPECIFIC INTERVENTIONS - Remdesivir as per ID/Pulmonary developed protocols (ordered) - systemic steroids for severe COVID-19 infection empirically (receiving) - follow repeat COVID tests results - zinc and vitamin C supplementation - Monitor inflammatory markers per facility protocol - ferritin, D-dimer, CRP - therapeutic anticoagulation per system Protocol based on d-dimer and clinical considerations - Continue contact and airborne isolation .... Re-evaluate in am & prn ... ok to transfer to medical floor Subjective Date of service: 04/16/22 Principal diagnosis: Acute hypoxemic respiratory failure; COVID-19 infxn; UTI; Mental disability Interval history: Patient is seen today for: Acute hypoxemic respiratory failure; COVID-19 infection; UTI (urinary tract infection); Mental disability Seen and examined at bedside; 24hour events reviewed; nursing and respiratory care staff consulted; no adverse overnight events reported to me; resting peacefully in bed; has done well post extubation; denies SOB or chest pain; no N/V/F/C but still mostly somnolent Objective Vital Signs - 12hr 04/16/22 04/16/22 04/16/22 03:00 03:30 04:00 Temperature 99.5 F Pulse Rate 115 H 114 H 117 H Pulse Rate [ 117 H From Monitor] Respiratory 22 18 20 Rate Blood Pressure 162/96 160/80 170/78 O2 Sat by Pulse 100 100 100 Oximetry 04/16/22 04/16/2222 04:30 05:00 05:05 Temperature Pulse Rate 112 H 113 H 113 H Pulse Rate [ From Monitor] Respiratory 20 12 Rate Blood Pressure 160/80 189/81 189/81 O2 Sat by Pulse 100 100 Oximetry 04/16/22 04/16/22 04/16/22 05:30 06:00 06:30 Temperature Pulse Rate 97 H 102 H 100 H Pulse Rate [ From Monitor] Respiratory 20 34 H 19 Rate Blood Pressure 180/83 195/96 168/86 O2 Sat by Pulse 100 100 98 Oximetry 04/16/22 04/16/22 04/16/22 07:00 07:15 07:30 Temperature 97.7 F Pulse Rate 100 H 97 H Pulse Rate [ From Monitor] Respiratory 19 20 Rate Blood Pressure 148/91 137/83 O2 Sat by Pulse 99 100 Oximetry 04/16/22 04/16/22 04/16/22 08:00 08:30 09:00 Temperature Pulse Rate 101 H 104 H 107 H Pulse Rate [ 117 H From Monitor] Respiratory 25 H 23 24 Rate Blood Pressure 177/90 159/80 162/96 O2 Sat by Pulse 97 98 98 Oximetry 04/16/22 04/16/22 04/16/22 09:09 09:20 09:30 Temperature Pulse Rate 102 H 107 H 102 H Pulse Rate [ From Monitor] Respiratory 21 Rate Blood Pressure 162/96 162/96 143/75 O2 Sat by Pulse 99 Oximetry 04/16/22 04/16/22 04/16/22 10:00 10:30 11:00 Temperature Pulse Rate 98 H 100 H 95 H Pulse Rate [ From Monitor] Respiratory 19 23 22 Rate Blood Pressure 169/86 177/81 184/76 O2 Sat by Pulse 99 98 97 Oximetry 04/16/22 04/16/22 04/16/22 11:30 12:00 12:16 Temperature 100.0 F H Pulse Rate 102 H 98 H Pulse Rate [ 117 H From Monitor] Respiratory 19 20 Rate Blood Pressure 152/77 152/77 O2 Sat by Pulse 99 100 Oximetry 04/16/22 04/16/22 12:30 13:00 Temperature Pulse Rate 104 H 103 H Pulse Rate [ From Monitor] Respiratory 20 14 Rate Blood Pressure 144/87 151/82 O2 Sat by Pulse 99 100 Oximetry Constitutional: no acute distress, other (middle aged female with normal respiratory effort at rest) Eyes: non-icteric ENT: oropharynx moist Neck: supple, no lymphadenopathy, no JVD Effort: normal Ascultation: Bilateral: clear Cardiovascular: regular rate and rhythm Gastrointestinal: normoactive bowel sounds, soft, non-tender, non-distended Integumentary: normal Extremities: no cyanosis, no edema, pulses normal, no ischemia or petechiae Neurologic: pupils equal and round, unable to assess, other (mot moving limbs to command but increased tone in left sided musculature) Psychiatric: other (somnolent) CBC and BMP: 04/16/22 05:00 04/16/22 05:00 ABG, PT/INR, D-dimer: ABG ABG pH 7.408 pH Units (7.350-7.450) 04/15/22 12:35 ABG pCO2 43.3 mm Hg 04/15/22 12:35 ABG pO2 110.6 mm Hg (80.0-90.0) H 04/15/22 12:35 ABG O2 Saturation 98.0 % (95.0-99.0) 04/15/22 12:35 PT/INR, D-dimer PT 15.3 Sec. (12.2-14.9) H 04/12/22 09:11 INR 1.09 (0.87-1.13) 04/12/22 09:11 Abnormal lab findings: Abnormal Labs 04/12/22 04/12/22 04/12/22 09:11 09:11 09:11 WBC 12.8 H Seg Neuts % (Manual) 83.0 H Lymphocytes % (Manual) 12.0 L Seg Neutrophils # Man 10.6 H Lymphocytes # (Manual) PT ABG pO2 ABG HCO3 ABG Base Excess ABG Hemoglobin Sodium 148 H Potassium Chloride 107.2 H Carbon Dioxide 21 L BUN 37 H Creatinine 3.2 H Glucose 102 H POC Glucose Lactic Acid Calcium Phosphorus Ferritin AST 48 H Total Creatine Kinase C-Reactive Protein Total Protein 9.0 H Albumin Urine WBC (Auto) Salicylates < 0.3 L Acetaminophen Phenytoin 1.2 L Valproic Acid < 2.8 L Levetiracetam SARS-CoV-2 (PCR) 04/12/22 04/12/22 04/12/22 09:11 09:11 09:38 WBC Seg Neuts % (Manual) Lymphocytes % (Manual) Seg Neutrophils # Man Lymphocytes # (Manual) PT 15.3 H ABG pO2 ABG HCO3 ABG Base Excess ABG Hemoglobin Sodium Potassium Chloride Carbon Dioxide BUN Creatinine Glucose POC Glucose Lactic Acid 3.30 H* Calcium Phosphorus Ferritin AST Total Creatine Kinase C-Reactive Protein Total Protein Albumin Urine WBC (Auto) Salicylates Acetaminophen 5.0 L Phenytoin Valproic Acid Levetiracetam SARS-CoV-2 (PCR) 04/12/22 04/12/22 04/12/22 10:56 11:29 11:42 WBC Seg Neuts % (Manual) Lymphocytes % (Manual) Seg Neutrophils # Man Lymphocytes # (Manual) PT ABG pO2 152.6 H ABG HCO3 ABG Base Excess -4.2 L ABG Hemoglobin Sodium Potassium Chloride Carbon Dioxide BUN Creatinine Glucose POC Glucose Lactic Acid Calcium Phosphorus Ferritin AST Total Creatine Kinase 1568 H C-Reactive Protein Total Protein Albumin Urine WBC (Auto) Salicylates Acetaminophen Phenytoin Valproic Acid Levetiracetam SARS-CoV-2 (PCR) Positive A 04/12/22 04/12/22 04/13/22 14:34 Unknown 00:56 WBC Seg Neuts % (Manual) Lymphocytes % (Manual) Seg Neutrophils # Man Lymphocytes # (Manual) PT ABG pO2 ABG HCO3 ABG Base Excess ABG Hemoglobin Sodium Potassium Chloride Carbon Dioxide BUN Creatinine Glucose POC Glucose 111 H Lactic Acid Calcium Phosphorus Ferritin AST Total Creatine Kinase C-Reactive Protein Total Protein Albumin Urine WBC (Auto) < 182.0 H Salicylates Acetaminophen Phenytoin Valproic Acid Levetiracetam <2.0 L SARS-CoV-2 (PCR) 04/13/22 04/13/22 04/13/22 03:44 03:44 04:15 WBC 18.7 H Seg Neuts % (Manual) 97.0 H Lymphocytes % (Manual) 2.0 L Seg Neutrophils # Man 18.1 H Lymphocytes # (Manual) 0.4 L PT ABG pO2 135.1 H ABG HCO3 ABG Base Excess -2.7 L ABG Hemoglobin 11.9 L Sodium Potassium 3.3 L D Chloride 107.2 H Carbon Dioxide BUN 41 H Creatinine 1.4 H D Glucose 123 H POC Glucose Lactic Acid Calcium Phosphorus Ferritin AST Total Creatine Kinase C-Reactive Protein Total Protein Albumin Urine WBC (Auto) Salicylates Acetaminophen Phenytoin Valproic Acid Levetiracetam SARS-CoV-2 (PCR) 04/13/22 04/13/22 04/13/22 11:47 15:45 18:18 WBC Seg Neuts % (Manual) Lymphocytes % (Manual) Seg Neutrophils # Man Lymphocytes # (Manual) PT ABG pO2 119.0 H ABG HCO3 ABG Base Excess -3.7 L ABG Hemoglobin 11.8 L Sodium Potassium 5.1 H D Chloride 107.5 H Carbon Dioxide 14 L D BUN 36 H Creatinine Glucose 104 H POC Glucose 119 H Lactic Acid Calcium Phosphorus Ferritin AST 47 H Total Creatine Kinase C-Reactive Protein Total Protein Albumin 3.6 L Urine WBC (Auto) Salicylates Acetaminophen Phenytoin Valproic Acid Levetiracetam SARS-CoV-2 (PCR) 04/14/22 04/14/22 04/14/22 00:06 04:04 04:04 WBC 18.2 H Seg Neuts % (Manual) Lymphocytes % (Manual) Seg Neutrophils # Man Lymphocytes # (Manual) PT ABG pO2 ABG HCO3 ABG Base Excess ABG Hemoglobin Sodium Potassium Chloride 107.6 H Carbon Dioxide BUN 33 H Creatinine Glucose 148 H POC Glucose 120 H Lactic Acid Calcium Phosphorus Ferritin AST Total Creatine Kinase 807 H C-Reactive Protein 9.70 H Total Protein Albumin Urine WBC (Auto) Salicylates Acetaminophen Phenytoin Valproic Acid Levetiracetam SARS-CoV-2 (PCR) 04/14/22 04/14/22 04/14/22 04:04 04:04 05:06 WBC Seg Neuts % (Manual) Lymphocytes % (Manual) Seg Neutrophils # Man Lymphocytes # (Manual) PT ABG pO2 ABG HCO3 ABG Base Excess ABG Hemoglobin Sodium Potassium Chloride 108.8 H Carbon Dioxide BUN 34 H Creatinine Glucose 149 H POC Glucose 143 H Lactic Acid Calcium Phosphorus Ferritin 318.6 H AST Total Creatine Kinase C-Reactive Protein Total Protein Albumin 3.6 L Urine WBC (Auto) Salicylates Acetaminophen Phenytoin Valproic Acid Levetiracetam SARS-CoV-2 (PCR) 04/14/22 04/14/22 04/14/22 12:04 14:45 18:12 WBC Seg Neuts % (Manual) Lymphocytes % (Manual) Seg Neutrophils # Man Lymphocytes # (Manual) PT ABG pO2 100.5 H ABG HCO3 ABG Base Excess ABG Hemoglobin 7.0 L Sodium Potassium Chloride Carbon Dioxide BUN Creatinine Glucose POC Glucose 139 H 120 H Lactic Acid Calcium Phosphorus Ferritin AST Total Creatine Kinase C-Reactive Protein Total Protein Albumin Urine WBC (Auto) Salicylates Acetaminophen Phenytoin Valproic Acid Levetiracetam SARS-CoV-2 (PCR) 04/14/22 04/15/22 04/15/22 23:19 04:31 04:31 WBC 15.7 H Seg Neuts % (Manual) Lymphocytes % (Manual) Seg Neutrophils # Man Lymphocytes # (Manual) PT ABG pO2 ABG HCO3 ABG Base Excess ABG Hemoglobin Sodium 146 H Potassium 3.5 L Chloride 110.6 H Carbon Dioxide BUN 28 H Creatinine Glucose 116 H POC Glucose 122 H Lactic Acid Calcium Phosphorus Ferritin AST Total Creatine Kinase C-Reactive Protein Total Protein Albumin 3.8 L Urine WBC (Auto) Salicylates Acetaminophen Phenytoin Valproic Acid Levetiracetam SARS-CoV-2 (PCR) 04/15/22 04/15/22 04/15/22 05:19 11:52 12:35 WBC Seg Neuts % (Manual) Lymphocytes % (Manual) Seg Neutrophils # Man Lymphocytes # (Manual) PT ABG pO2 110.6 H ABG HCO3 26.7 H ABG Base Excess ABG Hemoglobin 8.6 L Sodium Potassium Chloride Carbon Dioxide BUN Creatinine Glucose POC Glucose 124 H 133 H Lactic Acid Calcium Phosphorus Ferritin AST Total Creatine Kinase C-Reactive Protein Total Protein Albumin Urine WBC (Auto) Salicylates Acetaminophen Phenytoin Valproic Acid Levetiracetam SARS-CoV-2 (PCR) 04/15/22 04/16/22 04/16/22 18:08 00:07 05:00 WBC Seg Neuts % (Manual) Lymphocytes % (Manual) Seg Neutrophils # Man Lymphocytes # (Manual) PT ABG pO2 ABG HCO3 ABG Base Excess ABG Hemoglobin Sodium Potassium Chloride Carbon Dioxide BUN 26 H Creatinine Glucose 102 H POC Glucose 139 H 114 H Lactic Acid Calcium Phosphorus 1.90 L Ferritin AST Total Creatine Kinase 377 H C-Reactive Protein Total Protein Albumin 3.4 L Urine WBC (Auto) Salicylates Acetaminophen Phenytoin Valproic Acid Levetiracetam SARS-CoV-2 (PCR) 04/16/22 05:00 WBC Seg Neuts % (Manual) Lymphocytes % (Manual) Seg Neutrophils # Man Lymphocytes # (Manual) PT ABG pO2 ABG HCO3 ABG Base Excess ABG Hemoglobin Sodium 136 L Potassium Chloride Carbon Dioxide BUN 26 H Creatinine Glucose 104 H POC Glucose Lactic Acid Calcium 8.2 L Phosphorus Ferritin AST Total Creatine Kinase 535 H C-Reactive Protein Total Protein Albumin Urine WBC (Auto) Salicylates Acetaminophen Phenytoin Valproic Acid Levetiracetam SARS-CoV-2 (PCR) Allied health notes reviewed: nursing
[2022-04-16] MEDS: SODIUM CHLORIDE 0.9% 50 ML IVPB IV SCH (16:00)
[2022-04-16] MEDS: REMDESIVIR 100 MG in SODIUM CHLORIDE 0.9% 250ML 250 ML IV SCH (16:00)
--- NOTE | 2022-04-17 07:37 | Progress Note ---
Assessment and Plan Assessment and plan: This is a 57-year-old female with known past medical history of MR, obesity, nicotine dependence, seizure disorder admitted for status epilepticus and was intubated in the ED for airway protection Hospital Course to Date: 04/13: Stable on low vent setting this am. Off sedation, awake and tracking, not following commands. Patient does have history of MR, patient is functional and can voice her needs per the caregiver. No seizure like activity reported, EEG and Neurology consult pending. Continue IV Keppra. Patient remains afebrile and hemodynamicaly stable. PRN hydralazine added for hypertension. Continue current IV steroids, and empiric IV Abx. ID consulted for further rec for COVID infection. Renal function and CKP are improving post IVF hydration, continue IVF resuscitation. K repleted, continue to monitor electrolytes and replete as needed. Plan for PSV trial today, plan to wean for possible extubation per CCM. 04/14: Remains stable on the vent. No seizures like activities reported in the last 48hrs. Neurology recommendation noted. Patient tolerated PSV trial y . Continue daily PSV trial, plan to wean for possible extubation per CCM. Hypertensive this am low dose BB added for BP control. Continue IV steroids, on Rocephin and Remdeservir per ID. 04/15: Remains stable on the vent. Tolerating PSV trial this am, plan for possibe extubation today per CCM. Remains hypertensive with refractory tachycardia with PRN hydralazine. On BB and Lisinopril added for better control. PRN switched to IV labetalol for SBP greater than 160. FWF increased for hypernatremia and K repleted, continue to monitor electrolytes and replete as needed. 04/16: s/p extubation, stable on RA. Currently nonverbal with Generalized weakness, however was able to shake head for yes or no this am. Lisinopril increased for BP control, continue low dose BB. Pending speech swallow eval, continue enteral nutrition via DHT for now. PT/OT also consulted for debility and discharge planning. Patient is stable for transfer to the floor. 04/17: Patient still with low grade fever, tolerating room air, ID and Pulmonary input noted, today will be Day 5 of Remdesivir and will complete antibiotics ceftriaxone also. If continued fever will likely need extension.Patient currently under treatment for COVID induced respiratory failure with hypoxia s/p extubation and also Sepsis secondary to Acute cystitis and COVID 19. No new seizure disorder. She does have a hx of MR and seizure as noted above. Leukocytosis is improved. I advised her Niece about her care so far and follow with PCP in one week of discharged. If tolerating diet and no new fever in 24 hrs, she can be discharged. We did discuss CODE STATUS on her again and she did affirm full code. Assessment and Plan #Status Epilepticus #H/o Seizure Disorder #H/o Mental Retardation(MR) - Multifactorial - Patient with UTI and COVID positive - Per records from 09/2021, patient phenytoin level was elevated last admit and meds was held. Patient was D/Dany with PO Keppra BID - CT head/brain with chronic encephalomalacia/surgical changes in the frontal lo bes. No acute intracranial abnormality. - Treated underlying cause, currently on empiric IV abx. ID consulted - Intubated, awake and tracking. S/p Versed gtt. - Continue keppra - EEG pending - Neurology consult, appreciate recommendation - Per Neuro- continue Keppra 750mg IV q 12 hours for now once awake and patient able to take oral medications - switch to 1000 mg PO Keppra BID - PRN Ativan for seizure like activities - Frequent reorientation - Aspiration and Seizure precaution - PRN Analgesia for CPOT greater than 3 - Maintenance of sleep-wake cycle #Acute Hypoxic Respiratory Failure - Intubated in the ED on 04/12 for airway protection secondary to above - s/p extubation on 04/16, stable on RA this am - CCM consulted, appreciate recommendations - Aspiration precaution HOB above 30 - PRN ABG and CXR - Continue SPO2 monitoring for SPO2 goal above 92% - PRN O2 supplementation as needed #Sepsis #Possible RLL Pneumonia #Coronavirus Infection #Urinary Tract Infection(UTI)/Cystitis - COVID PCR came back positive - CT reveal right lower lobe infiltrate vs atelectasis - UA consistent with UTI, CT scan shows mild bladder wall thickening suggesting cystitis - COVID PCR came back positive - Blood cultures and sputum culture pending - Patient is afebrile, Leukocytosis improved, VSS - On IV steroids and empiric IV Abx - ID consulted, appreciate recommendations - Remdesevir added - F/U on cultures - Daily CBC monitor #Rhabdomyolysis - Probably due to multiple seizures - s/p IVF resuscitation, CPK improved - Trend CPK #Acute Kidney Injury(JONA) most likely Vasomotor Nephropathy #Hypokalemia - probably secondary to above - Per records, baseline scr is 1.1, Scr. as high as 3.2 this admit - Renal function back to baseline post IVF hydration - Strict intake and output - Avoid nephrotoxic medications; Renally dose medications - Monitor and replace electrolytes as needed - Trend BMP #Hypertension - Remains hypertensive - Continue low dose BB, lisinopril increased for better control - Continue blood pressure monitor per protocol - PRN Hydralazine for SBP greater than 160 - Might benefits from antihypertensive regimen at discharge #GI/DVT Prophylaxis - PPI- Pepcid - Heparin SubQ - SCD to bilateral lower extremities while in bed #Advance Care Planning - Disease education data, care plan, diagnoses, and prognosis were discussed with patient's cousin and caregiver via phone. Patient is a FULL code. Patient's family acknowledged understanding and agreed with current care plan. History Interval history: Patient seen and examined at the bedside. s/p extubation, awake and track, follow simple commands but shaking yes or no for simple questions. Stable on RA, no respiratory distress noted, VSS. [facility] overnight Hospitalist Physical - Physical exam Narrative exam: - Physical exam Narrative exam: General appearance: Present: no acute distress, well-nourished, obese, - EENT Eyes: Present: PERRL, NG tube in nares ENT: hearing intact - Neck Neck: Present: normal ROM - Respiratory Respiratory effort: normal Respiratory: bilateral: rhonchi - Cardiovascular Rhythm: regular Heart Sounds: Present: S1 & S2 - Extremities Extremities: no ischemia, pulses intact, pulses symmetrical Extremity abnormal: edema - Peripheral Assessment Bilateral Lower Extremity Edema Type: Non-pitting Edema Degree: 2+ Capillary Refill: < 3 seconds Skin Temperature: Warm Generalized Edema Type: Non-pitting Edema Degree: 1+ Capillary Refill: < 3 seconds Skin Temperature: Warm Peripheral Pulses: within normal limits - Abdominal General gastrointestinal: soft, non-distended, normal bowel sounds - Integumentary Integumentary: Present: warm, dry - Psychiatric Psychiatric: other (Awake and tracking, shake head for yes or no) - Neurologic Neurologic: moves all extremities (Generalized weakness), other (Awake and tracking, shake head for yes or no) - Allied Health Allied health notes reviewed: nursing, case management - Constitutional Vitals: Temp Pulse Resp BP Pulse Ox 99.6 F 113 H 18 134/72 98 04/17/22 06:00 04/17/22 06:00 04/17/22 06:00 04/17/22 06:00 04/17/22 06:00 General appearance: Present: no acute distress, well-nourished, obese, other (on the vent) Results - Labs CBC & Chem 7: 04/16/22 05:00 04/16/22 05:00 Labs: Laboratory Last Values WBC 11.0 K/mm3 (4.5-11.0) 04/16/22 05:00 RBC 3.74 M/mm3 (3.65-5.03) 04/16/22 05:00 Hgb 11.6 gm/dl (10.1-14.3) 04/16/22 05:00 Hct 34.5 % (30.3-42.9) 04/16/22 05:00 MCV 92 fl (79-97) 04/16/22 05:00 MCH 31 pg (28-32) 04/16/22 05:00 MCHC 34 % (30-34) 04/16/22 05:00 RDW 14.2 % (13.2-15.2) 04/16/22 05:00 Plt Count 271 K/mm3 (140-440) 04/16/22 05:00 Add Manual Diff Complete 04/13/22 03:44 Total Counted 100 04/13/22 03:44 Seg Neutrophils % Financial Services Professional 04/13/22 03:44 Seg Neuts % (Manual) 97.0 % (40.0-70.0) H 04/13/22 03:44 Band Neutrophils % 0 % 04/13/22 03:44 Lymphocytes % (Manual) 2.0 % (13.4-35.0) L 04/13/22 03:44 Reactive Lymphs % (Man) 0 % 04/13/22 03:44 Monocytes % (Manual) 1.0 % (0.0-7.3) 04/13/22 03:44 Eosinophils % (Manual) 0 % (0.0-4.3) 04/13/22 03:44 Basophils % (Manual) 0 % (0.0-1.8) 04/13/22 03:44 Metamyelocytes % 0 % 04/13/22 03:44 Myelocytes % 0 % 04/13/22 03:44 Promyelocytes % 0 % 04/13/22 03:44 Blast Cells % 0 % 04/13/22 03:44 Nucleated RBC % Not Reportable 04/13/22 03:44 Seg Neutrophils # Man 18.1 K/mm3 (1.8-7.7) H 04/13/22 03:44 Band Neutrophils # 0.0 K/mm3 04/13/22 03:44 Lymphocytes # (Manual) 0.4 K/mm3 (1.2-5.4) L 04/13/22 03:44 Abs React Lymphs (Man) 0.0 K/mm3 04/13/22 03:44 Monocytes # (Manual) 0.2 K/mm3 (0.0-0.8) 04/13/22 03:44 Eosinophils # (Manual) 0.0 K/mm3 (0.0-0.4) 04/13/22 03:44 Basophils # (Manual) 0.0 K/mm3 (0.0-0.1) 04/13/22 03:44 Metamyelocytes # 0.0 K/mm3 04/13/22 03:44 Myelocytes # 0.0 K/mm3 04/13/22 03:44 Promyelocytes # 0.0 K/mm3 04/13/22 03:44 Blast Cells # 0.0 K/mm3 04/13/22 03:44 WBC Morphology Not Reportable 04/13/22 03:44 Hypersegmented Neuts Not Reportable 04/13/22 03:44 Hyposegmented Neuts Not Reportable 04/13/22 03:44 Hypogranular Neuts Not Reportable 04/13/22 03:44 Smudge Cells Not Reportable 04/13/22 03:44 Toxic Granulation Not Reportable 04/13/22 03:44 Toxic Vacuolation Not Reportable 04/13/22 03:44 Dohle Bodies Not Reportable 04/13/22 03:44 Pelger-Huet Anomaly Not Reportable 04/13/22 03:44 Neeta Rods Not Reportable 04/13/22 03:44 Platelet Estimate Consistent w auto 04/13/22 03:44 Clumped Platelets Not Reportable 04/13/22 03:44 Plt Clumps, EDTA Not Reportable 04/13/22 03:44 Large Platelets Not Reportable 04/13/22 03:44 Giant Platelets Not Reportable 04/13/22 03:44 Platelet Satelliting Not Reportable 04/13/22 03:44 Plt Morphology Comment Not Reportable 04/13/22 03:44 RBC Morphology Not Reportable 04/13/22 03:44 Dimorphic RBCs Not Reportable 04/13/22 03:44 Polychromasia Not Reportable 04/13/22 03:44 Hypochromasia Not Reportable 04/13/22 03:44 Poikilocytosis Not Reportable 04/13/22 03:44 Anisocytosis Not Reportable 04/13/22 03:44 Microcytosis Not Reportable 04/13/22 03:44 Macrocytosis Not Reportable 04/13/22 03:44 Spherocytes Not Reportable 04/13/22 03:44 Pappenheimer Bodies Not Reportable 04/13/22 03:44 Sickle Cells Not Reportable 04/13/22 03:44 Target Cells Not Reportable 04/13/22 03:44 Tear Drop Cells Not Reportable 04/13/22 03:44 Ovalocytes Not Reportable 04/13/22 03:44 Helmet Cells Not Reportable 04/13/22 03:44 [place] Bodies Not Reportable 04/13/22 03:44 [place] Rings Not Reportable 04/13/22 03:44 [place] Cells Not Reportable 04/13/22 03:44 Bite Cells Not Reportable 04/13/22 03:44 Crenated Cell Not Reportable 04/13/22 03:44 Elliptocytes Not Reportable 04/13/22 03:44 Acanthocytes (Spur) Not Reportable 04/13/22 03:44 Rouleaux Not Reportable 04/13/22 03:44 Hemoglobin C Crystals Not Reportable 04/13/22 03:44 Schistocytes Not Reportable 04/13/22 03:44 Malaria parasites Not Reportable 04/13/22 03:44 Sanjay Bodies Not Reportable 04/13/22 03:44 Hem Pathologist Commnt No 04/13/22 03:44 PT 15.3 Sec. (12.2-14.9) H 04/12/22 09:11 INR 1.09 (0.87-1.13) 04/12/22 09:11 APTT 27.4 Sec. (24.2-36.6) 04/12/22 09:11 ABG pH 7.408 pH Units (7.350-7.450) 04/15/22 12:35 ABG pCO2 43.3 mm Hg 04/15/22 12:35 ABG pO2 110.6 mm Hg (80.0-90.0) H 04/15/22 12:35 ABG HCO3 26.7 mmol/L (20.0-26.0) H 04/15/22 12:35 ABG O2 Saturation 98.0 % (95.0-99.0) 04/15/22 12:35 ABG O2 Content 11.8 (0.0-44) 04/15/22 12:35 ABG Base Excess 1.8 mmol/L (-2.0-3.0) 04/15/22 12:35 ABG Hemoglobin 8.6 gm/dl (12.0-16.0) L 04/15/22 12:35 ABG Carboxyhemoglobin 1.0 % (0.0-5.0) 04/15/22 12:35 ABG Methemoglobin 0.5 % (0.0-1.5) 04/15/22 12:35 Oxyhemoglobin 96.5 % (95.0-99.0) 04/15/22 12:35 FiO2 30 % 04/15/22 12:35 Sodium 136 mmol/L (137-145) L 04/16/22 05:00 Sodium 141 mmol/L (137-145) 04/16/22 05:00 Potassium 4.1 mmol/L (3.6-5.0) 04/16/22 05:00 Potassium TNR 04/16/22 05:00 Chloride 104.0 mmol/L (98-107) 04/16/22 05:00 Chloride 104.8 mmol/L (98-107) 04/16/22 05:00 Carbon Dioxide 24 mmol/L (22-30) 04/16/22 05:00 Carbon Dioxide 27 mmol/L (22-30) 04/16/22 05:00 Anion Gap 14 mmol/L 04/16/22 05:00 Anion Gap TNR 04/16/22 05:00 BUN 26 mg/dL (7-17) H 04/16/22 05:00 BUN 26 mg/dL (7-17) H 04/16/22 05:00 Creatinine 0.6 mg/dL (0.6-1.2) 04/16/22 05:00 Creatinine 0.6 mg/dL (0.6-1.2) 04/16/22 05:00 Estimated GFR > 60 ml/min 04/16/22 05:00 Estimated GFR > 60 ml/min 04/16/22 05:00 BUN/Creatinine Ratio 43 % 04/16/22 05:00 BUN/Creatinine Ratio 43 % 04/16/22 05:00 Glucose 102 mg/dL (65-100) H 04/16/22 05:00 Glucose 104 mg/dL (65-100) H 04/16/22 05:00 POC Glucose 134 mg/dL (70-105) H 04/16/22 17:24 Lactic Acid 1.60 mmol/L (0.7-2.0) 04/12/22 11:42 Calcium 8.2 mg/dL (8.4-10.2) L 04/16/22 05:00 Calcium 8.8 mg/dL (8.4-10.2) 04/16/22 05:00 Phosphorus 1.90 mg/dL (2.5-4.5) L 04/16/22 05:00 Phosphorus 2.60 mg/dL (2.5-4.5) D 04/16/22 05:00 Magnesium 1.90 mg/dL (1.7-2.3) 04/16/22 05:00 Magnesium 2.20 mg/dL (1.7-2.3) 04/16/22 05:00 Ferritin 318.6 ng/mL (10.0-200.0) H 04/14/22 04:04 Total Bilirubin 0.40 mg/dL (0.1-1.2) 04/16/22 05:00 AST 34 units/L (5-40) 04/16/22 05:00 ALT 26 units/L (7-56) 04/16/22 05:00 Alkaline Phosphatase 92 units/L (35-129) 04/16/22 05:00 Total Creatine Kinase 377 units/L (30-135) H 04/16/22 05:00 Total Creatine Kinase 535 units/L (30-135) H 04/16/22 05:00 C-Reactive Protein 9.70 mg/dL (0.00-1.30) H 04/14/22 04:04 Total Protein 6.9 g/dL (6.3-8.2) 04/16/22 05:00 Albumin 3.4 g/dL (3.9-5) L 04/16/22 05:00 Albumin/Globulin Ratio 1.0 % 04/16/22 05:00 Procalcitonin 1.92 ng/mL (<0.15) 04/14/22 04:04 Urine Color Yellow (Yellow) 04/12/22 Unknown Urine Turbidity Cloudy (Clear) 04/12/22 Unknown Specific [place] (Man) 1.020 (1.003-1.030) 04/12/22 Unknown Ur Protein (Man) 4+ mg/dL (Negative) 04/12/22 Unknown Ur Ketones (Man) Negative (Negative) 04/12/22 Unknown Ur Nitrite (Man) Negative (Negative) 04/12/22 Unknown Ur Reducing Substances Not Reportable 04/12/22 Unknown Urine Bilirubin (Man) Negative (Negative) 04/12/22 Unknown Urine Ictotest Not Reportable 04/12/22 Unknown Leukocyte Esterase (Man) Large (Negative) 04/12/22 Unknown Urine WBC (Auto) < 182.0 /HPF (0.0-6.0) H 04/12/22 Unknown Urine RBC (Auto) 60.0 /HPF (0.0-6.0) 04/12/22 Unknown U Epithel Cells (Auto) 12.0 /HPF (0-13.0) 04/12/22 Unknown Urine RBC (Manual) 3+ (Negative) 04/12/22 Unknown Urine WBC Clumps 3+ /HPF 04/12/22 Unknown Urine Mucus 3+ /HPF 04/12/22 Unknown Salicylates < 0.3 mg/dL (2.8-20.0) L 04/12/22 09:11 Acetaminophen 5.0 ug/mL (10.0-30.0) L 04/12/22 09:11 Phenytoin 1.2 ug/mL (10.0-20.0) L 04/12/22 09:11 Valproic Acid < 2.8 ug/mL (50-100) L 04/12/22 09:11 Levetiracetam <2.0 mcg/mL (6.0-46.0) L 04/12/22 14:34 Plasma/Serum Alcohol < 0.01 % (0-0.07) 04/12/22 09:11 SARS-CoV-2 (PCR) Positive (Negative) A 04/12/22 10:56 Microbiology: Microbiology 04/12/22 09:38 Peripheral/Venous Blood Culture - Preliminary NO GROWTH AFTER 4 DAYS Mckeon/IV: Voiding Method External Female Catheter Active Medications - Current Medications Current Medications: Generic Name Dose Route Start Last Admin Trade Name Freq PRN Reason Stop Dose Admin Acetaminophen 650 mg 04/12/22 12:38 04/16/22 23:44 Acetaminophen 325 Mg Tab PO 650 mg Q6H PRN Administration Pain MILD(1-3)/Fever >100.5/VALLADARES Albuterol 2.5 mg 04/12/22 12:38 Albuterol 2.5 Mg/3 Ml Nebu IH Q3HRT PRN Shortness Of Breath Bisacodyl 10 mg 04/15/22 17:00 04/16/22 09:08 Bisacodyl 10 Mg Rect Supp W[place] 04/17/22 16:59 10 mg QDAY ISIAH Administration Dexamethasone 6 mg 04/15/22 10:00 04/16/22 09:08 Dexamethasone 4 Mg/Ml Vial IV 04/22/22 10:01 6 mg Q24HR ISIAH Administration Docusate Sodium 100 mg 04/15/22 22:00 04/16/22 22:58 Docusate Sodium 100 Mg/10 Ml Oral Liqd PO 100 mg BID ISIAH Administration Famotidine 20 mg 04/15/22 22:00 04/16/22 22:58 Famotidine 20 Mg Tab FEEDTUBE 20 mg BID ISIAH Administration Heparin Sodium (Porcine) 5,000 unit 04/12/22 22:00 04/16/22 22:59 Heparin 5,000 Unit/1 Ml Vial SUB-Q 5,000 unit Q12HR ISIAH Administration Hydromorphone HCl 0.5 mg 04/14/22 10:48 04/15/22 08:34 Hydromorphone 0.5 Mg/0.5 Ml Inj IV 0.5 mg Q6H PRN Administration Pain , Severe (7-10) Hydrophilic Ointment 1 applic 04/12/22 09:35 Lip Therapy Vaseline TP Q2HR PRN Dry Lips Ceftriaxone Sodium 2 gm in 100 mls @ 200 mls/hr 04/13/22 10:00 04/16/22 09:15 Rocephin/Ns 2 Gm/100 Ml IV 04/17/22 10:29 200 mls/hr Q24H ISIAH Administration Protocol Remdesivir 100 mg/ Sodium 250 mls @ 500 mls/hr 04/14/22 14:00 04/16/22 16:00 Chloride IV 04/17/22 14:29 500 mls/hr Q24HR@1400 ISIAH Administration Labetalol HCl 10 mg 04/15/22 09:00 04/16/22 05:05 Labetalol 20 Mg/4 Ml Inj IV 10 mg Q4H PRN Administration Hypertension Levetiracetam 750 mg 04/15/22 22:00 04/16/22 22:58 Levetiracetam 500 Mg/5 Ml Oral Liqd FEEDTUBE 750 mg BID ISIAH Administration Lisinopril 10 mg 04/16/22 10:00 04/16/22 09:20 Lisinopril 5 Mg Tab PO 10 mg QDAY ISIAH Administration Metoprolol Tartrate 12.5 mg 04/14/22 16:13 04/16/22 22:59 Metoprolol Tartrate 25 Mg Tab PO 12.5 mg BID ISIAH Administration Multi-Ingred Cream/Lotion/Oil/Oint 1 applic 04/12/22 09:35 Mineral Oil/Petrolatum, White Ophth Oint 3.5 Gm OU Q4HR PRN Dry Eye(s) Ondansetron HCl 4 mg 04/12/22 12:38 Ondansetron 4 Mg/2 Ml Inj IV Q8H PRN Nausea And Vomiting Oxycodone/Acetaminophen 1 tab 04/12/22 12:38 04/13/22 22:27 Oxycodone /Acetaminophen 5-325mg Tab PO 1 tab Q16H PRN Administration Pain, Moderate (4-6) Senna/Docusate Sodium 2 tab 04/15/22 17:30 04/16/22 22:58 Sennosides/Docusate Sodium 8.6/50 Mg Tab FEEDTUBE 2 tab BID ISIAH Administration Sodium Chloride 10 ml 04/12/22 22:00 04/16/22 23:00 Sodium Chloride 0.9% 10 Ml Flush Syringe IV 10 ml BID ISIAH Administration Sodium Chloride 10 ml 04/12/22 12:38 Sodium Chloride 0.9% 10 Ml Flush Syringe IV PRN PRN LINE FLUSH Sodium Chloride 50 ml 04/13/22 15:00 04/16/22 16:00 Sodium Chloride 0.9% 50 Ml Ivpb IV 04/17/22 14:01 50 ml Q24HR@1400 ISIAH Administration Nutrition/Malnutrition Assess - Dietary Evaluation Nutrition/Malnutrition Findings: Nutrition Notes Start: 04/12/22 16:12 Freq: Status: Active Protocol: Document 04/14/22 16:43 ELEAZAR (Rec: 04/14/22 16:49 [email or web address] [email or web address]) Nutrition Notes Initial or Follow up Brief Note Current Diet TF - Vital AF 1.2 at 65ml/hr Height 5 ft 8 in Weight 113.3 kg [place] Body Weight (kg) 63.63 BMI 38.0 Subjective/Other Information Observed TF infusing at 55ml/ hr. Pt remains on vent support. Percent of energy/protein needs met: 74% energy 78% pro Is patient on ventilator? Yes Is Patient Ambulatory and/or Out of Bed No REE-([facility]-confined to bed) 2135.724 Kcal/Kg value to use for calculation 15 Approximate Energy Requirements Using 1700 kcal/Kg Calculation Used for Recommendations Kcal/kg Additional Notes Pro needs 2g/kg IBW: 127g/day Fluid needs 1m/kcal Nutrition Intervention Nutrition Support: Decrease TF goal rate to 60ml/ hr with 100ml water flush q4h Kcal 1,728 Protein (gm) 108 Fluid (mL) 1,168 Goal #1 TF tolerance Goal #2 TF to meet 70-80% energy and at least 75% pro needs Follow-Up By: 04/18/22 Additional Comments F/U: TF goal rate/tolerance, vent status
--- NOTE | 2022-04-17 08:30 | Progress Note ---
Assessment and Plan Acute hypoxemic respiratory failure COVID-19 infection UTI (urinary tract infection) Mental disability Chronic Left Frontal encephalomalacia / Post surgical changes - follow swallow evaluation - complete AB's per ID recommendations - continue care as below otherwise; - enteral nutritional support at goal rate as tolerated - prn supplemental oxygen for target O2 sat's > 90% acutely - aspiration precautions - prn bronchodilators with pulmonary hygiene per RT - wean per pulmonary driven protocols otherwise - avoid nephrotoxins, renally dose all medications - accuchecks with glycemic control per SSI for target blood glucose of <180 mg/dL; avoid hypoglycemia - prn analgesia per CPOT score - Maintenance of sleep-wake cycle, avoid delirium - G.I. & VTE prophylaxis - PT/OT/ROM exercises - continue mobility protocols for pressure ulcer prophylaxis - Monitor hemodynamics closely - continue other care per attending / other consultants - discharge planning ongoing concurrently COVID SPECIFIC INTERVENTIONS - Remdesivir as per ID/Pulmonary developed protocols (ordered) - systemic steroids for severe COVID-19 infection empirically (receiving) - follow repeat COVID tests results - zinc and vitamin C supplementation - Monitor inflammatory markers per facility protocol - ferritin, D-dimer, CRP - therapeutic anticoagulation per system Protocol based on d-dimer and clinical considerations - Continue contact and airborne isolation .... Re-evaluate in am & prn Subjective Date of service: 04/17/22 Principal diagnosis: Acute hypoxemic respiratory failure; COVID-19 infxn; UTI; Mental disability Interval history: Patient is seen today for: Acute hypoxemic respiratory failure; COVID-19 infection; UTI (urinary tract infection); Mental disability Seen and examined at bedside; 24hour events reviewed; nursing and respiratory care staff consulted; no adverse overnight events reported to me; resting peacefully in bed; PT ongoing at time of my examination withy plan to sit on side of bed; still non-verbal; no emesis or overt aspiration Objective Vital Signs - 12hr 04/16/22 04/16/22 04/16/22 20:32 22:00 22:59 Temperature 100.3 F H Pulse Rate 112 H 112 H Respiratory 18 Rate Blood Pressure 149/73 Blood Pressure 149/73 [Left] Blood Pressure [Right] O2 Sat by Pulse 100 98 Oximetry 04/17/22 06:00 Temperature 99.6 F Pulse Rate 113 H Respiratory 18 Rate Blood Pressure Blood Pressure [Left] Blood Pressure 134/72 [Right] O2 Sat by Pulse 98 Oximetry Constitutional: no acute distress, other (middle aged female with normal respiratory effort at rest) Eyes: non-icteric ENT: oropharynx moist Neck: supple, no lymphadenopathy, no JVD Effort: normal Ascultation: Bilateral: clear, diminished breath sounds Percussion: Bilateral: not dull Cardiovascular: regular rate and rhythm Gastrointestinal: normoactive bowel sounds, soft, non-tender, non-distended Integumentary: normal Extremities: no cyanosis, no edema, pulses normal, no ischemia or petechiae Neurologic: pupils equal and round, unable to assess Psychiatric: other (somnolent) CBC and BMP: 04/16/22 05:00 04/17/22 08:20 ABG, PT/INR, D-dimer: ABG ABG pH 7.408 pH Units (7.350-7.450) 04/15/22 12:35 ABG pCO2 43.3 mm Hg 04/15/22 12:35 ABG pO2 110.6 mm Hg (80.0-90.0) H 04/15/22 12:35 ABG O2 Saturation 98.0 % (95.0-99.0) 04/15/22 12:35 PT/INR, D-dimer PT 15.3 Sec. (12.2-14.9) H 04/12/22 09:11 INR 1.09 (0.87-1.13) 04/12/22 09:11 Abnormal lab findings: Abnormal Labs 04/12/22 04/12/22 04/12/22 09:11 09:11 09:11 WBC 12.8 H Seg Neuts % (Manual) 83.0 H Lymphocytes % (Manual) 12.0 L Seg Neutrophils # Man 10.6 H Lymphocytes # (Manual) PT ABG pO2 ABG HCO3 ABG Base Excess ABG Hemoglobin Sodium 148 H Potassium Chloride 107.2 H Carbon Dioxide 21 L BUN 37 H Creatinine 3.2 H Glucose 102 H POC Glucose Lactic Acid Calcium Phosphorus Ferritin AST 48 H Total Creatine Kinase C-Reactive Protein Total Protein 9.0 H Albumin Urine WBC (Auto) Salicylates < 0.3 L Acetaminophen Phenytoin 1.2 L Valproic Acid < 2.8 L Levetiracetam SARS-CoV-2 (PCR) 04/12/22 04/12/22 04/12/22 09:11 09:11 09:38 WBC Seg Neuts % (Manual) Lymphocytes % (Manual) Seg Neutrophils # Man Lymphocytes # (Manual) PT 15.3 H ABG pO2 ABG HCO3 ABG Base Excess ABG Hemoglobin Sodium Potassium Chloride Carbon Dioxide BUN Creatinine Glucose POC Glucose Lactic Acid 3.30 H* Calcium Phosphorus Ferritin AST Total Creatine Kinase C-Reactive Protein Total Protein Albumin Urine WBC (Auto) Salicylates Acetaminophen 5.0 L Phenytoin Valproic Acid Levetiracetam SARS-CoV-2 (PCR) 04/12/22 04/12/22 04/12/22 10:56 11:29 11:42 WBC Seg Neuts % (Manual) Lymphocytes % (Manual) Seg Neutrophils # Man Lymphocytes # (Manual) PT ABG pO2 152.6 H ABG HCO3 ABG Base Excess -4.2 L ABG Hemoglobin Sodium Potassium Chloride Carbon Dioxide BUN Creatinine Glucose POC Glucose Lactic Acid Calcium Phosphorus Ferritin AST Total Creatine Kinase 1568 H C-Reactive Protein Total Protein Albumin Urine WBC (Auto) Salicylates Acetaminophen Phenytoin Valproic Acid Levetiracetam SARS-CoV-2 (PCR) Positive A 04/12/22 04/12/22 04/13/22 14:34 Unknown 00:56 WBC Seg Neuts % (Manual) Lymphocytes % (Manual) Seg Neutrophils # Man Lymphocytes # (Manual) PT ABG pO2 ABG HCO3 ABG Base Excess ABG Hemoglobin Sodium Potassium Chloride Carbon Dioxide BUN Creatinine Glucose POC Glucose 111 H Lactic Acid Calcium Phosphorus Ferritin AST Total Creatine Kinase C-Reactive Protein Total Protein Albumin Urine WBC (Auto) < 182.0 H Salicylates Acetaminophen Phenytoin Valproic Acid Levetiracetam <2.0 L SARS-CoV-2 (PCR) 04/13/22 04/13/22 04/13/22 03:44 03:44 04:15 WBC 18.7 H Seg Neuts % (Manual) 97.0 H Lymphocytes % (Manual) 2.0 L Seg Neutrophils # Man 18.1 H Lymphocytes # (Manual) 0.4 L PT ABG pO2 135.1 H ABG HCO3 ABG Base Excess -2.7 L ABG Hemoglobin 11.9 L Sodium Potassium 3.3 L D Chloride 107.2 H Carbon Dioxide BUN 41 H Creatinine 1.4 H D Glucose 123 H POC Glucose Lactic Acid Calcium Phosphorus Ferritin AST Total Creatine Kinase C-Reactive Protein Total Protein Albumin Urine WBC (Auto) Salicylates Acetaminophen Phenytoin Valproic Acid Levetiracetam SARS-CoV-2 (PCR) 04/13/22 04/13/22 04/13/22 11:47 15:45 18:18 WBC Seg Neuts % (Manual) Lymphocytes % (Manual) Seg Neutrophils # Man Lymphocytes # (Manual) PT ABG pO2 119.0 H ABG HCO3 ABG Base Excess -3.7 L ABG Hemoglobin 11.8 L Sodium Potassium 5.1 H D Chloride 107.5 H Carbon Dioxide 14 L D BUN 36 H Creatinine Glucose 104 H POC Glucose 119 H Lactic Acid Calcium Phosphorus Ferritin AST 47 H Total Creatine Kinase C-Reactive Protein Total Protein Albumin 3.6 L Urine WBC (Auto) Salicylates Acetaminophen Phenytoin Valproic Acid Levetiracetam SARS-CoV-2 (PCR) 04/14/22 04/14/22 04/14/22 00:06 04:04 04:04 WBC 18.2 H Seg Neuts % (Manual) Lymphocytes % (Manual) Seg Neutrophils # Man Lymphocytes # (Manual) PT ABG pO2 ABG HCO3 ABG Base Excess ABG Hemoglobin Sodium Potassium Chloride 107.6 H Carbon Dioxide BUN 33 H Creatinine Glucose 148 H POC Glucose 120 H Lactic Acid Calcium Phosphorus Ferritin AST Total Creatine Kinase 807 H C-Reactive Protein 9.70 H Total Protein Albumin Urine WBC (Auto) Salicylates Acetaminophen Phenytoin Valproic Acid Levetiracetam SARS-CoV-2 (PCR) 04/14/22 04/14/22 04/14/22 04:04 04:04 05:06 WBC Seg Neuts % (Manual) Lymphocytes % (Manual) Seg Neutrophils # Man Lymphocytes # (Manual) PT ABG pO2 ABG HCO3 ABG Base Excess ABG Hemoglobin Sodium Potassium Chloride 108.8 H Carbon Dioxide BUN 34 H Creatinine Glucose 149 H POC Glucose 143 H Lactic Acid Calcium Phosphorus Ferritin 318.6 H AST Total Creatine Kinase C-Reactive Protein Total Protein Albumin 3.6 L Urine WBC (Auto) Salicylates Acetaminophen Phenytoin Valproic Acid Levetiracetam SARS-CoV-2 (PCR) 04/14/22 04/14/22 04/14/22 12:04 14:45 18:12 WBC Seg Neuts % (Manual) Lymphocytes % (Manual) Seg Neutrophils # Man Lymphocytes # (Manual) PT ABG pO2 100.5 H ABG HCO3 ABG Base Excess ABG Hemoglobin 7.0 L Sodium Potassium Chloride Carbon Dioxide BUN Creatinine Glucose POC Glucose 139 H 120 H Lactic Acid Calcium Phosphorus Ferritin AST Total Creatine Kinase C-Reactive Protein Total Protein Albumin Urine WBC (Auto) Salicylates Acetaminophen Phenytoin Valproic Acid Levetiracetam SARS-CoV-2 (PCR) 04/14/22 04/15/22 04/15/22 23:19 04:31 04:31 WBC 15.7 H Seg Neuts % (Manual) Lymphocytes % (Manual) Seg Neutrophils # Man Lymphocytes # (Manual) PT ABG pO2 ABG HCO3 ABG Base Excess ABG Hemoglobin Sodium 146 H Potassium 3.5 L Chloride 110.6 H Carbon Dioxide BUN 28 H Creatinine Glucose 116 H POC Glucose 122 H Lactic Acid Calcium Phosphorus Ferritin AST Total Creatine Kinase C-Reactive Protein Total Protein Albumin 3.8 L Urine WBC (Auto) Salicylates Acetaminophen Phenytoin Valproic Acid Levetiracetam SARS-CoV-2 (PCR) 04/15/22 04/15/22 04/15/22 05:19 11:52 12:35 WBC Seg Neuts % (Manual) Lymphocytes % (Manual) Seg Neutrophils # Man Lymphocytes # (Manual) PT ABG pO2 110.6 H ABG HCO3 26.7 H ABG Base Excess ABG Hemoglobin 8.6 L Sodium Potassium Chloride Carbon Dioxide BUN Creatinine Glucose POC Glucose 124 H 133 H Lactic Acid Calcium Phosphorus Ferritin AST Total Creatine Kinase C-Reactive Protein Total Protein Albumin Urine WBC (Auto) Salicylates Acetaminophen Phenytoin Valproic Acid Levetiracetam SARS-CoV-2 (PCR) 04/15/22 04/16/22 04/16/22 18:08 00:07 05:00 WBC Seg Neuts % (Manual) Lymphocytes % (Manual) Seg Neutrophils # Man Lymphocytes # (Manual) PT ABG pO2 ABG HCO3 ABG Base Excess ABG Hemoglobin Sodium Potassium Chloride Carbon Dioxide BUN 26 H Creatinine Glucose 102 H POC Glucose 139 H 114 H Lactic Acid Calcium Phosphorus 1.90 L Ferritin AST Total Creatine Kinase 377 H C-Reactive Protein Total Protein Albumin 3.4 L Urine WBC (Auto) Salicylates Acetaminophen Phenytoin Valproic Acid Levetiracetam SARS-CoV-2 (PCR) 04/16/22 04/16/22 04/16/22 05:00 11:43 17:24 WBC Seg Neuts % (Manual) Lymphocytes % (Manual) Seg Neutrophils # Man Lymphocytes # (Manual) PT ABG pO2 ABG HCO3 ABG Base Excess ABG Hemoglobin Sodium 136 L Potassium Chloride Carbon Dioxide BUN 26 H Creatinine Glucose 104 H POC Glucose 128 H 134 H Lactic Acid Calcium 8.2 L Phosphorus Ferritin AST Total Creatine Kinase 535 H C-Reactive Protein Total Protein Albumin Urine WBC (Auto) Salicylates Acetaminophen Phenytoin Valproic Acid Levetiracetam SARS-CoV-2 (PCR) Allied health notes reviewed: nursing
[2022-04-17 09:38] LABS: Blood Urea Nitrogen 30 mg/dL (7-17); Hemolysis Index 3
[2022-04-17 09:39] LABS: BUN/Creatinine Ratio 43
[2022-04-17] MEDS: SENNOSIDES/DOCUSATE SODIUM 8.6/50 MG TAB FEEDTUBE SCH ×2 (09:43→22:39)
[2022-04-17] MEDS: HEPARIN 5,000 UNIT/1 ML VIAL SUB-Q SCH ×2 (09:43→22:38)
[2022-04-17] MEDS: METOPROLOL TARTRATE 25 MG TAB PO SCH ×2 (09:43→22:40)
[2022-04-17] MEDS: FAMOTIDINE 20 MG TAB FEEDTUBE SCH ×2 (09:43→22:39)
[2022-04-17] MEDS: levETIRAcetam 500 MG/5 ML ORAL LIQD FEEDTUBE SCH ×2 (09:43→22:37)
[2022-04-17] MEDS: LISINOPRIL 5 MG TAB PO SCH (09:44)
[2022-04-17] MEDS: dexAMETHasone 4 MG/ML VIAL IV SCH (09:44)
[2022-04-17] MEDS: cefTRIAXone/NS 2 GM/100 ML 2 GM/100 ML BAG IV SCH (09:45)
[2022-04-17] MEDS: DOCUSATE SODIUM 100 MG/10 ML ORAL LIQD PO SCH ×2 (09:45→22:38)
[2022-04-17] MEDS: REMDESIVIR 100 MG in SODIUM CHLORIDE 0.9% 250ML 250 ML IV SCH (18:28)
[2022-04-17] MEDS: SODIUM CHLORIDE 0.9% 50 ML IVPB IV SCH (18:29)
--- NOTE | 2022-04-18 08:11 | Discharge Summary ---
Providers - Providers Date of Admission: 04/12/22 12:39 Date of discharge: 04/18/22 Attending physician: TITUS BOREGS MD 04/12/22 09:34 Consult to Physician [CONS] Stat Comment: noted/ wallace Consulting Provider: ANAM JEONG Physician Instructions: Reason For Exam: Intubation, seizure, sepsis 04/12/22 09:35 Consult to Dietitian/Nutrition [CONS] Routine Physician Instructions: Reason For Exam: Reason for Consult: Evaluate nutritional intake 04/13/22 08:15 Consult to Physician [CONS] Routine Comment: Consulting Provider: PAPA AGUILERA Physician Instructions: Reason For Exam: Sespsis, UTI, COVID+ 04/13/22 08:24 Consult to Dietitian/Nutrition [CONS] Routine Physician Instructions: Reason For Exam: Reason for Consult: Write/Manage Tube Feeding 04/13/22 08:25 Consult to Physician [CONS] Routine Comment: Consulting Provider: HANSEL AKHTAR Physician Instructions: Reason For Exam: status epilepticus 04/16/22 08:46 Speech Therapy Evaluation and Treat [CONS] Routine Reason For Exam: swallow eval 04/16/22 15:14 Occupational Therapy Evaluate and Treat [CONS] Routine Comment: Reason For Exam: Generalized Weakness Physical Therapy Evaluation and Treat [CONS] Routine Comment: Reason For Exam: Generalized Weakness Primary care physician: [facility] Hospitalization Condition: Critical Disposition: 30 STILL A PATIENT Exam - Constitutional Vitals: Temp Pulse Resp BP Pulse Ox 99.0 F 112 H 16 147/81 96 04/18/22 05:08 04/18/22 05:08 04/18/22 05:08 04/18/22 05:08 04/18/22 07:45 Plan Follow up with: DEBBY GAMBOA MD [Primary Care Provider] - 3-5 Days
--- NOTE | 2022-04-18 10:01 | Progress Note ---
Assessment and Plan Cultures: SARS CoV2 PCR: Positive 04/12/2022 blood culture: 1 out of 4 bottles with coagulase-negative staph 04/13/2022 sputum culture: Normal respiratory fani A/P: 57-year-old female with morbid obesity, seizure disorder, smoker: #COVID-19 infection: Chest x-ray appears clear. Was intubated for airway protection. CRP 9.7, ferritin 318. #Coag-neg Staph bacteremia: contaminant. #Acute hypoxic respiratory failure: On the vent. Extubated. #UTI: UA showed pyuria, CT showed bladder wall thickening consistent with cystitis. #SIRS versus sepsis: Likely secondary to above and status epilepticus #Seizures Recs: -Completed Remdesivir -Completed ceftriaxone -on room air Angel Alas MD, FACP, [facility] ([facility] O: [phone] F: [phone] C: [phone] Subjective Date of service: 04/18/22 Principal diagnosis: Acute hypoxemic respiratory failure; COVID-19 infxn; UTI; Mental disability Interval history: No fever yesterday and today. Weaned to room air. Objective - Exam Narrative Exam: Physical Exam (reviewed in chart to minimize risk of transmission) Constitutional: deferred Head, Ears, Nose: deferred Eyes: deferred Neck: deferred Oral: deferred Cardiovascular: deferred Respiratory: deferred GI: deferred Musculoskeletal: deferred Skin: deferred Hem/Lymphatic: deferred Psych: deferred Neurological: deferred - Constitutional Vitals: Vital Signs Temp Pulse Resp BP Pulse Ox 99.0 F 112 H 16 147/81 96 04/18/22 05:08 04/18/22 05:08 04/18/22 05:08 04/18/22 05:08 04/18/22 07:45 Temperature -Last 24 Hours Temperature 99.0 F Temperature 99.5 F Temperature 98.9 F - Labs CBC & Chem 7: 04/16/22 05:00 04/17/22 08:20 Labs: Abnormal lab results 04/16/22 04/17/22 04/17/22 Range/Units 23:44 06:14 08:11 POC Glucose 139 H 125 H 127 H (70-105) mg/dL 04/17/22 04/17/22 Range/Units 10:25 23:57 POC Glucose 118 H 135 H (70-105) mg/dL
[2022-04-18] MEDS: DOCUSATE SODIUM 100 MG/10 ML ORAL LIQD PO SCH ×2 (10:14→23:56)
[2022-04-18] MEDS: dexAMETHasone 4 MG/ML VIAL IV SCH (10:14)
[2022-04-18] MEDS: levETIRAcetam 500 MG/5 ML ORAL LIQD FEEDTUBE SCH ×2 (10:14→23:55)
[2022-04-18] MEDS: FAMOTIDINE 20 MG TAB FEEDTUBE SCH ×2 (10:15→23:50)
[2022-04-18] MEDS: SENNOSIDES/DOCUSATE SODIUM 8.6/50 MG TAB FEEDTUBE SCH ×2 (10:15→23:50)
[2022-04-18] MEDS: HEPARIN 5,000 UNIT/1 ML VIAL SUB-Q SCH ×2 (10:25→23:56)
[2022-04-18] MEDS: LISINOPRIL 5 MG TAB PO SCH (10:25)
[2022-04-18] MEDS: METOPROLOL TARTRATE 25 MG TAB PO SCH ×2 (10:25→23:51)
--- NOTE | 2022-04-18 12:17 | Progress Note ---
Assessment and Plan Acute hypoxemic respiratory failure COVID-19 infection UTI (urinary tract infection) Mental disability Chronic Left Frontal encephalomalacia / Post surgical changes - no new issues today, continue care as below; - enteral nutritional support at goal rate as tolerated - prn supplemental oxygen for target O2 sat's > 90% acutely - aspiration precautions - prn bronchodilators with pulmonary hygiene per RT - wean per pulmonary driven protocols otherwise - avoid nephrotoxins, renally dose all medications - accuchecks with glycemic control per SSI for target blood glucose of <180 mg/dL; avoid hypoglycemia - prn analgesia per CPOT score - Maintenance of sleep-wake cycle, avoid delirium - G.I. & VTE prophylaxis - PT/OT/ROM exercises - continue mobility protocols for pressure ulcer prophylaxis - Monitor hemodynamics closely - continue other care per attending / other consultants - discharge planning ongoing concurrently COVID SPECIFIC INTERVENTIONS - Remdesivir as per ID/Pulmonary developed protocols (completed) - systemic steroids for severe COVID-19 infection empirically (receiving) - follow repeat COVID tests results - zinc and vitamin C supplementation - Monitor inflammatory markers per facility protocol - ferritin, D-dimer, CRP - therapeutic anticoagulation per system Protocol based on d-dimer and clinical considerations - Continue contact and airborne isolation .... Re-evaluate in am & prn Subjective Date of service: 04/18/22 Principal diagnosis: Acute hypoxemic respiratory failure; COVID-19 infxn; UTI; Mental disability Interval history: Patient is seen today for: Acute hypoxemic respiratory failure; COVID-19 infection; UTI (urinary tract infection); Mental disability Seen and examined at bedside; 24hour events reviewed; nursing and respiratory care staff consulted; no adverse overnight events reported to me; resting peacefully in bed; remains on room air now; completed Remdesivir course; no emesis or overt aspiration; mental status appears closer to baseline Objective Vital Signs - 12hr 04/18/22 04/18/22 05:08 07:45 Temperature 99.0 F Pulse Rate 112 H Respiratory 16 Rate Blood Pressure 147/81 O2 Sat by Pulse 94 96 Oximetry Constitutional: no acute distress, other (middle aged female with normal respiratory effort at rest) Eyes: non-icteric ENT: oropharynx moist Neck: supple, no lymphadenopathy, no JVD Effort: normal Ascultation: Bilateral: clear, diminished breath sounds Percussion: Bilateral: not dull Cardiovascular: regular rate and rhythm Gastrointestinal: normoactive bowel sounds, soft, non-tender, non-distended Integumentary: normal Extremities: no cyanosis, no edema, pulses normal, no ischemia or petechiae Neurologic: pupils equal and round, CN II-XII normal Psychiatric: other (flat affect) CBC and BMP: 04/16/22 05:00 04/17/22 08:20 ABG, PT/INR, D-dimer: ABG ABG pH 7.408 pH Units (7.350-7.450) 04/15/22 12:35 ABG pCO2 43.3 mm Hg 04/15/22 12:35 ABG pO2 110.6 mm Hg (80.0-90.0) H 04/15/22 12:35 ABG O2 Saturation 98.0 % (95.0-99.0) 04/15/22 12:35 PT/INR, D-dimer PT 15.3 Sec. (12.2-14.9) H 04/12/22 09:11 INR 1.09 (0.87-1.13) 04/12/22 09:11 Abnormal lab findings: Abnormal Labs 04/12/22 04/12/22 04/12/22 09:11 09:11 09:11 WBC 12.8 H Seg Neuts % (Manual) 83.0 H Lymphocytes % (Manual) 12.0 L Seg Neutrophils # Man 10.6 H Lymphocytes # (Manual) PT ABG pO2 ABG HCO3 ABG Base Excess ABG Hemoglobin Sodium 148 H Potassium Chloride 107.2 H Carbon Dioxide 21 L BUN 37 H Creatinine 3.2 H Glucose 102 H POC Glucose Lactic Acid Calcium Phosphorus Ferritin AST 48 H Total Creatine Kinase C-Reactive Protein Total Protein 9.0 H Albumin Urine WBC (Auto) Salicylates < 0.3 L Acetaminophen Phenytoin 1.2 L Valproic Acid < 2.8 L Levetiracetam SARS-CoV-2 (PCR) 04/12/22 04/12/22 04/12/22 09:11 09:11 09:38 WBC Seg Neuts % (Manual) Lymphocytes % (Manual) Seg Neutrophils # Man Lymphocytes # (Manual) PT 15.3 H ABG pO2 ABG HCO3 ABG Base Excess ABG Hemoglobin Sodium Potassium Chloride Carbon Dioxide BUN Creatinine Glucose POC Glucose Lactic Acid 3.30 H* Calcium Phosphorus Ferritin AST Total Creatine Kinase C-Reactive Protein Total Protein Albumin Urine WBC (Auto) Salicylates Acetaminophen 5.0 L Phenytoin Valproic Acid Levetiracetam SARS-CoV-2 (PCR) 04/12/22 04/12/22 04/12/22 10:56 11:29 11:42 WBC Seg Neuts % (Manual) Lymphocytes % (Manual) Seg Neutrophils # Man Lymphocytes # (Manual) PT ABG pO2 152.6 H ABG HCO3 ABG Base Excess -4.2 L ABG Hemoglobin Sodium Potassium Chloride Carbon Dioxide BUN Creatinine Glucose POC Glucose Lactic Acid Calcium Phosphorus Ferritin AST Total Creatine Kinase 1568 H C-Reactive Protein Total Protein Albumin Urine WBC (Auto) Salicylates Acetaminophen Phenytoin Valproic Acid Levetiracetam SARS-CoV-2 (PCR) Positive A 04/12/22 04/12/22 04/13/22 14:34 Unknown 00:56 WBC Seg Neuts % (Manual) Lymphocytes % (Manual) Seg Neutrophils # Man Lymphocytes # (Manual) PT ABG pO2 ABG HCO3 ABG Base Excess ABG Hemoglobin Sodium Potassium Chloride Carbon Dioxide BUN Creatinine Glucose POC Glucose 111 H Lactic Acid Calcium Phosphorus Ferritin AST Total Creatine Kinase C-Reactive Protein Total Protein Albumin Urine WBC (Auto) < 182.0 H Salicylates Acetaminophen Phenytoin Valproic Acid Levetiracetam <2.0 L SARS-CoV-2 (PCR) 04/13/22 04/13/22 04/13/22 03:44 03:44 04:15 WBC 18.7 H Seg Neuts % (Manual) 97.0 H Lymphocytes % (Manual) 2.0 L Seg Neutrophils # Man 18.1 H Lymphocytes # (Manual) 0.4 L PT ABG pO2 135.1 H ABG HCO3 ABG Base Excess -2.7 L ABG Hemoglobin 11.9 L Sodium Potassium 3.3 L D Chloride 107.2 H Carbon Dioxide BUN 41 H Creatinine 1.4 H D Glucose 123 H POC Glucose Lactic Acid Calcium Phosphorus Ferritin AST Total Creatine Kinase C-Reactive Protein Total Protein Albumin Urine WBC (Auto) Salicylates Acetaminophen Phenytoin Valproic Acid Levetiracetam SARS-CoV-2 (PCR) 04/13/22 04/13/22 04/13/22 11:47 15:45 18:18 WBC Seg Neuts % (Manual) Lymphocytes % (Manual) Seg Neutrophils # Man Lymphocytes # (Manual) PT ABG pO2 119.0 H ABG HCO3 ABG Base Excess -3.7 L ABG Hemoglobin 11.8 L Sodium Potassium 5.1 H D Chloride 107.5 H Carbon Dioxide 14 L D BUN 36 H Creatinine Glucose 104 H POC Glucose 119 H Lactic Acid Calcium Phosphorus Ferritin AST 47 H Total Creatine Kinase C-Reactive Protein Total Protein Albumin 3.6 L Urine WBC (Auto) Salicylates Acetaminophen Phenytoin Valproic Acid Levetiracetam SARS-CoV-2 (PCR) 04/14/22 04/14/22 04/14/22 00:06 04:04 04:04 WBC 18.2 H Seg Neuts % (Manual) Lymphocytes % (Manual) Seg Neutrophils # Man Lymphocytes # (Manual) PT ABG pO2 ABG HCO3 ABG Base Excess ABG Hemoglobin Sodium Potassium Chloride 107.6 H Carbon Dioxide BUN 33 H Creatinine Glucose 148 H POC Glucose 120 H Lactic Acid Calcium Phosphorus Ferritin AST Total Creatine Kinase 807 H C-Reactive Protein 9.70 H Total Protein Albumin Urine WBC (Auto) Salicylates Acetaminophen Phenytoin Valproic Acid Levetiracetam SARS-CoV-2 (PCR) 04/14/22 04/14/22 04/14/22 04:04 04:04 05:06 WBC Seg Neuts % (Manual) Lymphocytes % (Manual) Seg Neutrophils # Man Lymphocytes # (Manual) PT ABG pO2 ABG HCO3 ABG Base Excess ABG Hemoglobin Sodium Potassium Chloride 108.8 H Carbon Dioxide BUN 34 H Creatinine Glucose 149 H POC Glucose 143 H Lactic Acid Calcium Phosphorus Ferritin 318.6 H AST Total Creatine Kinase C-Reactive Protein Total Protein Albumin 3.6 L Urine WBC (Auto) Salicylates Acetaminophen Phenytoin Valproic Acid Levetiracetam SARS-CoV-2 (PCR) 04/14/22 04/14/22 04/14/22 12:04 14:45 18:12 WBC Seg Neuts % (Manual) Lymphocytes % (Manual) Seg Neutrophils # Man Lymphocytes # (Manual) PT ABG pO2 100.5 H ABG HCO3 ABG Base Excess ABG Hemoglobin 7.0 L Sodium Potassium Chloride Carbon Dioxide BUN Creatinine Glucose POC Glucose 139 H 120 H Lactic Acid Calcium Phosphorus Ferritin AST Total Creatine Kinase C-Reactive Protein Total Protein Albumin Urine WBC (Auto) Salicylates Acetaminophen Phenytoin Valproic Acid Levetiracetam SARS-CoV-2 (PCR) 04/14/22 04/15/22 04/15/22 23:19 04:31 04:31 WBC 15.7 H Seg Neuts % (Manual) Lymphocytes % (Manual) Seg Neutrophils # Man Lymphocytes # (Manual) PT ABG pO2 ABG HCO3 ABG Base Excess ABG Hemoglobin Sodium 146 H Potassium 3.5 L Chloride 110.6 H Carbon Dioxide BUN 28 H Creatinine Glucose 116 H POC Glucose 122 H Lactic Acid Calcium Phosphorus Ferritin AST Total Creatine Kinase C-Reactive Protein Total Protein Albumin 3.8 L Urine WBC (Auto) Salicylates Acetaminophen Phenytoin Valproic Acid Levetiracetam SARS-CoV-2 (PCR) 04/15/22 04/15/22 04/15/22 05:19 11:52 12:35 WBC Seg Neuts % (Manual) Lymphocytes % (Manual) Seg Neutrophils # Man Lymphocytes # (Manual) PT ABG pO2 110.6 H ABG HCO3 26.7 H ABG Base Excess ABG Hemoglobin 8.6 L Sodium Potassium Chloride Carbon Dioxide BUN Creatinine Glucose POC Glucose 124 H 133 H Lactic Acid Calcium Phosphorus Ferritin AST Total Creatine Kinase C-Reactive Protein Total Protein Albumin Urine WBC (Auto) Salicylates Acetaminophen Phenytoin Valproic Acid Levetiracetam SARS-CoV-2 (PCR) 04/15/22 04/16/22 04/16/22 18:08 00:07 05:00 WBC Seg Neuts % (Manual) Lymphocytes % (Manual) Seg Neutrophils # Man Lymphocytes # (Manual) PT ABG pO2 ABG HCO3 ABG Base Excess ABG Hemoglobin Sodium Potassium Chloride Carbon Dioxide BUN 26 H Creatinine Glucose 102 H POC Glucose 139 H 114 H Lactic Acid Calcium Phosphorus 1.90 L Ferritin AST Total Creatine Kinase 377 H C-Reactive Protein Total Protein Albumin 3.4 L Urine WBC (Auto) Salicylates Acetaminophen Phenytoin Valproic Acid Levetiracetam SARS-CoV-2 (PCR) 04/16/22 04/16/22 04/16/22 05:00 11:43 17:24 WBC Seg Neuts % (Manual) Lymphocytes % (Manual) Seg Neutrophils # Man Lymphocytes # (Manual) PT ABG pO2 ABG HCO3 ABG Base Excess ABG Hemoglobin Sodium 136 L Potassium Chloride Carbon Dioxide BUN 26 H Creatinine Glucose 104 H POC Glucose 128 H 134 H Lactic Acid Calcium 8.2 L Phosphorus Ferritin AST Total Creatine Kinase 535 H C-Reactive Protein Total Protein Albumin Urine WBC (Auto) Salicylates Acetaminophen Phenytoin Valproic Acid Levetiracetam SARS-CoV-2 (PCR) 04/16/22 04/17/22 04/17/22 23:44 06:14 08:11 WBC Seg Neuts % (Manual) Lymphocytes % (Manual) Seg Neutrophils # Man Lymphocytes # (Manual) PT ABG pO2 ABG HCO3 ABG Base Excess ABG Hemoglobin Sodium Potassium Chloride Carbon Dioxide BUN Creatinine Glucose POC Glucose 139 H 125 H 127 H Lactic Acid Calcium Phosphorus Ferritin AST Total Creatine Kinase C-Reactive Protein Total Protein Albumin Urine WBC (Auto) Salicylates Acetaminophen Phenytoin Valproic Acid Levetiracetam SARS-CoV-2 (PCR) 04/17/22 04/17/22 04/17/22 08:20 10:25 23:57 WBC Seg Neuts % (Manual) Lymphocytes % (Manual) Seg Neutrophils # Man Lymphocytes # (Manual) PT ABG pO2 ABG HCO3 ABG Base Excess ABG Hemoglobin Sodium Potassium Chloride Carbon Dioxide BUN 30 H Creatinine Glucose 117 H POC Glucose 118 H 135 H Lactic Acid Calcium Phosphorus Ferritin AST Total Creatine Kinase C-Reactive Protein Total Protein Albumin Urine WBC (Auto) Salicylates Acetaminophen Phenytoin Valproic Acid Levetiracetam SARS-CoV-2 (PCR) 04/18/22 07:05 WBC Seg Neuts % (Manual) Lymphocytes % (Manual) Seg Neutrophils # Man Lymphocytes # (Manual) PT ABG pO2 ABG HCO3 ABG Base Excess ABG Hemoglobin Sodium Potassium Chloride Carbon Dioxide BUN Creatinine Glucose POC Glucose 121 H Lactic Acid Calcium Phosphorus Ferritin AST Total Creatine Kinase C-Reactive Protein Total Protein Albumin Urine WBC (Auto) Salicylates Acetaminophen Phenytoin Valproic Acid Levetiracetam SARS-CoV-2 (PCR) Allied health notes reviewed: nursing
--- NOTE | 2022-04-18 14:03 | Progress Note ---
Assessment and Plan Assessment and plan: Assessment and plan: This is a 57-year-old female with known past medical history of MR, obesity, nicotine dependence, seizure disorder admitted for status epilepticus and was in tubated in the ED for airway protection Hospital Course to Date: 04/13: Stable on low vent setting this am. Off sedation, awake and tracking, not following commands. Patient does have history of MR, patient is functional and can voice her needs per the caregiver. No seizure like activity reported, EEG and Neurology consult pending. Continue IV Keppra. Patient remains afebrile and hemodynamicaly stable. PRN hydralazine added for hypertension. Continue current IV steroids, and empiric IV Abx. ID consulted for further rec for COVID infection. Renal function and CKP are improving post IVF hydration, continue IVF resuscitation. K repleted, continue to monitor electrolytes and replete as needed. Plan for PSV trial today, plan to wean for possible extubation per CCM. 04/14: Remains stable on the vent. No seizures like activities reported in the last 48hrs. Neurology recommendation noted. Patient tolerated PSV trial yesterday. Continue daily PSV trial, plan to wean for possible extubation per CCM. Hypertensive this am low dose BB added for BP control. Continue IV rojas roids, on Rocephin and Remdeservir per ID. 04/15: Remains stable on the vent. Tolerating PSV trial this am, plan for possibe extubation today per CCM. Remains hypertensive with refractory tachycardia with PRN hydralazine. On BB and Lisinopril added for better control. PRN switched to IV labetalol for SBP greater than 160. FWF increased for hypernatremia and K repleted, continue to monitor electrolytes and replete as needed. 04/16: s/p extubation, stable on RA. Currently nonverbal with Generalized weakness, however was able to shake head for yes or no this am. Lisinopril increased for BP control, continue low dose BB. Pending speech swallow eval, continue enteral nutrition via DHT for now. PT/OT also consulted for debility and discharge planning. Patient is stable for transfer to the floor. 04/17: Patient still with low grade fever, tolerating room air, ID and Pulmonary input noted, today will be Day 5 of Remdesivir and will complete antibiotics ceftriaxone also. If continued fever will likely need extension.Patient currently under treatment for COVID induced respiratory failure with hypoxia s/p extubation and also Sepsis secondary to Acute cystitis and COVID 19. No new seizure disorder. She does have a hx of MR and seizure as noted above. Leukocytosis is improved. I advised her Niece about her care so far and follow with PCP in one week of discharged. If tolerating diet and no new fever in 24 hrs, she can be discharged. We did discuss CODE STATUS on her again and she did affirm full code. 04/18: Awaiting speech evaluation. patient appears very lethargic still. Low grade fever and tachycardia noted overnight. Appears very dehydrated, will order NS 50 0 cc x 1. Will order repeat labs. She has completed remdesivir, rocephin for covid tx. Assessment and Plan #Status Epilepticus #H/o Seizure Disorder #H/o Mental Retardation(MR) - Multifactorial - Patient with UTI and COVID positive - Per records from 09/2021, patient phenytoin level was elevated last admit and meds was held. Patient was D/Dany with PO Keppra BID - CT head/brain with chronic encephalomalacia/surgical changes in the frontal lobes. No acute intracranial abnormality. - Treated underlying cause, currently on empiric IV abx. ID consulted - Intubated, awake and tracking. S/p Versed gtt. - Continue keppra - EEG pending - Neurology consult, appreciate recommendation - Per Neuro- continue Keppra 750mg IV q 12 hours for now once awake and patient able to take oral medications - switch to 1000 mg PO Keppra BID - PRN Ativan for seizure like activities - Frequent reorientation - Aspiration and Seizure precaution - PRN Analgesia for CPOT greater than 3 - Maintenance of sleep-wake cycle #Acute Hypoxic Respiratory Failure - Intubated in the ED on 04/12 for airway protection secondary to above - s/p extubation on 04/16, stable on RA this am - CCM consulted, appreciate recommendations - Aspiration precaution HOB above 30 - PRN ABG and CXR - Continue SPO2 monitoring for SPO2 goal above 92% - PRN O2 supplementation as needed #Sepsis #Possible RLL Pneumonia #Coronavirus Infection #Urinary Tract Infection(UTI)/Cystitis - COVID PCR came back positive - CT reveal right lower lobe infiltrate vs atelectasis - UA consistent with UTI, CT scan shows mild bladder wall thickening suggesting cystitis - COVID PCR came back positive - Blood cultures and sputum culture pending - Patient is afebrile, Leukocytosis improved, VSS - On IV steroids and empiric IV Abx - ID consulted, appreciate recommendations - Remdesevir added - F/U on cultures - Daily CBC monitor #Rhabdomyolysis - Probably due to multiple seizures - s/p IVF resuscitation, CPK improved - Trend CPK #Acute Kidney Injury(JONA) most likely Vasomotor Nephropathy #Hypokalemia - probably secondary to above - Per records, baseline scr is 1.1, Scr. as high as 3.2 this admit - Renal function back to baseline post IVF hydration - Strict intake and output - Avoid nephrotoxic medications; Renally dose medications - Monitor and replace electrolytes as needed - Trend BMP #Hypertension - Remains hypertensive - Continue low dose BB, lisinopril increased for better control - Continue blood pressure monitor per protocol - PRN Hydralazine for SBP greater than 160 - Might benefits from antihypertensive regimen at discharge #GI/DVT Prophylaxis - PPI- Pepcid - Heparin SubQ - SCD to bilateral lower extremities while in bed #Advance Care Planning - Disease education data, care plan, diagnoses, and prognosis were discussed with patient's cousin and caregiver via phone. Patient is a FULL code. Patient's family acknowledged understanding and agreed with current care plan. History Interval history: Seen and evaluated bedside. When attempting to ask patient line of questioning she is able to make eye contact however is not responding to questioning. Patient appears very lethargic and dehydrated on my encounter. Nasogastric tube in place infusing tube feeding. Hospitalist Physical - Physical exam Narrative exam: Constitutional: no acute distress, other (middle aged female with normal respiratory effort at rest) Eyes: non-icteric ENT: oropharynx dry, NG in place Neck: supple, no lymphadenopathy, no JVD Effort: normal Ascultation: Bilateral: clear, diminished breath sounds Percussion: Bilateral: not dull Cardiovascular: regular rate and rhythm Gastrointestinal: normoactive bowel sounds, soft, non-tender, non-distended, Integumentary: normal Extremities: no cyanosis, no edema, pulses normal, no ischemia or petechiae Neurologic: pupils equal and round, CN II-XII normal Psychiatric: other (flat affect), baseline MR - Constitutional Vitals: Temp Pulse Resp BP Pulse Ox 98.0 F 109 H 20 144/69 96 04/18/22 10:27 04/18/22 10:27 04/18/22 10:27 04/18/22 10:27 04/18/22 10:27 General appearance: Present: no acute distress, well-nourished, obese, other (on the vent) Results - Labs CBC & Chem 7: 04/16/22 05:00 04/17/22 08:20 Labs: Laboratory Last Values WBC 11.0 K/mm3 (4.5-11.0) 04/16/22 05:00 RBC 3.74 M/mm3 (3.65-5.03) 04/16/22 05:00 Hgb 11.6 gm/dl (10.1-14.3) 04/16/22 05:00 Hct 34.5 % (30.3-42.9) 04/16/22 05:00 MCV 92 fl (79-97) 04/16/22 05:00 MCH 31 pg (28-32) 04/16/22 05:00 MCHC 34 % (30-34) 04/16/22 05:00 RDW 14.2 % (13.2-15.2) 04/16/22 05:00 Plt Count 271 K/mm3 (140-440) 04/16/22 05:00 Add Manual Diff Complete 04/13/22 03:44 Total Counted 100 04/13/22 03:44 Seg Neutrophils % Lead Level Designer 04/13/22 03:44 Seg Neuts % (Manual) 97.0 % (40.0-70.0) H 04/13/22 03:44 Band Neutrophils % 0 % 04/13/22 03:44 Lymphocytes % (Manual) 2.0 % (13.4-35.0) L 04/13/22 03:44 Reactive Lymphs % (Man) 0 % 04/13/22 03:44 Monocytes % (Manual) 1.0 % (0.0-7.3) 04/13/22 03:44 Eosinophils % (Manual) 0 % (0.0-4.3) 04/13/22 03:44 Basophils % (Manual) 0 % (0.0-1.8) 04/13/22 03:44 Metamyelocytes % 0 % 04/13/22 03:44 Myelocytes % 0 % 04/13/22 03:44 Promyelocytes % 0 % 04/13/22 03:44 Blast Cells % 0 % 04/13/22 03:44 Nucleated RBC % Not Reportable 04/13/22 03:44 Seg Neutrophils # Man 18.1 K/mm3 (1.8-7.7) H 04/13/22 03:44 Band Neutrophils # 0.0 K/mm3 04/13/22 03:44 Lymphocytes # (Manual) 0.4 K/mm3 (1.2-5.4) L 04/13/22 03:44 Abs React Lymphs (Man) 0.0 K/mm3 04/13/22 03:44 Monocytes # (Manual) 0.2 K/mm3 (0.0-0.8) 04/13/22 03:44 Eosinophils # (Manual) 0.0 K/mm3 (0.0-0.4) 04/13/22 03:44 Basophils # (Manual) 0.0 K/mm3 (0.0-0.1) 04/13/22 03:44 Metamyelocytes # 0.0 K/mm3 04/13/22 03:44 Myelocytes # 0.0 K/mm3 04/13/22 03:44 Promyelocytes # 0.0 K/mm3 04/13/22 03:44 Blast Cells # 0.0 K/mm3 04/13/22 03:44 WBC Morphology Not Reportable 04/13/22 03:44 Hypersegmented Neuts Not Reportable 04/13/22 03:44 Hyposegmented Neuts Not Reportable 04/13/22 03:44 Hypogranular Neuts Not Reportable 04/13/22 03:44 Smudge Cells Not Reportable 04/13/22 03:44 Toxic Granulation Not Reportable 04/13/22 03:44 Toxic Vacuolation Not Reportable 04/13/22 03:44 Dohle Bodies Not Reportable 04/13/22 03:44 Pelger-Huet Anomaly Not Reportable 04/13/22 03:44 Neeta Rods Not Reportable 04/13/22 03:44 Platelet Estimate Consistent w auto 04/13/22 03:44 Clumped Platelets Not Reportable 04/13/22 03:44 Plt Clumps, EDTA Not Reportable 04/13/22 03:44 Large Platelets Not Reportable 04/13/22 03:44 Giant Platelets Not Reportable 04/13/22 03:44 Platelet Satelliting Not Reportable 04/13/22 03:44 Plt Morphology Comment Not Reportable 04/13/22 03:44 RBC Morphology Not Reportable 04/13/22 03:44 Dimorphic RBCs Not Reportable 04/13/22 03:44 Polychromasia Not Reportable 04/13/22 03:44 Hypochromasia Not Reportable 04/13/22 03:44 Poikilocytosis Not Reportable 04/13/22 03:44 Anisocytosis Not Reportable 04/13/22 03:44 Microcytosis Not Reportable 04/13/22 03:44 Macrocytosis Not Reportable 04/13/22 03:44 Spherocytes Not Reportable 04/13/22 03:44 Pappenheimer Bodies Not Reportable 04/13/22 03:44 Sickle Cells Not Reportable 04/13/22 03:44 Target Cells Not Reportable 04/13/22 03:44 Tear Drop Cells Not Reportable 04/13/22 03:44 Ovalocytes Not Reportable 04/13/22 03:44 Helmet Cells Not Reportable 04/13/22 03:44 [place] Bodies Not Reportable 04/13/22 03:44 [place] Rings Not Reportable 04/13/22 03:44 [place] Cells Not Reportable 04/13/22 03:44 Bite Cells Not Reportable 04/13/22 03:44 Crenated Cell Not Reportable 04/13/22 03:44 Elliptocytes Not Reportable 04/13/22 03:44 Acanthocytes (Spur) Not Reportable 04/13/22 03:44 Rouleaux Not Reportable 04/13/22 03:44 Hemoglobin C Crystals Not Reportable 04/13/22 03:44 Schistocytes Not Reportable 04/13/22 03:44 Malaria parasites Not Reportable 04/13/22 03:44 Sanjay Bodies Not Reportable 04/13/22 03:44 Hem Pathologist Commnt No 04/13/22 03:44 PT 15.3 Sec. (12.2-14.9) H 04/12/22 09:11 INR 1.09 (0.87-1.13) 04/12/22 09:11 APTT 27.4 Sec. (24.2-36.6) 04/12/22 09:11 ABG pH 7.408 pH Units (7.350-7.450) 04/15/22 12:35 ABG pCO2 43.3 mm Hg 04/15/22 12:35 ABG pO2 110.6 mm Hg (80.0-90.0) H 04/15/22 12:35 ABG HCO3 26.7 mmol/L (20.0-26.0) H 04/15/22 12:35 ABG O2 Saturation 98.0 % (95.0-99.0) 04/15/22 12:35 ABG O2 Content 11.8 (0.0-44) 04/15/22 12:35 ABG Base Excess 1.8 mmol/L (-2.0-3.0) 04/15/22 12:35 ABG Hemoglobin 8.6 gm/dl (12.0-16.0) L 04/15/22 12:35 ABG Carboxyhemoglobin 1.0 % (0.0-5.0) 04/15/22 12:35 ABG Methemoglobin 0.5 % (0.0-1.5) 04/15/22 12:35 Oxyhemoglobin 96.5 % (95.0-99.0) 04/15/22 12:35 FiO2 30 % 04/15/22 12:35 Sodium 142 mmol/L (137-145) 04/17/22 08:20 Potassium 3.6 mmol/L (3.6-5.0) 04/17/22 08:20 Chloride 102.9 mmol/L (98-107) 04/17/22 08:20 Carbon Dioxide 30 mmol/L (22-30) 04/17/22 08:20 Anion Gap 13 mmol/L 04/17/22 08:20 BUN 30 mg/dL (7-17) H 04/17/22 08:20 Creatinine 0.7 mg/dL (0.6-1.2) 04/17/22 08:20 Estimated GFR > 60 ml/min 04/17/22 08:20 BUN/Creatinine Ratio 43 % 04/17/22 08:20 Glucose 117 mg/dL (65-100) H 04/17/22 08:20 POC Glucose 121 mg/dL (70-105) H 04/18/22 07:05 Lactic Acid 1.60 mmol/L (0.7-2.0) 04/12/22 11:42 Calcium 9.0 mg/dL (8.4-10.2) 04/17/22 08:20 Phosphorus 3.10 mg/dL (2.5-4.5) 04/17/22 08:20 Magnesium 1.70 mg/dL (1.7-2.3) 04/17/22 08:20 Ferritin 318.6 ng/mL (10.0-200.0) H 04/14/22 04:04 Total Bilirubin 0.40 mg/dL (0.1-1.2) 04/16/22 05:00 AST 34 units/L (5-40) 04/16/22 05:00 ALT 26 units/L (7-56) 04/16/22 05:00 Alkaline Phosphatase 92 units/L (35-129) 04/16/22 05:00 Total Creatine Kinase 377 units/L (30-135) H 04/16/22 05:00 Total Creatine Kinase 535 units/L (30-135) H 04/16/22 05:00 C-Reactive Protein 9.70 mg/dL (0.00-1.30) H 04/14/22 04:04 Total Protein 6.9 g/dL (6.3-8.2) 04/16/22 05:00 Albumin 3.4 g/dL (3.9-5) L 04/16/22 05:00 Albumin/Globulin Ratio 1.0 % 04/16/22 05:00 Procalcitonin 1.92 ng/mL (<0.15) 04/14/22 04:04 Urine Color Yellow (Yellow) 04/12/22 Unknown Urine Turbidity Cloudy (Clear) 04/12/22 Unknown Specific [place] (Man) 1.020 (1.003-1.030) 04/12/22 Unknown Ur Protein (Man) 4+ mg/dL (Negative) 04/12/22 Unknown Ur Ketones (Man) Negative (Negative) 04/12/22 Unknown Ur Nitrite (Man) Negative (Negative) 04/12/22 Unknown Ur Reducing Substances Not Reportable 04/12/22 Unknown Urine Bilirubin (Man) Negative (Negative) 04/12/22 Unknown Urine Ictotest Not Reportable 04/12/22 Unknown Leukocyte Esterase (Man) Large (Negative) 04/12/22 Unknown Urine WBC (Auto) < 182.0 /HPF (0.0-6.0) H 04/12/22 Unknown Urine RBC (Auto) 60.0 /HPF (0.0-6.0) 04/12/22 Unknown U Epithel Cells (Auto) 12.0 /HPF (0-13.0) 04/12/22 Unknown Urine RBC (Manual) 3+ (Negative) 04/12/22 Unknown Urine WBC Clumps 3+ /HPF 04/12/22 Unknown Urine Mucus 3+ /HPF 04/12/22 Unknown Salicylates < 0.3 mg/dL (2.8-20.0) L 04/12/22 09:11 Acetaminophen 5.0 ug/mL (10.0-30.0) L 04/12/22 09:11 Phenytoin 1.2 ug/mL (10.0-20.0) L 04/12/22 09:11 Valproic Acid < 2.8 ug/mL (50-100) L 04/12/22 09:11 Levetiracetam <2.0 mcg/mL (6.0-46.0) L 04/12/22 14:34 Plasma/Serum Alcohol < 0.01 % (0-0.07) 04/12/22 09:11 SARS-CoV-2 (PCR) Positive (Negative) A 04/12/22 10:56 Microbiology: Microbiology 04/12/22 09:38 Peripheral/Venous Blood Culture - Final NO GROWTH AFTER 5 DAYS Mckeon/IV: Voiding Method External Female Catheter Active Medications - Current Medications Current Medications: Generic Name Dose Route Start Last Admin Trade Name Freq PRN Reason Stop Dose Admin Acetaminophen 650 mg 04/12/22 12:38 04/16/22 23:44 Acetaminophen 325 Mg Tab PO 650 mg Q6H PRN Administration Pain MILD(1-3)/Fever >100.5/VALLADARES Albuterol 2.5 mg 04/12/22 12:38 Albuterol 2.5 Mg/3 Ml Nebu IH Q3HRT PRN Shortness Of Breath Dexamethasone 6 mg 04/15/22 10:00 04/18/22 10:14 Dexamethasone 4 Mg/Ml Vial IV 04/22/22 10:01 6 mg Q24HR ISIAH Administration Docusate Sodium 100 mg 04/15/22 22:00 04/18/22 10:14 Docusate Sodium 100 Mg/10 Ml Oral Liqd PO 100 mg BID ISIAH Administration Famotidine 20 mg 04/15/22 22:00 04/18/22 10:15 Famotidine 20 Mg Tab FEEDTUBE 20 mg BID ISIAH Administration Heparin Sodium (Porcine) 5,000 unit 04/12/22 22:00 04/18/22 10:25 Heparin 5,000 Unit/1 Ml Vial SUB-Q 5,000 unit Q12HR ISIAH Administration Hydromorphone HCl 0.5 mg 04/14/22 10:48 04/15/22 08:34 Hydromorphone 0.5 Mg/0.5 Ml Inj IV 0.5 mg Q6H PRN Administration Pain , Severe (7-10) Hydrophilic Ointment 1 applic 04/12/22 09:35 Lip Therapy Vaseline TP Q2HR PRN Dry Lips Labetalol HCl 10 mg 04/15/22 09:00 04/16/22 05:05 Labetalol 20 Mg/4 Ml Inj IV 10 mg Q4H PRN Administration Hypertension Levetiracetam 750 mg 04/15/22 22:00 04/18/22 10:14 Levetiracetam 500 Mg/5 Ml Oral Liqd FEEDTUBE 750 mg BID ISIAH Administration Lisinopril 10 mg 04/16/22 10:00 04/18/22 10:25 Lisinopril 5 Mg Tab PO 10 mg QDAY ISIAH Administration Metoprolol Tartrate 12.5 mg 04/14/22 16:13 04/18/22 10:25 Metoprolol Tartrate 25 Mg Tab PO 12.5 mg BID ISIAH Administration Multi-Ingred Cream/Lotion/Oil/Oint 1 applic 04/12/22 09:35 Mineral Oil/Petrolatum, White Ophth Oint 3.5 Gm OU Q4HR PRN Dry Eye(s) Ondansetron HCl 4 mg 04/12/22 12:38 Ondansetron 4 Mg/2 Ml Inj IV Q8H PRN Nausea And Vomiting Oxycodone/Acetaminophen 1 tab 04/12/22 12:38 04/13/22 22:27 Oxycodone /Acetaminophen 5-325mg Tab PO 1 tab Q16H PRN Administration Pain, Moderate (4-6) Senna/Docusate Sodium 2 tab 04/15/22 17:30 04/18/22 10:15 Sennosides/Docusate Sodium 8.6/50 Mg Tab FEEDTUBE 2 tab BID ISIAH Administration Sodium Chloride 10 ml 04/12/22 22:00 04/18/22 10:16 Sodium Chloride 0.9% 10 Ml Flush Syringe IV 10 ml BID ISIAH Administration Sodium Chloride 10 ml 04/12/22 12:38 Sodium Chloride 0.9% 10 Ml Flush Syringe IV PRN PRN LINE FLUSH Nutrition/Malnutrition Assess - Dietary Evaluation Nutrition/Malnutrition Findings: Nutrition Notes Start: 04/12/22 16:12 Freq: Status: Active Protocol: Document 04/14/22 16:43 ELEAZAR (Rec: 04/14/22 16:49 ELEAZAR [id number]) Nutrition Notes Initial or Follow up Brief Note Current Diet TF - Vital AF 1.2 at 65ml/hr Height 5 ft 8 in Weight 113.3 kg [place] Body Weight (kg) 63.63 BMI 38.0 Subjective/Other Information Observed TF infusing at 55ml/ hr. Pt remains on vent support. Percent of energy/protein needs met: 74% energy 78% pro Is patient on ventilator? Yes Is Patient Ambulatory and/or Out of Bed No REE-([facility]-confined to bed) 2135.724 Kcal/Kg value to use for calculation 15 Approximate Energy Requirements Using 1700 kcal/Kg Calculation Used for Recommendations Kcal/kg Additional Notes Pro needs 2g/kg IBW: 127g/day Fluid needs 1m/kcal Nutrition Intervention Nutrition Support: Decrease TF goal rate to 60ml/ hr with 100ml water flush q4h Kcal 1,728 Protein (gm) 108 Fluid (mL) 1,168 Goal #1 TF tolerance Goal #2 TF to meet 70-80% energy and at least 75% pro needs Follow-Up By: 04/18/22 Additional Comments F/U: TF goal rate/tolerance, vent status
[2022-04-18] MEDS ORDERED: SODIUM CHLORIDE 0.9% 500 ML 500 ML IV ONE (14:45)
[2022-04-18] MEDS ORDERED: SODIUM CHLORIDE 0.9% 500 ML 500 ML ONE (18:12)
--- NOTE | 2022-04-19 08:29 | Progress Note ---
Assessment and Plan Assessment and plan: Assessment and plan: This is a 57-year-old female with known past medical history of MR, obesity, nicotine dependence, seizure disorder admitted for status epilepticus and was in tubated in the ED for airway protection Hospital Course to Date: 04/13: Stable on low vent setting this am. Off sedation, awake and tracking, not following commands. Patient does have history of MR, patient is functional and can voice her needs per the caregiver. No seizure like activity reported, EEG and Neurology consult pending. Continue IV Keppra. Patient remains afebrile and hemodynamicaly stable. PRN hydralazine added for hypertension. Continue current IV steroids, and empiric IV Abx. ID consulted for further rec for COVID infection. Renal function and CKP are improving post IVF hydration, continue IVF resuscitation. K repleted, continue to monitor electrolytes and replete as needed. Plan for PSV trial today, plan to wean for possible extubation per CCM. 04/14: Remains stable on the vent. No seizures like activities reported in the last 48hrs. Neurology recommendation noted. Patient tolerated PSV trial yesterday. Continue daily PSV trial, plan to wean for possible extubation per CCM. Hypertensive this am low dose BB added for BP control. Continue IV rojas roids, on Rocephin and Remdeservir per ID. 04/15: Remains stable on the vent. Tolerating PSV trial this am, plan for possibe extubation today per CCM. Remains hypertensive with refractory tachycardia with PRN hydralazine. On BB and Lisinopril added for better control. PRN switched to IV labetalol for SBP greater than 160. FWF increased for hypernatremia and K repleted, continue to monitor electrolytes and replete as needed. 04/16: s/p extubation, stable on RA. Currently nonverbal with Generalized weakness, however was able to shake head for yes or no this am. Lisinopril increased for BP control, continue low dose BB. Pending speech swallow eval, continue enteral nutrition via DHT for now. PT/OT also consulted for debility and discharge planning. Patient is stable for transfer to the floor. 04/17: Patient still with low grade fever, tolerating room air, ID and Pulmonary input noted, today will be Day 5 of Remdesivir and will complete antibiotics ceftriaxone also. If continued fever will likely need extension.Patient currently under treatment for COVID induced respiratory failure with hypoxia s/p extubation and also Sepsis secondary to Acute cystitis and COVID 19. No new seizure disorder. She does have a hx of MR and seizure as noted above. Leukocytosis is improved. I advised her Niece about her care so far and follow with PCP in one week of discharged. If tolerating diet and no new fever in 24 hrs, she can be discharged. We did discuss CODE STATUS on her again and she did affirm full code. 04/18: Awaiting speech evaluation. patient appears very lethargic still. Low grade fever and tachycardia noted overnight. Appears very dehydrated, will order NS 50 0 cc x 1. Will order repeat labs. She has completed remdesivir, rocephin for covid tx. 04/19: More alert today. Close to baseline mentation. Patient is a strict NPO due to concern for aspiration per ST assessment. Will place consultation to gastroenterology for PEG tube. Spoke with POA/cousin Samara Castro ([phone]) who agreed with plan for PEG. Dispo for patient is [facility] vs SNF. CM working on referrals. Assessment and Plan #Status Epilepticus #H/o Seizure Disorder #H/o Mental Retardation(MR) - Multifactorial - Patient with UTI and COVID positive - Per records from 09/2021, patient phenytoin level was elevated last admit and meds was held. Patient was D/Dany with PO Keppra BID - CT head/brain with chronic encephalomalacia/surgical changes in the frontal lobes. No acute intracranial abnormality. - Treated underlying cause, currently on empiric IV abx. ID consulted - Intubated, awake and tracking. S/p Versed gtt. - Continue keppra - EEG pending - Neurology consult, appreciate recommendation - Per Neuro- continue Keppra 750mg IV q 12 hours for now once awake and patient able to take oral medications - switch to 1000 mg PO Keppra BID - PRN Ativan for seizure like activities - Frequent reorientation - Aspiration and Seizure precaution - PRN Analgesia for CPOT greater than 3 - Maintenance of sleep-wake cycle #Acute Hypoxic Respiratory Failure - Intubated in the ED on 04/12 for airway protection secondary to above - s/p extubation on 04/16, stable on RA this am - CCM consulted, appreciate recommendations - Aspiration precaution HOB above 30 - PRN ABG and CXR - Continue SPO2 monitoring for SPO2 goal above 92% - PRN O2 supplementation as needed #Sepsis #Possible RLL Pneumonia #Coronavirus Infection #Urinary Tract Infection(UTI)/Cystitis - COVID PCR came back positive - CT reveal right lower lobe infiltrate vs atelectasis - UA consistent with UTI, CT scan shows mild bladder wall thickening suggesting cystitis - COVID PCR came back positive - Blood cultures and sputum culture pending - Patient is afebrile, Leukocytosis improved, VSS - On IV steroids and empiric IV Abx - ID consulted, appreciate recommendations - Remdesevir added - F/U on cultures - Daily CBC monitor #Rhabdomyolysis - Probably due to multiple seizures - s/p IVF resuscitation, CPK improved - Trend CPK #Acute Kidney Injury(JONA) most likely Vasomotor Nephropathy #Hypokalemia - probably secondary to above - Per records, baseline scr is 1.1, Scr. as high as 3.2 this admit - Renal function back to baseline post IVF hydration - Strict intake and output - Avoid nephrotoxic medications; Renally dose medications - Monitor and replace electrolytes as needed - Trend BMP #Hypertension - Remains hypertensive - Continue low dose BB, lisinopril increased for better control - Continue blood pressure monitor per protocol - PRN Hydralazine for SBP greater than 160 - Might benefits from antihypertensive regimen at discharge #GI/DVT Prophylaxis - PPI- Pepcid - Heparin SubQ - SCD to bilateral lower extremities while in bed #Advance Care Planning - Disease education data, care plan, diagnoses, and prognosis were discussed with patient's cousin and caregiver via phone. Patient is a FULL code. Patient's family acknowledged understanding and agreed with current care plan. History Interval history: No acute overnight events. Hospitalist Physical - Physical exam Narrative exam: Constitutional: no acute distress, other (middle aged female with normal respiratory effort at rest) Eyes: non-icteric ENT: oropharynx dry, NG in place Neck: supple, no lymphadenopathy, no JVD Effort: normal Ascultation: Bilateral: clear, diminished breath sounds Percussion: Bilateral: not dull Cardiovascular: regular rate and rhythm Gastrointestinal: normoactive bowel sounds, soft, non-tender, non-distended, Integumentary: normal Extremities: no cyanosis, no edema, pulses normal, no ischemia or petechiae Neurologic: pupils equal and round, CN II-XII normal Psychiatric: other (flat affect), baseline MR - Constitutional Vitals: Temp Pulse Resp BP Pulse Ox 99.5 F 114 H 18 154/82 100 04/18/22 23:49 04/18/22 23:51 04/18/22 23:49 04/18/22 23:51 04/18/22 23:49 General appearance: Present: no acute distress, well-nourished, obese, other (on the vent) Results - Labs CBC & Chem 7: 04/19/22 10:21 04/19/22 10:21 Labs: Laboratory Last Values WBC 11.0 K/mm3 (4.5-11.0) 04/16/22 05:00 RBC 3.74 M/mm3 (3.65-5.03) 04/16/22 05:00 Hgb 11.6 gm/dl (10.1-14.3) 04/16/22 05:00 Hct 34.5 % (30.3-42.9) 04/16/22 05:00 MCV 92 fl (79-97) 04/16/22 05:00 MCH 31 pg (28-32) 04/16/22 05:00 MCHC 34 % (30-34) 04/16/22 05:00 RDW 14.2 % (13.2-15.2) 04/16/22 05:00 Plt Count 271 K/mm3 (140-440) 04/16/22 05:00 Add Manual Diff Complete 04/13/22 03:44 Total Counted 100 04/13/22 03:44 Seg Neutrophils % Route Contractor 04/13/22 03:44 Seg Neuts % (Manual) 97.0 % (40.0-70.0) H 04/13/22 03:44 Band Neutrophils % 0 % 04/13/22 03:44 Lymphocytes % (Manual) 2.0 % (13.4-35.0) L 04/13/22 03:44 Reactive Lymphs % (Man) 0 % 04/13/22 03:44 Monocytes % (Manual) 1.0 % (0.0-7.3) 04/13/22 03:44 Eosinophils % (Manual) 0 % (0.0-4.3) 04/13/22 03:44 Basophils % (Manual) 0 % (0.0-1.8) 04/13/22 03:44 Metamyelocytes % 0 % 04/13/22 03:44 Myelocytes % 0 % 04/13/22 03:44 Promyelocytes % 0 % 04/13/22 03:44 Blast Cells % 0 % 04/13/22 03:44 Nucleated RBC % Not Reportable 04/13/22 03:44 Seg Neutrophils # Man 18.1 K/mm3 (1.8-7.7) H 04/13/22 03:44 Band Neutrophils # 0.0 K/mm3 04/13/22 03:44 Lymphocytes # (Manual) 0.4 K/mm3 (1.2-5.4) L 04/13/22 03:44 Abs React Lymphs (Man) 0.0 K/mm3 04/13/22 03:44 Monocytes # (Manual) 0.2 K/mm3 (0.0-0.8) 04/13/22 03:44 Eosinophils # (Manual) 0.0 K/mm3 (0.0-0.4) 04/13/22 03:44 Basophils # (Manual) 0.0 K/mm3 (0.0-0.1) 04/13/22 03:44 Metamyelocytes # 0.0 K/mm3 04/13/22 03:44 Myelocytes # 0.0 K/mm3 04/13/22 03:44 Promyelocytes # 0.0 K/mm3 04/13/22 03:44 Blast Cells # 0.0 K/mm3 04/13/22 03:44 WBC Morphology Not Reportable 04/13/22 03:44 Hypersegmented Neuts Not Reportable 04/13/22 03:44 Hyposegmented Neuts Not Reportable 04/13/22 03:44 Hypogranular Neuts Not Reportable 04/13/22 03:44 Smudge Cells Not Reportable 04/13/22 03:44 Toxic Granulation Not Reportable 04/13/22 03:44 Toxic Vacuolation Not Reportable 04/13/22 03:44 Dohle Bodies Not Reportable 04/13/22 03:44 Pelger-Huet Anomaly Not Reportable 04/13/22 03:44 Neeta Rods Not Reportable 04/13/22 03:44 Platelet Estimate Consistent w auto 04/13/22 03:44 Clumped Platelets Not Reportable 04/13/22 03:44 Plt Clumps, EDTA Not Reportable 04/13/22 03:44 Large Platelets Not Reportable 04/13/22 03:44 Giant Platelets Not Reportable 04/13/22 03:44 Platelet Satelliting Not Reportable 04/13/22 03:44 Plt Morphology Comment Not Reportable 04/13/22 03:44 RBC Morphology Not Reportable 04/13/22 03:44 Dimorphic RBCs Not Reportable 04/13/22 03:44 Polychromasia Not Reportable 04/13/22 03:44 Hypochromasia Not Reportable 04/13/22 03:44 Poikilocytosis Not Reportable 04/13/22 03:44 Anisocytosis Not Reportable 04/13/22 03:44 Microcytosis Not Reportable 04/13/22 03:44 Macrocytosis Not Reportable 04/13/22 03:44 Spherocytes Not Reportable 04/13/22 03:44 Pappenheimer Bodies Not Reportable 04/13/22 03:44 Sickle Cells Not Reportable 04/13/22 03:44 Target Cells Not Reportable 04/13/22 03:44 Tear Drop Cells Not Reportable 04/13/22 03:44 Ovalocytes Not Reportable 04/13/22 03:44 Helmet Cells Not Reportable 04/13/22 03:44 Feng-Lovell Bodies Not Reportable 04/13/22 03:44 [place] Rings Not Reportable 04/13/22 03:44 [place] Cells Not Reportable 04/13/22 03:44 Bite Cells Not Reportable 04/13/22 03:44 Crenated Cell Not Reportable 04/13/22 03:44 Elliptocytes Not Reportable 04/13/22 03:44 Acanthocytes (Spur) Not Reportable 04/13/22 03:44 Rouleaux Not Reportable 04/13/22 03:44 Hemoglobin C Crystals Not Reportable 04/13/22 03:44 Schistocytes Not Reportable 04/13/22 03:44 Malaria parasites Not Reportable 04/13/22 03:44 Sanjay Bodies Not Reportable 04/13/22 03:44 Hem Pathologist Commnt No 04/13/22 03:44 PT 15.3 Sec. (12.2-14.9) H 04/12/22 09:11 INR 1.09 (0.87-1.13) 04/12/22 09:11 APTT 27.4 Sec. (24.2-36.6) 04/12/22 09:11 ABG pH 7.408 pH Units (7.350-7.450) 04/15/22 12:35 ABG pCO2 43.3 mm Hg 04/15/22 12:35 ABG pO2 110.6 mm Hg (80.0-90.0) H 04/15/22 12:35 ABG HCO3 26.7 mmol/L (20.0-26.0) H 04/15/22 12:35 ABG O2 Saturation 98.0 % (95.0-99.0) 04/15/22 12:35 ABG O2 Content 11.8 (0.0-44) 04/15/22 12:35 ABG Base Excess 1.8 mmol/L (-2.0-3.0) 04/15/22 12:35 ABG Hemoglobin 8.6 gm/dl (12.0-16.0) L 04/15/22 12:35 ABG Carboxyhemoglobin 1.0 % (0.0-5.0) 04/15/22 12:35 ABG Methemoglobin 0.5 % (0.0-1.5) 04/15/22 12:35 Oxyhemoglobin 96.5 % (95.0-99.0) 04/15/22 12:35 FiO2 30 % 04/15/22 12:35 Sodium 142 mmol/L (137-145) 04/17/22 08:20 Potassium 3.6 mmol/L (3.6-5.0) 04/17/22 08:20 Chloride 102.9 mmol/L (98-107) 04/17/22 08:20 Carbon Dioxide 30 mmol/L (22-30) 04/17/22 08:20 Anion Gap 13 mmol/L 04/17/22 08:20 BUN 30 mg/dL (7-17) H 04/17/22 08:20 Creatinine 0.7 mg/dL (0.6-1.2) 04/17/22 08:20 Estimated GFR > 60 ml/min 04/17/22 08:20 BUN/Creatinine Ratio 43 % 04/17/22 08:20 Glucose 117 mg/dL (65-100) H 04/17/22 08:20 POC Glucose 123 mg/dL (70-105) H 04/18/22 23:33 Lactic Acid 1.60 mmol/L (0.7-2.0) 04/12/22 11:42 Calcium 9.0 mg/dL (8.4-10.2) 04/17/22 08:20 Phosphorus 3.10 mg/dL (2.5-4.5) 04/17/22 08:20 Magnesium 1.70 mg/dL (1.7-2.3) 04/17/22 08:20 Ferritin 318.6 ng/mL (10.0-200.0) H 04/14/22 04:04 Total Bilirubin 0.40 mg/dL (0.1-1.2) 04/16/22 05:00 AST 34 units/L (5-40) 04/16/22 05:00 ALT 26 units/L (7-56) 04/16/22 05:00 Alkaline Phosphatase 92 units/L (35-129) 04/16/22 05:00 Total Creatine Kinase 377 units/L (30-135) H 04/16/22 05:00 Total Creatine Kinase 535 units/L (30-135) H 04/16/22 05:00 C-Reactive Protein 9.70 mg/dL (0.00-1.30) H 04/14/22 04:04 Total Protein 6.9 g/dL (6.3-8.2) 04/16/22 05:00 Albumin 3.4 g/dL (3.9-5) L 04/16/22 05:00 Albumin/Globulin Ratio 1.0 % 04/16/22 05:00 Procalcitonin 1.92 ng/mL (<0.15) 04/14/22 04:04 Urine Color Yellow (Yellow) 04/12/22 Unknown Urine Turbidity Cloudy (Clear) 04/12/22 Unknown Specific [place] (Man) 1.020 (1.003-1.030) 04/12/22 Unknown Ur Protein (Man) 4+ mg/dL (Negative) 04/12/22 Unknown Ur Ketones (Man) Negative (Negative) 04/12/22 Unknown Ur Nitrite (Man) Negative (Negative) 04/12/22 Unknown Ur Reducing Substances Not Reportable 04/12/22 Unknown Urine Bilirubin (Man) Negative (Negative) 04/12/22 Unknown Urine Ictotest Not Reportable 04/12/22 Unknown Leukocyte Esterase (Man) Large (Negative) 04/12/22 Unknown Urine WBC (Auto) < 182.0 /HPF (0.0-6.0) H 04/12/22 Unknown Urine RBC (Auto) 60.0 /HPF (0.0-6.0) 04/12/22 Unknown U Epithel Cells (Auto) 12.0 /HPF (0-13.0) 04/12/22 Unknown Urine RBC (Manual) 3+ (Negative) 04/12/22 Unknown Urine WBC Clumps 3+ /HPF 04/12/22 Unknown Urine Mucus 3+ /HPF 04/12/22 Unknown Salicylates < 0.3 mg/dL (2.8-20.0) L 04/12/22 09:11 Acetaminophen 5.0 ug/mL (10.0-30.0) L 04/12/22 09:11 Phenytoin 1.2 ug/mL (10.0-20.0) L 04/12/22 09:11 Valproic Acid < 2.8 ug/mL (50-100) L 04/12/22 09:11 Levetiracetam <2.0 mcg/mL (6.0-46.0) L 04/12/22 14:34 Plasma/Serum Alcohol < 0.01 % (0-0.07) 04/12/22 09:11 SARS-CoV-2 (PCR) Positive (Negative) A 04/12/22 10:56 Mckeon/IV: Voiding Method External Female Catheter Active Medications - Current Medications Current Medications: Generic Name Dose Route Start Last Admin Trade Name Freq PRN Reason Stop Dose Admin Acetaminophen 650 mg 04/12/22 12:38 04/16/22 23:44 Acetaminophen 325 Mg Tab PO 650 mg Q6H PRN Administration Pain MILD(1-3)/Fever >100.5/VALLADARES Albuterol 2.5 mg 04/12/22 12:38 Albuterol 2.5 Mg/3 Ml Nebu IH Q3HRT PRN Shortness Of Breath Dexamethasone 6 mg 04/15/22 10:00 04/18/22 10:14 Dexamethasone 4 Mg/Ml Vial IV 04/22/22 10:01 6 mg Q24HR ISIAH Administration Docusate Sodium 100 mg 04/15/22 22:00 04/18/22 23:56 Docusate Sodium 100 Mg/10 Ml Oral Liqd PO 100 mg BID ISIAH Administration Famotidine 20 mg 04/15/22 22:00 04/18/22 23:50 Famotidine 20 Mg Tab FEEDTUBE 20 mg BID ISIAH Administration Heparin Sodium (Porcine) 5,000 unit 04/12/22 22:00 04/18/22 23:56 Heparin 5,000 Unit/1 Ml Vial SUB-Q 5,000 unit Q12HR ISIAH Administration Hydromorphone HCl 0.5 mg 04/14/22 10:48 04/15/22 08:34 Hydromorphone 0.5 Mg/0.5 Ml Inj IV 0.5 mg Q6H PRN Administration Pain , Severe (7-10) Hydrophilic Ointment 1 applic 04/12/22 09:35 Lip Therapy Vaseline TP Q2HR PRN Dry Lips Labetalol HCl 10 mg 04/15/22 09:00 04/16/22 05:05 Labetalol 20 Mg/4 Ml Inj IV 10 mg Q4H PRN Administration Hypertension Levetiracetam 750 mg 04/15/22 22:00 04/18/22 23:55 Levetiracetam 500 Mg/5 Ml Oral Liqd FEEDTUBE 750 mg BID ISIAH Administration Lisinopril 10 mg 04/16/22 10:00 04/18/22 10:25 Lisinopril 5 Mg Tab PO 10 mg QDAY ISIAH Administration Metoprolol Tartrate 12.5 mg 04/14/22 16:13 04/18/22 23:51 Metoprolol Tartrate 25 Mg Tab PO 12.5 mg BID ISIAH Administration Multi-Ingred Cream/Lotion/Oil/Oint 1 applic 04/12/22 09:35 Mineral Oil/Petrolatum, White Ophth Oint 3.5 Gm OU Q4HR PRN Dry Eye(s) Ondansetron HCl 4 mg 04/12/22 12:38 Ondansetron 4 Mg/2 Ml Inj IV Q8H PRN Nausea And Vomiting Oxycodone/Acetaminophen 1 tab 04/12/22 12:38 04/13/22 22:27 Oxycodone /Acetaminophen 5-325mg Tab PO 1 tab Q16H PRN Administration Pain, Moderate (4-6) Senna/Docusate Sodium 2 tab 04/15/22 17:30 04/18/22 23:50 Sennosides/Docusate Sodium 8.6/50 Mg Tab FEEDTUBE 2 tab BID ISIAH Administration Sodium Chloride 10 ml 04/12/22 22:00 04/18/22 23:56 Sodium Chloride 0.9% 10 Ml Flush Syringe IV 10 ml BID ISIAH Administration Sodium Chloride 10 ml 04/12/22 12:38 Sodium Chloride 0.9% 10 Ml Flush Syringe IV PRN PRN LINE FLUSH Nutrition/Malnutrition Assess - Dietary Evaluation Nutrition/Malnutrition Findings: Nutrition Notes Start: 04/12/22 16:12 Freq: Status: Active Protocol: Document 04/18/22 14:13 JOSI (Rec: 04/18/22 15:00 JOSI [id number]) Nutrition Notes Initial or Follow up Reassessment Other Pertinent Diagnosis Seizures, COVID-19, UTI, Mental Disability. Current Diet TF-Vital AF 1.2 Dajuan @ 60 ml/hr (since D 04/14). Labs/Tests 04/18: BUN 30, Glu 117. Pertinent Medications 04/18: Nutritionally unremarkable. Height 5 ft 8 in Weight 113.3 kg [place] Body Weight (kg) 63.63 BMI 38.0 Weight change and time frame No body weight change reported in 1 week. Weight Status Obese Subjective/Other Information RD consult for routine F/U on TF tolerance/continuation assessment. TF continues as prescribed, and well tolerated, according to RN notes. Pt is on Room Air, O2 saturation @ 100%, according to Physical Assessment History notes. I will reassess TF prescription, since Pt is no longer on Mechanical Ventilation support. MAIL MANAGER note on 04/18/22 14:19: Swallowing function has been assessed. Patient demonstrates a severe oral/pharyngeal phase swallowing dysfunction and is at significant risk for aspiration. Continue NPO status. - END OF NOTE. Pt remains incontinent, according to Physical Assessment History notes. Percent of energy/protein needs met: Prescribed TF-Vital AF 1.2 Dajuan @ 65 ml/hr provides for energy/protein needs (1,740 Kcal/109 g) during LOS, 96% Kcal; 101% AA. Burn Absent Trauma Absent GI Symptoms Other Food Allergy No Skin Integrity/Comment R-Hip wound. Current % PO Other Minimum of two criteria No Fluid Accumulation N/A Reduced First Aid Attendant Strength N/A (non-severe) Protein-Calorie Malnutrition N\A #2 Nutrition Diagnosis Swallowing difficulty Etiology Possibly mental disability As Evidenced by Signs and Symptoms MAIL MANAGER note on 04/18/22 14:19: Swallowing function has been assessed. Patient demonstrates a severe oral/pharyngeal phase swallowing dysfunction and is at significant risk for aspiration. Continue NPO status. - END OF NOTE. #1 Nutrition Diagnosis Inadequate oral intake Comments: Pt is on Room Air, O2 saturation @ 100%, according to Physical Assessment History notes. Diagnosis Progress(for reassessment Resolved documentation) Is patient on ventilator? No Is Patient Ambulatory and/or Out of Bed No REE-([facility]-confined to bed) 2135.724 Kcal/Kg value to use for calculation 16 Approximate Energy Requirements Using 1813 kcal/Kg Calculation Used for Recommendations Kcal/kg Additional Notes Protein: 1-1.2 g/Kg AdjBW; 90- 108 g/day. Fluids: 1 ml/Kcal, or as per MD. Nutrition Intervention Nutrition Support: Continue TF-Vital AF 1.2 Dajuan @ 60 ml/hr. Flush: 100 ml water Q 4 hr, or as per MD. Kcal 1,740 Protein (gm) 109 Carbohydrates (gm) 160 Fat (gm) 78 Fluid (mL) 1,176 Fiber (gm) 7 % RDI: 96% Kcal; 101% AA. Goal #1 Provide at least 75% of energy /protein needs through Enteral Feeding during LOS. Goal #2 Adjust the dietary intervention to better serve Pt's needs and clinical conditions during LOS. Follow-Up By: 04/25/22 Additional Comments Continue monitoring TF tolerance and BM.
[2022-04-19] MEDS: levETIRAcetam 500 MG/5 ML ORAL LIQD FEEDTUBE SCH ×2 (10:28→23:13)
[2022-04-19] MEDS: METOPROLOL TARTRATE 25 MG TAB PO SCH ×2 (10:28→23:13)
[2022-04-19] MEDS: SENNOSIDES/DOCUSATE SODIUM 8.6/50 MG TAB FEEDTUBE SCH ×2 (10:28→23:14)
[2022-04-19] MEDS: FAMOTIDINE 20 MG TAB FEEDTUBE SCH ×2 (10:28→23:14)
[2022-04-19] MEDS: LISINOPRIL 5 MG TAB PO SCH (10:29)
[2022-04-19] MEDS: DOCUSATE SODIUM 100 MG/10 ML ORAL LIQD PO SCH ×2 (10:29→23:13)
[2022-04-19] MEDS: dexAMETHasone 4 MG/ML VIAL IV SCH (10:29)
--- NOTE | 2022-04-19 10:29 | Progress Note ---
Assessment and Plan Cultures: SARS CoV2 PCR: Positive 04/12/2022 blood culture: 1 out of 4 bottles with coagulase-negative staph 04/13/2022 sputum culture: Normal respiratory fani A/P: 57-year-old female with morbid obesity, seizure disorder, smoker: #COVID-19 infection: Chest x-ray appears clear. Was intubated for airway protection. CRP 9.7, ferritin 318. #Coag-neg Staph bacteremia: contaminant. #Acute hypoxic respiratory failure: On the vent. Extubated. #UTI: UA showed pyuria, CT showed bladder wall thickening consistent with cystitis. #SIRS versus sepsis: Likely secondary to above and status epilepticus #Seizures Recs: -s/p Remdesivir, ceftriaxone -on room air Angel Alas MD, [facility] O: [phone] F: [phone] C: [phone] Subjective Date of service: 04/19/22 Principal diagnosis: Acute hypoxemic respiratory failure; COVID-19 infxn; UTI; Mental disability Interval history: Remains afebrile, on room air. Objective - Exam Narrative Exam: Physical Exam (reviewed in chart to minimize risk of transmission) Constitutional: deferred Head, Ears, Nose: deferred Eyes: deferred Neck: deferred Oral: deferred Cardiovascular: deferred Respiratory: deferred GI: deferred Musculoskeletal: deferred Skin: deferred Hem/Lymphatic: deferred Psych: deferred Neurological: deferred - Constitutional Vitals: Vital Signs Temp Pulse Resp BP Pulse Ox 99.5 F 114 H 18 154/82 100 04/18/22 23:49 04/18/22 23:51 04/18/22 23:49 04/18/22 23:51 04/18/22 23:49 Temperature -Last 24 Hours Temperature 99.5 F Temperature 97.7 F - Labs CBC & Chem 7: 04/16/22 05:00 04/17/22 08:20 Labs: Abnormal lab results 04/18/22 04/18/22 04/18/22 Range/Units 07:05 11:34 18:14 POC Glucose 121 H 150 H 123 H (70-105) mg/dL 04/18/22 04/19/22 Range/Units 23:33 06:10 POC Glucose 123 H 130 H (70-105) mg/dL
[2022-04-19] MEDS: HEPARIN 5,000 UNIT/1 ML VIAL SUB-Q SCH ×2 (10:30→23:14)
[2022-04-19 11:40] LABS: Basophils % (Auto) 0.2 % (0.0-1.8); Eosinophils # (Auto) 0.1 K/mm3 (0.0-0.4); Eosinophils % (Auto) 0.6 % (0.0-4.3); Hematocrit 32.2 % (30.3-42.9); Hemoglobin 10.7 gm/dl (10.1-14.3); Lymphocytes % (Auto) 24.1 % (13.4-35.0); Mean Corpuscular HGB Conc 33 % (30-34); Mean Corpuscular Volume 93 fl (79-97); Monocytes # (Auto) 1.1 K/mm3 (0.0-0.8); Monocytes % (Auto) 8.8 % (0.0-7.3); Platelet Count 348 K/mm3 (140-440); Red Blood Count 3.46 M/mm3 (3.65-5.03); Red Cell Distribution Width 14.6 % (13.2-15.2)
[2022-04-19 11:59] LABS: Alanine Aminotransferase 24 units/L (7-56); Albumin 3.3 g/dL (3.9-5); Blood Urea Nitrogen 29 mg/dL (7-17); Calcium 8.7 mg/dL (8.4-10.2); Hemolysis Index 51
[2022-04-19 12:08] LABS: BUN/Creatinine Ratio 48
--- NOTE | 2022-04-19 13:21 | Progress Note ---
Assessment and Plan 57 YO Female with Obesity, MR, Nicotine Dependence, Seizure Disorder presents to ED for evaluation. Patient is intubated and on ventilatory support . As per family the patient was found to have multiple recurrent seizures and EMS was n otified and upon arrival the patient was found to be in distress and subsequently transported to [facility] for further care and evaluation of the aforementioned symptoms. Patient found to have multiple recurrent seizures while in the emergency department which is consistent with status epilepticus. Patient also was found to become hypoxic and and unable to protect her airway. The patient was found to have acute hypoxemic respiratory failure and was intubated and placed on ventilatory support. The patient was also found to have coronavirus infection, as well as urinary tract infection. No reports of fever, chills, chest pain, palpitation, trauma. Patient has surgical history of craniotomy. According to the chart, patient has history of smoking. No history of alcohol or drug abuse. No known drug allergies. Patient extubated and transfered to medical floor. Patient sleeping at this time. Not responding to verbal stimuli. Patient is on room air. O2 saturation running 94%. No acute respiratory distress. Patient running low grade temp. No leukocytosis. Blood pressure 107/76 , Pulse 109 , respirations 20. Chest xray done 04/16/22 reported Interval extubation with improved aeration of th e lungs. Patient is on I/V decadron, S/C Heparin, Famotidine, Albuterol inhaler as needed for shortness of breath. - Patient Problems (1) Acute respiratory failure Current Visit: Yes Status: Acute Plan to address problem: Patient intubated and extubated. Patient presently on room air, O2 saturation 94%. Patient is on I/V decadron. Continue S/C Heparin. Continue famotidine. Continue albuterol inhaler as needed for shortness of breath. (2) Acute renal failure Current Visit: Yes Status: Acute Plan to address problem: Management as per nephrology. (3) Coronavirus infection Current Visit: Yes Status: Acute Plan to address problem: Patient is on Decadron. [place]ner virus Isolation precautions. Management as per ID. (4) Pulmonary infiltrate Current Visit: Yes Status: Acute Plan to address problem: Improved. (5) Seizure Current Visit: Yes Status: Acute Plan to address problem: Management as per neurology. (6) Systemic inflammatory response syndrome (SIRS) Current Visit: Yes Status: Acute Plan to address problem: Patient is on Decadron. Patient received ceftriaxone and zithromax. (7) UTI (urinary tract infection) Current Visit: Yes Status: Acute Qualifiers: Encounter type: initial encounter Plan to address problem: Patient received Ceftriaxone and Zithromax. Subjective Date of service: 04/19/22 Principal diagnosis: Acute hypoxemic respiratory failure; COVID-19 infxn; UTI; Mental disability Interval history: 57 YO Female with Obesity, MR, Nicotine Dependence, Seizure Disorder presents to ED for evaluation. Patient is intubated and on ventilatory support . As per family the patient was found to have multiple recurrent seizures and EMS was notified and upon arrival the patient was found to be in distress and subsequently transported to [facility] for further care and evaluation of the aforementioned symptoms. Patient found to have multiple recurrent seizures while in the emergency department which is consistent with status epilepticus. Patient also was found to become hypoxic and and unable to protect her airway. The patient was found to have acute hypoxemic respiratory failure and was intubated and placed on ventilatory support. The patient was also found to have coronavirus infection, as well as urinary tract infection. No reports of fever, chills, chest pain, palpitation, trauma. Patient has surgical history of craniotomy. According to the chart, patient has history of smoking. No history of alcohol or drug abuse. No known drug allergies. Patient extubated and transfered to medical floor. Patient sleeping at this time. Not responding to verbal stimuli. Patient is on room air. O2 saturation running 94%. No acute respiratory distress. Patient running low grade temp. No leukocytosis. Blood pressure 107/76 , Pulse 109 , respirations 20. Chest xray done 04/16/22 reported Interval extubation with improved aeration of the lungs. Patient is on I/V decadron, S/C Heparin, Famotidine, Albuterol inhaler as needed for shortness of breath. Objective Vital Signs - 12hr 04/19/22 04/19/22 04/19/22 10:00 10:31 12:12 Temperature 99.0 F Pulse Rate 95 H 109 H Respiratory 20 Rate Blood Pressure 107/76 Blood Pressure 130/76 [Right] O2 Sat by Pulse 100 94 Oximetry Constitutional: no acute distress, asleep, other (middle aged female with normal respiratory effort at rest) Eyes: non-icteric ENT: oropharynx moist Neck: supple, no lymphadenopathy, no JVD Effort: normal Ascultation: Bilateral: diminished breath sounds, rhonchi (scant) Percussion: Bilateral: not dull Cardiovascular: regular rate and rhythm Gastrointestinal: normoactive bowel sounds, soft, non-tender, non-distended Integumentary: normal Extremities: no cyanosis, no edema, pulses normal, no ischemia or petechiae Neurologic: pupils equal and round, CN II-XII normal Psychiatric: other (Sleeping, Not responding to verbal stimuli.) CBC and BMP: 04/19/22 10:21 04/19/22 10:21 ABG, PT/INR, D-dimer: ABG ABG pH 7.408 pH Units (7.350-7.450) 04/15/22 12:35 ABG pCO2 43.3 mm Hg 04/15/22 12:35 ABG pO2 110.6 mm Hg (80.0-90.0) H 04/15/22 12:35 ABG O2 Saturation 98.0 % (95.0-99.0) 04/15/22 12:35 PT/INR, D-dimer PT 15.3 Sec. (12.2-14.9) H 04/12/22 09:11 INR 1.09 (0.87-1.13) 04/12/22 09:11 Abnormal lab findings: Abnormal Labs 04/12/22 04/12/22 04/12/22 09:11 09:11 09:11 WBC 12.8 H RBC [place] % (Auto) [place] # (Auto) Seg Neuts % (Manual) 83.0 H Lymphocytes % (Manual) 12.0 L Seg Neutrophils # Seg Neutrophils # Man 10.6 H Lymphocytes # (Manual) PT ABG pO2 ABG HCO3 ABG Base Excess ABG Hemoglobin Sodium 148 H Potassium Chloride 107.2 H Carbon Dioxide 21 L BUN 37 H Creatinine 3.2 H Glucose 102 H POC Glucose Lactic Acid Calcium Phosphorus Ferritin AST 48 H Total Creatine Kinase C-Reactive Protein Total Protein 9.0 H Albumin Urine WBC (Auto) Salicylates < 0.3 L Acetaminophen Phenytoin 1.2 L Valproic Acid < 2.8 L Levetiracetam SARS-CoV-2 (PCR) 04/12/22 04/12/22 04/12/22 09:11 09:11 09:38 WBC RBC [place] % (Auto) [place] # (Auto) Seg Neuts % (Manual) Lymphocytes % (Manual) Seg Neutrophils # Seg Neutrophils # Man Lymphocytes # (Manual) PT 15.3 H ABG pO2 ABG HCO3 ABG Base Excess ABG Hemoglobin Sodium Potassium Chloride Carbon Dioxide BUN Creatinine Glucose POC Glucose Lactic Acid 3.30 H* Calcium Phosphorus Ferritin AST Total Creatine Kinase C-Reactive Protein Total Protein Albumin Urine WBC (Auto) Salicylates Acetaminophen 5.0 L Phenytoin Valproic Acid Levetiracetam SARS-CoV-2 (PCR) 04/12/22 04/12/22 04/12/22 10:56 11:29 11:42 WBC RBC [place] % (Auto) [place] # (Auto) Seg Neuts % (Manual) Lymphocytes % (Manual) Seg Neutrophils # Seg Neutrophils # Man Lymphocytes # (Manual) PT ABG pO2 152.6 H ABG HCO3 ABG Base Excess -4.2 L ABG Hemoglobin Sodium Potassium Chloride Carbon Dioxide BUN Creatinine Glucose POC Glucose Lactic Acid Calcium Phosphorus Ferritin AST Total Creatine Kinase 1568 H C-Reactive Protein Total Protein Albumin Urine WBC (Auto) Salicylates Acetaminophen Phenytoin Valproic Acid Levetiracetam SARS-CoV-2 (PCR) Positive A 04/12/22 04/12/22 04/13/22 14:34 Unknown 00:56 WBC RBC [place] % (Auto) [place] # (Auto) Seg Neuts % (Manual) Lymphocytes % (Manual) Seg Neutrophils # Seg Neutrophils # Man Lymphocytes # (Manual) PT ABG pO2 ABG HCO3 ABG Base Excess ABG Hemoglobin Sodium Potassium Chloride Carbon Dioxide BUN Creatinine Glucose POC Glucose 111 H Lactic Acid Calcium Phosphorus Ferritin AST Total Creatine Kinase C-Reactive Protein Total Protein Albumin Urine WBC (Auto) < 182.0 H Salicylates Acetaminophen Phenytoin Valproic Acid Levetiracetam <2.0 L SARS-CoV-2 (PCR) 04/13/22 04/13/22 04/13/22 03:44 03:44 04:15 WBC 18.7 H RBC [place] % (Auto) [place] # (Auto) Seg Neuts % (Manual) 97.0 H Lymphocytes % (Manual) 2.0 L Seg Neutrophils # Seg Neutrophils # Man 18.1 H Lymphocytes # (Manual) 0.4 L PT ABG pO2 135.1 H ABG HCO3 ABG Base Excess -2.7 L ABG Hemoglobin 11.9 L Sodium Potassium 3.3 L D Chloride 107.2 H Carbon Dioxide BUN 41 H Creatinine 1.4 H D Glucose 123 H POC Glucose Lactic Acid Calcium Phosphorus Ferritin AST Total Creatine Kinase C-Reactive Protein Total Protein Albumin Urine WBC (Auto) Salicylates Acetaminophen Phenytoin Valproic Acid Levetiracetam SARS-CoV-2 (PCR) 04/13/22 04/13/22 04/13/22 11:47 15:45 18:18 WBC RBC [place] % (Auto) [place] # (Auto) Seg Neuts % (Manual) Lymphocytes % (Manual) Seg Neutrophils # Seg Neutrophils # Man Lymphocytes # (Manual) PT ABG pO2 119.0 H ABG HCO3 ABG Base Excess -3.7 L ABG Hemoglobin 11.8 L Sodium Potassium 5.1 H D Chloride 107.5 H Carbon Dioxide 14 L D BUN 36 H Creatinine Glucose 104 H POC Glucose 119 H Lactic Acid Calcium Phosphorus Ferritin AST 47 H Total Creatine Kinase C-Reactive Protein Total Protein Albumin 3.6 L Urine WBC (Auto) Salicylates Acetaminophen Phenytoin Valproic Acid Levetiracetam SARS-CoV-2 (PCR) 04/14/22 04/14/22 04/14/22 00:06 04:04 04:04 WBC 18.2 H RBC [place] % (Auto) [place] # (Auto) Seg Neuts % (Manual) Lymphocytes % (Manual) Seg Neutrophils # Seg Neutrophils # Man Lymphocytes # (Manual) PT ABG pO2 ABG HCO3 ABG Base Excess ABG Hemoglobin Sodium Potassium Chloride 107.6 H Carbon Dioxide BUN 33 H Creatinine Glucose 148 H POC Glucose 120 H Lactic Acid Calcium Phosphorus Ferritin AST Total Creatine Kinase 807 H C-Reactive Protein 9.70 H Total Protein Albumin Urine WBC (Auto) Salicylates Acetaminophen Phenytoin Valproic Acid Levetiracetam SARS-CoV-2 (PCR) 04/14/22 04/14/22 04/14/22 04:04 04:04 05:06 WBC RBC [place] % (Auto) [place] # (Auto) Seg Neuts % (Manual) Lymphocytes % (Manual) Seg Neutrophils # Seg Neutrophils # Man Lymphocytes # (Manual) PT ABG pO2 ABG HCO3 ABG Base Excess ABG Hemoglobin Sodium Potassium Chloride 108.8 H Carbon Dioxide BUN 34 H Creatinine Glucose 149 H POC Glucose 143 H Lactic Acid Calcium Phosphorus Ferritin 318.6 H AST Total Creatine Kinase C-Reactive Protein Total Protein Albumin 3.6 L Urine WBC (Auto) Salicylates Acetaminophen Phenytoin Valproic Acid Levetiracetam SARS-CoV-2 (PCR) 04/14/22 04/14/22 04/14/22 12:04 14:45 18:12 WBC RBC [place] % (Auto) [place] # (Auto) Seg Neuts % (Manual) Lymphocytes % (Manual) Seg Neutrophils # Seg Neutrophils # Man Lymphocytes # (Manual) PT ABG pO2 100.5 H ABG HCO3 ABG Base Excess ABG Hemoglobin 7.0 L Sodium Potassium Chloride Carbon Dioxide BUN Creatinine Glucose POC Glucose 139 H 120 H Lactic Acid Calcium Phosphorus Ferritin AST Total Creatine Kinase C-Reactive Protein Total Protein Albumin Urine WBC (Auto) Salicylates Acetaminophen Phenytoin Valproic Acid Levetiracetam SARS-CoV-2 (PCR) 04/14/22 04/15/22 04/15/22 23:19 04:31 04:31 WBC 15.7 H RBC [place] % (Auto) [place] # (Auto) Seg Neuts % (Manual) Lymphocytes % (Manual) Seg Neutrophils # Seg Neutrophils # Man Lymphocytes # (Manual) PT ABG pO2 ABG HCO3 ABG Base Excess ABG Hemoglobin Sodium 146 H Potassium 3.5 L Chloride 110.6 H Carbon Dioxide BUN 28 H Creatinine Glucose 116 H POC Glucose 122 H Lactic Acid Calcium Phosphorus Ferritin AST Total Creatine Kinase C-Reactive Protein Total Protein Albumin 3.8 L Urine WBC (Auto) Salicylates Acetaminophen Phenytoin Valproic Acid Levetiracetam SARS-CoV-2 (PCR) 04/15/22 04/15/22 04/15/22 05:19 11:52 12:35 WBC RBC [place] % (Auto) [place] # (Auto) Seg Neuts % (Manual) Lymphocytes % (Manual) Seg Neutrophils # Seg Neutrophils # Man Lymphocytes # (Manual) PT ABG pO2 110.6 H ABG HCO3 26.7 H ABG Base Excess ABG Hemoglobin 8.6 L Sodium Potassium Chloride Carbon Dioxide BUN Creatinine Glucose POC Glucose 124 H 133 H Lactic Acid Calcium Phosphorus Ferritin AST Total Creatine Kinase C-Reactive Protein Total Protein Albumin Urine WBC (Auto) Salicylates Acetaminophen Phenytoin Valproic Acid Levetiracetam SARS-CoV-2 (PCR) 04/15/22 04/16/22 04/16/22 18:08 00:07 05:00 WBC RBC [place] % (Auto) [place] # (Auto) Seg Neuts % (Manual) Lymphocytes % (Manual) Seg Neutrophils # Seg Neutrophils # Man Lymphocytes # (Manual) PT ABG pO2 ABG HCO3 ABG Base Excess ABG Hemoglobin Sodium Potassium Chloride Carbon Dioxide BUN 26 H Creatinine Glucose 102 H POC Glucose 139 H 114 H Lactic Acid Calcium Phosphorus 1.90 L Ferritin AST Total Creatine Kinase 377 H C-Reactive Protein Total Protein Albumin 3.4 L Urine WBC (Auto) Salicylates Acetaminophen Phenytoin Valproic Acid Levetiracetam SARS-CoV-2 (PCR) 04/16/22 04/16/22 04/16/22 05:00 11:43 17:24 WBC RBC [place] % (Auto) [place] # (Auto) Seg Neuts % (Manual) Lymphocytes % (Manual) Seg Neutrophils # Seg Neutrophils # Man Lymphocytes # (Manual) PT ABG pO2 ABG HCO3 ABG Base Excess ABG Hemoglobin Sodium 136 L Potassium Chloride Carbon Dioxide BUN 26 H Creatinine Glucose 104 H POC Glucose 128 H 134 H Lactic Acid Calcium 8.2 L Phosphorus Ferritin AST Total Creatine Kinase 535 H C-Reactive Protein Total Protein Albumin Urine WBC (Auto) Salicylates Acetaminophen Phenytoin Valproic Acid Levetiracetam SARS-CoV-2 (PCR) 04/16/22 04/17/22 04/17/22 23:44 06:14 08:11 WBC RBC [place] % (Auto) [place] # (Auto) Seg Neuts % (Manual) Lymphocytes % (Manual) Seg Neutrophils # Seg Neutrophils # Man Lymphocytes # (Manual) PT ABG pO2 ABG HCO3 ABG Base Excess ABG Hemoglobin Sodium Potassium Chloride Carbon Dioxide BUN Creatinine Glucose POC Glucose 139 H 125 H 127 H Lactic Acid Calcium Phosphorus Ferritin AST Total Creatine Kinase C-Reactive Protein Total Protein Albumin Urine WBC (Auto) Salicylates Acetaminophen Phenytoin Valproic Acid Levetiracetam SARS-CoV-2 (PCR) 04/17/22 04/17/22 04/17/22 08:20 10:25 23:57 WBC RBC [place] % (Auto) [place] # (Auto) Seg Neuts % (Manual) Lymphocytes % (Manual) Seg Neutrophils # Seg Neutrophils # Man Lymphocytes # (Manual) PT ABG pO2 ABG HCO3 ABG Base Excess ABG Hemoglobin Sodium Potassium Chloride Carbon Dioxide BUN 30 H Creatinine Glucose 117 H POC Glucose 118 H 135 H Lactic Acid Calcium Phosphorus Ferritin AST Total Creatine Kinase C-Reactive Protein Total Protein Albumin Urine WBC (Auto) Salicylates Acetaminophen Phenytoin Valproic Acid Levetiracetam SARS-CoV-2 (PCR) 04/18/22 04/18/22 04/18/22 07:05 11:34 18:14 WBC RBC [place] % (Auto) [place] # (Auto) Seg Neuts % (Manual) Lymphocytes % (Manual) Seg Neutrophils # Seg Neutrophils # Man Lymphocytes # (Manual) PT ABG pO2 ABG HCO3 ABG Base Excess ABG Hemoglobin Sodium Potassium Chloride Carbon Dioxide BUN Creatinine Glucose POC Glucose 121 H 150 H 123 H Lactic Acid Calcium Phosphorus Ferritin AST Total Creatine Kinase C-Reactive Protein Total Protein Albumin Urine WBC (Auto) Salicylates Acetaminophen Phenytoin Valproic Acid Levetiracetam SARS-CoV-2 (PCR) 04/18/22 04/19/22 04/19/22 23:33 06:10 10:21 WBC 12.4 H RBC 3.46 L [place] % (Auto) 8.8 H [place] # (Auto) 1.1 H Seg Neuts % (Manual) Lymphocytes % (Manual) Seg Neutrophils # 8.2 H Seg Neutrophils # Man Lymphocytes # (Manual) PT ABG pO2 ABG HCO3 ABG Base Excess ABG Hemoglobin Sodium Potassium Chloride Carbon Dioxide BUN Creatinine Glucose POC Glucose 123 H 130 H Lactic Acid Calcium Phosphorus Ferritin AST Total Creatine Kinase C-Reactive Protein Total Protein Albumin Urine WBC (Auto) Salicylates Acetaminophen Phenytoin Valproic Acid Levetiracetam SARS-CoV-2 (PCR) 04/19/22 10:21 WBC RBC [place] % (Auto) [place] # (Auto) Seg Neuts % (Manual) Lymphocytes % (Manual) Seg Neutrophils # Seg Neutrophils # Man Lymphocytes # (Manual) PT ABG pO2 ABG HCO3 ABG Base Excess ABG Hemoglobin Sodium Potassium 3.5 L Chloride Carbon Dioxide BUN 29 H Creatinine Glucose 122 H POC Glucose Lactic Acid Calcium Phosphorus Ferritin AST Total Creatine Kinase C-Reactive Protein Total Protein Albumin 3.3 L Urine WBC (Auto) Salicylates Acetaminophen Phenytoin Valproic Acid Levetiracetam SARS-CoV-2 (PCR) Chest x-ray: report reviewed, image reviewed Additional Studies: CHEST 1 VIEW 04/16/2022 1:41 AM INDICATION / CLINICAL INFORMATION: follow up respiratory failure. COMPARISON: One view of the chest from 04/15/2022. FINDINGS: SUPPORT DEVICES: The ET tube has been removed. The NG tube has been exchanged with the tip of the tube located over the distal gastric body. HEART / MEDIASTINUM: No significant abnormality. LUNGS / PLEURA: Bilateral pulmonary opacities have nearly completely resolved. No significant pleural effusion. No pneumothorax. ADDITIONAL FINDINGS: No significant additional findings. IMPRESSION: 1. Interval extubation with improved aeration of the lungs. 2. Additional findings as above. Allied health notes reviewed: nursing
--- NOTE | 2022-04-20 07:26 | Progress Note ---
Assessment and Plan Assessment and plan: Assessment and plan: This is a 57-year-old female with known past medical history of MR, obesity, nicotine dependence, seizure disorder admitted for status epilepticus and was in tubated in the ED for airway protection Hospital Course to Date: 04/13: Stable on low vent setting this am. Off sedation, awake and tracking, not following commands. Patient does have history of MR, patient is functional and can voice her needs per the caregiver. No seizure like activity reported, EEG and Neurology consult pending. Continue IV Keppra. Patient remains afebrile and hemodynamicaly stable. PRN hydralazine added for hypertension. Continue current IV steroids, and empiric IV Abx. ID consulted for further rec for COVID infection. Renal function and CKP are improving post IVF hydration, continue IVF resuscitation. K repleted, continue to monitor electrolytes and replete as needed. Plan for PSV trial today, plan to wean for possible extubation per CCM. 04/14: Remains stable on the vent. No seizures like activities reported in the last 48hrs. Neurology recommendation noted. Patient tolerated PSV trial yesterday. Continue daily PSV trial, plan to wean for possible extubation per CCM. Hypertensive this am low dose BB added for BP control. Continue IV rojas roids, on Rocephin and Remdeservir per ID. 04/15: Remains stable on the vent. Tolerating PSV trial this am, plan for possibe extubation today per CCM. Remains hypertensive with refractory tachycardia with PRN hydralazine. On BB and Lisinopril added for better control. PRN switched to IV labetalol for SBP greater than 160. FWF increased for hypernatremia and K repleted, continue to monitor electrolytes and replete as needed. 04/16: s/p extubation, stable on RA. Currently nonverbal with Generalized weakness, however was able to shake head for yes or no this am. Lisinopril increased for BP control, continue low dose BB. Pending speech swallow eval, continue enteral nutrition via DHT for now. PT/OT also consulted for debility and discharge planning. Patient is stable for transfer to the floor. 04/17: Patient still with low grade fever, tolerating room air, ID and Pulmonary input noted, today will be Day 5 of Remdesivir and will complete antibiotics ceftriaxone also. If continued fever will likely need extension.Patient currently under treatment for COVID induced respiratory failure with hypoxia s/p extubation and also Sepsis secondary to Acute cystitis and COVID 19. No new seizure disorder. She does have a hx of MR and seizure as noted above. Leukocytosis is improved. I advised her Niece about her care so far and follow with PCP in one week of discharged. If tolerating diet and no new fever in 24 hrs, she can be discharged. We did discuss CODE STATUS on her again and she did affirm full code. 04/18: Awaiting speech evaluation. patient appears very lethargic still. Low grade fever and tachycardia noted overnight. Appears very dehydrated, will order NS 50 0 cc x 1. Will order repeat labs. She has completed remdesivir, rocephin for covid tx. 04/19: More alert today. Close to baseline mentation. Patient is a strict NPO due to concern for aspiration per ST assessment. Will place consultation to gastroenterology for PEG tube. Spoke with POA/cousin Samara Castro ([phone]) who agreed with plan for PEG tube. Dispo for patient is [facility] vs SNF. CM working on referrals. 04/20: No new changes overnight. D/w with GI. Plan for PEG tube on Sunday. Assessment and Plan #Dysphagia - aspiriation risk per Speech therapy, recommend NPO - GI consult for PEG tube. #Status Epilepticus (resolved) #H/o Seizure Disorder #H/o Mental Retardation(MR) - Multifactorial - Patient with UTI and COVID positive - Per records from 09/2021, patient phenytoin level was elevated last admit and meds was held. Patient was D/Dany with PO Keppra BID - CT head/brain with chronic encephalomalacia/surgical changes in the frontal lobes. No acute intracranial abnormality. - Treated underlying cause, currently on empiric IV abx. ID consulted - Intubated, awake and tracking. S/p Versed gtt. - Continue keppra - EEG pending - Neurology consult, appreciate recommendation - Per Neuro- continue Keppra 750mg IV q 12 hours for now once awake and patient able to take oral medications - switch to 1000 mg PO Keppra BID - PRN Ativan for seizure like activities - Frequent reorientation - Aspiration and Seizure precaution - PRN Analgesia for CPOT greater than 3 - Maintenance of sleep-wake cycle #Acute Hypoxic Respiratory Failure (resolved) - Intubated in the ED on 04/12 for airway protection secondary to above - s/p extubation on 04/16, stable on RA this am - CCM consulted, appreciate recommendations - Aspiration precaution HOB above 30 - PRN ABG and CXR - Continue SPO2 monitoring for SPO2 goal above 92% - PRN O2 supplementation as needed #Sepsis (resolved) #Viral Pneumonia #COVID 19 Pneumonia #Coronavirus Infection #Urinary Tract Infection(UTI)/Cystitis - COVID PCR came back positive - CT reveal right lower lobe infiltrate vs atelectasis - UA consistent with UTI, CT scan shows mild bladder wall thickening suggesting cystitis - COVID PCR came back positive - Blood cultures and sputum culture pending - Patient is afebrile, Leukocytosis improved, VSS - On IV steroids and empiric IV Abx - ID consulted, completed therapy with rocephin and remdesivir. - Bcx: NGTD - trend fever curve, no fevers since 04/16. #Rhabdomyolysis - Probably due to multiple seizures - s/p IVF resuscitation, CPK improved - Trend CPK #Acute Kidney Injury(JONA) most likely Vasomotor Nephropathy (resolved) #Hypokalemia - probably secondary to above - Per records, baseline scr is 1.1, Scr. as high as 3.2 this admit - Renal function back to baseline post IVF hydration - Strict intake and output - Avoid nephrotoxic medications; Renally dose medications - Monitor and replace electrolytes as needed - Trend BMP #Hypertension - Remains hypertensive - Continue low dose BB, lisinopril increased for better control - Continue blood pressure monitor per protocol - PRN Hydralazine for SBP greater than 160 - Might benefits from antihypertensive regimen at discharge #GI/DVT Prophylaxis - PPI- Pepcid - Heparin SubQ - SCD to bilateral lower extremities while in bed #Advance Care Planning - Disease education data, care plan, diagnoses, and prognosis were discussed with patient's cousin and caregiver via phone. Patient is a FULL code. Patient's family acknowledged understanding and agreed with current care plan. Disposition: [facility] vs SNF History Interval history: No overnight events or issues. Hospitalist Physical - Physical exam Narrative exam: Constitutional: no acute distress, other (middle aged female with normal resp iratory effort at rest) Eyes: non-icteric ENT: oropharynx dry, NG in place Neck: supple, no lymphadenopathy, no JVD Effort: normal Ascultation: Bilateral: clear, diminished breath sounds Percussion: Bilateral: not dull Cardiovascular: regular rate and rhythm Gastrointestinal: normoactive bowel sounds, soft, non-tender, non-distended, Integumentary: normal Extremities: no cyanosis, no edema, pulses normal, no ischemia or petechiae Neurologic: pupils equal and round, CN II-XII normal Psychiatric: other (flat affect), baseline MR - Constitutional Vitals: Temp Pulse Resp BP Pulse Ox 98.9 F 104 H 16 100/57 95 04/20/22 04:36 04/20/22 04:36 04/20/22 04:36 04/20/22 04:36 04/20/22 04:36 General appearance: Present: no acute distress, well-nourished, obese, other (on the vent) Results - Labs CBC & Chem 7: 04/19/22 10:21 04/19/22 10:21 Labs: Laboratory Last Values WBC 12.4 K/mm3 (4.5-11.0) H 04/19/22 10:21 RBC 3.46 M/mm3 (3.65-5.03) L 04/19/22 10:21 Hgb 10.7 gm/dl (10.1-14.3) 04/19/22 10:21 Hct 32.2 % (30.3-42.9) 04/19/22 10:21 MCV 93 fl (79-97) 04/19/22 10:21 MCH 31 pg (28-32) 04/19/22 10:21 MCHC 33 % (30-34) 04/19/22 10:21 RDW 14.6 % (13.2-15.2) 04/19/22 10:21 Plt Count 348 K/mm3 (140-440) 04/19/22 10:21 Lymph % (Auto) 24.1 % (13.4-35.0) 04/19/22 10:21 [place] % (Auto) 8.8 % (0.0-7.3) H 04/19/22 10:21 Eos % (Auto) 0.6 % (0.0-4.3) 04/19/22 10:21 Baso % (Auto) 0.2 % (0.0-1.8) 04/19/22 10:21 Lymph # (Auto) 3.0 K/mm3 (1.2-5.4) 04/19/22 10:21 [place] # (Auto) 1.1 K/mm3 (0.0-0.8) H 04/19/22 10:21 Eos # (Auto) 0.1 K/mm3 (0.0-0.4) 04/19/22 10:21 Baso # (Auto) 0.0 K/mm3 (0.0-0.1) 04/19/22 10:21 Add Manual Diff Complete 04/13/22 03:44 Total Counted 100 04/13/22 03:44 Seg Neutrophils % 66.3 % (40.0-70.0) 04/19/22 10:21 Seg Neuts % (Manual) 97.0 % (40.0-70.0) H 04/13/22 03:44 Band Neutrophils % 0 % 04/13/22 03:44 Lymphocytes % (Manual) 2.0 % (13.4-35.0) L 04/13/22 03:44 Reactive Lymphs % (Man) 0 % 04/13/22 03:44 Monocytes % (Manual) 1.0 % (0.0-7.3) 04/13/22 03:44 Eosinophils % (Manual) 0 % (0.0-4.3) 04/13/22 03:44 Basophils % (Manual) 0 % (0.0-1.8) 04/13/22 03:44 Metamyelocytes % 0 % 04/13/22 03:44 Myelocytes % 0 % 04/13/22 03:44 Promyelocytes % 0 % 04/13/22 03:44 Blast Cells % 0 % 04/13/22 03:44 Nucleated RBC % Not Reportable 04/13/22 03:44 Seg Neutrophils # 8.2 K/mm3 (1.8-7.7) H 04/19/22 10:21 Seg Neutrophils # Man 18.1 K/mm3 (1.8-7.7) H 04/13/22 03:44 Band Neutrophils # 0.0 K/mm3 04/13/22 03:44 Lymphocytes # (Manual) 0.4 K/mm3 (1.2-5.4) L 04/13/22 03:44 Abs React Lymphs (Man) 0.0 K/mm3 04/13/22 03:44 Monocytes # (Manual) 0.2 K/mm3 (0.0-0.8) 04/13/22 03:44 Eosinophils # (Manual) 0.0 K/mm3 (0.0-0.4) 04/13/22 03:44 Basophils # (Manual) 0.0 K/mm3 (0.0-0.1) 04/13/22 03:44 Metamyelocytes # 0.0 K/mm3 04/13/22 03:44 Myelocytes # 0.0 K/mm3 04/13/22 03:44 Promyelocytes # 0.0 K/mm3 04/13/22 03:44 Blast Cells # 0.0 K/mm3 04/13/22 03:44 WBC Morphology Not Reportable 04/13/22 03:44 Hypersegmented Neuts Not Reportable 04/13/22 03:44 Hyposegmented Neuts Not Reportable 04/13/22 03:44 Hypogranular Neuts Not Reportable 04/13/22 03:44 Smudge Cells Not Reportable 04/13/22 03:44 Toxic Granulation Not Reportable 04/13/22 03:44 Toxic Vacuolation Not Reportable 04/13/22 03:44 Dohle Bodies Not Reportable 04/13/22 03:44 Pelger-Huet Anomaly Not Reportable 04/13/22 03:44 Neeta Rods Not Reportable 04/13/22 03:44 Platelet Estimate Consistent w auto 04/13/22 03:44 Clumped Platelets Not Reportable 04/13/22 03:44 Plt Clumps, EDTA Not Reportable 04/13/22 03:44 Large Platelets Not Reportable 04/13/22 03:44 Giant Platelets Not Reportable 04/13/22 03:44 Platelet Satelliting Not Reportable 04/13/22 03:44 Plt Morphology Comment Not Reportable 04/13/22 03:44 RBC Morphology Not Reportable 04/13/22 03:44 Dimorphic RBCs Not Reportable 04/13/22 03:44 Polychromasia Not Reportable 04/13/22 03:44 Hypochromasia Not Reportable 04/13/22 03:44 Poikilocytosis Not Reportable 04/13/22 03:44 Anisocytosis Not Reportable 04/13/22 03:44 Microcytosis Not Reportable 04/13/22 03:44 Macrocytosis Not Reportable 04/13/22 03:44 Spherocytes Not Reportable 04/13/22 03:44 Pappenheimer Bodies Not Reportable 04/13/22 03:44 Sickle Cells Not Reportable 04/13/22 03:44 Target Cells Not Reportable 04/13/22 03:44 Tear Drop Cells Not Reportable 04/13/22 03:44 Ovalocytes Not Reportable 04/13/22 03:44 Helmet Cells Not Reportable 04/13/22 03:44 Feng-Macon Bodies Not Reportable 04/13/22 03:44 [place] Rings Not Reportable 04/13/22 03:44 Raj Cells Not Reportable 04/13/22 03:44 Bite Cells Not Reportable 04/13/22 03:44 Crenated Cell Not Reportable 04/13/22 03:44 Elliptocytes Not Reportable 04/13/22 03:44 Acanthocytes (Spur) Not Reportable 04/13/22 03:44 Rouleaux Not Reportable 04/13/22 03:44 Hemoglobin C Crystals Not Reportable 04/13/22 03:44 Schistocytes Not Reportable 04/13/22 03:44 Malaria parasites Not Reportable 04/13/22 03:44 Sanjay Bodies Not Reportable 04/13/22 03:44 Hem Pathologist Commnt No 04/13/22 03:44 PT 15.3 Sec. (12.2-14.9) H 04/12/22 09:11 INR 1.09 (0.87-1.13) 04/12/22 09:11 APTT 27.4 Sec. (24.2-36.6) 04/12/22 09:11 ABG pH 7.408 pH Units (7.350-7.450) 04/15/22 12:35 ABG pCO2 43.3 mm Hg 04/15/22 12:35 ABG pO2 110.6 mm Hg (80.0-90.0) H 04/15/22 12:35 ABG HCO3 26.7 mmol/L (20.0-26.0) H 04/15/22 12:35 ABG O2 Saturation 98.0 % (95.0-99.0) 04/15/22 12:35 ABG O2 Content 11.8 (0.0-44) 04/15/22 12:35 ABG Base Excess 1.8 mmol/L (-2.0-3.0) 04/15/22 12:35 ABG Hemoglobin 8.6 gm/dl (12.0-16.0) L 04/15/22 12:35 ABG Carboxyhemoglobin 1.0 % (0.0-5.0) 04/15/22 12:35 ABG Methemoglobin 0.5 % (0.0-1.5) 04/15/22 12:35 Oxyhemoglobin 96.5 % (95.0-99.0) 04/15/22 12:35 FiO2 30 % 04/15/22 12:35 Sodium 140 mmol/L (137-145) 04/19/22 10:21 Potassium 3.5 mmol/L (3.6-5.0) L 04/19/22 10:21 Chloride 102.6 mmol/L (98-107) 04/19/22 10:21 Carbon Dioxide 27 mmol/L (22-30) 04/19/22 10:21 Anion Gap 14 mmol/L 04/19/22 10:21 BUN 29 mg/dL (7-17) H 04/19/22 10:21 Creatinine 0.6 mg/dL (0.6-1.2) 04/19/22 10:21 Estimated GFR > 60 ml/min 04/19/22 10:21 BUN/Creatinine Ratio 48 % 04/19/22 10:21 Glucose 122 mg/dL (65-100) H 04/19/22 10:21 POC Glucose 129 mg/dL (70-105) H 04/19/22 23:46 Lactic Acid 1.60 mmol/L (0.7-2.0) 04/12/22 11:42 Calcium 8.7 mg/dL (8.4-10.2) 04/19/22 10:21 Phosphorus 3.10 mg/dL (2.5-4.5) 04/17/22 08:20 Magnesium 1.70 mg/dL (1.7-2.3) 04/17/22 08:20 Ferritin 318.6 ng/mL (10.0-200.0) H 04/14/22 04:04 Total Bilirubin 0.40 mg/dL (0.1-1.2) 04/19/22 10:21 AST 30 units/L (5-40) 04/19/22 10:21 ALT 24 units/L (7-56) 04/19/22 10:21 Alkaline Phosphatase 81 units/L (35-129) 04/19/22 10:21 Total Creatine Kinase 377 units/L (30-135) H 04/16/22 05:00 Total Creatine Kinase 535 units/L (30-135) H 04/16/22 05:00 C-Reactive Protein 9.70 mg/dL (0.00-1.30) H 04/14/22 04:04 Total Protein 6.5 g/dL (6.3-8.2) 04/19/22 10:21 Albumin 3.3 g/dL (3.9-5) L 04/19/22 10:21 Albumin/Globulin Ratio 1.0 % 04/19/22 10:21 Procalcitonin 1.92 ng/mL (<0.15) 04/14/22 04:04 Urine Color Yellow (Yellow) 04/12/22 Unknown Urine Turbidity Cloudy (Clear) 04/12/22 Unknown Specific [place] (Man) 1.020 (1.003-1.030) 04/12/22 Unknown Ur Protein (Man) 4+ mg/dL (Negative) 04/12/22 Unknown Ur Ketones (Man) Negative (Negative) 04/12/22 Unknown Ur Nitrite (Man) Negative (Negative) 04/12/22 Unknown Ur Reducing Substances Not Reportable 04/12/22 Unknown Urine Bilirubin (Man) Negative (Negative) 04/12/22 Unknown Urine Ictotest Not Reportable 04/12/22 Unknown Leukocyte Esterase (Man) Large (Negative) 04/12/22 Unknown Urine WBC (Auto) < 182.0 /HPF (0.0-6.0) H 04/12/22 Unknown Urine RBC (Auto) 60.0 /HPF (0.0-6.0) 04/12/22 Unknown U Epithel Cells (Auto) 12.0 /HPF (0-13.0) 04/12/22 Unknown Urine RBC (Manual) 3+ (Negative) 04/12/22 Unknown Urine WBC Clumps 3+ /HPF 04/12/22 Unknown Urine Mucus 3+ /HPF 04/12/22 Unknown Salicylates < 0.3 mg/dL (2.8-20.0) L 04/12/22 09:11 Acetaminophen 5.0 ug/mL (10.0-30.0) L 04/12/22 09:11 Phenytoin 1.2 ug/mL (10.0-20.0) L 04/12/22 09:11 Valproic Acid < 2.8 ug/mL (50-100) L 04/12/22 09:11 Levetiracetam <2.0 mcg/mL (6.0-46.0) L 04/12/22 14:34 Plasma/Serum Alcohol < 0.01 % (0-0.07) 04/12/22 09:11 SARS-CoV-2 (PCR) Positive (Negative) A 04/12/22 10:56 Mckeon/IV: Voiding Method Diaper Active Medications - Current Medications Current Medications: Generic Name Dose Route Start Last Admin Trade Name Freq PRN Reason Stop Dose Admin Acetaminophen 650 mg 04/12/22 12:38 04/16/22 23:44 Acetaminophen 325 Mg Tab PO 650 mg Q6H PRN Administration Pain MILD(1-3)/Fever >100.5/VALLADARES Albuterol 2.5 mg 04/12/22 12:38 Albuterol 2.5 Mg/3 Ml Nebu IH Q3HRT PRN Shortness Of Breath Dexamethasone 6 mg 04/15/22 10:00 04/19/22 10:29 Dexamethasone 4 Mg/Ml Vial IV 04/22/22 10:01 6 mg Q24HR ISIAH Administration Docusate Sodium 100 mg 04/15/22 22:00 04/19/22 23:13 Docusate Sodium 100 Mg/10 Ml Oral Liqd PO 100 mg BID ISIAH Administration Famotidine 20 mg 04/15/22 22:00 04/19/22 23:14 Famotidine 20 Mg Tab FEEDTUBE 20 mg BID ISIAH Administration Heparin Sodium (Porcine) 5,000 unit 04/12/22 22:00 04/19/22 23:14 Heparin 5,000 Unit/1 Ml Vial SUB-Q 5,000 unit Q12HR ISIAH Administration Hydromorphone HCl 0.5 mg 04/14/22 10:48 04/15/22 08:34 Hydromorphone 0.5 Mg/0.5 Ml Inj IV 0.5 mg Q6H PRN Administration Pain , Severe (7-10) Hydrophilic Ointment 1 applic 04/12/22 09:35 Lip Therapy Vaseline TP Q2HR PRN Dry Lips Labetalol HCl 10 mg 04/15/22 09:00 04/16/22 05:05 Labetalol 20 Mg/4 Ml Inj IV 10 mg Q4H PRN Administration Hypertension Levetiracetam 1,000 mg 04/19/22 10:00 04/19/22 23:13 Levetiracetam 500 Mg/5 Ml Oral Liqd FEEDTUBE 1,000 mg BID ISIAH Administration Lisinopril 10 mg 04/16/22 10:00 04/19/22 10:29 Lisinopril 5 Mg Tab PO 10 mg QDAY ISIAH Administration Metoprolol Tartrate 12.5 mg 04/14/22 16:13 04/19/22 23:13 Metoprolol Tartrate 25 Mg Tab PO 12.5 mg BID ISIAH Administration Multi-Ingred Cream/Lotion/Oil/Oint 1 applic 04/12/22 09:35 Mineral Oil/Petrolatum, White Ophth Oint 3.5 Gm OU Q4HR PRN Dry Eye(s) Ondansetron HCl 4 mg 04/12/22 12:38 Ondansetron 4 Mg/2 Ml Inj IV Q8H PRN Nausea And Vomiting Oxycodone/Acetaminophen 1 tab 04/12/22 12:38 04/13/22 22:27 Oxycodone /Acetaminophen 5-325mg Tab PO 1 tab Q16H PRN Administration Pain, Moderate (4-6) Senna/Docusate Sodium 2 tab 04/15/22 17:30 04/19/22 23:14 Sennosides/Docusate Sodium 8.6/50 Mg Tab FEEDTUBE 2 tab BID ISIAH Administration Sodium Chloride 10 ml 04/12/22 22:00 04/19/22 23:14 Sodium Chloride 0.9% 10 Ml Flush Syringe IV 10 ml BID ISIAH Administration Sodium Chloride 10 ml 04/12/22 12:38 Sodium Chloride 0.9% 10 Ml Flush Syringe IV PRN PRN LINE FLUSH Nutrition/Malnutrition Assess - Dietary Evaluation Nutrition/Malnutrition Findings: Nutrition Notes Start: 04/12/22 16:12 Freq: Status: Active Protocol: Document 04/18/22 14:13 JOSI (Rec: 04/18/22 15:00 JOSI [id number]) Nutrition Notes Initial or Follow up Reassessment Other Pertinent Diagnosis Seizures, COVID-19, UTI, Mental Disability. Current Diet TF-Vital AF 1.2 Dajuan @ 60 ml/hr (since D 04/14). Labs/Tests 04/18: BUN 30, Glu 117. Pertinent Medications 04/18: Nutritionally unremarkable. Height 5 ft 8 in Weight 113.3 kg [place] Body Weight (kg) 63.63 BMI 38.0 Weight change and time frame No body weight change reported in 1 week. Weight Status Obese Subjective/Other Information RD consult for routine F/U on TF tolerance/continuation assessment. TF continues as prescribed, and well tolerated, according to RN notes. Pt is on Room Air, O2 saturation @ 100%, according to Physical Assessment History notes. I will reassess TF prescription, since Pt is no longer on Mechanical Ventilation support. SHIP ENGINEER note on 04/18/22 14:19: Swallowing function has been assessed. Patient demonstrates a severe oral/pharyngeal phase swallowing dysfunction and is at significant risk for aspiration. Continue NPO status. - END OF NOTE. Pt remains incontinent, according to Physical Assessment History notes. Percent of energy/protein needs met: Prescribed TF-Vital AF 1.2 Dajuan @ 65 ml/hr provides for energy/protein needs (1,740 Kcal/109 g) during LOS, 96% Kcal; 101% AA. Burn Absent Trauma Absent GI Symptoms Other Food Allergy No Skin Integrity/Comment R-Hip wound. 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 Patient demonstrates a severe oral/pharyngeal phase swallowing dysfunction and is at significant risk for aspiration. Continue NPO status. - END OF NOTE. #1 Nutrition Diagnosis Inadequate oral intake Comments: Pt is on Room Air, O2 saturation @ 100%, according to Physical Assessment History notes. Diagnosis Progress(for reassessment Resolved documentation) Is patient on ventilator? No Is Patient Ambulatory and/or Out of Bed No [facility] 2135.724 Kcal/Kg value to use for calculation 16 Approximate Energy Requirements Using 1813 kcal/Kg Calculation Used for Recommendations Kcal/kg Additional Notes Protein: 1-1.2 g/Kg AdjBW; 90- 108 g/day. Fluids: 1 ml/Kcal, or as per MD. Nutrition Intervention Nutrition Support: Continue TF-Vital AF 1.2 Dajuan @ 60 ml/hr. Flush: 100 ml water Q 4 hr, or as per MD. Kcal 1,740 Protein (gm) 109 Carbohydrates (gm) 160 Fat (gm) 78 Fluid (mL) 1,176 Fiber (gm) 7 % RDI: 96% Kcal; 101% AA. Goal #1 Provide at least 75% of energy /protein needs through Enteral Feeding during LOS. Goal #2 Adjust the dietary intervention to better serve Pt's needs and clinical conditions during LOS. Follow-Up By: 04/25/22 Additional Comments Continue monitoring TF tolerance and BM.
[2022-04-20] MEDS ORDERED: POTASSIUM CHLORIDE 20 MEQ PACKET FEEDTUBE SCH (08:00)
--- NOTE | 2022-04-20 09:07 | Progress Note ---
Assessment and Plan Cultures: SARS CoV2 PCR: Positive 04/12/2022 blood culture: 1 out of 4 bottles with coagulase-negative staph 04/13/2022 sputum culture: Normal respiratory fani A/P: 57-year-old female with morbid obesity, seizure disorder, smoker: #COVID-19 infection: Chest x-ray appears clear. Was intubated for airway protection. CRP 9.7, ferritin 318. #Coag-neg Staph bacteremia: contaminant. #Acute hypoxic respiratory failure: On the vent. Extubated. #UTI: UA showed pyuria, CT showed bladder wall thickening consistent with cystitis. #SIRS versus sepsis: Likely secondary to above and status epilepticus #Seizures Recs: -s/p Remdesivir, ceftriaxone -complete remainder of steroids Remains on room air. Will sign off. Angel Alas MD, FACP, [facility] ([facility]) O: [phone] F: [phone] C: [phone] Subjective Date of service: 04/20/22 Principal diagnosis: Acute hypoxemic respiratory failure; COVID-19 infxn; UTI; Mental disability Interval history: Remains afebrile, on room air. Objective - Exam Narrative Exam: Physical Exam (reviewed in chart to minimize risk of transmission) Constitutional: deferred Head, Ears, Nose: deferred Eyes: deferred Neck: deferred Oral: deferred Cardiovascular: deferred Respiratory: deferred GI: deferred Musculoskeletal: deferred Skin: deferred Hem/Lymphatic: deferred Psych: deferred Neurological: deferred - Constitutional Vitals: Vital Signs Temp Pulse Resp BP Pulse Ox 98.9 F 104 H 16 100/57 95 04/20/22 04:36 04/20/22 04:36 04/20/22 04:36 04/20/22 04:36 04/20/22 04:36 Temperature -Last 24 Hours Temperature 98.9 F Temperature 99.5 F Temperature 99.5 F Temperature 99.0 F - Labs CBC & Chem 7: 04/19/22 10:21 04/19/22 10:21 Labs: Abnormal lab results 04/19/22 04/19/22 04/19/22 Range/Units 06:10 10:21 10:21 WBC 12.4 H (4.5-11.0) K/mm3 RBC 3.46 L (3.65-5.03) M/mm3 [place] % (Auto) 8.8 H (0.0-7.3) % [place] # (Auto) 1.1 H (0.0-0.8) K/mm3 Seg Neutrophils # 8.2 H (1.8-7.7) K/mm3 Potassium 3.5 L (3.6-5.0) mmol/L BUN 29 H (7-17) mg/dL Glucose 122 H (65-100) mg/dL POC Glucose 130 H (70-105) mg/dL Albumin 3.3 L (3.9-5) g/dL 04/19/22 04/19/22 04/19/22 Range/Units 12:11 16:46 23:46 WBC (4.5-11.0) K/mm3 RBC (3.65-5.03) M/mm3 [place] % (Auto) (0.0-7.3) % [place] # (Auto) (0.0-0.8) K/mm3 Seg Neutrophils # (1.8-7.7) K/mm3 Potassium (3.6-5.0) mmol/L BUN (7-17) mg/dL Glucose (65-100) mg/dL POC Glucose 157 H 149 H 129 H (70-105) mg/dL Albumin (3.9-5) g/dL 04/20/22 Range/Units 05:50 WBC (4.5-11.0) K/mm3 RBC (3.65-5.03) M/mm3 [place] % (Auto) (0.0-7.3) % [place] # (Auto) (0.0-0.8) K/mm3 Seg Neutrophils # (1.8-7.7) K/mm3 Potassium (3.6-5.0) mmol/L BUN (7-17) mg/dL Glucose (65-100) mg/dL POC Glucose 120 H (70-105) mg/dL Albumin (3.9-5) g/dL
[2022-04-20] MEDS: DOCUSATE SODIUM 100 MG/10 ML ORAL LIQD PO SCH ×2 (09:12→22:25)
[2022-04-20] MEDS: FAMOTIDINE 20 MG TAB FEEDTUBE SCH ×2 (09:13→22:26)
[2022-04-20] MEDS: dexAMETHasone 4 MG/ML VIAL IV SCH (09:13)
[2022-04-20] MEDS: levETIRAcetam 500 MG/5 ML ORAL LIQD FEEDTUBE SCH ×2 (09:13→22:25)
[2022-04-20] MEDS: HEPARIN 5,000 UNIT/1 ML VIAL SUB-Q SCH ×2 (09:13→22:27)
[2022-04-20] MEDS: SENNOSIDES/DOCUSATE SODIUM 8.6/50 MG TAB FEEDTUBE SCH ×2 (09:13→22:26)
[2022-04-20] MEDS: METOPROLOL TARTRATE 25 MG TAB PO SCH ×2 (09:13→22:26)
[2022-04-20] MEDS: LISINOPRIL 5 MG TAB PO SCH (12:16)
--- NOTE | 2022-04-20 23:18 | Progress Note ---
Assessment and Plan 57 YO Female with Obesity, MR, Nicotine Dependence, Seizure Disorder presents to ED for evaluation. Patient is intubated and on ventilatory support . As per family the patient was found to have multiple recurrent seizures and EMS was n otified and upon arrival the patient was found to be in distress and subsequently transported to [facility] for further care and evaluation of the aforementioned symptoms. Patient found to have multiple recurrent seizures while in the emergency department which is consistent with status epilepticus. Patient also was found to become hypoxic and and unable to protect her airway. The patient was found to have acute hypoxemic respiratory failure and was intubated and placed on ventilatory support. The patient was also found to have coronavirus infection, as well as urinary tract infection. No reports of fever, chills, chest pain, palpitation, trauma. Patient has surgical history of craniotomy. According to the chart, patient has history of smoking. No history of alcohol or drug abuse. No known drug allergies. Patient extubated and transfered to medical floor. Patient sleeping at this time. Not responding to verbal stimuli. Patient is on room air. O2 saturation running 97%. No acute respiratory distress. Patient aebrile. Has leukocytosis. Blood pressure 104/65 , Pulse 101 , respirations 22. Chest xray done 04/16/22 reported Interval extubation with improved aeration of the lungs. Patient is on I/V decadron, S/C Heparin, Famotidine, Albuterol inhaler as needed for shortness of breath. - Patient Problems (1) Acute respiratory failure Current Visit: Yes Status: Acute Plan to address problem: Patient intubated and extubated. Patient presently on room air, O2 saturation 97%. Patient is on I/V decadron. Continue S/C Heparin. Continue famotidine. Continue albuterol inhaler as needed for shortness of breath. (2) Acute renal failure Current Visit: Yes Status: Acute Plan to address problem: Management as per nephrology. (3) Coronavirus infection Current Visit: Yes Status: Acute Plan to address problem: Patient is on Decadron. Garner virus Isolation precautions. Management as per ID. (4) Pulmonary infiltrate Current Visit: Yes Status: Acute Plan to address problem: Improved. (5) Seizure Current Visit: Yes Status: Acute Plan to address problem: Management as per neurology. (6) Systemic inflammatory response syndrome (SIRS) Current Visit: Yes Status: Acute Plan to address problem: Patient is on Decadron. Patient received ceftriaxone and zithromax. (7) UTI (urinary tract infection) Current Visit: Yes Status: Acute Qualifiers: Encounter type: initial encounter Plan to address problem: Patient received Ceftriaxone and Zithromax. Subjective Date of service: 04/20/22 Principal diagnosis: Acute hypoxemic respiratory failure; COVID-19 infxn; UTI; Mental disability Interval history: 57 YO Female with Obesity, MR, Nicotine Dependence, Seizure Disorder presents to ED for evaluation. Patient is intubated and on ventilatory support . As per family the patient was found to have multiple recurrent seizures and EMS was notified and upon arrival the patient was found to be in distress and subsequently transported to [facility] for further care and evaluation of the aforementioned symptoms. Patient found to have multiple recurrent seizures while in the emergency department which is consistent with status epilepticus. Patient also was found to become hypoxic and and unable to protect her airway. The patient was found to have acute hypoxemic respiratory failure and was intubated and placed on ventilatory support. The patient was also found to have coronavirus infection, as well as urinary tract infection. No reports of fever, chills, chest pain, palpitation, trauma. Patient has surgical history of craniotomy. According to the chart, patient has history of smoking. No history of alcohol or drug abuse. No known drug allergies. Patient extubated and transfered to medical floor. Patient sleeping at this time. Not responding to verbal stimuli. Patient is on room air. O2 saturation running 97%. No acute respiratory distress. Patient aebrile. Has leukocytosis. Blood pressure 104/65 , Pulse 101 , respirations 22. Chest xray done 04/16/22 reported Interval extubation with improved aeration of the lungs. Patient is on I/V decadron, S/C Heparin, Famotidine, Albuterol inhaler as needed for shortness of breath. Objective Vital Signs - 12hr 04/20/22 04/20/22 04/20/22 12:08 17:52 22:00 Temperature 98.3 F 98.8 F Pulse Rate 101 H 113 H Respiratory 22 24 Rate Blood Pressure 104/65 121/77 Blood Pressure [Right] O2 Sat by Pulse 97 94 94 Oximetry 04/20/22 04/20/22 22:23 22:26 Temperature 98.7 F Pulse Rate 110 H 110 H Respiratory 19 Rate Blood Pressure 138/77 Blood Pressure 138/77 [Right] O2 Sat by Pulse 94 Oximetry Constitutional: no acute distress, asleep, other (middle aged female with normal respiratory effort at rest) Eyes: non-icteric ENT: oropharynx moist Neck: supple, no lymphadenopathy, no JVD Effort: normal Ascultation: Bilateral: diminished breath sounds, rhonchi (scant) Percussion: Bilateral: not dull Cardiovascular: regular rate and rhythm Gastrointestinal: normoactive bowel sounds, soft, non-tender, non-distended Integumentary: normal Extremities: no cyanosis, no edema, pulses normal, no ischemia or petechiae Neurologic: pupils equal and round, CN II-XII normal Psychiatric: other (Sleeping, Not responding to verbal stimuli.) CBC and BMP: 04/19/22 10:21 04/19/22 10:21 ABG, PT/INR, D-dimer: ABG ABG pH 7.408 pH Units (7.350-7.450) 04/15/22 12:35 ABG pCO2 43.3 mm Hg 04/15/22 12:35 ABG pO2 110.6 mm Hg (80.0-90.0) H 04/15/22 12:35 ABG O2 Saturation 98.0 % (95.0-99.0) 04/15/22 12:35 PT/INR, D-dimer PT 15.3 Sec. (12.2-14.9) H 04/12/22 09:11 INR 1.09 (0.87-1.13) 04/12/22 09:11 Abnormal lab findings: Abnormal Labs 04/12/22 04/12/22 04/12/22 09:11 09:11 09:11 WBC 12.8 H RBC Gooding % (Auto) Gooding # (Auto) Seg Neuts % (Manual) 83.0 H Lymphocytes % (Manual) 12.0 L Seg Neutrophils # Seg Neutrophils # Man 10.6 H Lymphocytes # (Manual) PT ABG pO2 ABG HCO3 ABG Base Excess ABG Hemoglobin Sodium 148 H Potassium Chloride 107.2 H Carbon Dioxide 21 L BUN 37 H Creatinine 3.2 H Glucose 102 H POC Glucose Lactic Acid Calcium Phosphorus Ferritin AST 48 H Total Creatine Kinase C-Reactive Protein Total Protein 9.0 H Albumin Urine WBC (Auto) Salicylates < 0.3 L Acetaminophen Phenytoin 1.2 L Valproic Acid < 2.8 L Levetiracetam SARS-CoV-2 (PCR) 04/12/22 04/12/22 04/12/22 09:11 09:11 09:38 WBC RBC Gooding % (Auto) Gooding # (Auto) Seg Neuts % (Manual) Lymphocytes % (Manual) Seg Neutrophils # Seg Neutrophils # Man Lymphocytes # (Manual) PT 15.3 H ABG pO2 ABG HCO3 ABG Base Excess ABG Hemoglobin Sodium Potassium Chloride Carbon Dioxide BUN Creatinine Glucose POC Glucose Lactic Acid 3.30 H* Calcium Phosphorus Ferritin AST Total Creatine Kinase C-Reactive Protein Total Protein Albumin Urine WBC (Auto) Salicylates Acetaminophen 5.0 L Phenytoin Valproic Acid Levetiracetam SARS-CoV-2 (PCR) 04/12/22 04/12/22 04/12/22 10:56 11:29 11:42 WBC RBC Gooding % (Auto) Gooding # (Auto) Seg Neuts % (Manual) Lymphocytes % (Manual) Seg Neutrophils # Seg Neutrophils # Man Lymphocytes # (Manual) PT ABG pO2 152.6 H ABG HCO3 ABG Base Excess -4.2 L ABG Hemoglobin Sodium Potassium Chloride Carbon Dioxide BUN Creatinine Glucose POC Glucose Lactic Acid Calcium Phosphorus Ferritin AST Total Creatine Kinase 1568 H C-Reactive Protein Total Protein Albumin Urine WBC (Auto) Salicylates Acetaminophen Phenytoin Valproic Acid Levetiracetam SARS-CoV-2 (PCR) Positive A 04/12/22 04/12/22 04/13/22 14:34 Unknown 00:56 WBC RBC Gooding % (Auto) Gooding # (Auto) Seg Neuts % (Manual) Lymphocytes % (Manual) Seg Neutrophils # Seg Neutrophils # Man Lymphocytes # (Manual) PT ABG pO2 ABG HCO3 ABG Base Excess ABG Hemoglobin Sodium Potassium Chloride Carbon Dioxide BUN Creatinine Glucose POC Glucose 111 H Lactic Acid Calcium Phosphorus Ferritin AST Total Creatine Kinase C-Reactive Protein Total Protein Albumin Urine WBC (Auto) < 182.0 H Salicylates Acetaminophen Phenytoin Valproic Acid Levetiracetam <2.0 L SARS-CoV-2 (PCR) 04/13/22 04/13/22 04/13/22 03:44 03:44 04:15 WBC 18.7 H RBC Gooding % (Auto) Gooding # (Auto) Seg Neuts % (Manual) 97.0 H Lymphocytes % (Manual) 2.0 L Seg Neutrophils # Seg Neutrophils # Man 18.1 H Lymphocytes # (Manual) 0.4 L PT ABG pO2 135.1 H ABG HCO3 ABG Base Excess -2.7 L ABG Hemoglobin 11.9 L Sodium Potassium 3.3 L D Chloride 107.2 H Carbon Dioxide BUN 41 H Creatinine 1.4 H D Glucose 123 H POC Glucose Lactic Acid Calcium Phosphorus Ferritin AST Total Creatine Kinase C-Reactive Protein Total Protein Albumin Urine WBC (Auto) Salicylates Acetaminophen Phenytoin Valproic Acid Levetiracetam SARS-CoV-2 (PCR) 04/13/22 04/13/22 04/13/22 11:47 15:45 18:18 WBC RBC Gooding % (Auto) Gooding # (Auto) Seg Neuts % (Manual) Lymphocytes % (Manual) Seg Neutrophils # Seg Neutrophils # Man Lymphocytes # (Manual) PT ABG pO2 119.0 H ABG HCO3 ABG Base Excess -3.7 L ABG Hemoglobin 11.8 L Sodium Potassium 5.1 H D Chloride 107.5 H Carbon Dioxide 14 L D BUN 36 H Creatinine Glucose 104 H POC Glucose 119 H Lactic Acid Calcium Phosphorus Ferritin AST 47 H Total Creatine Kinase C-Reactive Protein Total Protein Albumin 3.6 L Urine WBC (Auto) Salicylates Acetaminophen Phenytoin Valproic Acid Levetiracetam SARS-CoV-2 (PCR) 04/14/22 04/14/22 04/14/22 00:06 04:04 04:04 WBC 18.2 H RBC Gooding % (Auto) Gooding # (Auto) Seg Neuts % (Manual) Lymphocytes % (Manual) Seg Neutrophils # Seg Neutrophils # Man Lymphocytes # (Manual) PT ABG pO2 ABG HCO3 ABG Base Excess ABG Hemoglobin Sodium Potassium Chloride 107.6 H Carbon Dioxide BUN 33 H Creatinine Glucose 148 H POC Glucose 120 H Lactic Acid Calcium Phosphorus Ferritin AST Total Creatine Kinase 807 H C-Reactive Protein 9.70 H Total Protein Albumin Urine WBC (Auto) Salicylates Acetaminophen Phenytoin Valproic Acid Levetiracetam SARS-CoV-2 (PCR) 04/14/22 04/14/22 04/14/22 04:04 04:04 05:06 WBC RBC Gooding % (Auto) Gooding # (Auto) Seg Neuts % (Manual) Lymphocytes % (Manual) Seg Neutrophils # Seg Neutrophils # Man Lymphocytes # (Manual) PT ABG pO2 ABG HCO3 ABG Base Excess ABG Hemoglobin Sodium Potassium Chloride 108.8 H Carbon Dioxide BUN 34 H Creatinine Glucose 149 H POC Glucose 143 H Lactic Acid Calcium Phosphorus Ferritin 318.6 H AST Total Creatine Kinase C-Reactive Protein Total Protein Albumin 3.6 L Urine WBC (Auto) Salicylates Acetaminophen Phenytoin Valproic Acid Levetiracetam SARS-CoV-2 (PCR) 04/14/22 04/14/22 04/14/22 12:04 14:45 18:12 WBC RBC Gooding % (Auto) Gooding # (Auto) Seg Neuts % (Manual) Lymphocytes % (Manual) Seg Neutrophils # Seg Neutrophils # Man Lymphocytes # (Manual) PT ABG pO2 100.5 H ABG HCO3 ABG Base Excess ABG Hemoglobin 7.0 L Sodium Potassium Chloride Carbon Dioxide BUN Creatinine Glucose POC Glucose 139 H 120 H Lactic Acid Calcium Phosphorus Ferritin AST Total Creatine Kinase C-Reactive Protein Total Protein Albumin Urine WBC (Auto) Salicylates Acetaminophen Phenytoin Valproic Acid Levetiracetam SARS-CoV-2 (PCR) 04/14/22 04/15/22 04/15/22 23:19 04:31 04:31 WBC 15.7 H RBC Gooding % (Auto) Gooding # (Auto) Seg Neuts % (Manual) Lymphocytes % (Manual) Seg Neutrophils # Seg Neutrophils # Man Lymphocytes # (Manual) PT ABG pO2 ABG HCO3 ABG Base Excess ABG Hemoglobin Sodium 146 H Potassium 3.5 L Chloride 110.6 H Carbon Dioxide BUN 28 H Creatinine Glucose 116 H POC Glucose 122 H Lactic Acid Calcium Phosphorus Ferritin AST Total Creatine Kinase C-Reactive Protein Total Protein Albumin 3.8 L Urine WBC (Auto) Salicylates Acetaminophen Phenytoin Valproic Acid Levetiracetam SARS-CoV-2 (PCR) 04/15/22 04/15/22 04/15/22 05:19 11:52 12:35 WBC RBC Gooding % (Auto) Gooding # (Auto) Seg Neuts % (Manual) Lymphocytes % (Manual) Seg Neutrophils # Seg Neutrophils # Man Lymphocytes # (Manual) PT ABG pO2 110.6 H ABG HCO3 26.7 H ABG Base Excess ABG Hemoglobin 8.6 L Sodium Potassium Chloride Carbon Dioxide BUN Creatinine Glucose POC Glucose 124 H 133 H Lactic Acid Calcium Phosphorus Ferritin AST Total Creatine Kinase C-Reactive Protein Total Protein Albumin Urine WBC (Auto) Salicylates Acetaminophen Phenytoin Valproic Acid Levetiracetam SARS-CoV-2 (PCR) 04/15/22 04/16/22 04/16/22 18:08 00:07 05:00 WBC RBC Gooding % (Auto) Gooding # (Auto) Seg Neuts % (Manual) Lymphocytes % (Manual) Seg Neutrophils # Seg Neutrophils # Man Lymphocytes # (Manual) PT ABG pO2 ABG HCO3 ABG Base Excess ABG Hemoglobin Sodium Potassium Chloride Carbon Dioxide BUN 26 H Creatinine Glucose 102 H POC Glucose 139 H 114 H Lactic Acid Calcium Phosphorus 1.90 L Ferritin AST Total Creatine Kinase 377 H C-Reactive Protein Total Protein Albumin 3.4 L Urine WBC (Auto) Salicylates Acetaminophen Phenytoin Valproic Acid Levetiracetam SARS-CoV-2 (PCR) 04/16/22 04/16/22 04/16/22 05:00 11:43 17:24 WBC RBC Gooding % (Auto) Gooding # (Auto) Seg Neuts % (Manual) Lymphocytes % (Manual) Seg Neutrophils # Seg Neutrophils # Man Lymphocytes # (Manual) PT ABG pO2 ABG HCO3 ABG Base Excess ABG Hemoglobin Sodium 136 L Potassium Chloride Carbon Dioxide BUN 26 H Creatinine Glucose 104 H POC Glucose 128 H 134 H Lactic Acid Calcium 8.2 L Phosphorus Ferritin AST Total Creatine Kinase 535 H C-Reactive Protein Total Protein Albumin Urine WBC (Auto) Salicylates Acetaminophen Phenytoin Valproic Acid Levetiracetam SARS-CoV-2 (PCR) 04/16/22 04/17/22 04/17/22 23:44 06:14 08:11 WBC RBC Gooding % (Auto) Gooding # (Auto) Seg Neuts % (Manual) Lymphocytes % (Manual) Seg Neutrophils # Seg Neutrophils # Man Lymphocytes # (Manual) PT ABG pO2 ABG HCO3 ABG Base Excess ABG Hemoglobin Sodium Potassium Chloride Carbon Dioxide BUN Creatinine Glucose POC Glucose 139 H 125 H 127 H Lactic Acid Calcium Phosphorus Ferritin AST Total Creatine Kinase C-Reactive Protein Total Protein Albumin Urine WBC (Auto) Salicylates Acetaminophen Phenytoin Valproic Acid Levetiracetam SARS-CoV-2 (PCR) 04/17/22 04/17/22 04/17/22 08:20 10:25 23:57 WBC RBC Gooding % (Auto) Gooding # (Auto) Seg Neuts % (Manual) Lymphocytes % (Manual) Seg Neutrophils # Seg Neutrophils # Man Lymphocytes # (Manual) PT ABG pO2 ABG HCO3 ABG Base Excess ABG Hemoglobin Sodium Potassium Chloride Carbon Dioxide BUN 30 H Creatinine Glucose 117 H POC Glucose 118 H 135 H Lactic Acid Calcium Phosphorus Ferritin AST Total Creatine Kinase C-Reactive Protein Total Protein Albumin Urine WBC (Auto) Salicylates Acetaminophen Phenytoin Valproic Acid Levetiracetam SARS-CoV-2 (PCR) 04/18/22 04/18/22 04/18/22 07:05 11:34 18:14 WBC RBC Gooding % (Auto) Gooding # (Auto) Seg Neuts % (Manual) Lymphocytes % (Manual) Seg Neutrophils # Seg Neutrophils # Man Lymphocytes # (Manual) PT ABG pO2 ABG HCO3 ABG Base Excess ABG Hemoglobin Sodium Potassium Chloride Carbon Dioxide BUN Creatinine Glucose POC Glucose 121 H 150 H 123 H Lactic Acid Calcium Phosphorus Ferritin AST Total Creatine Kinase C-Reactive Protein Total Protein Albumin Urine WBC (Auto) Salicylates Acetaminophen Phenytoin Valproic Acid Levetiracetam SARS-CoV-2 (PCR) 04/18/22 04/19/22 04/19/22 23:33 06:10 10:21 WBC 12.4 H RBC 3.46 L Gooding % (Auto) 8.8 H Gooding # (Auto) 1.1 H Seg Neuts % (Manual) Lymphocytes % (Manual) Seg Neutrophils # 8.2 H Seg Neutrophils # Man Lymphocytes # (Manual) PT ABG pO2 ABG HCO3 ABG Base Excess ABG Hemoglobin Sodium Potassium Chloride Carbon Dioxide BUN Creatinine Glucose POC Glucose 123 H 130 H Lactic Acid Calcium Phosphorus Ferritin AST Total Creatine Kinase C-Reactive Protein Total Protein Albumin Urine WBC (Auto) Salicylates Acetaminophen Phenytoin Valproic Acid Levetiracetam SARS-CoV-2 (PCR) 04/19/22 04/19/22 04/19/22 10:21 12:11 16:46 WBC RBC Gooding % (Auto) Gooding # (Auto) Seg Neuts % (Manual) Lymphocytes % (Manual) Seg Neutrophils # Seg Neutrophils # Man Lymphocytes # (Manual) PT ABG pO2 ABG HCO3 ABG Base Excess ABG Hemoglobin Sodium Potassium 3.5 L Chloride Carbon Dioxide BUN 29 H Creatinine Glucose 122 H POC Glucose 157 H 149 H Lactic Acid Calcium Phosphorus Ferritin AST Total Creatine Kinase C-Reactive Protein Total Protein Albumin 3.3 L Urine WBC (Auto) Salicylates Acetaminophen Phenytoin Valproic Acid Levetiracetam SARS-CoV-2 (PCR) 04/19/22 04/20/22 04/20/22 23:46 05:50 12:06 WBC RBC Gooding % (Auto) Gooding # (Auto) Seg Neuts % (Manual) Lymphocytes % (Manual) Seg Neutrophils # Seg Neutrophils # Man Lymphocytes # (Manual) PT ABG pO2 ABG HCO3 ABG Base Excess ABG Hemoglobin Sodium Potassium Chloride Carbon Dioxide BUN Creatinine Glucose POC Glucose 129 H 120 H 133 H Lactic Acid Calcium Phosphorus Ferritin AST Total Creatine Kinase C-Reactive Protein Total Protein Albumin Urine WBC (Auto) Salicylates Acetaminophen Phenytoin Valproic Acid Levetiracetam SARS-CoV-2 (PCR) 04/20/22 17:50 WBC RBC Gooding % (Auto) Gooding # (Auto) Seg Neuts % (Manual) Lymphocytes % (Manual) Seg Neutrophils # Seg Neutrophils # Man Lymphocytes # (Manual) PT ABG pO2 ABG HCO3 ABG Base Excess ABG Hemoglobin Sodium Potassium Chloride Carbon Dioxide BUN Creatinine Glucose POC Glucose 131 H Lactic Acid Calcium Phosphorus Ferritin AST Total Creatine Kinase C-Reactive Protein Total Protein Albumin Urine WBC (Auto) Salicylates Acetaminophen Phenytoin Valproic Acid Levetiracetam SARS-CoV-2 (PCR) Allied health notes reviewed: nursing
--- NOTE | 2022-04-21 07:57 | Progress Note ---
Assessment and Plan Assessment and plan: Assessment and plan: This is a 57-year-old female with known past medical history of MR, obesity, nicotine dependence, seizure disorder admitted for status epilepticus and was in tubated in the ED for airway protection Hospital Course to Date: 04/13: Stable on low vent setting this am. Off sedation, awake and tracking, not following commands. Patient does have history of MR, patient is functional and can voice her needs per the caregiver. No seizure like activity reported, EEG and Neurology consult pending. Continue IV Keppra. Patient remains afebrile and hemodynamicaly stable. PRN hydralazine added for hypertension. Continue current IV steroids, and empiric IV Abx. ID consulted for further rec for COVID infection. Renal function and CKP are improving post IVF hydration, continue IVF resuscitation. K repleted, continue to monitor electrolytes and replete as needed. Plan for PSV trial today, plan to wean for possible extubation per CCM. 04/14: Remains stable on the vent. No seizures like activities reported in the last 48hrs. Neurology recommendation noted. Patient tolerated PSV trial yesterday. Continue daily PSV trial, plan to wean for possible extubation per CCM. Hypertensive this am low dose BB added for BP control. Continue IV rojas roids, on Rocephin and Remdeservir per ID. 04/15: Remains stable on the vent. Tolerating PSV trial this am, plan for possibe extubation today per CCM. Remains hypertensive with refractory tachycardia with PRN hydralazine. On BB and Lisinopril added for better control. PRN switched to IV labetalol for SBP greater than 160. FWF increased for hypernatremia and K repleted, continue to monitor electrolytes and replete as needed. 04/16: s/p extubation, stable on RA. Currently nonverbal with Generalized weakness, however was able to shake head for yes or no this am. Lisinopril increased for BP control, continue low dose BB. Pending speech swallow eval, continue enteral nutrition via DHT for now. PT/OT also consulted for debility and discharge planning. Patient is stable for transfer to the floor. 04/17: Patient still with low grade fever, tolerating room air, ID and Pulmonary input noted, today will be Day 5 of Remdesivir and will complete antibiotics ceftriaxone also. If continued fever will likely need extension.Patient currently under treatment for COVID induced respiratory failure with hypoxia s/p extubation and also Sepsis secondary to Acute cystitis and COVID 19. No new seizure disorder. She does have a hx of MR and seizure as noted above. Leukocytosis is improved. I advised her Niece about her care so far and follow with PCP in one week of discharged. If tolerating diet and no new fever in 24 hrs, she can be discharged. We did discuss CODE STATUS on her again and she did affirm full code. 04/18: Awaiting speech evaluation. patient appears very lethargic still. Low grade fever and tachycardia noted overnight. Appears very dehydrated, will order NS 50 0 cc x 1. Will order repeat labs. She has completed remdesivir, rocephin for covid tx. 04/19: More alert today. Close to baseline mentation. Patient is a strict NPO due to concern for aspiration per ST assessment. Will place consultation to gastroenterology for PEG tube. Spoke with POA/cousin Samara Castro ([phone]) who agreed with plan for PEG tube. Dispo for patient is [facility] vs SNF. CM working on referrals. 04/20: No new changes overnight. D/w with GI. Plan for PEG tube on Sunday. 04/21: no new changes. PEG still planned sunday. Ordered AM labs. Assessment and Plan #Dysphagia - aspiriation risk per Speech therapy, recommend NPO - GI consult for PEG tube. #Status Epilepticus (resolved) #H/o Seizure Disorder #H/o Mental Retardation(MR) - Multifactorial - Patient with UTI and COVID positive - Per records from 09/2021, patient phenytoin level was elevated last admit and meds was held. Patient was D/Dany with PO Keppra BID - CT head/brain with chronic encephalomalacia/surgical changes in the frontal lobes. No acute intracranial abnormality. - Treated underlying cause, currently on empiric IV abx. ID consulted - Intubated, awake and tracking. S/p Versed gtt. - Continue keppra - EEG pending - Neurology consult, appreciate recommendation - Per Neuro- continue Keppra 750mg IV q 12 hours for now once awake and patient able to take oral medications - switch to 1000 mg PO Keppra BID - PRN Ativan for seizure like activities - Frequent reorientation - Aspiration and Seizure precaution - PRN Analgesia for CPOT greater than 3 - Maintenance of sleep-wake cycle #Acute Hypoxic Respiratory Failure (resolved) - Intubated in the ED on 04/12 for airway protection secondary to above - s/p extubation on 04/16, stable on RA this am - CCM consulted, appreciate recommendations - Aspiration precaution HOB above 30 - PRN ABG and CXR - Continue SPO2 monitoring for SPO2 goal above 92% - PRN O2 supplementation as needed #Sepsis (resolved) #Viral Pneumonia #COVID 19 Pneumonia #Coronavirus Infection #Urinary Tract Infection(UTI)/Cystitis - COVID PCR came back positive - CT reveal right lower lobe infiltrate vs atelectasis - UA consistent with UTI, CT scan shows mild bladder wall thickening suggesting cystitis - COVID PCR came back positive - Blood cultures and sputum culture pending - Patient is afebrile, Leukocytosis improved, VSS - On IV steroids and empiric IV Abx - ID consulted, completed therapy with rocephin and remdesivir. - Bcx: NGTD - trend fever curve, no fevers since 04/16. #Rhabdomyolysis - Probably due to multiple seizures - s/p IVF resuscitation, CPK improved - Trend CPK #Acute Kidney Injury(JONA) most likely Vasomotor Nephropathy (resolved) #Hypokalemia - probably secondary to above - Per records, baseline scr is 1.1, Scr. as high as 3.2 this admit - Renal function back to baseline post IVF hydration - Strict intake and output - Avoid nephrotoxic medications; Renally dose medications - Monitor and replace electrolytes as needed - Trend BMP #Hypertension - Remains hypertensive - Continue low dose BB, lisinopril increased for better control - Continue blood pressure monitor per protocol - PRN Hydralazine for SBP greater than 160 - Might benefits from antihypertensive regimen at discharge #GI/DVT Prophylaxis - PPI- Pepcid - Heparin SubQ - SCD to bilateral lower extremities while in bed #Advance Care Planning - Disease education data, care plan, diagnoses, and prognosis were discussed with patient's cousin and caregiver via phone. Patient is a FULL code. Patient's family acknowledged understanding and agreed with current care plan. Disposition: [facility] vs SNF Time spent: +35 min CPT 46581 History Interval history: No overnight events or issues. Hospitalist Physical - Physical exam Narrative exam: Constitutional: no acute distress, other (middle aged female with normal respira tory effort at rest) Eyes: non-icteric ENT: oropharynx dry, NG in place Neck: supple, no lymphadenopathy, no JVD Effort: normal Ascultation: Bilateral: clear, diminished breath sounds Percussion: Bilateral: not dull Cardiovascular: regular rate and rhythm Gastrointestinal: normoactive bowel sounds, soft, non-tender, non-distended, Integumentary: normal Extremities: no cyanosis, no edema, pulses normal, no ischemia or petechiae Neurologic: pupils equal and round, CN II-XII normal Psychiatric: other (flat affect), baseline MR - Constitutional Vitals: Temp Pulse Resp BP Pulse Ox 97.7 F 106 H 20 117/62 94 04/21/22 06:01 04/21/22 06:01 04/21/22 06:01 04/21/22 06:01 04/21/22 06:01 General appearance: Present: no acute distress, well-nourished, obese, other (on the vent) Results - Labs CBC & Chem 7: 04/19/22 10:21 04/19/22 10:21 Labs: Laboratory Last Values WBC 12.4 K/mm3 (4.5-11.0) H 04/19/22 10:21 RBC 3.46 M/mm3 (3.65-5.03) L 04/19/22 10:21 Hgb 10.7 gm/dl (10.1-14.3) 04/19/22 10:21 Hct 32.2 % (30.3-42.9) 04/19/22 10:21 MCV 93 fl (79-97) 04/19/22 10:21 MCH 31 pg (28-32) 04/19/22 10:21 MCHC 33 % (30-34) 04/19/22 10:21 RDW 14.6 % (13.2-15.2) 04/19/22 10:21 Plt Count 348 K/mm3 (140-440) 04/19/22 10:21 Lymph % (Auto) 24.1 % (13.4-35.0) 04/19/22 10:21 [place] % (Auto) 8.8 % (0.0-7.3) H 04/19/22 10:21 Eos % (Auto) 0.6 % (0.0-4.3) 04/19/22 10:21 Baso % (Auto) 0.2 % (0.0-1.8) 04/19/22 10:21 Lymph # (Auto) 3.0 K/mm3 (1.2-5.4) 04/19/22 10:21 [place] # (Auto) 1.1 K/mm3 (0.0-0.8) H 04/19/22 10:21 Eos # (Auto) 0.1 K/mm3 (0.0-0.4) 04/19/22 10:21 Baso # (Auto) 0.0 K/mm3 (0.0-0.1) 04/19/22 10:21 Add Manual Diff Complete 04/13/22 03:44 Total Counted 100 04/13/22 03:44 Seg Neutrophils % 66.3 % (40.0-70.0) 04/19/22 10:21 Seg Neuts % (Manual) 97.0 % (40.0-70.0) H 04/13/22 03:44 Band Neutrophils % 0 % 04/13/22 03:44 Lymphocytes % (Manual) 2.0 % (13.4-35.0) L 04/13/22 03:44 Reactive Lymphs % (Man) 0 % 04/13/22 03:44 Monocytes % (Manual) 1.0 % (0.0-7.3) 04/13/22 03:44 Eosinophils % (Manual) 0 % (0.0-4.3) 04/13/22 03:44 Basophils % (Manual) 0 % (0.0-1.8) 04/13/22 03:44 Metamyelocytes % 0 % 04/13/22 03:44 Myelocytes % 0 % 04/13/22 03:44 Promyelocytes % 0 % 04/13/22 03:44 Blast Cells % 0 % 04/13/22 03:44 Nucleated RBC % Not Reportable 04/13/22 03:44 Seg Neutrophils # 8.2 K/mm3 (1.8-7.7) H 04/19/22 10:21 Seg Neutrophils # Man 18.1 K/mm3 (1.8-7.7) H 04/13/22 03:44 Band Neutrophils # 0.0 K/mm3 04/13/22 03:44 Lymphocytes # (Manual) 0.4 K/mm3 (1.2-5.4) L 04/13/22 03:44 Abs React Lymphs (Man) 0.0 K/mm3 04/13/22 03:44 Monocytes # (Manual) 0.2 K/mm3 (0.0-0.8) 04/13/22 03:44 Eosinophils # (Manual) 0.0 K/mm3 (0.0-0.4) 04/13/22 03:44 Basophils # (Manual) 0.0 K/mm3 (0.0-0.1) 04/13/22 03:44 Metamyelocytes # 0.0 K/mm3 04/13/22 03:44 Myelocytes # 0.0 K/mm3 04/13/22 03:44 Promyelocytes # 0.0 K/mm3 04/13/22 03:44 Blast Cells # 0.0 K/mm3 04/13/22 03:44 WBC Morphology Not Reportable 04/13/22 03:44 Hypersegmented Neuts Not Reportable 04/13/22 03:44 Hyposegmented Neuts Not Reportable 04/13/22 03:44 Hypogranular Neuts Not Reportable 04/13/22 03:44 Smudge Cells Not Reportable 04/13/22 03:44 Toxic Granulation Not Reportable 04/13/22 03:44 Toxic Vacuolation Not Reportable 04/13/22 03:44 Dohle Bodies Not Reportable 04/13/22 03:44 Pelger-Huet Anomaly Not Reportable 04/13/22 03:44 Neeta Rods Not Reportable 04/13/22 03:44 Platelet Estimate Consistent w auto 04/13/22 03:44 Clumped Platelets Not Reportable 04/13/22 03:44 Plt Clumps, EDTA Not Reportable 04/13/22 03:44 Large Platelets Not Reportable 04/13/22 03:44 Giant Platelets Not Reportable 04/13/22 03:44 Platelet Satelliting Not Reportable 04/13/22 03:44 Plt Morphology Comment Not Reportable 04/13/22 03:44 RBC Morphology Not Reportable 04/13/22 03:44 Dimorphic RBCs Not Reportable 04/13/22 03:44 Polychromasia Not Reportable 04/13/22 03:44 Hypochromasia Not Reportable 04/13/22 03:44 Poikilocytosis Not Reportable 04/13/22 03:44 Anisocytosis Not Reportable 04/13/22 03:44 Microcytosis Not Reportable 04/13/22 03:44 Macrocytosis Not Reportable 04/13/22 03:44 Spherocytes Not Reportable 04/13/22 03:44 Pappenheimer Bodies Not Reportable 04/13/22 03:44 Sickle Cells Not Reportable 04/13/22 03:44 Target Cells Not Reportable 04/13/22 03:44 Tear Drop Cells Not Reportable 04/13/22 03:44 Ovalocytes Not Reportable 04/13/22 03:44 Helmet Cells Not Reportable 04/13/22 03:44 Feng-Mojave Bodies Not Reportable 04/13/22 03:44 Smoaks Rings Not Reportable 04/13/22 03:44 [place] Cells Not Reportable 04/13/22 03:44 Bite Cells Not Reportable 04/13/22 03:44 Crenated Cell Not Reportable 04/13/22 03:44 Elliptocytes Not Reportable 04/13/22 03:44 Acanthocytes (Spur) Not Reportable 04/13/22 03:44 Rouleaux Not Reportable 04/13/22 03:44 Hemoglobin C Crystals Not Reportable 04/13/22 03:44 Schistocytes Not Reportable 04/13/22 03:44 Malaria parasites Not Reportable 04/13/22 03:44 Sanjay Bodies Not Reportable 04/13/22 03:44 Hem Pathologist Commnt No 04/13/22 03:44 PT 15.3 Sec. (12.2-14.9) H 04/12/22 09:11 INR 1.09 (0.87-1.13) 04/12/22 09:11 APTT 27.4 Sec. (24.2-36.6) 04/12/22 09:11 ABG pH 7.408 pH Units (7.350-7.450) 04/15/22 12:35 ABG pCO2 43.3 mm Hg 04/15/22 12:35 ABG pO2 110.6 mm Hg (80.0-90.0) H 04/15/22 12:35 ABG HCO3 26.7 mmol/L (20.0-26.0) H 04/15/22 12:35 ABG O2 Saturation 98.0 % (95.0-99.0) 04/15/22 12:35 ABG O2 Content 11.8 (0.0-44) 04/15/22 12:35 ABG Base Excess 1.8 mmol/L (-2.0-3.0) 04/15/22 12:35 ABG Hemoglobin 8.6 gm/dl (12.0-16.0) L 04/15/22 12:35 ABG Carboxyhemoglobin 1.0 % (0.0-5.0) 04/15/22 12:35 ABG Methemoglobin 0.5 % (0.0-1.5) 04/15/22 12:35 Oxyhemoglobin 96.5 % (95.0-99.0) 04/15/22 12:35 FiO2 30 % 04/15/22 12:35 Sodium 140 mmol/L (137-145) 04/19/22 10:21 Potassium 3.5 mmol/L (3.6-5.0) L 04/19/22 10:21 Chloride 102.6 mmol/L (98-107) 04/19/22 10:21 Carbon Dioxide 27 mmol/L (22-30) 04/19/22 10:21 Anion Gap 14 mmol/L 04/19/22 10:21 BUN 29 mg/dL (7-17) H 04/19/22 10:21 Creatinine 0.6 mg/dL (0.6-1.2) 04/19/22 10:21 Estimated GFR > 60 ml/min 04/19/22 10:21 BUN/Creatinine Ratio 48 % 04/19/22 10:21 Glucose 122 mg/dL (65-100) H 04/19/22 10:21 POC Glucose 120 mg/dL (70-105) H 04/21/22 05:57 Lactic Acid 1.60 mmol/L (0.7-2.0) 04/12/22 11:42 Calcium 8.7 mg/dL (8.4-10.2) 04/19/22 10:21 Phosphorus 3.10 mg/dL (2.5-4.5) 04/17/22 08:20 Magnesium 1.70 mg/dL (1.7-2.3) 04/17/22 08:20 Ferritin 318.6 ng/mL (10.0-200.0) H 04/14/22 04:04 Total Bilirubin 0.40 mg/dL (0.1-1.2) 04/19/22 10:21 AST 30 units/L (5-40) 04/19/22 10:21 ALT 24 units/L (7-56) 04/19/22 10:21 Alkaline Phosphatase 81 units/L (35-129) 04/19/22 10:21 Total Creatine Kinase 377 units/L (30-135) H 04/16/22 05:00 Total Creatine Kinase 535 units/L (30-135) H 04/16/22 05:00 C-Reactive Protein 9.70 mg/dL (0.00-1.30) H 04/14/22 04:04 Total Protein 6.5 g/dL (6.3-8.2) 04/19/22 10:21 Albumin 3.3 g/dL (3.9-5) L 04/19/22 10:21 Albumin/Globulin Ratio 1.0 % 04/19/22 10:21 Procalcitonin 1.92 ng/mL (<0.15) 04/14/22 04:04 Urine Color Yellow (Yellow) 04/12/22 Unknown Urine Turbidity Cloudy (Clear) 04/12/22 Unknown Specific [place] (Man) 1.020 (1.003-1.030) 04/12/22 Unknown Ur Protein (Man) 4+ mg/dL (Negative) 04/12/22 Unknown Ur Ketones (Man) Negative (Negative) 04/12/22 Unknown Ur Nitrite (Man) Negative (Negative) 04/12/22 Unknown Ur Reducing Substances Not Reportable 04/12/22 Unknown Urine Bilirubin (Man) Negative (Negative) 04/12/22 Unknown Urine Ictotest Not Reportable 04/12/22 Unknown Leukocyte Esterase (Man) Large (Negative) 04/12/22 Unknown Urine WBC (Auto) < 182.0 /HPF (0.0-6.0) H 04/12/22 Unknown Urine RBC (Auto) 60.0 /HPF (0.0-6.0) 04/12/22 Unknown U Epithel Cells (Auto) 12.0 /HPF (0-13.0) 04/12/22 Unknown Urine RBC (Manual) 3+ (Negative) 04/12/22 Unknown Urine WBC Clumps 3+ /HPF 04/12/22 Unknown Urine Mucus 3+ /HPF 04/12/22 Unknown Salicylates < 0.3 mg/dL (2.8-20.0) L 04/12/22 09:11 Acetaminophen 5.0 ug/mL (10.0-30.0) L 04/12/22 09:11 Phenytoin 1.2 ug/mL (10.0-20.0) L 04/12/22 09:11 Valproic Acid < 2.8 ug/mL (50-100) L 04/12/22 09:11 Levetiracetam <2.0 mcg/mL (6.0-46.0) L 04/12/22 14:34 Plasma/Serum Alcohol < 0.01 % (0-0.07) 04/12/22 09:11 SARS-CoV-2 (PCR) Positive (Negative) A 04/12/22 10:56 Mckeon/IV: Voiding Method External Female Catheter Active Medications - Current Medications Current Medications: Generic Name Dose Route Start Last Admin Trade Name Freq PRN Reason Stop Dose Admin Acetaminophen 650 mg 04/12/22 12:38 04/16/22 23:44 Acetaminophen 325 Mg Tab PO 650 mg Q6H PRN Administration Pain MILD(1-3)/Fever >100.5/VALLADARES Albuterol 2.5 mg 04/12/22 12:38 Albuterol 2.5 Mg/3 Ml Nebu IH Q3HRT PRN Shortness Of Breath Dexamethasone 6 mg 04/15/22 10:00 04/20/22 09:13 Dexamethasone 4 Mg/Ml Vial IV 04/22/22 10:01 6 mg Q24HR SIIAH Administration Docusate Sodium 100 mg 04/15/22 22:00 04/20/22 22:25 Docusate Sodium 100 Mg/10 Ml Oral Liqd PO 100 mg BID ISIAH Administration Famotidine 20 mg 04/15/22 22:00 04/20/22 22:26 Famotidine 20 Mg Tab FEEDTUBE 20 mg BID ISIAH Administration Heparin Sodium (Porcine) 5,000 unit 04/12/22 22:00 04/20/22 22:27 Heparin 5,000 Unit/1 Ml Vial SUB-Q 5,000 unit Q12HR ISIAH Administration Hydromorphone HCl 0.5 mg 04/14/22 10:48 04/15/22 08:34 Hydromorphone 0.5 Mg/0.5 Ml Inj IV 0.5 mg Q6H PRN Administration Pain , Severe (7-10) Hydrophilic Ointment 1 applic 04/12/22 09:35 Lip Therapy Vaseline TP Q2HR PRN Dry Lips Labetalol HCl 10 mg 04/15/22 09:00 04/16/22 05:05 Labetalol 20 Mg/4 Ml Inj IV 10 mg Q4H PRN Administration Hypertension Levetiracetam 1,000 mg 04/19/22 10:00 04/20/22 22:25 Levetiracetam 500 Mg/5 Ml Oral Liqd FEEDTUBE 1,000 mg BID ISIAH Administration Lisinopril 10 mg 04/16/22 10:00 04/20/22 12:16 Lisinopril 5 Mg Tab PO Not Given QDAY ISIAH Metoprolol Tartrate 12.5 mg 04/14/22 16:13 04/20/22 22:26 Metoprolol Tartrate 25 Mg Tab PO 12.5 mg BID ISIAH Administration Multi-Ingred Cream/Lotion/Oil/Oint 1 applic 04/12/22 09:35 Mineral Oil/Petrolatum, White Ophth Oint 3.5 Gm OU Q4HR PRN Dry Eye(s) Ondansetron HCl 4 mg 04/12/22 12:38 Ondansetron 4 Mg/2 Ml Inj IV Q8H PRN Nausea And Vomiting Oxycodone/Acetaminophen 1 tab 04/12/22 12:38 04/13/22 22:27 Oxycodone /Acetaminophen 5-325mg Tab PO 1 tab Q16H PRN Administration Pain, Moderate (4-6) Senna/Docusate Sodium 2 tab 04/15/22 17:30 04/20/22 22:26 Sennosides/Docusate Sodium 8.6/50 Mg Tab FEEDTUBE 2 tab BID ISIAH Administration Sodium Chloride 10 ml 04/12/22 22:00 04/20/22 22:27 Sodium Chloride 0.9% 10 Ml Flush Syringe IV 10 ml BID ISIAH Administration Sodium Chloride 10 ml 04/12/22 12:38 Sodium Chloride 0.9% 10 Ml Flush Syringe IV PRN PRN LINE FLUSH Nutrition/Malnutrition Assess - Dietary Evaluation Nutrition/Malnutrition Findings: Nutrition Notes Start: 04/12/22 16:12 Freq: Status: Active Protocol: Document 04/18/22 14:13 JOSI (Rec: 04/18/22 15:00 JOSI [email or web address]) Nutrition Notes Initial or Follow up Reassessment Other Pertinent Diagnosis Seizures, COVID-19, UTI, Mental Disability. Current Diet TF-Vital AF 1.2 Dajuan @ 60 ml/hr (since D 04/14). Labs/Tests 04/18: BUN 30, Glu 117. Pertinent Medications 04/18: Nutritionally unremarkable. Height 5 ft 8 in Weight 113.3 kg [place] Body Weight (kg) 63.63 BMI 38.0 Weight change and time frame No body weight change reported in 1 week. Weight Status Obese Subjective/Other Information RD consult for routine F/U on TF tolerance/continuation assessment. TF continues as prescribed, and well tolerated, according to RN notes. Pt is on Room Air, O2 saturation @ 100%, according to Physical Assessment History notes. I will reassess TF prescription, since Pt is no longer on Mechanical Ventilation support. [facility] note on 04/18/22 14:19: Swallowing function has been assessed. Patient demonstrates a severe oral/pharyngeal phase swallowing dysfunction and is at significant risk for aspiration. Continue NPO status. - END OF NOTE. Pt remains incontinent, according to Physical Assessment History notes. Percent of energy/protein needs met: Prescribed TF-Vital AF 1.2 Dajuan @ 65 ml/hr provides for energy/protein needs (1,740 Kcal/109 g) during LOS, 96% Kcal; 101% AA. Burn Absent Trauma Absent GI Symptoms Other Food Allergy No Skin Integrity/Comment R-Hip wound. 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 Patient demonstrates a severe oral/pharyngeal phase swallowing dysfunction and is at significant risk for aspiration. Continue NPO status. - END OF NOTE. #1 Nutrition Diagnosis Inadequate oral intake Comments: Pt is on Room Air, O2 saturation @ 100%, according to Physical Assessment History notes. Diagnosis Progress(for reassessment Resolved documentation) Is patient on ventilator? No Is Patient Ambulatory and/or Out of Bed No REE-([place]-St. Jeor-confined to bed) 2135.724 Kcal/Kg value to use for calculation 16 Approximate Energy Requirements Using 1813 kcal/Kg Calculation Used for Recommendations Kcal/kg Additional Notes Protein: 1-1.2 g/Kg AdjBW; 90- 108 g/day. Fluids: 1 ml/Kcal, or as per MD. Nutrition Intervention Nutrition Support: Continue TF-Vital AF 1.2 Dajuan @ 60 ml/hr. Flush: 100 ml water Q 4 hr, or as per MD. Kcal 1,740 Protein (gm) 109 Carbohydrates (gm) 160 Fat (gm) 78 Fluid (mL) 1,176 Fiber (gm) 7 % RDI: 96% Kcal; 101% AA. Goal #1 Provide at least 75% of energy /protein needs through Enteral Feeding during LOS. Goal #2 Adjust the dietary intervention to better serve Pt's needs and clinical conditions during LOS. Follow-Up By: 04/25/22 Additional Comments Continue monitoring TF tolerance and BM.
[2022-04-21] MEDS: levETIRAcetam 500 MG/5 ML ORAL LIQD FEEDTUBE SCH ×2 (12:00→22:51)
[2022-04-21] MEDS: dexAMETHasone 4 MG/ML VIAL IV SCH (12:12)
[2022-04-21] MEDS: HEPARIN 5,000 UNIT/1 ML VIAL SUB-Q SCH ×2 (12:35→22:51)
[2022-04-21] MEDS: DOCUSATE SODIUM 100 MG/10 ML ORAL LIQD PO SCH (12:36)
[2022-04-21] MEDS: METOPROLOL TARTRATE 25 MG TAB PO SCH ×2 (12:37→22:52)
[2022-04-21] MEDS: LISINOPRIL 5 MG TAB PO SCH (12:37)
[2022-04-21] MEDS: SENNOSIDES/DOCUSATE SODIUM 8.6/50 MG TAB FEEDTUBE SCH ×2 (12:38→22:50)
[2022-04-21] MEDS: FAMOTIDINE 20 MG TAB FEEDTUBE SCH ×2 (12:38→22:51)
--- NOTE | 2022-04-21 16:53 | Gastroenterology Consultation ---
History of Present Illness - Reason for Consult Consult date: 04/21/22 Neurogenic Dysphagia Requesting physician: TITUS BORGES - History of Present Illness The history is per the chart and referring MD notes; the patient has baseline MR, and has had seizure/status epilepticus this admit with progressive cognitive decline. She was admitted with respiratory failure (improving) and noted to be COVID positive. She has failed an ST evaluation, and we are requested to evaluate for a PEG tube since she has shown little cognitive recovery. Per nursing, the feeding via NG has gone well without N/V or witnessed abd pain. Past History Past Medical History: seizures, other (Obesity, COVID (this admit), mental retardation) Past Surgical History: Other (Craniotomy) Social history: single, smoking. denies: alcohol abuse, prescription drug abuse Family history: hypertension Medications and Allergies Allergies Allergy/AdvReac Type Severity Reaction Status Date / Time No Known Allergies Allergy Verified 04/12/22 15:15 Home Medications Medication Instructions Recorded Confirmed Last Taken Type AtorvaSTATin [Lipitor] 20 mg PO QHS 03/22/22 04/13/22 Unknown History levETIRAcetam [Keppra TAB] 500 mg PO BID #60 tablet 03/26/22 04/13/22 Unknown Rx Active Meds: Active Medications Acetaminophen (Acetaminophen 325 Mg Tab) 650 mg PO Q6H PRN PRN Reason: Pain MILD(1-3)/Fever >100.5/VALLADARES Last Admin: 04/16/22 23:44 Dose: 650 mg Albuterol (Albuterol 2.5 Mg/3 Ml Nebu) 2.5 mg IH Q3HRT PRN PRN Reason: Shortness Of Breath Dexamethasone (Dexamethasone 4 Mg/Ml Vial) 6 mg IV Q24HR ISIAH Stop: 04/22/22 10:01 Last Admin: 04/21/22 12:12 Dose: 6 mg Famotidine (Famotidine 20 Mg Tab) 20 mg FEEDTUBE BID ISIAH Last Admin: 04/21/22 12:38 Dose: 20 mg Heparin Sodium (Porcine) (Heparin 5,000 Unit/1 Ml Vial) 5,000 unit SUB-Q Q12HR ISIAH Last Admin: 04/21/22 12:35 Dose: 5,000 unit Hydrophilic Ointment (Lip Therapy Vaseline) 1 applic TP Q2HR PRN PRN Reason: Dry Lips Labetalol HCl (Labetalol 20 Mg/4 Ml Inj) 10 mg IV Q4H PRN PRN Reason: Hypertension Last Admin: 04/16/22 05:05 Dose: 10 mg Levetiracetam (Levetiracetam 500 Mg/5 Ml Oral Liqd) 1,000 mg FEEDTUBE BID [facility] Last Admin: 04/21/22 12:00 Dose: 1,000 mg Lisinopril (Lisinopril 5 Mg Tab) 10 mg PO QDAY [facility] Last Admin: 04/21/22 12:37 Dose: 10 mg Metoprolol Tartrate (Metoprolol Tartrate 25 Mg Tab) 12.5 mg PO BID [facility] Last Admin: 04/21/22 12:37 Dose: 12.5 mg Multi-Ingred Cream/Lotion/Oil/Oint (Mineral Oil/Petrolatum, White Ophth Oint 3.5 Gm) 1 applic OU Q4HR PRN PRN Reason: Dry Eye(s) Ondansetron HCl (Ondansetron 4 Mg/2 Ml Inj) 4 mg IV Q8H PRN PRN Reason: Nausea And Vomiting Polyethylene Glycol (Polyethylene Glycol 3350 17 Gm Powder) 17 gm PO QDAY [facility] Senna/Docusate Sodium (Sennosides/Docusate Sodium 8.6/50 Mg Tab) 2 tab FEEDTUBE QHS [facility] Sodium Chloride (Sodium Chloride 0.9% 10 Ml Flush Syringe) 10 ml IV BID [facility] Last Admin: 04/21/22 12:38 Dose: 10 ml Sodium Chloride (Sodium Chloride 0.9% 10 Ml Flush Syringe) 10 ml IV PRN PRN PRN Reason: LINE FLUSH I HAVE REVIEWED/RECONCILED MEDICATIONS Review of Systems - Review of Systems ROS unobtainable: due to mental status Exam - Constitutional Vital Signs: Temp Pulse Resp BP Pulse Ox 99.1 F 101 H 22 127/65 97 04/21/22 11:58 04/21/22 11:58 04/21/22 11:58 04/21/22 11:58 04/21/22 11:58 General appearance: no acute distress - EENT Eyes: PERRL, EOM intact ENT: hearing intact, clear oral mucosa, no thrush, other (NG present in L nare with tube feeds infusion) - Neck Neck: supple, normal ROM - Respiratory Respiratory effort: normal Respiratory: bilateral: CTA - Cardiovascular Rhythm: regular Heart Sounds: Present: S1 & S2 Extremities: no ischemia, No edema - Gastrointestinal General gastrointestinal: Present: soft, non-tender, distended (Mild gassy distention), other (No significant scars) - Integumentary Integumentary: Present: clear, warm, dry - Neurologic Neurological: disoriented - Labs CBC & Chem 7: 04/19/22 10:21 04/19/22 10:21 Lab Results: Laboratory Results - last 24 hr 04/20/22 04/20/22 04/21/22 17:50 21:12 05:57 POC Glucose 131 H 139 H 120 H 04/21/22 11:56 POC Glucose 129 H Assessment and Plan - Patient Problems (1) Neurogenic dysphagia Current Visit: Yes Status: Acute Plan to address problem: - The patient appears to be an acceptable candidate for a feeding tube. - We will plan to place this Sunday pending a KUB on Sunday. - Continue current tube feeds via NG. (2) Fecal impaction in rectum Current Visit: Yes Status: Acute Plan to address problem: - Fecal impaction by CT 03/2022 and colon persistently dilated; this may make placement of the PEG tube more difficult. - A bowel regimen with combination Senna/miralax will be started. - We will check a KUB on Sunday; if still significant bowel dilation, this may delay PEG tube placement.
--- NOTE | 2022-04-21 17:29 | Progress Note ---
Assessment and Plan 57 YO Female with Obesity, MR, Nicotine Dependence, Seizure Disorder presents to ED for evaluation. Patient is intubated and on ventilatory support . As per family the patient was found to have multiple recurrent seizures and EMS was n otified and upon arrival the patient was found to be in distress and subsequently transported to [facility] for further care and evaluation of the aforementioned symptoms. Patient found to have multiple recurrent seizures while in the emergency department which is consistent with status epilepticus. Patient also was found to become hypoxic and and unable to protect her airway. The patient was found to have acute hypoxemic respiratory failure and was intubated and placed on ventilatory support. The patient was also found to have coronavirus infection, as well as urinary tract infection. No reports of fever, chills, chest pain, palpitation, trauma. Patient has surgical history of craniotomy. According to the chart, patient has history of smoking. No history of alcohol or drug abuse. No known drug allergies. Patient extubated and transfered to medical floor. Patient awake. Not following commands.Patient is on room air. O2 saturation running 97%. No acute respiratory distress. Patient running low grade temp. Has leukocytosis. Blood pressure 127/65 , Pulse 101 , respirations 22. Chest xray done 04/16/22 reported Interval extubation with improved aeration of the lungs. Patient is on I/V decadron, S/C Heparin, Famotidine, Albuterol inhaler as needed for shortness of breath. - Patient Problems (1) Acute respiratory failure Current Visit: Yes Status: Acute Plan to address problem: Patient intubated and extubated. Patient presently on room air, O2 saturation 97%. Patient is on I/V decadron. Continue S/C Heparin. Continue famotidine. Continue albuterol inhaler as needed for shortness of breath. (2) Acute renal failure Current Visit: Yes Status: Acute Plan to address problem: Management as per nephrology. (3) Coronavirus infection Current Visit: Yes Status: Acute Plan to address problem: Patient is on Decadron. Garner virus Isolation precautions. Management as per ID. (4) Pulmonary infiltrate Current Visit: Yes Status: Acute Plan to address problem: Improved. (5) Seizure Current Visit: Yes Status: Acute Plan to address problem: Management as per neurology. (6) Systemic inflammatory response syndrome (SIRS) Current Visit: Yes Status: Acute Plan to address problem: Patient is on Decadron. Patient received ceftriaxone and zithromax. (7) UTI (urinary tract infection) Current Visit: Yes Status: Acute Qualifiers: Encounter type: initial encounter Plan to address problem: Patient received Ceftriaxone and Zithromax. Subjective Date of service: 04/21/22 Principal diagnosis: Acute hypoxemic respiratory failure; COVID-19 infxn; UTI; Mental disability Interval history: 57 YO Female with Obesity, MR, Nicotine Dependence, Seizure Disorder presents to ED for evaluation. Patient is intubated and on ventilatory support . As per family the patient was found to have multiple recurrent seizures and EMS was notified and upon arrival the patient was found to be in distress and subsequently transported to [facility] for further care and evaluation of the afor ementioned symptoms. Patient found to have multiple recurrent seizures while in the emergency department which is consistent with status epilepticus. Patient also was found to become hypoxic and and unable to protect her airway. The patient was found to have acute hypoxemic respiratory failure and was intubated and placed on ventilatory support. The patient was also found to have coronavirus infection, as well as urinary tract infection. No reports of fever, chills, chest pain, palpitation, trauma. Patient has surgical history of craniotomy. According to the chart, patient has history of smoking. No history of alcohol or drug abuse. No known drug allergies. Patient extubated and transfered to medical floor. Patient awake. Not following commands.Patient is on room air. O2 saturation running 97%. No acute respiratory distress. Patient running low grade temp. Has leukocytosis. Blood pressure 127/65 , Pulse 101 , respirations 22. Chest xray done 04/16/22 reported Interval extubation with improved aeration of the lungs. Patient is on I/V decadron, S/C Heparin, Famotidine, Albuterol inhaler as needed for shortness of breath. Objective Vital Signs - 12hr 04/21/22 04/21/22 04/21/22 06:01 10:00 11:58 Temperature 97.7 F 99.1 F Pulse Rate 106 H 101 H Respiratory 20 22 Rate Blood Pressure 117/62 127/65 O2 Sat by Pulse 94 99 97 Oximetry Constitutional: no acute distress, alert, other (Patient awake but not following commands. No acute respiratory distress.) Eyes: non-icteric ENT: oropharynx moist Neck: supple, no lymphadenopathy, no JVD Effort: normal Ascultation: Bilateral: diminished breath sounds, rhonchi (scant) Percussion: Bilateral: not dull Cardiovascular: regular rate and rhythm Gastrointestinal: normoactive bowel sounds, soft, non-tender, non-distended Integumentary: normal Extremities: no cyanosis, no edema, pulses normal, no ischemia or petechiae Neurologic: pupils equal and round, CN II-XII normal Psychiatric: other (Awake, not following commands.) CBC and BMP: 04/19/22 10:21 04/19/22 10:21 ABG, PT/INR, D-dimer: ABG ABG pH 7.408 pH Units (7.350-7.450) 04/15/22 12:35 ABG pCO2 43.3 mm Hg 04/15/22 12:35 ABG pO2 110.6 mm Hg (80.0-90.0) H 04/15/22 12:35 ABG O2 Saturation 98.0 % (95.0-99.0) 04/15/22 12:35 PT/INR, D-dimer PT 15.3 Sec. (12.2-14.9) H 04/12/22 09:11 INR 1.09 (0.87-1.13) 04/12/22 09:11 Abnormal lab findings: Abnormal Labs 04/12/22 04/12/22 04/12/22 09:11 09:11 09:11 WBC 12.8 H RBC [place] % (Auto) [place] # (Auto) Seg Neuts % (Manual) 83.0 H Lymphocytes % (Manual) 12.0 L Seg Neutrophils # Seg Neutrophils # Man 10.6 H Lymphocytes # (Manual) PT ABG pO2 ABG HCO3 ABG Base Excess ABG Hemoglobin Sodium 148 H Potassium Chloride 107.2 H Carbon Dioxide 21 L BUN 37 H Creatinine 3.2 H Glucose 102 H POC Glucose Lactic Acid Calcium Phosphorus Ferritin AST 48 H Total Creatine Kinase C-Reactive Protein Total Protein 9.0 H Albumin Urine WBC (Auto) Salicylates < 0.3 L Acetaminophen Phenytoin 1.2 L Valproic Acid < 2.8 L Levetiracetam SARS-CoV-2 (PCR) 04/12/22 04/12/22 04/12/22 09:11 09:11 09:38 WBC RBC [place] % (Auto) [place] # (Auto) Seg Neuts % (Manual) Lymphocytes % (Manual) Seg Neutrophils # Seg Neutrophils # Man Lymphocytes # (Manual) PT 15.3 H ABG pO2 ABG HCO3 ABG Base Excess ABG Hemoglobin Sodium Potassium Chloride Carbon Dioxide BUN Creatinine Glucose POC Glucose Lactic Acid 3.30 H* Calcium Phosphorus Ferritin AST Total Creatine Kinase C-Reactive Protein Total Protein Albumin Urine WBC (Auto) Salicylates Acetaminophen 5.0 L Phenytoin Valproic Acid Levetiracetam SARS-CoV-2 (PCR) 04/12/22 04/12/22 04/12/22 10:56 11:29 11:42 WBC RBC [place] % (Auto) [place] # (Auto) Seg Neuts % (Manual) Lymphocytes % (Manual) Seg Neutrophils # Seg Neutrophils # Man Lymphocytes # (Manual) PT ABG pO2 152.6 H ABG HCO3 ABG Base Excess -4.2 L ABG Hemoglobin Sodium Potassium Chloride Carbon Dioxide BUN Creatinine Glucose POC Glucose Lactic Acid Calcium Phosphorus Ferritin AST Total Creatine Kinase 1568 H C-Reactive Protein Total Protein Albumin Urine WBC (Auto) Salicylates Acetaminophen Phenytoin Valproic Acid Levetiracetam SARS-CoV-2 (PCR) Positive A 04/12/22 04/12/22 04/13/22 14:34 Unknown 00:56 WBC RBC [place] % (Auto) [place] # (Auto) Seg Neuts % (Manual) Lymphocytes % (Manual) Seg Neutrophils # Seg Neutrophils # Man Lymphocytes # (Manual) PT ABG pO2 ABG HCO3 ABG Base Excess ABG Hemoglobin Sodium Potassium Chloride Carbon Dioxide BUN Creatinine Glucose POC Glucose 111 H Lactic Acid Calcium Phosphorus Ferritin AST Total Creatine Kinase C-Reactive Protein Total Protein Albumin Urine WBC (Auto) < 182.0 H Salicylates Acetaminophen Phenytoin Valproic Acid Levetiracetam <2.0 L SARS-CoV-2 (PCR) 04/13/22 04/13/22 04/13/22 03:44 03:44 04:15 WBC 18.7 H RBC [place] % (Auto) [place] # (Auto) Seg Neuts % (Manual) 97.0 H Lymphocytes % (Manual) 2.0 L Seg Neutrophils # Seg Neutrophils # Man 18.1 H Lymphocytes # (Manual) 0.4 L PT ABG pO2 135.1 H ABG HCO3 ABG Base Excess -2.7 L ABG Hemoglobin 11.9 L Sodium Potassium 3.3 L D Chloride 107.2 H Carbon Dioxide BUN 41 H Creatinine 1.4 H D Glucose 123 H POC Glucose Lactic Acid Calcium Phosphorus Ferritin AST Total Creatine Kinase C-Reactive Protein Total Protein Albumin Urine WBC (Auto) Salicylates Acetaminophen Phenytoin Valproic Acid Levetiracetam SARS-CoV-2 (PCR) 04/13/22 04/13/22 04/13/22 11:47 15:45 18:18 WBC RBC [place] % (Auto) [place] # (Auto) Seg Neuts % (Manual) Lymphocytes % (Manual) Seg Neutrophils # Seg Neutrophils # Man Lymphocytes # (Manual) PT ABG pO2 119.0 H ABG HCO3 ABG Base Excess -3.7 L ABG Hemoglobin 11.8 L Sodium Potassium 5.1 H D Chloride 107.5 H Carbon Dioxide 14 L D BUN 36 H Creatinine Glucose 104 H POC Glucose 119 H Lactic Acid Calcium Phosphorus Ferritin AST 47 H Total Creatine Kinase C-Reactive Protein Total Protein Albumin 3.6 L Urine WBC (Auto) Salicylates Acetaminophen Phenytoin Valproic Acid Levetiracetam SARS-CoV-2 (PCR) 04/14/22 04/14/22 04/14/22 00:06 04:04 04:04 WBC 18.2 H RBC [place] % (Auto) [place] # (Auto) Seg Neuts % (Manual) Lymphocytes % (Manual) Seg Neutrophils # Seg Neutrophils # Man Lymphocytes # (Manual) PT ABG pO2 ABG HCO3 ABG Base Excess ABG Hemoglobin Sodium Potassium Chloride 107.6 H Carbon Dioxide BUN 33 H Creatinine Glucose 148 H POC Glucose 120 H Lactic Acid Calcium Phosphorus Ferritin AST Total Creatine Kinase 807 H C-Reactive Protein 9.70 H Total Protein Albumin Urine WBC (Auto) Salicylates Acetaminophen Phenytoin Valproic Acid Levetiracetam SARS-CoV-2 (PCR) 04/14/22 04/14/22 04/14/22 04:04 04:04 05:06 WBC RBC [place] % (Auto) [place] # (Auto) Seg Neuts % (Manual) Lymphocytes % (Manual) Seg Neutrophils # Seg Neutrophils # Man Lymphocytes # (Manual) PT ABG pO2 ABG HCO3 ABG Base Excess ABG Hemoglobin Sodium Potassium Chloride 108.8 H Carbon Dioxide BUN 34 H Creatinine Glucose 149 H POC Glucose 143 H Lactic Acid Calcium Phosphorus Ferritin 318.6 H AST Total Creatine Kinase C-Reactive Protein Total Protein Albumin 3.6 L Urine WBC (Auto) Salicylates Acetaminophen Phenytoin Valproic Acid Levetiracetam SARS-CoV-2 (PCR) 04/14/22 04/14/22 04/14/22 12:04 14:45 18:12 WBC RBC [place] % (Auto) [place] # (Auto) Seg Neuts % (Manual) Lymphocytes % (Manual) Seg Neutrophils # Seg Neutrophils # Man Lymphocytes # (Manual) PT ABG pO2 100.5 H ABG HCO3 ABG Base Excess ABG Hemoglobin 7.0 L Sodium Potassium Chloride Carbon Dioxide BUN Creatinine Glucose POC Glucose 139 H 120 H Lactic Acid Calcium Phosphorus Ferritin AST Total Creatine Kinase C-Reactive Protein Total Protein Albumin Urine WBC (Auto) Salicylates Acetaminophen Phenytoin Valproic Acid Levetiracetam SARS-CoV-2 (PCR) 04/14/22 04/15/22 04/15/22 23:19 04:31 04:31 WBC 15.7 H RBC [place] % (Auto) [place] # (Auto) Seg Neuts % (Manual) Lymphocytes % (Manual) Seg Neutrophils # Seg Neutrophils # Man Lymphocytes # (Manual) PT ABG pO2 ABG HCO3 ABG Base Excess ABG Hemoglobin Sodium 146 H Potassium 3.5 L Chloride 110.6 H Carbon Dioxide BUN 28 H Creatinine Glucose 116 H POC Glucose 122 H Lactic Acid Calcium Phosphorus Ferritin AST Total Creatine Kinase C-Reactive Protein Total Protein Albumin 3.8 L Urine WBC (Auto) Salicylates Acetaminophen Phenytoin Valproic Acid Levetiracetam SARS-CoV-2 (PCR) 04/15/22 04/15/22 04/15/22 05:19 11:52 12:35 WBC RBC [place] % (Auto) [place] # (Auto) Seg Neuts % (Manual) Lymphocytes % (Manual) Seg Neutrophils # Seg Neutrophils # Man Lymphocytes # (Manual) PT ABG pO2 110.6 H ABG HCO3 26.7 H ABG Base Excess ABG Hemoglobin 8.6 L Sodium Potassium Chloride Carbon Dioxide BUN Creatinine Glucose POC Glucose 124 H 133 H Lactic Acid Calcium Phosphorus Ferritin AST Total Creatine Kinase C-Reactive Protein Total Protein Albumin Urine WBC (Auto) Salicylates Acetaminophen Phenytoin Valproic Acid Levetiracetam SARS-CoV-2 (PCR) 04/15/22 04/16/22 04/16/22 18:08 00:07 05:00 WBC RBC [place] % (Auto) [place] # (Auto) Seg Neuts % (Manual) Lymphocytes % (Manual) Seg Neutrophils # Seg Neutrophils # Man Lymphocytes # (Manual) PT ABG pO2 ABG HCO3 ABG Base Excess ABG Hemoglobin Sodium Potassium Chloride Carbon Dioxide BUN 26 H Creatinine Glucose 102 H POC Glucose 139 H 114 H Lactic Acid Calcium Phosphorus 1.90 L Ferritin AST Total Creatine Kinase 377 H C-Reactive Protein Total Protein Albumin 3.4 L Urine WBC (Auto) Salicylates Acetaminophen Phenytoin Valproic Acid Levetiracetam SARS-CoV-2 (PCR) 04/16/22 04/16/22 04/16/22 05:00 11:43 17:24 WBC RBC [place] % (Auto) [place] # (Auto) Seg Neuts % (Manual) Lymphocytes % (Manual) Seg Neutrophils # Seg Neutrophils # Man Lymphocytes # (Manual) PT ABG pO2 ABG HCO3 ABG Base Excess ABG Hemoglobin Sodium 136 L Potassium Chloride Carbon Dioxide BUN 26 H Creatinine Glucose 104 H POC Glucose 128 H 134 H Lactic Acid Calcium 8.2 L Phosphorus Ferritin AST Total Creatine Kinase 535 H C-Reactive Protein Total Protein Albumin Urine WBC (Auto) Salicylates Acetaminophen Phenytoin Valproic Acid Levetiracetam SARS-CoV-2 (PCR) 04/16/22 04/17/22 04/17/22 23:44 06:14 08:11 WBC RBC [place] % (Auto) [place] # (Auto) Seg Neuts % (Manual) Lymphocytes % (Manual) Seg Neutrophils # Seg Neutrophils # Man Lymphocytes # (Manual) PT ABG pO2 ABG HCO3 ABG Base Excess ABG Hemoglobin Sodium Potassium Chloride Carbon Dioxide BUN Creatinine Glucose POC Glucose 139 H 125 H 127 H Lactic Acid Calcium Phosphorus Ferritin AST Total Creatine Kinase C-Reactive Protein Total Protein Albumin Urine WBC (Auto) Salicylates Acetaminophen Phenytoin Valproic Acid Levetiracetam SARS-CoV-2 (PCR) 04/17/22 04/17/22 04/17/22 08:20 10:25 23:57 WBC RBC [place] % (Auto) [place] # (Auto) Seg Neuts % (Manual) Lymphocytes % (Manual) Seg Neutrophils # Seg Neutrophils # Man Lymphocytes # (Manual) PT ABG pO2 ABG HCO3 ABG Base Excess ABG Hemoglobin Sodium Potassium Chloride Carbon Dioxide BUN 30 H Creatinine Glucose 117 H POC Glucose 118 H 135 H Lactic Acid Calcium Phosphorus Ferritin AST Total Creatine Kinase C-Reactive Protein Total Protein Albumin Urine WBC (Auto) Salicylates Acetaminophen Phenytoin Valproic Acid Levetiracetam SARS-CoV-2 (PCR) 04/18/22 04/18/22 04/18/22 07:05 11:34 18:14 WBC RBC [place] % (Auto) [place] # (Auto) Seg Neuts % (Manual) Lymphocytes % (Manual) Seg Neutrophils # Seg Neutrophils # Man Lymphocytes # (Manual) PT ABG pO2 ABG HCO3 ABG Base Excess ABG Hemoglobin Sodium Potassium Chloride Carbon Dioxide BUN Creatinine Glucose POC Glucose 121 H 150 H 123 H Lactic Acid Calcium Phosphorus Ferritin AST Total Creatine Kinase C-Reactive Protein Total Protein Albumin Urine WBC (Auto) Salicylates Acetaminophen Phenytoin Valproic Acid Levetiracetam SARS-CoV-2 (PCR) 04/18/22 04/19/22 04/19/22 23:33 06:10 10:21 WBC 12.4 H RBC 3.46 L [place] % (Auto) 8.8 H [place] # (Auto) 1.1 H Seg Neuts % (Manual) Lymphocytes % (Manual) Seg Neutrophils # 8.2 H Seg Neutrophils # Man Lymphocytes # (Manual) PT ABG pO2 ABG HCO3 ABG Base Excess ABG Hemoglobin Sodium Potassium Chloride Carbon Dioxide BUN Creatinine Glucose POC Glucose 123 H 130 H Lactic Acid Calcium Phosphorus Ferritin AST Total Creatine Kinase C-Reactive Protein Total Protein Albumin Urine WBC (Auto) Salicylates Acetaminophen Phenytoin Valproic Acid Levetiracetam SARS-CoV-2 (PCR) 04/19/22 04/19/22 04/19/22 10:21 12:11 16:46 WBC RBC [place] % (Auto) [place] # (Auto) Seg Neuts % (Manual) Lymphocytes % (Manual) Seg Neutrophils # Seg Neutrophils # Man Lymphocytes # (Manual) PT ABG pO2 ABG HCO3 ABG Base Excess ABG Hemoglobin Sodium Potassium 3.5 L Chloride Carbon Dioxide BUN 29 H Creatinine Glucose 122 H POC Glucose 157 H 149 H Lactic Acid Calcium Phosphorus Ferritin AST Total Creatine Kinase C-Reactive Protein Total Protein Albumin 3.3 L Urine WBC (Auto) Salicylates Acetaminophen Phenytoin Valproic Acid Levetiracetam SARS-CoV-2 (PCR) 04/19/22 04/20/22 04/20/22 23:46 05:50 12:06 WBC RBC [place] % (Auto) [place] # (Auto) Seg Neuts % (Manual) Lymphocytes % (Manual) Seg Neutrophils # Seg Neutrophils # Man Lymphocytes # (Manual) PT ABG pO2 ABG HCO3 ABG Base Excess ABG Hemoglobin Sodium Potassium Chloride Carbon Dioxide BUN Creatinine Glucose POC Glucose 129 H 120 H 133 H Lactic Acid Calcium Phosphorus Ferritin AST Total Creatine Kinase C-Reactive Protein Total Protein Albumin Urine WBC (Auto) Salicylates Acetaminophen Phenytoin Valproic Acid Levetiracetam SARS-CoV-2 (PCR) 04/20/22 04/20/22 04/21/22 17:50 21:12 05:57 WBC RBC [place] % (Auto) [place] # (Auto) Seg Neuts % (Manual) Lymphocytes % (Manual) Seg Neutrophils # Seg Neutrophils # Man Lymphocytes # (Manual) PT ABG pO2 ABG HCO3 ABG Base Excess ABG Hemoglobin Sodium Potassium Chloride Carbon Dioxide BUN Creatinine Glucose POC Glucose 131 H 139 H 120 H Lactic Acid Calcium Phosphorus Ferritin AST Total Creatine Kinase C-Reactive Protein Total Protein Albumin Urine WBC (Auto) Salicylates Acetaminophen Phenytoin Valproic Acid Levetiracetam SARS-CoV-2 (PCR) 04/21/22 04/21/22 11:56 17:05 WBC RBC [place] % (Auto) [place] # (Auto) Seg Neuts % (Manual) Lymphocytes % (Manual) Seg Neutrophils # Seg Neutrophils # Man Lymphocytes # (Manual) PT ABG pO2 ABG HCO3 ABG Base Excess ABG Hemoglobin Sodium Potassium Chloride Carbon Dioxide BUN Creatinine Glucose POC Glucose 129 H 118 H Lactic Acid Calcium Phosphorus Ferritin AST Total Creatine Kinase C-Reactive Protein Total Protein Albumin Urine WBC (Auto) Salicylates Acetaminophen Phenytoin Valproic Acid Levetiracetam SARS-CoV-2 (PCR) Allied health notes reviewed: nursing
[2022-04-21] MEDS: POLYETHYLENE GLYCOL 3350 17 GM POWDER PO SCH (22:50)
[2022-04-22 00:24] LABS: Blood Urea Nitrogen 28 mg/dL (7-17); Calcium 8.4 mg/dL (8.4-10.2); Hemolysis Index 1
[2022-04-22 00:25] LABS: BUN/Creatinine Ratio 47
[2022-04-22 07:50] LABS: Basophils % (Auto) 0.3 % (0.0-1.8); Eosinophils % (Auto) 0.3 % (0.0-4.3); Hematocrit 30.8 % (30.3-42.9); Hemoglobin 10.2 gm/dl (10.1-14.3); Lymphocytes # (Auto) 2.1 K/mm3 (1.2-5.4); Lymphocytes % (Auto) 19.4 % (13.4-35.0); Mean Corpuscular HGB Conc 33 % (30-34); Mean Corpuscular Volume 93 fl (79-97); Monocytes # (Auto) 0.7 K/mm3 (0.0-0.8); Monocytes % (Auto) 6.5 % (0.0-7.3); Platelet Count 330 K/mm3 (140-440); Red Blood Count 3.31 M/mm3 (3.65-5.03); Red Cell Distribution Width 14.3 % (13.2-15.2)
[2022-04-22 08:02] LABS: Blood Urea Nitrogen 24 mg/dL (7-17); Calcium 8.8 mg/dL (8.4-10.2); Hemolysis Index 16
[2022-04-22 08:03] LABS: BUN/Creatinine Ratio 48
--- NOTE | 2022-04-22 08:04 | Progress Note ---
Assessment and Plan Assessment and plan: Assessment and plan: This is a 57-year-old female with known past medical history of MR, obesity, nicotine dependence, seizure disorder admitted for status epilepticus and was in tubated in the ED for airway protection Hospital Course to Date: 04/13: Stable on low vent setting this am. Off sedation, awake and tracking, not following commands. Patient does have history of MR, patient is functional and can voice her needs per the caregiver. No seizure like activity reported, EEG and Neurology consult pending. Continue IV Keppra. Patient remains afebrile and hemodynamicaly stable. PRN hydralazine added for hypertension. Continue current IV steroids, and empiric IV Abx. ID consulted for further rec for COVID infection. Renal function and CKP are improving post IVF hydration, continue IVF resuscitation. K repleted, continue to monitor electrolytes and replete as needed. Plan for PSV trial today, plan to wean for possible extubation per CCM. 04/14: Remains stable on the vent. No seizures like activities reported in the last 48hrs. Neurology recommendation noted. Patient tolerated PSV trial yesterday. Continue daily PSV trial, plan to wean for possible extubation per CCM. Hypertensive this am low dose BB added for BP control. Continue IV rojas roids, on Rocephin and Remdeservir per ID. 04/15: Remains stable on the vent. Tolerating PSV trial this am, plan for possibe extubation today per CCM. Remains hypertensive with refractory tachycardia with PRN hydralazine. On BB and Lisinopril added for better control. PRN switched to IV labetalol for SBP greater than 160. FWF increased for hypernatremia and K repleted, continue to monitor electrolytes and replete as needed. 04/16: s/p extubation, stable on RA. Currently nonverbal with Generalized weakness, however was able to shake head for yes or no this am. Lisinopril increased for BP control, continue low dose BB. Pending speech swallow eval, continue enteral nutrition via DHT for now. PT/OT also consulted for debility and discharge planning. Patient is stable for transfer to the floor. 04/17: Patient still with low grade fever, tolerating room air, ID and Pulmonary input noted, today will be Day 5 of Remdesivir and will complete antibiotics ceftriaxone also. If continued fever will likely need extension.Patient currently under treatment for COVID induced respiratory failure with hypoxia s/p extubation and also Sepsis secondary to Acute cystitis and COVID 19. No new seizure disorder. She does have a hx of MR and seizure as noted above. Leukocytosis is improved. I advised her Niece about her care so far and follow with PCP in one week of discharged. If tolerating diet and no new fever in 24 hrs, she can be discharged. We did discuss CODE STATUS on her again and she did affirm full code. 04/18: Awaiting speech evaluation. patient appears very lethargic still. Low grade fever and tachycardia noted overnight. Appears very dehydrated, will order NS 50 0 cc x 1. Will order repeat labs. She has completed remdesivir, rocephin for covid tx. 04/19: More alert today. Close to baseline mentation. Patient is a strict NPO due to concern for aspiration per ST assessment. Will place consultation to gastroenterology for PEG tube. Spoke with POA/cousin Samara Castro ([phone]) who agreed with plan for PEG tube. Dispo for patient is [facility] vs SNF. CM working on referrals. 04/20: No new changes overnight. D/w with GI. Plan for PEG tube on Sunday. 04/21: no new changes. PEG still planned sunday. Ordered AM labs. 04/22: Low potassium noted on AM labs. Ordered 40 MEQ IV and 40 MEQ via feedtube. Recheck K in evening. PEG still planned Sunday. Assessment and Plan #Dysphagia - aspiriation risk per Speech therapy, recommend NPO - GI consult for PEG tube. #Status Epilepticus (resolved) #H/o Seizure Disorder #H/o Mental Retardation(MR) - Multifactorial - Patient with UTI and COVID positive - Per records from 09/2021, patient phenytoin level was elevated last admit and meds was held. Patient was D/Dany with PO Keppra BID - CT head/brain with chronic encephalomalacia/surgical changes in the frontal lobes. No acute intracranial abnormality. - Treated underlying cause, currently on empiric IV abx. ID consulted - Intubated, awake and tracking. S/p Versed gtt. - Continue keppra - EEG pending - Neurology consult, appreciate recommendation - Per Neuro- continue Keppra 750mg IV q 12 hours for now once awake and patient able to take oral medications - switch to 1000 mg PO Keppra BID - PRN Ativan for seizure like activities - Frequent reorientation - Aspiration and Seizure precaution - PRN Analgesia for CPOT greater than 3 - Maintenance of sleep-wake cycle #Acute Hypoxic Respiratory Failure (resolved) - Intubated in the ED on 04/12 for airway protection secondary to above - s/p extubation on 04/16, stable on RA this am - CCM consulted, appreciate recommendations - Aspiration precaution HOB above 30 - PRN ABG and CXR - Continue SPO2 monitoring for SPO2 goal above 92% - PRN O2 supplementation as needed #Sepsis (resolved) #Viral Pneumonia #COVID 19 Pneumonia #Coronavirus Infection #Urinary Tract Infection(UTI)/Cystitis - COVID PCR came back positive - CT reveal right lower lobe infiltrate vs atelectasis - UA consistent with UTI, CT scan shows mild bladder wall thickening suggesting cystitis - COVID PCR came back positive - Blood cultures and sputum culture pending - Patient is afebrile, Leukocytosis improved, VSS - On IV steroids and empiric IV Abx - ID consulted, completed therapy with rocephin and remdesivir. - Bcx: NGTD - trend fever curve, no fevers since 04/16. #Rhabdomyolysis - Probably due to multiple seizures - s/p IVF resuscitation, CPK improved - Trend CPK #Acute Kidney Injury(JONA) most likely Vasomotor Nephropathy (resolved) #Hypokalemia - probably secondary to above - Per records, baseline scr is 1.1, Scr. as high as 3.2 this admit - Renal function back to baseline post IVF hydration - Strict intake and output - Avoid nephrotoxic medications; Renally dose medications - Monitor and replace electrolytes as needed - Trend BMP #Hypertension - Remains hypertensive - Continue low dose BB, lisinopril increased for better control - Continue blood pressure monitor per protocol - PRN Hydralazine for SBP greater than 160 - Might benefits from antihypertensive regimen at discharge #GI/DVT Prophylaxis - PPI- Pepcid - Heparin SubQ - SCD to bilateral lower extremities while in bed #Advance Care Planning - Disease education data, care plan, diagnoses, and prognosis were discussed with patient's cousin and caregiver via phone. Patient is a FULL code. Patient's family acknowledged understanding and agreed with current care plan. Disposition: [facility] vs SNF Time spent: +35 min CPT 12216 History Interval history: No overnight events or issues. Hospitalist Physical - Physical exam Narrative exam: Constitutional: no acute distress, other (middle aged female with normal respiratory effort at rest) Eyes: non-icteric ENT: oropharynx dry, NG in place Neck: supple, no lymphadenopathy, no JVD Effort: normal Ascultation: Bilateral: clear, diminished breath sounds Percussion: Bilateral: not dull Cardiovascular: regular rate and rhythm Gastrointestinal: normoactive bowel sounds, soft, non-tender, non-distended, Integumentary: normal Extremities: no cyanosis, no edema, pulses normal, no ischemia or petechiae Neurologic: pupils equal and round, CN II-XII normal Psychiatric: other (flat affect), baseline MR - Constitutional Vitals: Temp Pulse Resp BP Pulse Ox 97.6 F 104 H 20 142/91 98 04/22/22 06:10 04/22/22 06:10 04/22/22 06:10 04/22/22 06:10 04/22/22 06:10 General appearance: Present: no acute distress, well-nourished, obese, other (on the vent) Results - Labs CBC & Chem 7: 04/22/22 06:58 04/22/22 06:58 Labs: Laboratory Last Values WBC 10.9 K/mm3 (4.5-11.0) 04/22/22 06:58 RBC 3.31 M/mm3 (3.65-5.03) L 04/22/22 06:58 Hgb 10.2 gm/dl (10.1-14.3) 04/22/22 06:58 Hct 30.8 % (30.3-42.9) 04/22/22 06:58 MCV 93 fl (79-97) 04/22/22 06:58 MCH 31 pg (28-32) 04/22/22 06:58 MCHC 33 % (30-34) 04/22/22 06:58 RDW 14.3 % (13.2-15.2) 04/22/22 06:58 Plt Count 330 K/mm3 (140-440) 04/22/22 06:58 Lymph % (Auto) 19.4 % (13.4-35.0) 04/22/22 06:58 Rock % (Auto) 6.5 % (0.0-7.3) 04/22/22 06:58 Eos % (Auto) 0.3 % (0.0-4.3) 04/22/22 06:58 Baso % (Auto) 0.3 % (0.0-1.8) 04/22/22 06:58 Lymph # (Auto) 2.1 K/mm3 (1.2-5.4) 04/22/22 06:58 Rock # (Auto) 0.7 K/mm3 (0.0-0.8) 04/22/22 06:58 Eos # (Auto) 0.0 K/mm3 (0.0-0.4) 04/22/22 06:58 Baso # (Auto) 0.0 K/mm3 (0.0-0.1) 04/22/22 06:58 Add Manual Diff Complete 04/13/22 03:44 Total Counted 100 04/13/22 03:44 Seg Neutrophils % 73.5 % (40.0-70.0) H 04/22/22 06:58 Seg Neuts % (Manual) 97.0 % (40.0-70.0) H 04/13/22 03:44 Band Neutrophils % 0 % 04/13/22 03:44 Lymphocytes % (Manual) 2.0 % (13.4-35.0) L 04/13/22 03:44 Reactive Lymphs % (Man) 0 % 04/13/22 03:44 Monocytes % (Manual) 1.0 % (0.0-7.3) 04/13/22 03:44 Eosinophils % (Manual) 0 % (0.0-4.3) 04/13/22 03:44 Basophils % (Manual) 0 % (0.0-1.8) 04/13/22 03:44 Metamyelocytes % 0 % 04/13/22 03:44 Myelocytes % 0 % 04/13/22 03:44 Promyelocytes % 0 % 04/13/22 03:44 Blast Cells % 0 % 04/13/22 03:44 Nucleated RBC % Not Reportable 04/13/22 03:44 Seg Neutrophils # 8.0 K/mm3 (1.8-7.7) H 04/22/22 06:58 Seg Neutrophils # Man 18.1 K/mm3 (1.8-7.7) H 04/13/22 03:44 Band Neutrophils # 0.0 K/mm3 04/13/22 03:44 Lymphocytes # (Manual) 0.4 K/mm3 (1.2-5.4) L 04/13/22 03:44 Abs React Lymphs (Man) 0.0 K/mm3 04/13/22 03:44 Monocytes # (Manual) 0.2 K/mm3 (0.0-0.8) 04/13/22 03:44 Eosinophils # (Manual) 0.0 K/mm3 (0.0-0.4) 04/13/22 03:44 Basophils # (Manual) 0.0 K/mm3 (0.0-0.1) 04/13/22 03:44 Metamyelocytes # 0.0 K/mm3 04/13/22 03:44 Myelocytes # 0.0 K/mm3 04/13/22 03:44 Promyelocytes # 0.0 K/mm3 04/13/22 03:44 Blast Cells # 0.0 K/mm3 04/13/22 03:44 WBC Morphology Not Reportable 04/13/22 03:44 Hypersegmented Neuts Not Reportable 04/13/22 03:44 Hyposegmented Neuts Not Reportable 04/13/22 03:44 Hypogranular Neuts Not Reportable 04/13/22 03:44 Smudge Cells Not Reportable 04/13/22 03:44 Toxic Granulation Not Reportable 04/13/22 03:44 Toxic Vacuolation Not Reportable 04/13/22 03:44 Dohle Bodies Not Reportable 04/13/22 03:44 Pelger-Huet Anomaly Not Reportable 04/13/22 03:44 Neeta Rods Not Reportable 04/13/22 03:44 Platelet Estimate Consistent w auto 04/13/22 03:44 Clumped Platelets Not Reportable 04/13/22 03:44 Plt Clumps, EDTA Not Reportable 04/13/22 03:44 Large Platelets Not Reportable 04/13/22 03:44 Giant Platelets Not Reportable 04/13/22 03:44 Platelet Satelliting Not Reportable 04/13/22 03:44 Plt Morphology Comment Not Reportable 04/13/22 03:44 RBC Morphology Not Reportable 04/13/22 03:44 Dimorphic RBCs Not Reportable 04/13/22 03:44 Polychromasia Not Reportable 04/13/22 03:44 Hypochromasia Not Reportable 04/13/22 03:44 Poikilocytosis Not Reportable 04/13/22 03:44 Anisocytosis Not Reportable 04/13/22 03:44 Microcytosis Not Reportable 04/13/22 03:44 Macrocytosis Not Reportable 04/13/22 03:44 Spherocytes Not Reportable 04/13/22 03:44 Pappenheimer Bodies Not Reportable 04/13/22 03:44 Sickle Cells Not Reportable 04/13/22 03:44 Target Cells Not Reportable 04/13/22 03:44 Tear Drop Cells Not Reportable 04/13/22 03:44 Ovalocytes Not Reportable 04/13/22 03:44 Helmet Cells Not Reportable 04/13/22 03:44 Feng-Willards Bodies Not Reportable 04/13/22 03:44 [place] Rings Not Reportable 04/13/22 03:44 Raj Cells Not Reportable 04/13/22 03:44 Bite Cells Not Reportable 04/13/22 03:44 Crenated Cell Not Reportable 04/13/22 03:44 Elliptocytes Not Reportable 04/13/22 03:44 Acanthocytes (Spur) Not Reportable 04/13/22 03:44 Rouleaux Not Reportable 04/13/22 03:44 Hemoglobin C Crystals Not Reportable 04/13/22 03:44 Schistocytes Not Reportable 04/13/22 03:44 Malaria parasites Not Reportable 04/13/22 03:44 Sanjay Bodies Not Reportable 04/13/22 03:44 Hem Pathologist Commnt No 04/13/22 03:44 PT 15.3 Sec. (12.2-14.9) H 04/12/22 09:11 INR 1.09 (0.87-1.13) 04/12/22 09:11 APTT 27.4 Sec. (24.2-36.6) 04/12/22 09:11 ABG pH 7.408 pH Units (7.350-7.450) 04/15/22 12:35 ABG pCO2 43.3 mm Hg 04/15/22 12:35 ABG pO2 110.6 mm Hg (80.0-90.0) H 04/15/22 12:35 ABG HCO3 26.7 mmol/L (20.0-26.0) H 04/15/22 12:35 ABG O2 Saturation 98.0 % (95.0-99.0) 04/15/22 12:35 ABG O2 Content 11.8 (0.0-44) 04/15/22 12:35 ABG Base Excess 1.8 mmol/L (-2.0-3.0) 04/15/22 12:35 ABG Hemoglobin 8.6 gm/dl (12.0-16.0) L 04/15/22 12:35 ABG Carboxyhemoglobin 1.0 % (0.0-5.0) 04/15/22 12:35 ABG Methemoglobin 0.5 % (0.0-1.5) 04/15/22 12:35 Oxyhemoglobin 96.5 % (95.0-99.0) 04/15/22 12:35 FiO2 30 % 04/15/22 12:35 Sodium 141 mmol/L (137-145) 04/22/22 06:58 Potassium 3.0 mmol/L (3.6-5.0) L 04/22/22 06:58 Chloride 102.4 mmol/L (98-107) 04/22/22 06:58 Carbon Dioxide 28 mmol/L (22-30) 04/22/22 06:58 Anion Gap 14 mmol/L 04/22/22 06:58 BUN 24 mg/dL (7-17) H 04/22/22 06:58 Creatinine 0.6 mg/dL (0.6-1.2) 04/21/22 23:36 Estimated GFR > 60 ml/min 04/21/22 23:36 BUN/Creatinine Ratio 47 % 04/21/22 23:36 Glucose 92 mg/dL (65-100) 04/22/22 06:58 POC Glucose 152 mg/dL (70-105) H 04/21/22 21:57 Lactic Acid 1.60 mmol/L (0.7-2.0) 04/12/22 11:42 Calcium 8.8 mg/dL (8.4-10.2) 04/22/22 06:58 Phosphorus 3.10 mg/dL (2.5-4.5) 04/17/22 08:20 Magnesium 1.70 mg/dL (1.7-2.3) 04/17/22 08:20 Ferritin 318.6 ng/mL (10.0-200.0) H 04/14/22 04:04 Total Bilirubin 0.40 mg/dL (0.1-1.2) 04/19/22 10:21 AST 30 units/L (5-40) 04/19/22 10:21 ALT 24 units/L (7-56) 04/19/22 10:21 Alkaline Phosphatase 81 units/L (35-129) 04/19/22 10:21 Total Creatine Kinase 377 units/L (30-135) H 04/16/22 05:00 Total Creatine Kinase 535 units/L (30-135) H 04/16/22 05:00 C-Reactive Protein 9.70 mg/dL (0.00-1.30) H 04/14/22 04:04 Total Protein 6.5 g/dL (6.3-8.2) 04/19/22 10:21 Albumin 3.3 g/dL (3.9-5) L 04/19/22 10:21 Albumin/Globulin Ratio 1.0 % 04/19/22 10:21 Procalcitonin 1.92 ng/mL (<0.15) 04/14/22 04:04 Urine Color Yellow (Yellow) 04/12/22 Unknown Urine Turbidity Cloudy (Clear) 04/12/22 Unknown Specific [place] (Man) 1.020 (1.003-1.030) 04/12/22 Unknown Ur Protein (Man) 4+ mg/dL (Negative) 04/12/22 Unknown Ur Ketones (Man) Negative (Negative) 04/12/22 Unknown Ur Nitrite (Man) Negative (Negative) 04/12/22 Unknown Ur Reducing Substances Not Reportable 04/12/22 Unknown Urine Bilirubin (Man) Negative (Negative) 04/12/22 Unknown Urine Ictotest Not Reportable 04/12/22 Unknown Leukocyte Esterase (Man) Large (Negative) 04/12/22 Unknown Urine WBC (Auto) < 182.0 /HPF (0.0-6.0) H 04/12/22 Unknown Urine RBC (Auto) 60.0 /HPF (0.0-6.0) 04/12/22 Unknown U Epithel Cells (Auto) 12.0 /HPF (0-13.0) 04/12/22 Unknown Urine RBC (Manual) 3+ (Negative) 04/12/22 Unknown Urine WBC Clumps 3+ /HPF 04/12/22 Unknown Urine Mucus 3+ /HPF 04/12/22 Unknown Salicylates < 0.3 mg/dL (2.8-20.0) L 04/12/22 09:11 Acetaminophen 5.0 ug/mL (10.0-30.0) L 04/12/22 09:11 Phenytoin 1.2 ug/mL (10.0-20.0) L 04/12/22 09:11 Valproic Acid < 2.8 ug/mL (50-100) L 04/12/22 09:11 Levetiracetam <2.0 mcg/mL (6.0-46.0) L 04/12/22 14:34 Plasma/Serum Alcohol < 0.01 % (0-0.07) 04/12/22 09:11 SARS-CoV-2 (PCR) Positive (Negative) A 04/12/22 10:56 Mckeon/IV: Voiding Method External Female Catheter Active Medications - Current Medications Current Medications: Generic Name Dose Route Start Last Admin Trade Name Freq PRN Reason Stop Dose Admin Acetaminophen 650 mg 04/12/22 12:38 04/16/22 23:44 Acetaminophen 325 Mg Tab PO 650 mg Q6H PRN Administration Pain MILD(1-3)/Fever >100.5/VALLADARES Albuterol 2.5 mg 04/12/22 12:38 Albuterol 2.5 Mg/3 Ml Nebu IH Q3HRT PRN Shortness Of Breath Dexamethasone 6 mg 04/15/22 10:00 04/21/22 12:12 Dexamethasone 4 Mg/Ml Vial IV 04/22/22 10:01 6 mg Q24HR ISIAH Administration Famotidine 20 mg 04/15/22 22:00 04/21/22 22:51 Famotidine 20 Mg Tab FEEDTUBE 20 mg BID ISIAH Administration Heparin Sodium (Porcine) 5,000 unit 04/12/22 22:00 04/21/22 22:51 Heparin 5,000 Unit/1 Ml Vial SUB-Q 5,000 unit Q12HR ISIAH Administration Hydrophilic Ointment 1 applic 04/12/22 09:35 Lip Therapy Vaseline TP Q2HR PRN Dry Lips Labetalol HCl 10 mg 04/15/22 09:00 04/16/22 05:05 Labetalol 20 Mg/4 Ml Inj IV 10 mg Q4H PRN Administration Hypertension Levetiracetam 1,000 mg 04/19/22 10:00 04/21/22 22:51 Levetiracetam 500 Mg/5 Ml Oral Liqd FEEDTUBE 1,000 mg BID ISIAH Administration Lisinopril 10 mg 04/16/22 10:00 04/21/22 12:37 Lisinopril 5 Mg Tab PO 10 mg QDAY ISIAH Administration Metoprolol Tartrate 12.5 mg 04/14/22 16:13 04/21/22 22:52 Metoprolol Tartrate 25 Mg Tab PO 12.5 mg BID ISIAH Administration Multi-Ingred Cream/Lotion/Oil/Oint 1 applic 04/12/22 09:35 Mineral Oil/Petrolatum, White Ophth Oint 3.5 Gm OU Q4HR PRN Dry Eye(s) Ondansetron HCl 4 mg 04/12/22 12:38 Ondansetron 4 Mg/2 Ml Inj IV Q8H PRN Nausea And Vomiting Polyethylene Glycol 17 gm 04/21/22 20:00 04/21/22 22:50 Polyethylene Glycol 3350 17 Gm Powder PO 17 gm QDAY ISIAH Administration Senna/Docusate Sodium 2 tab 04/21/22 22:00 04/21/22 22:50 Sennosides/Docusate Sodium 8.6/50 Mg Tab FEEDTUBE 2 tab QHS ISIAH Administration Sodium Chloride 10 ml 04/12/22 22:00 04/21/22 22:52 Sodium Chloride 0.9% 10 Ml Flush Syringe IV 10 ml BID ISIAH Administration Sodium Chloride 10 ml 04/12/22 12:38 Sodium Chloride 0.9% 10 Ml Flush Syringe IV PRN PRN LINE FLUSH Nutrition/Malnutrition Assess - Dietary Evaluation Nutrition/Malnutrition Findings: Nutrition Notes Start: 04/12/22 16:12 Freq: Status: Active Protocol: Document 04/18/22 14:13 JOSI (Rec: 04/18/22 15:00 JOSI [id number]) Nutrition Notes Initial or Follow up Reassessment Other Pertinent Diagnosis Seizures, COVID-19, UTI, Mental Disability. Current Diet TF-Vital AF 1.2 Dajuan @ 60 ml/hr (since D 04/14). Labs/Tests 04/18: BUN 30, Glu 117. Pertinent Medications 04/18: Nutritionally unremarkable. Height 5 ft 8 in Weight 113.3 kg [place] Body Weight (kg) 63.63 BMI 38.0 Weight change and time frame No body weight change reported in 1 week. Weight Status Obese Subjective/Other Information RD consult for routine F/U on TF tolerance/continuation assessment. TF continues as prescribed, and well tolerated, according to RN notes. Pt is on Room Air, O2 saturation @ 100%, according to Physical Assessment History notes. I will reassess TF prescription, since Pt is no longer on Mechanical Ventilation support. GRADUATE RECRUITER note on 04/18/22 14:19: Swallowing function has been assessed. Patient demonstrates a severe oral/pharyngeal phase swallowing dysfunction and is at significant risk for aspiration. Continue NPO status. - END OF NOTE. Pt remains incontinent, according to Physical Assessment History notes. Percent of energy/protein needs met: Prescribed TF-Vital AF 1.2 Dajuan @ 65 ml/hr provides for energy/protein needs (1,740 Kcal/109 g) during LOS, 96% Kcal; 101% AA. Burn Absent Trauma Absent GI Symptoms Other Food Allergy No Skin Integrity/Comment R-Hip wound. Current % PO Other Minimum of two criteria No Fluid Accumulation N/A Reduced Box Toe Flanger [place] Strength N/A (non-severe) Protein-Calorie Malnutrition N\A #2 Nutrition Diagnosis Swallowing difficulty Etiology Possibly mental disability As Evidenced by Signs and Symptoms GRADUATE RECRUITER note on 04/18/22 14:19: Swallowing function has been assessed. Patient demonstrates a severe oral/pharyngeal phase swallowing dysfunction and is at significant risk for aspiration. Continue NPO status. - END OF NOTE. #1 Nutrition Diagnosis Inadequate oral intake Comments: Pt is on Room Air, O2 saturation @ 100%, according to Physical Assessment History notes. Diagnosis Progress(for reassessment Resolved documentation) Is patient on ventilator? No Is Patient Ambulatory and/or Out of Bed No REE-([facility]-confined to bed) 2135.724 Kcal/Kg value to use for calculation 16 Approximate Energy Requirements Using 1813 kcal/Kg Calculation Used for Recommendations Kcal/kg Additional Notes Protein: 1-1.2 g/Kg AdjBW; 90- 108 g/day. Fluids: 1 ml/Kcal, or as per MD. Nutrition Intervention Nutrition Support: Continue TF-Vital AF 1.2 Dajuan @ 60 ml/hr. Flush: 100 ml water Q 4 hr, or as per MD. Kcal 1,740 Protein (gm) 109 Carbohydrates (gm) 160 Fat (gm) 78 Fluid (mL) 1,176 Fiber (gm) 7 % RDI: 96% Kcal; 101% AA. Goal #1 Provide at least 75% of energy /protein needs through Enteral Feeding during LOS. Goal #2 Adjust the dietary intervention to better serve Pt's needs and clinical conditions during LOS. Follow-Up By: 04/25/22 Additional Comments Continue monitoring TF tolerance and BM.
[2022-04-22] MEDS: POTASSIUM CHLORIDE 20 MEQ PACKET FEEDTUBE ONE ×2 (08:10)
[2022-04-22] MEDS: POTASSIUM CHLORIDE 10 MEQ 10 MEQ/100 ML BAG IV SCH ×4 (09:42→13:14)
[2022-04-22] MEDS: POLYETHYLENE GLYCOL 3350 17 GM POWDER PO SCH (09:47)
[2022-04-22] MEDS: levETIRAcetam 500 MG/5 ML ORAL LIQD FEEDTUBE SCH ×2 (09:47→22:02)
[2022-04-22] MEDS: METOPROLOL TARTRATE 25 MG TAB PO SCH ×2 (09:48→22:00)
[2022-04-22] MEDS: dexAMETHasone 4 MG/ML VIAL IV SCH (09:48)
[2022-04-22] MEDS: FAMOTIDINE 20 MG TAB FEEDTUBE SCH ×2 (09:48→22:01)
[2022-04-22] MEDS: LISINOPRIL 5 MG TAB PO SCH (09:49)
[2022-04-22] MEDS: HEPARIN 5,000 UNIT/1 ML VIAL SUB-Q SCH ×2 (09:50→22:01)
[2022-04-22] MEDS ORDERED: POTASSIUM CHLORIDE 20 MEQ PACKET FEEDTUBE ONE (12:00)
--- NOTE | 2022-04-22 12:15 | Progress Note ---
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 COVID positive -Waiting PEG placement and discharge planning -Continue with seizure precautions and AEDs - continue lung protective strategies - bronchodilators with pulmonary hygiene per RT - avoid nephrotoxins - accuchecks with glycemic control per SSI (target blood glucose of 140-180 mg/dL; avoid hypoglycemia) - Maintenance of sleep-wake cycle, avoid delirium - enteral nutritional support - VTE prophylaxis - Mobility per protocol - continue other care per attending / other consultants COVID SPECIFIC INTERVENTIONS - s/p Remdesivir as per ID/Pulmonary developed protocols - Contact and airborne isolation per facility protocols CONDITION: CRITICAL PROGNOSIS: GUARDED CODE STATUS: FULL CODE Subjective Date of service: 04/22/22 Principal diagnosis: Acute hypoxemic respiratory failure; COVID-19 infxn; UTI; Mental disability Interval history: Patient is seen today for: Acute hypoxemic respiratory failure; COVID-19 infection; UTI (urinary tract infection); Mental disability Seen and examined at bedside; 24hour events reviewed; nursing and respiratory care staff consulted; no adverse overnight events reported to me; resting peacefully in bed; remains on room air;no emesis or overt aspiration; mental status appears closer to baseline Awaiting PEG tube placement Objective Vital Signs - 12hr 04/22/22 06:10 Temperature 97.6 F Pulse Rate 104 H Respiratory 20 Rate Blood Pressure 142/91 O2 Sat by Pulse 98 Oximetry Constitutional: no acute distress, alert, other (Patient awake but not following commands. No acute respiratory distress.) Eyes: non-icteric ENT: oropharynx moist Neck: supple, no lymphadenopathy, no JVD Effort: normal Ascultation: Bilateral: clear, diminished breath sounds, rhonchi (scant) Percussion: Bilateral: not dull Cardiovascular: regular rate and rhythm Gastrointestinal: normoactive bowel sounds, soft, non-tender, non-distended Integumentary: normal Extremities: no cyanosis, no edema, pulses normal, no ischemia or petechiae Neurologic: pupils equal and round Psychiatric: mood appropriate, affect normal CBC and BMP: 04/22/22 06:58 04/22/22 19:39 ABG, PT/INR, D-dimer: ABG ABG pH 7.408 pH Units (7.350-7.450) 04/15/22 12:35 ABG pCO2 43.3 mm Hg 04/15/22 12:35 ABG pO2 110.6 mm Hg (80.0-90.0) H 04/15/22 12:35 ABG O2 Saturation 98.0 % (95.0-99.0) 04/15/22 12:35 PT/INR, D-dimer PT 15.3 Sec. (12.2-14.9) H 04/12/22 09:11 INR 1.09 (0.87-1.13) 04/12/22 09:11 Abnormal lab findings: Abnormal Labs 04/12/22 04/12/22 04/12/22 09:11 09:11 09:11 WBC 12.8 H RBC Armstrong % (Auto) Armstrong # (Auto) Seg Neutrophils % Seg Neuts % (Manual) 83.0 H Lymphocytes % (Manual) 12.0 L Seg Neutrophils # Seg Neutrophils # Man 10.6 H Lymphocytes # (Manual) PT ABG pO2 ABG HCO3 ABG Base Excess ABG Hemoglobin Sodium 148 H Potassium Chloride 107.2 H Carbon Dioxide 21 L BUN 37 H Creatinine 3.2 H Glucose 102 H POC Glucose Lactic Acid Calcium Phosphorus Ferritin AST 48 H Total Creatine Kinase C-Reactive Protein Total Protein 9.0 H Albumin Urine WBC (Auto) Salicylates < 0.3 L Acetaminophen Phenytoin 1.2 L Valproic Acid < 2.8 L Levetiracetam SARS-CoV-2 (PCR) 04/12/22 04/12/22 04/12/22 09:11 09:11 09:38 WBC RBC Armstrong % (Auto) Armstrong # (Auto) Seg Neutrophils % Seg Neuts % (Manual) Lymphocytes % (Manual) Seg Neutrophils # Seg Neutrophils # Man Lymphocytes # (Manual) PT 15.3 H ABG pO2 ABG HCO3 ABG Base Excess ABG Hemoglobin Sodium Potassium Chloride Carbon Dioxide BUN Creatinine Glucose POC Glucose Lactic Acid 3.30 H* Calcium Phosphorus Ferritin AST Total Creatine Kinase C-Reactive Protein Total Protein Albumin Urine WBC (Auto) Salicylates Acetaminophen 5.0 L Phenytoin Valproic Acid Levetiracetam SARS-CoV-2 (PCR) 04/12/22 04/12/22 04/12/22 10:56 11:29 11:42 WBC RBC Armstrong % (Auto) Armstrong # (Auto) Seg Neutrophils % Seg Neuts % (Manual) Lymphocytes % (Manual) Seg Neutrophils # Seg Neutrophils # Man Lymphocytes # (Manual) PT ABG pO2 152.6 H ABG HCO3 ABG Base Excess -4.2 L ABG Hemoglobin Sodium Potassium Chloride Carbon Dioxide BUN Creatinine Glucose POC Glucose Lactic Acid Calcium Phosphorus Ferritin AST Total Creatine Kinase 1568 H C-Reactive Protein Total Protein Albumin Urine WBC (Auto) Salicylates Acetaminophen Phenytoin Valproic Acid Levetiracetam SARS-CoV-2 (PCR) Positive A 04/12/22 04/12/22 04/13/22 14:34 Unknown 00:56 WBC RBC Armstrong % (Auto) Armstrong # (Auto) Seg Neutrophils % Seg Neuts % (Manual) Lymphocytes % (Manual) Seg Neutrophils # Seg Neutrophils # Man Lymphocytes # (Manual) PT ABG pO2 ABG HCO3 ABG Base Excess ABG Hemoglobin Sodium Potassium Chloride Carbon Dioxide BUN Creatinine Glucose POC Glucose 111 H Lactic Acid Calcium Phosphorus Ferritin AST Total Creatine Kinase C-Reactive Protein Total Protein Albumin Urine WBC (Auto) < 182.0 H Salicylates Acetaminophen Phenytoin Valproic Acid Levetiracetam <2.0 L SARS-CoV-2 (PCR) 04/13/22 04/13/22 04/13/22 03:44 03:44 04:15 WBC 18.7 H RBC Armstrong % (Auto) Armstrong # (Auto) Seg Neutrophils % Seg Neuts % (Manual) 97.0 H Lymphocytes % (Manual) 2.0 L Seg Neutrophils # Seg Neutrophils # Man 18.1 H Lymphocytes # (Manual) 0.4 L PT ABG pO2 135.1 H ABG HCO3 ABG Base Excess -2.7 L ABG Hemoglobin 11.9 L Sodium Potassium 3.3 L D Chloride 107.2 H Carbon Dioxide BUN 41 H Creatinine 1.4 H D Glucose 123 H POC Glucose Lactic Acid Calcium Phosphorus Ferritin AST Total Creatine Kinase C-Reactive Protein Total Protein Albumin Urine WBC (Auto) Salicylates Acetaminophen Phenytoin Valproic Acid Levetiracetam SARS-CoV-2 (PCR) 04/13/22 04/13/22 04/13/22 11:47 15:45 18:18 WBC RBC Armstrong % (Auto) Armstrong # (Auto) Seg Neutrophils % Seg Neuts % (Manual) Lymphocytes % (Manual) Seg Neutrophils # Seg Neutrophils # Man Lymphocytes # (Manual) PT ABG pO2 119.0 H ABG HCO3 ABG Base Excess -3.7 L ABG Hemoglobin 11.8 L Sodium Potassium 5.1 H D Chloride 107.5 H Carbon Dioxide 14 L D BUN 36 H Creatinine Glucose 104 H POC Glucose 119 H Lactic Acid Calcium Phosphorus Ferritin AST 47 H Total Creatine Kinase C-Reactive Protein Total Protein Albumin 3.6 L Urine WBC (Auto) Salicylates Acetaminophen Phenytoin Valproic Acid Levetiracetam SARS-CoV-2 (PCR) 04/14/22 04/14/22 04/14/22 00:06 04:04 04:04 WBC 18.2 H RBC Armstrong % (Auto) Armstrong # (Auto) Seg Neutrophils % Seg Neuts % (Manual) Lymphocytes % (Manual) Seg Neutrophils # Seg Neutrophils # Man Lymphocytes # (Manual) PT ABG pO2 ABG HCO3 ABG Base Excess ABG Hemoglobin Sodium Potassium Chloride 107.6 H Carbon Dioxide BUN 33 H Creatinine Glucose 148 H POC Glucose 120 H Lactic Acid Calcium Phosphorus Ferritin AST Total Creatine Kinase 807 H C-Reactive Protein 9.70 H Total Protein Albumin Urine WBC (Auto) Salicylates Acetaminophen Phenytoin Valproic Acid Levetiracetam SARS-CoV-2 (PCR) 04/14/22 04/14/22 04/14/22 04:04 04:04 05:06 WBC RBC Armstrong % (Auto) Armstrong # (Auto) Seg Neutrophils % Seg Neuts % (Manual) Lymphocytes % (Manual) Seg Neutrophils # Seg Neutrophils # Man Lymphocytes # (Manual) PT ABG pO2 ABG HCO3 ABG Base Excess ABG Hemoglobin Sodium Potassium Chloride 108.8 H Carbon Dioxide BUN 34 H Creatinine Glucose 149 H POC Glucose 143 H Lactic Acid Calcium Phosphorus Ferritin 318.6 H AST Total Creatine Kinase C-Reactive Protein Total Protein Albumin 3.6 L Urine WBC (Auto) Salicylates Acetaminophen Phenytoin Valproic Acid Levetiracetam SARS-CoV-2 (PCR) 04/14/22 04/14/22 04/14/22 12:04 14:45 18:12 WBC RBC Armstrong % (Auto) Armstrong # (Auto) Seg Neutrophils % Seg Neuts % (Manual) Lymphocytes % (Manual) Seg Neutrophils # Seg Neutrophils # Man Lymphocytes # (Manual) PT ABG pO2 100.5 H ABG HCO3 ABG Base Excess ABG Hemoglobin 7.0 L Sodium Potassium Chloride Carbon Dioxide BUN Creatinine Glucose POC Glucose 139 H 120 H Lactic Acid Calcium Phosphorus Ferritin AST Total Creatine Kinase C-Reactive Protein Total Protein Albumin Urine WBC (Auto) Salicylates Acetaminophen Phenytoin Valproic Acid Levetiracetam SARS-CoV-2 (PCR) 04/14/22 04/15/22 04/15/22 23:19 04:31 04:31 WBC 15.7 H RBC Armstrong % (Auto) Armstrong # (Auto) Seg Neutrophils % Seg Neuts % (Manual) Lymphocytes % (Manual) Seg Neutrophils # Seg Neutrophils # Man Lymphocytes # (Manual) PT ABG pO2 ABG HCO3 ABG Base Excess ABG Hemoglobin Sodium 146 H Potassium 3.5 L Chloride 110.6 H Carbon Dioxide BUN 28 H Creatinine Glucose 116 H POC Glucose 122 H Lactic Acid Calcium Phosphorus Ferritin AST Total Creatine Kinase C-Reactive Protein Total Protein Albumin 3.8 L Urine WBC (Auto) Salicylates Acetaminophen Phenytoin Valproic Acid Levetiracetam SARS-CoV-2 (PCR) 04/15/22 04/15/22 04/15/22 05:19 11:52 12:35 WBC RBC Armstrong % (Auto) Armstrong # (Auto) Seg Neutrophils % Seg Neuts % (Manual) Lymphocytes % (Manual) Seg Neutrophils # Seg Neutrophils # Man Lymphocytes # (Manual) PT ABG pO2 110.6 H ABG HCO3 26.7 H ABG Base Excess ABG Hemoglobin 8.6 L Sodium Potassium Chloride Carbon Dioxide BUN Creatinine Glucose POC Glucose 124 H 133 H Lactic Acid Calcium Phosphorus Ferritin AST Total Creatine Kinase C-Reactive Protein Total Protein Albumin Urine WBC (Auto) Salicylates Acetaminophen Phenytoin Valproic Acid Levetiracetam SARS-CoV-2 (PCR) 04/15/22 04/16/22 04/16/22 18:08 00:07 05:00 WBC RBC Armstrong % (Auto) Armstrong # (Auto) Seg Neutrophils % Seg Neuts % (Manual) Lymphocytes % (Manual) Seg Neutrophils # Seg Neutrophils # Man Lymphocytes # (Manual) PT ABG pO2 ABG HCO3 ABG Base Excess ABG Hemoglobin Sodium Potassium Chloride Carbon Dioxide BUN 26 H Creatinine Glucose 102 H POC Glucose 139 H 114 H Lactic Acid Calcium Phosphorus 1.90 L Ferritin AST Total Creatine Kinase 377 H C-Reactive Protein Total Protein Albumin 3.4 L Urine WBC (Auto) Salicylates Acetaminophen Phenytoin Valproic Acid Levetiracetam SARS-CoV-2 (PCR) 04/16/22 04/16/22 04/16/22 05:00 11:43 17:24 WBC RBC Armstrong % (Auto) Armstrong # (Auto) Seg Neutrophils % Seg Neuts % (Manual) Lymphocytes % (Manual) Seg Neutrophils # Seg Neutrophils # Man Lymphocytes # (Manual) PT ABG pO2 ABG HCO3 ABG Base Excess ABG Hemoglobin Sodium 136 L Potassium Chloride Carbon Dioxide BUN 26 H Creatinine Glucose 104 H POC Glucose 128 H 134 H Lactic Acid Calcium 8.2 L Phosphorus Ferritin AST Total Creatine Kinase 535 H C-Reactive Protein Total Protein Albumin Urine WBC (Auto) Salicylates Acetaminophen Phenytoin Valproic Acid Levetiracetam SARS-CoV-2 (PCR) 04/16/22 04/17/22 04/17/22 23:44 06:14 08:11 WBC RBC Armstrong % (Auto) Armstrong # (Auto) Seg Neutrophils % Seg Neuts % (Manual) Lymphocytes % (Manual) Seg Neutrophils # Seg Neutrophils # Man Lymphocytes # (Manual) PT ABG pO2 ABG HCO3 ABG Base Excess ABG Hemoglobin Sodium Potassium Chloride Carbon Dioxide BUN Creatinine Glucose POC Glucose 139 H 125 H 127 H Lactic Acid Calcium Phosphorus Ferritin AST Total Creatine Kinase C-Reactive Protein Total Protein Albumin Urine WBC (Auto) Salicylates Acetaminophen Phenytoin Valproic Acid Levetiracetam SARS-CoV-2 (PCR) 04/17/22 04/17/22 04/17/22 08:20 10:25 23:57 WBC RBC Armstrong % (Auto) Armstrong # (Auto) Seg Neutrophils % Seg Neuts % (Manual) Lymphocytes % (Manual) Seg Neutrophils # Seg Neutrophils # Man Lymphocytes # (Manual) PT ABG pO2 ABG HCO3 ABG Base Excess ABG Hemoglobin Sodium Potassium Chloride Carbon Dioxide BUN 30 H Creatinine Glucose 117 H POC Glucose 118 H 135 H Lactic Acid Calcium Phosphorus Ferritin AST Total Creatine Kinase C-Reactive Protein Total Protein Albumin Urine WBC (Auto) Salicylates Acetaminophen Phenytoin Valproic Acid Levetiracetam SARS-CoV-2 (PCR) 04/18/22 04/18/22 04/18/22 07:05 11:34 18:14 WBC RBC Armstrong % (Auto) Armstrong # (Auto) Seg Neutrophils % Seg Neuts % (Manual) Lymphocytes % (Manual) Seg Neutrophils # Seg Neutrophils # Man Lymphocytes # (Manual) PT ABG pO2 ABG HCO3 ABG Base Excess ABG Hemoglobin Sodium Potassium Chloride Carbon Dioxide BUN Creatinine Glucose POC Glucose 121 H 150 H 123 H Lactic Acid Calcium Phosphorus Ferritin AST Total Creatine Kinase C-Reactive Protein Total Protein Albumin Urine WBC (Auto) Salicylates Acetaminophen Phenytoin Valproic Acid Levetiracetam SARS-CoV-2 (PCR) 04/18/22 04/19/22 04/19/22 23:33 06:10 10:21 WBC 12.4 H RBC 3.46 L Armstrong % (Auto) 8.8 H Armstrong # (Auto) 1.1 H Seg Neutrophils % Seg Neuts % (Manual) Lymphocytes % (Manual) Seg Neutrophils # 8.2 H Seg Neutrophils # Man Lymphocytes # (Manual) PT ABG pO2 ABG HCO3 ABG Base Excess ABG Hemoglobin Sodium Potassium Chloride Carbon Dioxide BUN Creatinine Glucose POC Glucose 123 H 130 H Lactic Acid Calcium Phosphorus Ferritin AST Total Creatine Kinase C-Reactive Protein Total Protein Albumin Urine WBC (Auto) Salicylates Acetaminophen Phenytoin Valproic Acid Levetiracetam SARS-CoV-2 (PCR) 04/19/22 04/19/22 04/19/22 10:21 12:11 16:46 WBC RBC Armstrong % (Auto) Armstrong # (Auto) Seg Neutrophils % Seg Neuts % (Manual) Lymphocytes % (Manual) Seg Neutrophils # Seg Neutrophils # Man Lymphocytes # (Manual) PT ABG pO2 ABG HCO3 ABG Base Excess ABG Hemoglobin Sodium Potassium 3.5 L Chloride Carbon Dioxide BUN 29 H Creatinine Glucose 122 H POC Glucose 157 H 149 H Lactic Acid Calcium Phosphorus Ferritin AST Total Creatine Kinase C-Reactive Protein Total Protein Albumin 3.3 L Urine WBC (Auto) Salicylates Acetaminophen Phenytoin Valproic Acid Levetiracetam SARS-CoV-2 (PCR) 04/19/22 04/20/22 04/20/22 23:46 05:50 12:06 WBC RBC Armstrong % (Auto) Armstrong # (Auto) Seg Neutrophils % Seg Neuts % (Manual) Lymphocytes % (Manual) Seg Neutrophils # Seg Neutrophils # Man Lymphocytes # (Manual) PT ABG pO2 ABG HCO3 ABG Base Excess ABG Hemoglobin Sodium Potassium Chloride Carbon Dioxide BUN Creatinine Glucose POC Glucose 129 H 120 H 133 H Lactic Acid Calcium Phosphorus Ferritin AST Total Creatine Kinase C-Reactive Protein Total Protein Albumin Urine WBC (Auto) Salicylates Acetaminophen Phenytoin Valproic Acid Levetiracetam SARS-CoV-2 (PCR) 04/20/22 04/20/22 04/21/22 17:50 21:12 05:57 WBC RBC Armstrong % (Auto) Armstrong # (Auto) Seg Neutrophils % Seg Neuts % (Manual) Lymphocytes % (Manual) Seg Neutrophils # Seg Neutrophils # Man Lymphocytes # (Manual) PT ABG pO2 ABG HCO3 ABG Base Excess ABG Hemoglobin Sodium Potassium Chloride Carbon Dioxide BUN Creatinine Glucose POC Glucose 131 H 139 H 120 H Lactic Acid Calcium Phosphorus Ferritin AST Total Creatine Kinase C-Reactive Protein Total Protein Albumin Urine WBC (Auto) Salicylates Acetaminophen Phenytoin Valproic Acid Levetiracetam SARS-CoV-2 (PCR) 04/21/22 04/21/22 04/21/22 11:56 17:05 21:57 WBC RBC Armstrong % (Auto) Armstrong # (Auto) Seg Neutrophils % Seg Neuts % (Manual) Lymphocytes % (Manual) Seg Neutrophils # Seg Neutrophils # Man Lymphocytes # (Manual) PT ABG pO2 ABG HCO3 ABG Base Excess ABG Hemoglobin Sodium Potassium Chloride Carbon Dioxide BUN Creatinine Glucose POC Glucose 129 H 118 H 152 H Lactic Acid Calcium Phosphorus Ferritin AST Total Creatine Kinase C-Reactive Protein Total Protein Albumin Urine WBC (Auto) Salicylates Acetaminophen Phenytoin Valproic Acid Levetiracetam SARS-CoV-2 (PCR) 04/21/22 04/22/22 04/22/22 23:36 06:07 06:58 WBC RBC 3.31 L Armstrong % (Auto) Armstrong # (Auto) Seg Neutrophils % 73.5 H Seg Neuts % (Manual) Lymphocytes % (Manual) Seg Neutrophils # 8.0 H Seg Neutrophils # Man Lymphocytes # (Manual) PT ABG pO2 ABG HCO3 ABG Base Excess ABG Hemoglobin Sodium Potassium 3.0 L Chloride Carbon Dioxide BUN 28 H Creatinine Glucose 129 H POC Glucose 113 H Lactic Acid Calcium Phosphorus Ferritin AST Total Creatine Kinase C-Reactive Protein Total Protein Albumin Urine WBC (Auto) Salicylates Acetaminophen Phenytoin Valproic Acid Levetiracetam SARS-CoV-2 (PCR) 04/22/22 06:58 WBC RBC Armstrong % (Auto) Armstrong # (Auto) Seg Neutrophils % Seg Neuts % (Manual) Lymphocytes % (Manual) Seg Neutrophils # Seg Neutrophils # Man Lymphocytes # (Manual) PT ABG pO2 ABG HCO3 ABG Base Excess ABG Hemoglobin Sodium Potassium 3.0 L Chloride Carbon Dioxide BUN 24 H Creatinine 0.5 L Glucose POC Glucose Lactic Acid Calcium Phosphorus Ferritin AST Total Creatine Kinase C-Reactive Protein Total Protein Albumin Urine WBC (Auto) Salicylates Acetaminophen Phenytoin Valproic Acid Levetiracetam SARS-CoV-2 (PCR) Allied health notes reviewed: nursing
[2022-04-22] MEDS: SENNOSIDES/DOCUSATE SODIUM 8.6/50 MG TAB FEEDTUBE SCH (22:02)
--- NOTE | 2022-04-23 08:26 | Progress Note ---
Assessment and Plan Assessment and plan: Assessment and plan: This is a 57-year-old female with known past medical history of MR, obesity, nicotine dependence, seizure disorder admitted for status epilepticus and was in tubated in the ED for airway protection Hospital Course to Date: 04/13: Stable on low vent setting this am. Off sedation, awake and tracking, not following commands. Patient does have history of MR, patient is functional and can voice her needs per the caregiver. No seizure like activity reported, EEG and Neurology consult pending. Continue IV Keppra. Patient remains afebrile and hemodynamicaly stable. PRN hydralazine added for hypertension. Continue current IV steroids, and empiric IV Abx. ID consulted for further rec for COVID infection. Renal function and CKP are improving post IVF hydration, continue IVF resuscitation. K repleted, continue to monitor electrolytes and replete as needed. Plan for PSV trial today, plan to wean for possible extubation per CCM. 04/14: Remains stable on the vent. No seizures like activities reported in the last 48hrs. Neurology recommendation noted. Patient tolerated PSV trial yesterday. Continue daily PSV trial, plan to wean for possible extubation per CCM. Hypertensive this am low dose BB added for BP control. Continue IV rojas roids, on Rocephin and Remdeservir per ID. 04/15: Remains stable on the vent. Tolerating PSV trial this am, plan for possibe extubation today per CCM. Remains hypertensive with refractory tachycardia with PRN hydralazine. On BB and Lisinopril added for better control. PRN switched to IV labetalol for SBP greater than 160. FWF increased for hypernatremia and K repleted, continue to monitor electrolytes and replete as needed. 04/16: s/p extubation, stable on RA. Currently nonverbal with Generalized weakness, however was able to shake head for yes or no this am. Lisinopril increased for BP control, continue low dose BB. Pending speech swallow eval, continue enteral nutrition via DHT for now. PT/OT also consulted for debility and discharge planning. Patient is stable for transfer to the floor. 04/17: Patient still with low grade fever, tolerating room air, ID and Pulmonary input noted, today will be Day 5 of Remdesivir and will complete antibiotics ceftriaxone also. If continued fever will likely need extension.Patient currently under treatment for COVID induced respiratory failure with hypoxia s/p extubation and also Sepsis secondary to Acute cystitis and COVID 19. No new seizure disorder. She does have a hx of MR and seizure as noted above. Leukocytosis is improved. I advised her Niece about her care so far and follow with PCP in one week of discharged. If tolerating diet and no new fever in 24 hrs, she can be discharged. We did discuss CODE STATUS on her again and she did affirm full code. 04/18: Awaiting speech evaluation. patient appears very lethargic still. Low grade fever and tachycardia noted overnight. Appears very dehydrated, will order NS 50 0 cc x 1. Will order repeat labs. She has completed remdesivir, rocephin for covid tx. 04/19: More alert today. Close to baseline mentation. Patient is a strict NPO due to concern for aspiration per ST assessment. Will place consultation to gastroenterology for PEG tube. Spoke with POA/cousin Samara Castro ([phone]) who agreed with plan for PEG tube. Dispo for patient is [facility] vs SNF. CM working on referrals. 04/20: No new changes overnight. D/w with GI. Plan for PEG tube on Sunday. 04/21: no new changes. PEG still planned sunday. Ordered AM labs. 04/22: Low potassium noted on AM labs. Ordered 40 MEQ IV and 40 MEQ via feedtube. Recheck K in evening. PEG still planned Sunday. 04/23: K 3.7. PEG planned sunday. Dispo: [facility] possibly sunday Assessment and Plan #Dysphagia - aspiriation risk per Speech therapy, recommend NPO - GI consult for PEG tube. #Status Epilepticus (resolved) #H/o Seizure Disorder #H/o Mental Retardation(MR) - Multifactorial - Patient with UTI and COVID positive - Per records from 09/2021, patient phenytoin level was elevated last admit and meds was held. Patient was D/Dany with PO Keppra BID - CT head/brain with chronic encephalomalacia/surgical changes in the frontal lobes. No acute intracranial abnormality. - Treated underlying cause, currently on empiric IV abx. ID consulted - Intubated, awake and tracking. S/p Versed gtt. - Continue keppra - EEG pending - Neurology consult, appreciate recommendation - Per Neuro- continue Keppra 750mg IV q 12 hours for now once awake and patient able to take oral medications - switch to 1000 mg PO Keppra BID - PRN Ativan for seizure like activities - Frequent reorientation - Aspiration and Seizure precaution - PRN Analgesia for CPOT greater than 3 - Maintenance of sleep-wake cycle #Acute Hypoxic Respiratory Failure (resolved) - Intubated in the ED on 04/12 for airway protection secondary to above - s/p extubation on 04/16, stable on RA this am - CCM consulted, appreciate recommendations - Aspiration precaution HOB above 30 - PRN ABG and CXR - Continue SPO2 monitoring for SPO2 goal above 92% - PRN O2 supplementation as needed #Sepsis (resolved) #Viral Pneumonia #COVID 19 Pneumonia #Coronavirus Infection #Urinary Tract Infection(UTI)/Cystitis - COVID PCR came back positive - CT reveal right lower lobe infiltrate vs atelectasis - UA consistent with UTI, CT scan shows mild bladder wall thickening suggesting cystitis - COVID PCR came back positive - Blood cultures and sputum culture pending - Patient is afebrile, Leukocytosis improved, VSS - On IV steroids and empiric IV Abx - ID consulted, completed therapy with rocephin and remdesivir. - Bcx: NGTD - trend fever curve, no fevers since 04/16. #Rhabdomyolysis - Probably due to multiple seizures - s/p IVF resuscitation, CPK improved - Trend CPK #Acute Kidney Injury(JONA) most likely Vasomotor Nephropathy (resolved) #Hypokalemia - probably secondary to above - Per records, baseline scr is 1.1, Scr. as high as 3.2 this admit - Renal function back to baseline post IVF hydration - Strict intake and output - Avoid nephrotoxic medications; Renally dose medications - Monitor and replace electrolytes as needed - Trend BMP #Hypertension - Remains hypertensive - Continue low dose BB, lisinopril increased for better control - Continue blood pressure monitor per protocol - PRN Hydralazine for SBP greater than 160 - Might benefits from antihypertensive regimen at discharge #GI/DVT Prophylaxis - PPI- Pepcid - Heparin SubQ - SCD to bilateral lower extremities while in bed #Advance Care Planning - Disease education data, care plan, diagnoses, and prognosis were discussed with patient's cousin and caregiver via phone. Patient is a FULL code. Patient's family acknowledged understanding and agreed with current care plan. Disposition: [facility] vs SNF Time spent: +35 min CPT 93345 History Interval history: No overnight events or issues. Hospitalist Physical - Physical exam Narrative exam: Constitutional: no acute distress, other (middle aged female with normal respiratory effort at rest) Eyes: non-icteric ENT: oropharynx dry, NG in place Neck: supple, no lymphadenopathy, no JVD Effort: normal Ascultation: Bilateral: clear, diminished breath sounds Percussion: Bilateral: not dull Cardiovascular: regular rate and rhythm Gastrointestinal: normoactive bowel sounds, soft, non-tender, non-distended, Integumentary: normal Extremities: no cyanosis, no edema, pulses normal, no ischemia or petechiae Neurologic: pupils equal and round, CN II-XII normal Psychiatric: other (flat affect), baseline MR - Constitutional Vitals: Temp Pulse Resp BP Pulse Ox 98.2 F 87 18 129/69 100 04/23/22 03:37 04/23/22 03:37 04/23/22 03:37 04/23/22 03:37 04/23/22 03:37 General appearance: Present: no acute distress, well-nourished, obese, other (on the vent) Results - Labs CBC & Chem 7: 04/22/22 06:58 04/22/22 19:39 Labs: Laboratory Last Values WBC 10.9 K/mm3 (4.5-11.0) 04/22/22 06:58 RBC 3.31 M/mm3 (3.65-5.03) L 04/22/22 06:58 Hgb 10.2 gm/dl (10.1-14.3) 04/22/22 06:58 Hct 30.8 % (30.3-42.9) 04/22/22 06:58 MCV 93 fl (79-97) 04/22/22 06:58 MCH 31 pg (28-32) 04/22/22 06:58 MCHC 33 % (30-34) 04/22/22 06:58 RDW 14.3 % (13.2-15.2) 04/22/22 06:58 Plt Count 330 K/mm3 (140-440) 04/22/22 06:58 Lymph % (Auto) 19.4 % (13.4-35.0) 04/22/22 06:58 [place] % (Auto) 6.5 % (0.0-7.3) 04/22/22 06:58 Eos % (Auto) 0.3 % (0.0-4.3) 04/22/22 06:58 Baso % (Auto) 0.3 % (0.0-1.8) 04/22/22 06:58 Lymph # (Auto) 2.1 K/mm3 (1.2-5.4) 04/22/22 06:58 [place] # (Auto) 0.7 K/mm3 (0.0-0.8) 04/22/22 06:58 Eos # (Auto) 0.0 K/mm3 (0.0-0.4) 04/22/22 06:58 Baso # (Auto) 0.0 K/mm3 (0.0-0.1) 04/22/22 06:58 Add Manual Diff Complete 04/13/22 03:44 Total Counted 100 04/13/22 03:44 Seg Neutrophils % 73.5 % (40.0-70.0) H 04/22/22 06:58 Seg Neuts % (Manual) 97.0 % (40.0-70.0) H 04/13/22 03:44 Band Neutrophils % 0 % 04/13/22 03:44 Lymphocytes % (Manual) 2.0 % (13.4-35.0) L 04/13/22 03:44 Reactive Lymphs % (Man) 0 % 04/13/22 03:44 Monocytes % (Manual) 1.0 % (0.0-7.3) 04/13/22 03:44 Eosinophils % (Manual) 0 % (0.0-4.3) 04/13/22 03:44 Basophils % (Manual) 0 % (0.0-1.8) 04/13/22 03:44 Metamyelocytes % 0 % 04/13/22 03:44 Myelocytes % 0 % 04/13/22 03:44 Promyelocytes % 0 % 04/13/22 03:44 Blast Cells % 0 % 04/13/22 03:44 Nucleated RBC % Not Reportable 04/13/22 03:44 Seg Neutrophils # 8.0 K/mm3 (1.8-7.7) H 04/22/22 06:58 Seg Neutrophils # Man 18.1 K/mm3 (1.8-7.7) H 04/13/22 03:44 Band Neutrophils # 0.0 K/mm3 04/13/22 03:44 Lymphocytes # (Manual) 0.4 K/mm3 (1.2-5.4) L 04/13/22 03:44 Abs React Lymphs (Man) 0.0 K/mm3 04/13/22 03:44 Monocytes # (Manual) 0.2 K/mm3 (0.0-0.8) 04/13/22 03:44 Eosinophils # (Manual) 0.0 K/mm3 (0.0-0.4) 04/13/22 03:44 Basophils # (Manual) 0.0 K/mm3 (0.0-0.1) 04/13/22 03:44 Metamyelocytes # 0.0 K/mm3 04/13/22 03:44 Myelocytes # 0.0 K/mm3 04/13/22 03:44 Promyelocytes # 0.0 K/mm3 04/13/22 03:44 Blast Cells # 0.0 K/mm3 04/13/22 03:44 WBC Morphology Not Reportable 04/13/22 03:44 Hypersegmented Neuts Not Reportable 04/13/22 03:44 Hyposegmented Neuts Not Reportable 04/13/22 03:44 Hypogranular Neuts Not Reportable 04/13/22 03:44 Smudge Cells Not Reportable 04/13/22 03:44 Toxic Granulation Not Reportable 04/13/22 03:44 Toxic Vacuolation Not Reportable 04/13/22 03:44 Dohle Bodies Not Reportable 04/13/22 03:44 Pelger-Huet Anomaly Not Reportable 04/13/22 03:44 Neeta Rods Not Reportable 04/13/22 03:44 Platelet Estimate Consistent w auto 04/13/22 03:44 Clumped Platelets Not Reportable 04/13/22 03:44 Plt Clumps, EDTA Not Reportable 04/13/22 03:44 Large Platelets Not Reportable 04/13/22 03:44 Giant Platelets Not Reportable 04/13/22 03:44 Platelet Satelliting Not Reportable 04/13/22 03:44 Plt Morphology Comment Not Reportable 04/13/22 03:44 RBC Morphology Not Reportable 04/13/22 03:44 Dimorphic RBCs Not Reportable 04/13/22 03:44 Polychromasia Not Reportable 04/13/22 03:44 Hypochromasia Not Reportable 04/13/22 03:44 Poikilocytosis Not Reportable 04/13/22 03:44 Anisocytosis Not Reportable 04/13/22 03:44 Microcytosis Not Reportable 04/13/22 03:44 Macrocytosis Not Reportable 04/13/22 03:44 Spherocytes Not Reportable 04/13/22 03:44 Pappenheimer Bodies Not Reportable 04/13/22 03:44 Sickle Cells Not Reportable 04/13/22 03:44 Target Cells Not Reportable 04/13/22 03:44 Tear Drop Cells Not Reportable 04/13/22 03:44 Ovalocytes Not Reportable 04/13/22 03:44 Helmet Cells Not Reportable 04/13/22 03:44 [place] Bodies Not Reportable 04/13/22 03:44 [place] Rings Not Reportable 04/13/22 03:44 Raj Cells Not Reportable 04/13/22 03:44 Bite Cells Not Reportable 04/13/22 03:44 Crenated Cell Not Reportable 04/13/22 03:44 Elliptocytes Not Reportable 04/13/22 03:44 Acanthocytes (Spur) Not Reportable 04/13/22 03:44 Rouleaux Not Reportable 04/13/22 03:44 Hemoglobin C Crystals Not Reportable 04/13/22 03:44 Schistocytes Not Reportable 04/13/22 03:44 Malaria parasites Not Reportable 04/13/22 03:44 Sanjay Bodies Not Reportable 04/13/22 03:44 Hem Pathologist Commnt No 04/13/22 03:44 PT 15.3 Sec. (12.2-14.9) H 04/12/22 09:11 INR 1.09 (0.87-1.13) 04/12/22 09:11 APTT 27.4 Sec. (24.2-36.6) 04/12/22 09:11 ABG pH 7.408 pH Units (7.350-7.450) 04/15/22 12:35 ABG pCO2 43.3 mm Hg 04/15/22 12:35 ABG pO2 110.6 mm Hg (80.0-90.0) H 04/15/22 12:35 ABG HCO3 26.7 mmol/L (20.0-26.0) H 04/15/22 12:35 ABG O2 Saturation 98.0 % (95.0-99.0) 04/15/22 12:35 ABG O2 Content 11.8 (0.0-44) 04/15/22 12:35 ABG Base Excess 1.8 mmol/L (-2.0-3.0) 04/15/22 12:35 ABG Hemoglobin 8.6 gm/dl (12.0-16.0) L 04/15/22 12:35 ABG Carboxyhemoglobin 1.0 % (0.0-5.0) 04/15/22 12:35 ABG Methemoglobin 0.5 % (0.0-1.5) 04/15/22 12:35 Oxyhemoglobin 96.5 % (95.0-99.0) 04/15/22 12:35 FiO2 30 % 04/15/22 12:35 Sodium 141 mmol/L (137-145) 04/22/22 06:58 Potassium 3.7 mmol/L (3.6-5.0) D 04/22/22 19:39 Chloride 102.4 mmol/L (98-107) 04/22/22 06:58 Carbon Dioxide 28 mmol/L (22-30) 04/22/22 06:58 Anion Gap 14 mmol/L 04/22/22 06:58 BUN 24 mg/dL (7-17) H 04/22/22 06:58 Creatinine 0.5 mg/dL (0.6-1.2) L 04/22/22 06:58 Estimated GFR > 60 ml/min 04/22/22 06:58 BUN/Creatinine Ratio 48 % 04/22/22 06:58 Glucose 92 mg/dL (65-100) 04/22/22 06:58 POC Glucose 108 mg/dL (70-105) H 04/23/22 06:20 Lactic Acid 1.60 mmol/L (0.7-2.0) 04/12/22 11:42 Calcium 8.8 mg/dL (8.4-10.2) 04/22/22 06:58 Phosphorus 3.10 mg/dL (2.5-4.5) 04/17/22 08:20 Magnesium 1.70 mg/dL (1.7-2.3) 04/17/22 08:20 Ferritin 318.6 ng/mL (10.0-200.0) H 04/14/22 04:04 Total Bilirubin 0.40 mg/dL (0.1-1.2) 04/19/22 10:21 AST 30 units/L (5-40) 04/19/22 10:21 ALT 24 units/L (7-56) 04/19/22 10:21 Alkaline Phosphatase 81 units/L (35-129) 04/19/22 10:21 Total Creatine Kinase 377 units/L (30-135) H 04/16/22 05:00 Total Creatine Kinase 535 units/L (30-135) H 04/16/22 05:00 C-Reactive Protein 9.70 mg/dL (0.00-1.30) H 04/14/22 04:04 Total Protein 6.5 g/dL (6.3-8.2) 04/19/22 10:21 Albumin 3.3 g/dL (3.9-5) L 04/19/22 10:21 Albumin/Globulin Ratio 1.0 % 04/19/22 10:21 Procalcitonin 1.92 ng/mL (<0.15) 04/14/22 04:04 Urine Color Yellow (Yellow) 04/12/22 Unknown Urine Turbidity Cloudy (Clear) 04/12/22 Unknown Specific [place] (Man) 1.020 (1.003-1.030) 04/12/22 Unknown Ur Protein (Man) 4+ mg/dL (Negative) 04/12/22 Unknown Ur Ketones (Man) Negative (Negative) 04/12/22 Unknown Ur Nitrite (Man) Negative (Negative) 04/12/22 Unknown Ur Reducing Substances Not Reportable 04/12/22 Unknown Urine Bilirubin (Man) Negative (Negative) 04/12/22 Unknown Urine Ictotest Not Reportable 04/12/22 Unknown Leukocyte Esterase (Man) Large (Negative) 04/12/22 Unknown Urine WBC (Auto) < 182.0 /HPF (0.0-6.0) H 04/12/22 Unknown Urine RBC (Auto) 60.0 /HPF (0.0-6.0) 04/12/22 Unknown U Epithel Cells (Auto) 12.0 /HPF (0-13.0) 04/12/22 Unknown Urine RBC (Manual) 3+ (Negative) 04/12/22 Unknown Urine WBC Clumps 3+ /HPF 04/12/22 Unknown Urine Mucus 3+ /HPF 04/12/22 Unknown Salicylates < 0.3 mg/dL (2.8-20.0) L 04/12/22 09:11 Acetaminophen 5.0 ug/mL (10.0-30.0) L 04/12/22 09:11 Phenytoin 1.2 ug/mL (10.0-20.0) L 04/12/22 09:11 Valproic Acid < 2.8 ug/mL (50-100) L 04/12/22 09:11 Levetiracetam <2.0 mcg/mL (6.0-46.0) L 04/12/22 14:34 Plasma/Serum Alcohol < 0.01 % (0-0.07) 04/12/22 09:11 SARS-CoV-2 (PCR) Positive (Negative) A 04/12/22 10:56 [place]keon/IV: Voiding Method External Female Catheter Active Medications - Current Medications Current Medications: Generic Name Dose Route Start Last Admin Trade Name Freq PRN Reason Stop Dose Admin Acetaminophen 650 mg 04/12/22 12:38 04/16/22 23:44 Acetaminophen 325 Mg Tab PO 650 mg Q6H PRN Administration Pain MILD(1-3)/Fever >100.5/VALLADARES Albuterol 2.5 mg 04/12/22 12:38 Albuterol 2.5 Mg/3 Ml Nebu IH Q3HRT PRN Shortness Of Breath Famotidine 20 mg 04/15/22 22:00 04/22/22 22:01 Famotidine 20 Mg Tab FEEDTUBE 20 mg BID ISIAH Administration Heparin Sodium (Porcine) 5,000 unit 04/12/22 22:00 04/22/22 22:01 Heparin 5,000 Unit/1 Ml Vial SUB-Q 5,000 unit Q12HR ISIAH Administration Hydrophilic Ointment 1 applic 04/12/22 09:35 Lip Therapy Vaseline TP Q2HR PRN Dry Lips Labetalol HCl 10 mg 04/15/22 09:00 09/04/22 05:05 Labetalol 20 Mg/4 Ml Inj IV 10 mg Q4H PRN Administration Hypertension Levetiracetam 1,000 mg 04/19/22 10:00 04/22/22 22:02 Levetiracetam 500 Mg/5 Ml Oral Liqd FEEDTUBE 1,000 mg BID ISIAH Administration Lisinopril 10 mg 04/16/22 10:00 04/22/22 09:49 Lisinopril 5 Mg Tab PO 10 mg QDAY ISIAH Administration Metoprolol Tartrate 12.5 mg 04/14/22 16:13 04/22/22 22:00 Metoprolol Tartrate 25 Mg Tab PO 12.5 mg BID ISIAH Administration Multi-Ingred Cream/Lotion/Oil/Oint 1 applic 04/12/22 09:35 Mineral Oil/Petrolatum, White Ophth Oint 3.5 Gm OU Q4HR PRN Dry Eye(s) Ondansetron HCl 4 mg 04/12/22 12:38 Ondansetron 4 Mg/2 Ml Inj IV Q8H PRN Nausea And Vomiting Polyethylene Glycol 17 gm 04/21/22 20:00 04/22/22 09:47 Polyethylene Glycol 3350 17 Gm Powder PO 17 gm QDAY ISIAH Administration Senna/Docusate Sodium 2 tab 04/21/22 22:00 04/22/22 22:02 Sennosides/Docusate Sodium 8.6/50 Mg Tab FEEDTUBE Not Given QHS ISIAH Sodium Chloride 10 ml 04/12/22 22:00 04/22/22 22:02 Sodium Chloride 0.9% 10 Ml Flush Syringe IV 10 ml BID ISIAH Administration Sodium Chloride 10 ml 04/12/22 12:38 Sodium Chloride 0.9% 10 Ml Flush Syringe IV PRN PRN LINE FLUSH Nutrition/Malnutrition Assess - Dietary Evaluation Nutrition/Malnutrition Findings: Nutrition Notes Start: 04/12/22 16:12 Freq: Status: Active Protocol: Document 04/18/22 14:13 JOSI (Rec: 04/18/22 15:00 JOSI [id number]) Nutrition Notes Initial or Follow up Reassessment Other Pertinent Diagnosis Seizures, COVID-19, UTI, Mental Disability. Current Diet TF-Vital AF 1.2 Dajuan @ 60 ml/hr (since D 04/14). Labs/Tests 04/18: BUN 30, Glu 117. Pertinent Medications 04/18: Nutritionally unremarkable. Height 5 ft 8 in Weight 113.3 kg [place] Body Weight (kg) 63.63 BMI 38.0 Weight change and time frame No body weight change reported in 1 week. Weight Status Obese Subjective/Other Information RD consult for routine F/U on TF tolerance/continuation assessment. TF continues as prescribed, and well tolerated, according to RN notes. Pt is on Room Air, O2 saturation @ 100%, according to Physical Assessment History notes. I will reassess TF prescription, since Pt is no longer on Mechanical Ventilation support. ASSEMBLY WORKER note on 04/18/22 14:19: Swallowing function has been assessed. Patient demonstrates a severe oral/pharyngeal phase swallowing dysfunction and is at significant risk for aspiration. Continue NPO status. - END OF NOTE. Pt remains incontinent, according to Physical Assessment History notes. Percent of energy/protein needs met: Prescribed TF-Vital AF 1.2 Dajuan @ 65 ml/hr provides for energy/protein needs (1,740 Kcal/109 g) during LOS, 96% Kcal; 101% AA. Burn Absent Trauma Absent GI Symptoms Other Food Allergy No Skin Integrity/Comment R-Hip wound. Current % PO Other Minimum of two criteria No Fluid Accumulation N/A Reduced General Operations Agent Strength N/A (non-severe) Protein-Calorie Malnutrition N\A #2 Nutrition Diagnosis Swallowing difficulty Etiology Possibly mental disability As Evidenced by Signs and Symptoms ASSEMBLY WORKER note on 04/18/22 14:19: Swallowing function has been assessed. Patient demonstrates a severe oral/pharyngeal phase swallowing dysfunction and is at significant risk for aspiration. Continue NPO status. - END OF NOTE. #1 Nutrition Diagnosis Inadequate oral intake Comments: Pt is on Room Air, O2 saturation @ 100%, according to Physical Assessment History notes. Diagnosis Progress(for reassessment Resolved documentation) Is patient on ventilator? No Is Patient Ambulatory and/or Out of Bed No REE-([facility]-confined to bed) 2135.724 Kcal/Kg value to use for calculation 16 Approximate Energy Requirements Using 1813 kcal/Kg Calculation Used for Recommendations Kcal/kg Additional Notes Protein: 1-1.2 g/Kg AdjBW; 90- 108 g/day. Fluids: 1 ml/Kcal, or as per MD. Nutrition Intervention Nutrition Support: Continue TF-Vital AF 1.2 Dajuan @ 60 ml/hr. Flush: 100 ml water Q 4 hr, or as per MD. Kcal 1,740 Protein (gm) 109 Carbohydrates (gm) 160 Fat (gm) 78 Fluid (mL) 1,176 Fiber (gm) 7 % RDI: 96% Kcal; 101% AA. Goal #1 Provide at least 75% of energy /protein needs through Enteral Feeding during LOS. Goal #2 Adjust the dietary intervention to better serve Pt's needs and clinical conditions during LOS. Follow-Up By: 04/25/22 Additional Comments Continue monitoring TF tolerance and BM.
--- NOTE | 2022-04-23 09:09 | Gastroenterology Progress Note ---
Assessment and Plan I ordered to stop tube feeds at midnight in anticipation of likely PEG tube placement tomorrow POA/cousin Samara Castro ([phone]) has already agreed previously to the plan Regarding constipation, orders placed we will ensure bowel movements - Patient Problems (1) Acute respiratory failure Current Visit: Yes Status: Acute (2) Neurogenic dysphagia Current Visit: Yes Status: Acute (3) Fecal impaction in rectum Current Visit: Yes Status: Acute Subjective Date of service: 04/23/22 Principal diagnosis: Acute hypoxemic respiratory failure; COVID-19 infxn; UTI; Mental disability Interval history: Patient not answering questions coherently Does not appear in distress Objective - Constitutional Vitals: Temp Pulse Resp BP Pulse Ox 98.2 F 87 18 129/69 100 04/23/22 03:37 04/23/22 03:37 04/23/22 03:37 04/23/22 03:37 04/23/22 03:37 General appearance: no acute distress - EENT Eyes: EOM intact - Neck Neck: supple - Respiratory Respiratory effort: normal - Cardiovascular Rhythm: regular - Gastrointestinal General gastrointestinal: Present: soft - Labs CBC & Chem 7: 04/22/22 06:58 04/22/22 19:39 Labs: Laboratory Results - last 24 hr 04/22/22 04/22/22 04/22/22 06:07 11:39 16:48 Potassium POC Glucose 113 H 119 H 157 H 04/22/22 04/22/22 04/23/22 19:39 23:42 06:20 Potassium 3.7 D POC Glucose 116 H 108 H
[2022-04-23] MEDS: HEPARIN 5,000 UNIT/1 ML VIAL SUB-Q SCH ×2 (09:53→22:21)
[2022-04-23] MEDS: LISINOPRIL 5 MG TAB PO SCH (09:54)
[2022-04-23] MEDS: METOPROLOL TARTRATE 25 MG TAB PO SCH ×2 (09:54→22:20)
[2022-04-23] MEDS: POLYETHYLENE GLYCOL 3350 17 GM POWDER PO SCH (09:54)
[2022-04-23] MEDS: levETIRAcetam 500 MG/5 ML ORAL LIQD FEEDTUBE SCH ×2 (09:54→22:21)
[2022-04-23] MEDS: FAMOTIDINE 20 MG TAB FEEDTUBE SCH ×2 (09:54→22:21)
[2022-04-23] MEDS ORDERED: POLYETHYLENE GLYCOL/ELECT SOLN 4000 ML NGTUBE ONE ×2 (11:00→14:00)
[2022-04-23] MEDS: SENNOSIDES/DOCUSATE SODIUM 8.6/50 MG TAB FEEDTUBE SCH (22:21)
--- NOTE | 2022-04-24 07:42 | Progress Note ---
Assessment and Plan Assessment and plan: Assessment and plan: This is a 57-year-old female with known past medical history of MR, obesity, nicotine dependence, seizure disorder admitted for status epilepticus and was in tubated in the ED for airway protection Hospital Course to Date: 04/13: Stable on low vent setting this am. Off sedation, awake and tracking, not following commands. Patient does have history of MR, patient is functional and can voice her needs per the caregiver. No seizure like activity reported, EEG and Neurology consult pending. Continue IV Keppra. Patient remains afebrile and hemodynamicaly stable. PRN hydralazine added for hypertension. Continue current IV steroids, and empiric IV Abx. ID consulted for further rec for COVID infection. Renal function and CKP are improving post IVF hydration, continue IVF resuscitation. K repleted, continue to monitor electrolytes and replete as needed. Plan for PSV trial today, plan to wean for possible extubation per CCM. 04/14: Remains stable on the vent. No seizures like activities reported in the last 48hrs. Neurology recommendation noted. Patient tolerated PSV trial yesterday. Continue daily PSV trial, plan to wean for possible extubation per CCM. Hypertensive this am low dose BB added for BP control. Continue IV rojas roids, on Rocephin and Remdeservir per ID. 04/15: Remains stable on the vent. Tolerating PSV trial this am, plan for possibe extubation today per CCM. Remains hypertensive with refractory tachycardia with PRN hydralazine. On BB and Lisinopril added for better control. PRN switched to IV labetalol for SBP greater than 160. FWF increased for hypernatremia and K repleted, continue to monitor electrolytes and replete as needed. 04/16: s/p extubation, stable on RA. Currently nonverbal with Generalized weakness, however was able to shake head for yes or no this am. Lisinopril increased for BP control, continue low dose BB. Pending speech swallow eval, continue enteral nutrition via DHT for now. PT/OT also consulted for debility and discharge planning. Patient is stable for transfer to the floor. 04/17: Patient still with low grade fever, tolerating room air, ID and Pulmonary input noted, today will be Day 5 of Remdesivir and will complete antibiotics ceftriaxone also. If continued fever will likely need extension.Patient currently under treatment for COVID induced respiratory failure with hypoxia s/p extubation and also Sepsis secondary to Acute cystitis and COVID 19. No new seizure disorder. She does have a hx of MR and seizure as noted above. Leukocytosis is improved. I advised her Niece about her care so far and follow with PCP in one week of discharged. If tolerating diet and no new fever in 24 hrs, she can be discharged. We did discuss CODE STATUS on her again and she did affirm full code. 04/18: Awaiting speech evaluation. patient appears very lethargic still. Low grade fever and tachycardia noted overnight. Appears very dehydrated, will order NS 50 0 cc x 1. Will order repeat labs. She has completed remdesivir, rocephin for covid tx. 04/19: More alert today. Close to baseline mentation. Patient is a strict NPO due to concern for aspiration per ST assessment. Will place consultation to gastroenterology for PEG tube. Spoke with POA/cousin Samara Castro ([phone]) who agreed with plan for PEG tube. Dispo for patient is [facility] vs SNF. CM working on referrals. 04/20: No new changes overnight. D/w with GI. Plan for PEG tube on Sunday. 04/21: no new changes. PEG still planned sunday. Ordered AM labs. 04/22: Low potassium noted on AM labs. Ordered 40 MEQ IV and 40 MEQ via feedtube. Recheck K in evening. PEG still planned Sunday. 04/23: K 3.7. PEG planned sunday. Dispo: [facility] possibly tuesday 04/24: PEG planned today. Will follow up after placement. Dispo: [facility]. Assessment and Plan #Dysphagia - aspiriation risk per Speech therapy, recommend NPO - GI consult for PEG tube. #Status Epilepticus (resolved) #H/o Seizure Disorder #H/o Mental Retardation(MR) - Multifactorial - Patient with UTI and COVID positive - Per records from 09/2021, patient phenytoin level was elevated last admit and meds was held. Patient was D/Dany with PO Keppra BID - CT head/brain with chronic encephalomalacia/surgical changes in the frontal lobes. No acute intracranial abnormality. - Treated underlying cause, currently on empiric IV abx. ID consulted - Intubated, awake and tracking. S/p Versed gtt. - Continue keppra - EEG pending - Neurology consult, appreciate recommendation - Per Neuro- continue Keppra 750mg IV q 12 hours for now once awake and patient able to take oral medications - switch to 1000 mg PO Keppra BID - PRN Ativan for seizure like activities - Frequent reorientation - Aspiration and Seizure precaution - PRN Analgesia for CPOT greater than 3 - Maintenance of sleep-wake cycle #Acute Hypoxic Respiratory Failure (resolved) - Intubated in the ED on 04/12 for airway protection secondary to above - s/p extubation on 04/16, stable on RA this am - CCM consulted, appreciate recommendations - Aspiration precaution HOB above 30 - PRN ABG and CXR - Continue SPO2 monitoring for SPO2 goal above 92% - PRN O2 supplementation as needed #Sepsis (resolved) #Viral Pneumonia #COVID 19 Pneumonia #Coronavirus Infection #Urinary Tract Infection(UTI)/Cystitis - COVID PCR came back positive - CT reveal right lower lobe infiltrate vs atelectasis - UA consistent with UTI, CT scan shows mild bladder wall thickening suggesting cystitis - COVID PCR came back positive - Blood cultures and sputum culture pending - Patient is afebrile, Leukocytosis improved, VSS - On IV steroids and empiric IV Abx - ID consulted, completed therapy with rocephin and remdesivir. - Bcx: NGTD - trend fever curve, no fevers since 04/16. #Rhabdomyolysis - Probably due to multiple seizures - s/p IVF resuscitation, CPK improved - Trend CPK #Acute Kidney Injury(JONA) most likely Vasomotor Nephropathy (resolved) #Hypokalemia - probably secondary to above - Per records, baseline scr is 1.1, Scr. as high as 3.2 this admit - Renal function back to baseline post IVF hydration - Strict intake and output - Avoid nephrotoxic medications; Renally dose medications - Monitor and replace electrolytes as needed - Trend BMP #Hypertension - Remains hypertensive - Continue low dose BB, lisinopril increased for better control - Continue blood pressure monitor per protocol - PRN Hydralazine for SBP greater than 160 - Might benefits from antihypertensive regimen at discharge #GI/DVT Prophylaxis - PPI- Pepcid - Heparin SubQ - SCD to bilateral lower extremities while in bed #Advance Care Planning - Disease education data, care plan, diagnoses, and prognosis were discussed with patient's cousin and caregiver via phone. Patient is a FULL code. Patient 's family acknowledged understanding and agreed with current care plan. Disposition: [facility] vs SNF Time spent: +35 min CPT 46148 History Interval history: No overnight events or issues. Hospitalist Physical - Physical exam Narrative exam: Constitutional: no acute distress, other (middle aged female with normal respiratory effort at rest) Eyes: non-icteric ENT: oropharynx dry, NG in place Neck: supple, no lymphadenopathy, no JVD Effort: normal Ascultation: Bilateral: clear, diminished breath sounds Percussion: Bilateral: not dull Cardiovascular: regular rate and rhythm Gastrointestinal: normoactive bowel sounds, soft, non-tender, non-distended, Integumentary: normal Extremities: no cyanosis, no edema, pulses normal, no ischemia or petechiae Neurologic: pupils equal and round, CN II-XII normal Psychiatric: other (flat affect), baseline MR - Constitutional Vitals: Temp Pulse Resp BP Pulse Ox 99.2 F 99 H 16 127/73 98 04/24/22 04:59 04/24/22 04:59 04/24/22 04:59 04/24/22 04:59 04/24/22 04:59 General appearance: Present: no acute distress, well-nourished, obese, other (on the vent) Results - Labs CBC & Chem 7: 04/22/22 06:58 04/22/22 19:39 Labs: Laboratory Last Values WBC 10.9 K/mm3 (4.5-11.0) 04/22/22 06:58 RBC 3.31 M/mm3 (3.65-5.03) L 04/22/22 06:58 Hgb 10.2 gm/dl (10.1-14.3) 04/22/22 06:58 Hct 30.8 % (30.3-42.9) 04/22/22 06:58 MCV 93 fl (79-97) 04/22/22 06:58 MCH 31 pg (28-32) 04/22/22 06:58 MCHC 33 % (30-34) 04/22/22 06:58 RDW 14.3 % (13.2-15.2) 04/22/22 06:58 Plt Count 330 K/mm3 (140-440) 04/22/22 06:58 Lymph % (Auto) 19.4 % (13.4-35.0) 04/22/22 06:58 Logan % (Auto) 6.5 % (0.0-7.3) 04/22/22 06:58 Eos % (Auto) 0.3 % (0.0-4.3) 04/22/22 06:58 Baso % (Auto) 0.3 % (0.0-1.8) 04/22/22 06:58 Lymph # (Auto) 2.1 K/mm3 (1.2-5.4) 04/22/22 06:58 Logan # (Auto) 0.7 K/mm3 (0.0-0.8) 04/22/22 06:58 Eos # (Auto) 0.0 K/mm3 (0.0-0.4) 04/22/22 06:58 Baso # (Auto) 0.0 K/mm3 (0.0-0.1) 04/22/22 06:58 Add Manual Diff Complete 04/13/22 03:44 Total Counted 100 04/13/22 03:44 Seg Neutrophils % 73.5 % (40.0-70.0) H 04/22/22 06:58 Seg Neuts % (Manual) 97.0 % (40.0-70.0) H 04/13/22 03:44 Band Neutrophils % 0 % 04/13/22 03:44 Lymphocytes % (Manual) 2.0 % (13.4-35.0) L 04/13/22 03:44 Reactive Lymphs % (Man) 0 % 04/13/22 03:44 Monocytes % (Manual) 1.0 % (0.0-7.3) 04/13/22 03:44 Eosinophils % (Manual) 0 % (0.0-4.3) 04/13/22 03:44 Basophils % (Manual) 0 % (0.0-1.8) 04/13/22 03:44 Metamyelocytes % 0 % 04/13/22 03:44 Myelocytes % 0 % 04/13/22 03:44 Promyelocytes % 0 % 04/13/22 03:44 Blast Cells % 0 % 04/13/22 03:44 Nucleated RBC % Not Reportable 04/13/22 03:44 Seg Neutrophils # 8.0 K/mm3 (1.8-7.7) H 04/22/22 06:58 Seg Neutrophils # Man 18.1 K/mm3 (1.8-7.7) H 04/13/22 03:44 Band Neutrophils # 0.0 K/mm3 04/13/22 03:44 Lymphocytes # (Manual) 0.4 K/mm3 (1.2-5.4) L 04/13/22 03:44 Abs React Lymphs (Man) 0.0 K/mm3 04/13/22 03:44 Monocytes # (Manual) 0.2 K/mm3 (0.0-0.8) 04/13/22 03:44 Eosinophils # (Manual) 0.0 K/mm3 (0.0-0.4) 04/13/22 03:44 Basophils # (Manual) 0.0 K/mm3 (0.0-0.1) 04/13/22 03:44 Metamyelocytes # 0.0 K/mm3 04/13/22 03:44 Myelocytes # 0.0 K/mm3 04/13/22 03:44 Promyelocytes # 0.0 K/mm3 04/13/22 03:44 Blast Cells # 0.0 K/mm3 04/13/22 03:44 WBC Morphology Not Reportable 04/13/22 03:44 Hypersegmented Neuts Not Reportable 04/13/22 03:44 Hyposegmented Neuts Not Reportable 04/13/22 03:44 Hypogranular Neuts Not Reportable 04/13/22 03:44 Smudge Cells Not Reportable 04/13/22 03:44 Toxic Granulation Not Reportable 04/13/22 03:44 Toxic Vacuolation Not Reportable 04/13/22 03:44 Dohle Bodies Not Reportable 04/13/22 03:44 Pelger-Huet Anomaly Not Reportable 04/13/22 03:44 Neeta Rods Not Reportable 04/13/22 03:44 Platelet Estimate Consistent w auto 04/13/22 03:44 Clumped Platelets Not Reportable 04/13/22 03:44 Plt Clumps, EDTA Not Reportable 04/13/22 03:44 Large Platelets Not Reportable 04/13/22 03:44 Giant Platelets Not Reportable 04/13/22 03:44 Platelet Satelliting Not Reportable 04/13/22 03:44 Plt Morphology Comment Not Reportable 04/13/22 03:44 RBC Morphology Not Reportable 04/13/22 03:44 Dimorphic RBCs Not Reportable 04/13/22 03:44 Polychromasia Not Reportable 04/13/22 03:44 Hypochromasia Not Reportable 04/13/22 03:44 Poikilocytosis Not Reportable 04/13/22 03:44 Anisocytosis Not Reportable 04/13/22 03:44 Microcytosis Not Reportable 04/13/22 03:44 Macrocytosis Not Reportable 04/13/22 03:44 Spherocytes Not Reportable 04/13/22 03:44 Pappenheimer Bodies Not Reportable 04/13/22 03:44 Sickle Cells Not Reportable 04/13/22 03:44 Target Cells Not Reportable 04/13/22 03:44 Tear Drop Cells Not Reportable 04/13/22 03:44 Ovalocytes Not Reportable 04/13/22 03:44 Helmet Cells Not Reportable 04/13/22 03:44 [place] Bodies Not Reportable 04/13/22 03:44 [place] Rings Not Reportable 04/13/22 03:44 Strawberry Cells Not Reportable 04/13/22 03:44 Bite Cells Not Reportable 04/13/22 03:44 Crenated Cell Not Reportable 04/13/22 03:44 Elliptocytes Not Reportable 04/13/22 03:44 Acanthocytes (Spur) Not Reportable 04/13/22 03:44 Rouleaux Not Reportable 04/13/22 03:44 Hemoglobin C Crystals Not Reportable 04/13/22 03:44 Schistocytes Not Reportable 04/13/22 03:44 Malaria parasites Not Reportable 04/13/22 03:44 Sanjay Bodies Not Reportable 04/13/22 03:44 Hem Pathologist Commnt No 04/13/22 03:44 PT 15.3 Sec. (12.2-14.9) H 04/12/22 09:11 INR 1.09 (0.87-1.13) 04/12/22 09:11 APTT 27.4 Sec. (24.2-36.6) 04/12/22 09:11 ABG pH 7.408 pH Units (7.350-7.450) 04/15/22 12:35 ABG pCO2 43.3 mm Hg 04/15/22 12:35 ABG pO2 110.6 mm Hg (80.0-90.0) H 04/15/22 12:35 ABG HCO3 26.7 mmol/L (20.0-26.0) H 04/15/22 12:35 ABG O2 Saturation 98.0 % (95.0-99.0) 04/15/22 12:35 ABG O2 Content 11.8 (0.0-44) 04/15/22 12:35 ABG Base Excess 1.8 mmol/L (-2.0-3.0) 04/15/22 12:35 ABG Hemoglobin 8.6 gm/dl (12.0-16.0) L 04/15/22 12:35 ABG Carboxyhemoglobin 1.0 % (0.0-5.0) 04/15/22 12:35 ABG Methemoglobin 0.5 % (0.0-1.5) 04/15/22 12:35 Oxyhemoglobin 96.5 % (95.0-99.0) 04/15/22 12:35 FiO2 30 % 04/15/22 12:35 Sodium 141 mmol/L (137-145) 04/22/22 06:58 Potassium 3.7 mmol/L (3.6-5.0) D 04/22/22 19:39 Chloride 102.4 mmol/L (98-107) 04/22/22 06:58 Carbon Dioxide 28 mmol/L (22-30) 04/22/22 06:58 Anion Gap 14 mmol/L 04/22/22 06:58 BUN 24 mg/dL (7-17) H 04/22/22 06:58 Creatinine 0.5 mg/dL (0.6-1.2) L 04/22/22 06:58 Estimated GFR > 60 ml/min 04/22/22 06:58 BUN/Creatinine Ratio 48 % 04/22/22 06:58 Glucose 92 mg/dL (65-100) 04/22/22 06:58 POC Glucose 81 mg/dL (70-105) 04/24/22 05:41 Lactic Acid 1.60 mmol/L (0.7-2.0) 04/12/22 11:42 Calcium 8.8 mg/dL (8.4-10.2) 04/22/22 06:58 Phosphorus 3.10 mg/dL (2.5-4.5) 04/17/22 08:20 Magnesium 1.70 mg/dL (1.7-2.3) 04/17/22 08:20 Ferritin 318.6 ng/mL (10.0-200.0) H 04/14/22 04:04 Total Bilirubin 0.40 mg/dL (0.1-1.2) 04/19/22 10:21 AST 30 units/L (5-40) 04/19/22 10:21 ALT 24 units/L (7-56) 04/19/22 10:21 Alkaline Phosphatase 81 units/L (35-129) 04/19/22 10:21 Total Creatine Kinase 377 units/L (30-135) H 04/16/22 05:00 Total Creatine Kinase 535 units/L (30-135) H 04/16/22 05:00 C-Reactive Protein 9.70 mg/dL (0.00-1.30) H 04/14/22 04:04 Total Protein 6.5 g/dL (6.3-8.2) 04/19/22 10:21 Albumin 3.3 g/dL (3.9-5) L 04/19/22 10:21 Albumin/Globulin Ratio 1.0 % 04/19/22 10:21 Procalcitonin 1.92 ng/mL (<0.15) 04/14/22 04:04 Urine Color Yellow (Yellow) 04/12/22 Unknown Urine Turbidity Cloudy (Clear) 04/12/22 Unknown Specific [place] (Man) 1.020 (1.003-1.030) 04/12/22 Unknown Ur Protein (Man) 4+ mg/dL (Negative) 04/12/22 Unknown Ur Ketones (Man) Negative (Negative) 04/12/22 Unknown Ur Nitrite (Man) Negative (Negative) 04/12/22 Unknown Ur Reducing Substances Not Reportable 04/12/22 Unknown Urine Bilirubin (Man) Negative (Negative) 04/12/22 Unknown Urine Ictotest Not Reportable 04/12/22 Unknown Leukocyte Esterase (Man) Large (Negative) 04/12/22 Unknown Urine WBC (Auto) < 182.0 /HPF (0.0-6.0) H 04/12/22 Unknown Urine RBC (Auto) 60.0 /HPF (0.0-6.0) 04/12/22 Unknown U Epithel Cells (Auto) 12.0 /HPF (0-13.0) 04/12/22 Unknown Urine RBC (Manual) 3+ (Negative) 04/12/22 Unknown Urine WBC Clumps 3+ /HPF 04/12/22 Unknown Urine Mucus 3+ /HPF 04/12/22 Unknown Salicylates < 0.3 mg/dL (2.8-20.0) L 04/12/22 09:11 Acetaminophen 5.0 ug/mL (10.0-30.0) L 04/12/22 09:11 Phenytoin 1.2 ug/mL (10.0-20.0) L 04/12/22 09:11 Valproic Acid < 2.8 ug/mL (50-100) L 04/12/22 09:11 Levetiracetam <2.0 mcg/mL (6.0-46.0) L 04/12/22 14:34 Plasma/Serum Alcohol < 0.01 % (0-0.07) 04/12/22 09:11 SARS-CoV-2 (PCR) Positive (Negative) A 04/12/22 10:56 Mckeon/IV: Voiding Method External Female Catheter Active Medications - Current Medications Current Medications: Generic Name Dose Route Start Last Admin Trade Name Freq PRN Reason Stop Dose Admin Acetaminophen 650 mg 04/12/22 12:38 04/16/22 23:44 Acetaminophen 325 Mg Tab PO 650 mg Q6H PRN Administration Pain MILD(1-3)/Fever >100.5/VALLADARES Albuterol 2.5 mg 04/12/22 12:38 Albuterol 2.5 Mg/3 Ml Nebu IH Q3HRT PRN Shortness Of Breath Famotidine 20 mg 04/15/22 22:00 04/23/22 22:21 Famotidine 20 Mg Tab FEEDTUBE 20 mg BID ISIAH Administration Heparin Sodium (Porcine) 5,000 unit 04/12/22 22:00 04/23/22 22:21 Heparin 5,000 Unit/1 Ml Vial SUB-Q 5,000 unit Q12HR ISIAH Administration Hydrophilic Ointment 1 applic 04/12/22 09:35 Lip Therapy Vaseline TP Q2HR PRN Dry Lips Labetalol HCl 10 mg 04/15/22 09:00 04/16/22 05:05 Labetalol 20 Mg/4 Ml Inj IV 10 mg Q4H PRN Administration Hypertension Levetiracetam 1,000 mg 04/19/22 10:00 04/23/22 22:21 Levetiracetam 500 Mg/5 Ml Oral Liqd FEEDTUBE 1,000 mg BID ISIAH Administration Lisinopril 10 mg 04/16/22 10:00 04/23/22 09:54 Lisinopril 5 Mg Tab PO 10 mg QDAY ISIAH Administration Metoprolol Tartrate 12.5 mg 04/14/22 16:13 04/23/22 22:20 Metoprolol Tartrate 25 Mg Tab PO 12.5 mg BID ISIAH Administration Multi-Ingred Cream/Lotion/Oil/Oint 1 applic 04/12/22 09:35 Mineral Oil/Petrolatum, White Ophth Oint 3.5 Gm OU Q4HR PRN Dry Eye(s) Ondansetron HCl 4 mg 04/12/22 12:38 Ondansetron 4 Mg/2 Ml Inj IV Q8H PRN Nausea And Vomiting Polyethylene Glycol 17 gm 04/21/22 20:00 04/23/22 09:54 Polyethylene Glycol 3350 17 Gm Powder PO 17 gm QDAY ISIAH Administration Senna/Docusate Sodium 2 tab 04/21/22 22:00 04/23/22 22:21 Sennosides/Docusate Sodium 8.6/50 Mg Tab FEEDTUBE 2 tab QHS ISIAH Administration Sodium Chloride 10 ml 04/12/22 22:00 04/23/22 22:19 Sodium Chloride 0.9% 10 Ml Flush Syringe IV 10 ml BID ISIAH Administration Sodium Chloride 10 ml 04/12/22 12:38 Sodium Chloride 0.9% 10 Ml Flush Syringe IV PRN PRN LINE FLUSH Nutrition/Malnutrition Assess - Dietary Evaluation Nutrition/Malnutrition Findings: Nutrition Notes Start: 04/12/22 16:12 Freq: Status: Active Protocol: Document 04/18/22 14:13 JOSI (Rec: 04/18/22 15:00 JOSI [id number]) Nutrition Notes Initial or Follow up Reassessment Other Pertinent Diagnosis Seizures, COVID-19, UTI, Mental Disability. Current Diet TF-Vital AF 1.2 Dajuan @ 60 ml/hr (since D 04/14). Labs/Tests 04/18: BUN 30, Glu 117. Pertinent Medications 04/18: Nutritionally unremarkable. Height 5 ft 8 in Weight 113.3 kg [place] Body Weight (kg) 63.63 BMI 38.0 Weight change and time frame No body weight change reported in 1 week. Weight Status Obese Subjective/Other Information RD consult for routine F/U on TF tolerance/continuation assessment. TF continues as prescribed, and well tolerated, according to RN notes. Pt is on Room Air, O2 saturation @ 100%, according to Physical Assessment History notes. I will reassess TF prescription, since Pt is no longer on Mechanical Ventilation support. ICEBOX MAN note on 04/18/22 14:19: Swallowing function has been assessed. Patient demonstrates a severe oral/pharyngeal phase swallowing dysfunction and is at significant risk for aspiration. Continue NPO status. - END OF NOTE. Pt remains incontinent, according to Physical Assessment History notes. Percent of energy/protein needs met: Prescribed TF-Vital AF 1.2 Dajuan @ 65 ml/hr provides for energy/protein needs (1,740 Kcal/109 g) during LOS, 96% Kcal; 101% AA. Burn Absent Trauma Absent GI Symptoms Other Food Allergy No Skin Integrity/Comment R-Hip wound. Current % PO Other Minimum of two criteria No Fluid Accumulation N/A Reduced Operations Intern Strength N/A (non-severe) Protein-Calorie Malnutrition N\A #2 Nutrition Diagnosis Swallowing difficulty Etiology Possibly mental disability As Evidenced by Signs and Symptoms ICEBOX MAN note on 04/18/22 14:19: Swallowing function has been assessed. Patient demonstrates a severe oral/pharyngeal phase swallowing dysfunction and is at significant risk for aspiration. Continue NPO status. - END OF NOTE. #1 Nutrition Diagnosis Inadequate oral intake Comments: Pt is on Room Air, O2 saturation @ 100%, according to Physical Assessment History notes. Diagnosis Progress(for reassessment Resolved documentation) Is patient on ventilator? No Is Patient Ambulatory and/or Out of Bed No REE-([facility]-confined to bed) 2135.724 Kcal/Kg value to use for calculation 16 Approximate Energy Requirements Using 1813 kcal/Kg Calculation Used for Recommendations Kcal/kg Additional Notes Protein: 1-1.2 g/Kg AdjBW; 90- 108 g/day. Fluids: 1 ml/Kcal, or as per MD. Nutrition Intervention Nutrition Support: Continue TF-Vital AF 1.2 Dajuan @ 60 ml/hr. Flush: 100 ml water Q 4 hr, or as per MD. Kcal 1,740 Protein (gm) 109 Carbohydrates (gm) 160 Fat (gm) 78 Fluid (mL) 1,176 Fiber (gm) 7 % RDI: 96% Kcal; 101% AA. Goal #1 Provide at least 75% of energy /protein needs through Enteral Feeding during LOS. Goal #2 Adjust the dietary intervention to better serve Pt's needs and clinical conditions during LOS. Follow-Up By: 04/25/22 Additional Comments Continue monitoring TF tolerance and BM.
[2022-04-24] MEDS ORDERED: D5W/0.45% NACL 1,000 ML IV SCH ×2 (09:19→10:00)
[2022-04-24] MEDS: levETIRAcetam 500 MG/5 ML ORAL LIQD FEEDTUBE SCH ×2 (09:23→21:05)
[2022-04-24] MEDS: FAMOTIDINE 20 MG TAB FEEDTUBE SCH ×2 (09:24→21:05)
[2022-04-24] MEDS: POLYETHYLENE GLYCOL 3350 17 GM POWDER PO SCH (09:24)
[2022-04-24] MEDS: LISINOPRIL 5 MG TAB PO SCH (09:24)
[2022-04-24] MEDS: METOPROLOL TARTRATE 25 MG TAB PO SCH ×2 (09:24→21:05)
[2022-04-24] MEDS ORDERED: ceFAZolin/Water 2 GM/20 ML 2 GM/20 ML SYRINGE IV ONE (10:06)
[2022-04-24] MEDS ORDERED: SODIUM CHLORIDE 0.9% 1000 ML 1,000 ML ONE (10:10)
--- NOTE | 2022-04-24 10:13 | Anesthesia Consultation ---
Anesthesia Consult and Med Hx Date of service: 04/24/22 - Airway Anesthetic Teeth Evaluation: Poor ROM Head & Neck: Adequate Mental/Hyoid Distance: Adequate Mallampati Class: Class III Intubation Access Assessment: Possibly Difficult - Pre-Operative Health Status ASA Pre-Surgery Classification: ASA3 Proposed Anesthetic Plan: MAC - Pulmonary Hx Smoking: Yes Hx Respiratory Symptoms: Yes (h/o COVID 19 (04/12), respiratory failure was intubated) - Cardiovascular System Hx Hypertension: Yes - Central Nervous System Hx Seizures: Yes (admitted with status epilepticus) Hx Psychiatric Problems: Yes (mental disability) - Gastrointestinal Hx Gastroesophageal Reflux Disease: Yes (dysphagea) - Endocrine Hx Renal Disease: No (recent h/o UTI) - Other Systems Hx Obesity: Yes
--- NOTE | 2022-04-24 10:13 | Anesthesia Day of Surgery ---
Anesthesia Day of Surgery - Day of Surgery Patient Examined: Yes Patient H&P Reviewed: Yes Patient is NPO: Yes
[2022-04-24] MEDS ORDERED: propofoL 200 MG/20 ML VIAL IV ONE (10:27)
[2022-04-24] MEDS ORDERED: LIDOCAINE MPF (2%) 20 MG/1 ML VIAL 5 ML ONE (11:35)
--- NOTE | 2022-04-24 11:50 | Operative Report ---
Operative Report Operative Report: DOS 04/24/22 ANTIBIOTICS: Ancef 2g IV once SURGEON: Lucas Rooney MD EGD WITH PEG TUBE PLACEMENT REPORT PREOPERATIVE DIAGNOSIS and POSTOPERATIVE DIAGNOSIS: oropharyngeal dysphagia ESTIMATED BLOOD LOSS: minimal DESCRIPTION OF PROCEDURE: A high-resolution EGD scope was passed through the oropharynx, esophagus, stomach, and second portion of duodenum. The scope was carefully withdrawn. Retroflexion was performed in the stomach. At the end of the procedure, the scope was cleaned using normal technique. Vital signs monitored continuously throughout. The stomach was transilluminated and an optimal position for the PEG tube was identified using the single poke method. The skin was infiltrated with local anesthesia and the needle and sheath were inserted through the abdomen into the stomach under direct visualization. The needle was removed and a guidewire was inserted through the sheath. The guidewire was grasped from above with a snare. It was removed completely and the PEG tube was secured to the guidewire. The guidewire and PEG tube were then pulled through the mouth and esophagus and snug to the abdominal wall. There was no evidence of bleeding. The Bolster was placed on the PEG site at 4 cm SEDATION: Provided by Anesthesiology Services. COMPLICATIONS: None. FINDINGS: No gross lesions in the entire examined stomach and duodenum GE junction approximately 40 cm from incisors Z-line irregular 40 cm in size Remainder of exam unremarkable RECOMMENDATIONS: The PEG may be used for medication and water flushes now. Tomorrow, if there are normal bowel sounds and no significant abdominal tenderness to palpation may start tube feeds
--- NOTE | 2022-04-24 12:25 | Progress Note ---
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 COVID positive PEG placement and discharge planning -Continue with seizure precautions and AEDs - continue lung protective strategies - bronchodilators with pulmonary hygiene per RT - avoid nephrotoxins - accuchecks with glycemic control per SSI (target blood glucose of 140-180 mg/dL; avoid hypoglycemia) - Maintenance of sleep-wake cycle, avoid delirium - enteral nutritional support - VTE prophylaxis - Mobility per protocol - continue other care per attending / other consultants COVID SPECIFIC INTERVENTIONS - s/p Remdesivir as per ID/Pulmonary developed protocols - Contact and airborne isolation per facility protocols CONDITION: FAIR PROGNOSIS: FAIR CODE STATUS: FULL CODE Subjective Date of service: 04/24/22 Principal diagnosis: Acute hypoxemic respiratory failure; COVID-19 infxn; UTI; Mental disability Interval history: Patient is seen today for: Acute hypoxemic respiratory failure; COVID-19 infection; UTI (urinary tract infection); Mental disability Seen and examined at bedside; 24hour events reviewed; nursing and respiratory care staff consulted; no adverse overnight events reported to me; resting peacefully in bed; remains on room air;no emesis or overt aspiration; mental status appears closer to baseline PEG tube placement today Objective Vital Signs - 12hr 04/24/22 04:59 Temperature 99.2 F Pulse Rate 99 H Respiratory 16 Rate Blood Pressure 127/73 O2 Sat by Pulse 98 Oximetry Constitutional: no acute distress, alert, other (Patient awake but not following commands. No acute respiratory distress.) Eyes: non-icteric ENT: oropharynx moist Neck: supple, no lymphadenopathy, no JVD Effort: normal Ascultation: Bilateral: clear, diminished breath sounds, rhonchi (scant) Percussion: Bilateral: not dull Cardiovascular: regular rate and rhythm Gastrointestinal: normoactive bowel sounds, soft, non-tender, non-distended Integumentary: normal Extremities: no cyanosis, no edema, pulses normal, no ischemia or petechiae Neurologic: pupils equal and round Psychiatric: mood appropriate, affect normal CBC and BMP: 04/22/22 06:58 04/22/22 19:39 ABG, PT/INR, D-dimer: ABG ABG pH 7.408 pH Units (7.350-7.450) 04/15/22 12:35 ABG pCO2 43.3 mm Hg 04/15/22 12:35 ABG pO2 110.6 mm Hg (80.0-90.0) H 04/15/22 12:35 ABG O2 Saturation 98.0 % (95.0-99.0) 04/15/22 12:35 PT/INR, D-dimer PT 15.3 Sec. (12.2-14.9) H 04/12/22 09:11 INR 1.09 (0.87-1.13) 04/12/22 09:11 Abnormal lab findings: Abnormal Labs 04/12/22 04/12/22 04/12/22 09:11 09:11 09:11 WBC 12.8 H RBC [place] % (Auto) [place] # (Auto) Seg Neutrophils % Seg Neuts % (Manual) 83.0 H Lymphocytes % (Manual) 12.0 L Seg Neutrophils # Seg Neutrophils # Man 10.6 H Lymphocytes # (Manual) PT ABG pO2 ABG HCO3 ABG Base Excess ABG Hemoglobin Sodium 148 H Potassium Chloride 107.2 H Carbon Dioxide 21 L BUN 37 H Creatinine 3.2 H Glucose 102 H POC Glucose Lactic Acid Calcium Phosphorus Ferritin AST 48 H Total Creatine Kinase C-Reactive Protein Total Protein 9.0 H Albumin Urine WBC (Auto) Salicylates < 0.3 L Acetaminophen Phenytoin 1.2 L Valproic Acid < 2.8 L Levetiracetam SARS-CoV-2 (PCR) 04/12/22 04/12/22 04/12/22 09:11 09:11 09:38 WBC RBC [place] % (Auto) [place] # (Auto) Seg Neutrophils % Seg Neuts % (Manual) Lymphocytes % (Manual) Seg Neutrophils # Seg Neutrophils # Man Lymphocytes # (Manual) PT 15.3 H ABG pO2 ABG HCO3 ABG Base Excess ABG Hemoglobin Sodium Potassium Chloride Carbon Dioxide BUN Creatinine Glucose POC Glucose Lactic Acid 3.30 H* Calcium Phosphorus Ferritin AST Total Creatine Kinase C-Reactive Protein Total Protein Albumin Urine WBC (Auto) Salicylates Acetaminophen 5.0 L Phenytoin Valproic Acid Levetiracetam SARS-CoV-2 (PCR) 04/12/22 04/12/22 04/12/22 10:56 11:29 11:42 WBC RBC [place] % (Auto) [place] # (Auto) Seg Neutrophils % Seg Neuts % (Manual) Lymphocytes % (Manual) Seg Neutrophils # Seg Neutrophils # Man Lymphocytes # (Manual) PT ABG pO2 152.6 H ABG HCO3 ABG Base Excess -4.2 L ABG Hemoglobin Sodium Potassium Chloride Carbon Dioxide BUN Creatinine Glucose POC Glucose Lactic Acid Calcium Phosphorus Ferritin AST Total Creatine Kinase 1568 H C-Reactive Protein Total Protein Albumin Urine WBC (Auto) Salicylates Acetaminophen Phenytoin Valproic Acid Levetiracetam SARS-CoV-2 (PCR) Positive A 04/12/22 04/12/22 04/13/22 14:34 Unknown 00:56 WBC RBC [place] % (Auto) [place] # (Auto) Seg Neutrophils % Seg Neuts % (Manual) Lymphocytes % (Manual) Seg Neutrophils # Seg Neutrophils # Man Lymphocytes # (Manual) PT ABG pO2 ABG HCO3 ABG Base Excess ABG Hemoglobin Sodium Potassium Chloride Carbon Dioxide BUN Creatinine Glucose POC Glucose 111 H Lactic Acid Calcium Phosphorus Ferritin AST Total Creatine Kinase C-Reactive Protein Total Protein Albumin Urine WBC (Auto) < 182.0 H Salicylates Acetaminophen Phenytoin Valproic Acid Levetiracetam <2.0 L SARS-CoV-2 (PCR) 04/13/22 04/13/22 04/13/22 03:44 03:44 04:15 WBC 18.7 H RBC [place] % (Auto) [place] # (Auto) Seg Neutrophils % Seg Neuts % (Manual) 97.0 H Lymphocytes % (Manual) 2.0 L Seg Neutrophils # Seg Neutrophils # Man 18.1 H Lymphocytes # (Manual) 0.4 L PT ABG pO2 135.1 H ABG HCO3 ABG Base Excess -2.7 L ABG Hemoglobin 11.9 L Sodium Potassium 3.3 L D Chloride 107.2 H Carbon Dioxide BUN 41 H Creatinine 1.4 H D Glucose 123 H POC Glucose Lactic Acid Calcium Phosphorus Ferritin AST Total Creatine Kinase C-Reactive Protein Total Protein Albumin Urine WBC (Auto) Salicylates Acetaminophen Phenytoin Valproic Acid Levetiracetam SARS-CoV-2 (PCR) 04/13/22 04/13/22 04/13/22 11:47 15:45 18:18 WBC RBC [place] % (Auto) [place] # (Auto) Seg Neutrophils % Seg Neuts % (Manual) Lymphocytes % (Manual) Seg Neutrophils # Seg Neutrophils # Man Lymphocytes # (Manual) PT ABG pO2 119.0 H ABG HCO3 ABG Base Excess -3.7 L ABG Hemoglobin 11.8 L Sodium Potassium 5.1 H D Chloride 107.5 H Carbon Dioxide 14 L D BUN 36 H Creatinine Glucose 104 H POC Glucose 119 H Lactic Acid Calcium Phosphorus Ferritin AST 47 H Total Creatine Kinase C-Reactive Protein Total Protein Albumin 3.6 L Urine WBC (Auto) Salicylates Acetaminophen Phenytoin Valproic Acid Levetiracetam SARS-CoV-2 (PCR) 04/14/22 04/14/22 04/14/22 00:06 04:04 04:04 WBC 18.2 H RBC [place] % (Auto) [place] # (Auto) Seg Neutrophils % Seg Neuts % (Manual) Lymphocytes % (Manual) Seg Neutrophils # Seg Neutrophils # Man Lymphocytes # (Manual) PT ABG pO2 ABG HCO3 ABG Base Excess ABG Hemoglobin Sodium Potassium Chloride 107.6 H Carbon Dioxide BUN 33 H Creatinine Glucose 148 H POC Glucose 120 H Lactic Acid Calcium Phosphorus Ferritin AST Total Creatine Kinase 807 H C-Reactive Protein 9.70 H Total Protein Albumin Urine WBC (Auto) Salicylates Acetaminophen Phenytoin Valproic Acid Levetiracetam SARS-CoV-2 (PCR) 04/14/22 04/14/22 04/14/22 04:04 04:04 05:06 WBC RBC [place] % (Auto) [place] # (Auto) Seg Neutrophils % Seg Neuts % (Manual) Lymphocytes % (Manual) Seg Neutrophils # Seg Neutrophils # Man Lymphocytes # (Manual) PT ABG pO2 ABG HCO3 ABG Base Excess ABG Hemoglobin Sodium Potassium Chloride 108.8 H Carbon Dioxide BUN 34 H Creatinine Glucose 149 H POC Glucose 143 H Lactic Acid Calcium Phosphorus Ferritin 318.6 H AST Total Creatine Kinase C-Reactive Protein Total Protein Albumin 3.6 L Urine WBC (Auto) Salicylates Acetaminophen Phenytoin Valproic Acid Levetiracetam SARS-CoV-2 (PCR) 04/14/22 04/14/22 04/14/22 12:04 14:45 18:12 WBC RBC [place] % (Auto) [place] # (Auto) Seg Neutrophils % Seg Neuts % (Manual) Lymphocytes % (Manual) Seg Neutrophils # Seg Neutrophils # Man Lymphocytes # (Manual) PT ABG pO2 100.5 H ABG HCO3 ABG Base Excess ABG Hemoglobin 7.0 L Sodium Potassium Chloride Carbon Dioxide BUN Creatinine Glucose POC Glucose 139 H 120 H Lactic Acid Calcium Phosphorus Ferritin AST Total Creatine Kinase C-Reactive Protein Total Protein Albumin Urine WBC (Auto) Salicylates Acetaminophen Phenytoin Valproic Acid Levetiracetam SARS-CoV-2 (PCR) 04/14/22 04/15/22 04/15/22 23:19 04:31 04:31 WBC 15.7 H RBC [place] % (Auto) [place] # (Auto) Seg Neutrophils % Seg Neuts % (Manual) Lymphocytes % (Manual) Seg Neutrophils # Seg Neutrophils # Man Lymphocytes # (Manual) PT ABG pO2 ABG HCO3 ABG Base Excess ABG Hemoglobin Sodium 146 H Potassium 3.5 L Chloride 110.6 H Carbon Dioxide BUN 28 H Creatinine Glucose 116 H POC Glucose 122 H Lactic Acid Calcium Phosphorus Ferritin AST Total Creatine Kinase C-Reactive Protein Total Protein Albumin 3.8 L Urine WBC (Auto) Salicylates Acetaminophen Phenytoin Valproic Acid Levetiracetam SARS-CoV-2 (PCR) 04/15/22 04/15/22 04/15/22 05:19 11:52 12:35 WBC RBC [place] % (Auto) [place] # (Auto) Seg Neutrophils % Seg Neuts % (Manual) Lymphocytes % (Manual) Seg Neutrophils # Seg Neutrophils # Man Lymphocytes # (Manual) PT ABG pO2 110.6 H ABG HCO3 26.7 H ABG Base Excess ABG Hemoglobin 8.6 L Sodium Potassium Chloride Carbon Dioxide BUN Creatinine Glucose POC Glucose 124 H 133 H Lactic Acid Calcium Phosphorus Ferritin AST Total Creatine Kinase C-Reactive Protein Total Protein Albumin Urine WBC (Auto) Salicylates Acetaminophen Phenytoin Valproic Acid Levetiracetam SARS-CoV-2 (PCR) 04/15/22 04/16/22 04/16/22 18:08 00:07 05:00 WBC RBC [place] % (Auto) [place] # (Auto) Seg Neutrophils % Seg Neuts % (Manual) Lymphocytes % (Manual) Seg Neutrophils # Seg Neutrophils # Man Lymphocytes # (Manual) PT ABG pO2 ABG HCO3 ABG Base Excess ABG Hemoglobin Sodium Potassium Chloride Carbon Dioxide BUN 26 H Creatinine Glucose 102 H POC Glucose 139 H 114 H Lactic Acid Calcium Phosphorus 1.90 L Ferritin AST Total Creatine Kinase 377 H C-Reactive Protein Total Protein Albumin 3.4 L Urine WBC (Auto) Salicylates Acetaminophen Phenytoin Valproic Acid Levetiracetam SARS-CoV-2 (PCR) 04/16/22 04/16/22 04/16/22 05:00 11:43 17:24 WBC RBC [place] % (Auto) [place] # (Auto) Seg Neutrophils % Seg Neuts % (Manual) Lymphocytes % (Manual) Seg Neutrophils # Seg Neutrophils # Man Lymphocytes # (Manual) PT ABG pO2 ABG HCO3 ABG Base Excess ABG Hemoglobin Sodium 136 L Potassium Chloride Carbon Dioxide BUN 26 H Creatinine Glucose 104 H POC Glucose 128 H 134 H Lactic Acid Calcium 8.2 L Phosphorus Ferritin AST Total Creatine Kinase 535 H C-Reactive Protein Total Protein Albumin Urine WBC (Auto) Salicylates Acetaminophen Phenytoin Valproic Acid Levetiracetam SARS-CoV-2 (PCR) 04/16/22 04/17/22 04/17/22 23:44 06:14 08:11 WBC RBC [place] % (Auto) [place] # (Auto) Seg Neutrophils % Seg Neuts % (Manual) Lymphocytes % (Manual) Seg Neutrophils # Seg Neutrophils # Man Lymphocytes # (Manual) PT ABG pO2 ABG HCO3 ABG Base Excess ABG Hemoglobin Sodium Potassium Chloride Carbon Dioxide BUN Creatinine Glucose POC Glucose 139 H 125 H 127 H Lactic Acid Calcium Phosphorus Ferritin AST Total Creatine Kinase C-Reactive Protein Total Protein Albumin Urine WBC (Auto) Salicylates Acetaminophen Phenytoin Valproic Acid Levetiracetam SARS-CoV-2 (PCR) 04/17/22 04/17/22 04/17/22 08:20 10:25 23:57 WBC RBC [place] % (Auto) [place] # (Auto) Seg Neutrophils % Seg Neuts % (Manual) Lymphocytes % (Manual) Seg Neutrophils # Seg Neutrophils # Man Lymphocytes # (Manual) PT ABG pO2 ABG HCO3 ABG Base Excess ABG Hemoglobin Sodium Potassium Chloride Carbon Dioxide BUN 30 H Creatinine Glucose 117 H POC Glucose 118 H 135 H Lactic Acid Calcium Phosphorus Ferritin AST Total Creatine Kinase C-Reactive Protein Total Protein Albumin Urine WBC (Auto) Salicylates Acetaminophen Phenytoin Valproic Acid Levetiracetam SARS-CoV-2 (PCR) 04/18/22 04/18/22 04/18/22 07:05 11:34 18:14 WBC RBC [place] % (Auto) [place] # (Auto) Seg Neutrophils % Seg Neuts % (Manual) Lymphocytes % (Manual) Seg Neutrophils # Seg Neutrophils # Man Lymphocytes # (Manual) PT ABG pO2 ABG HCO3 ABG Base Excess ABG Hemoglobin Sodium Potassium Chloride Carbon Dioxide BUN Creatinine Glucose POC Glucose 121 H 150 H 123 H Lactic Acid Calcium Phosphorus Ferritin AST Total Creatine Kinase C-Reactive Protein Total Protein Albumin Urine WBC (Auto) Salicylates Acetaminophen Phenytoin Valproic Acid Levetiracetam SARS-CoV-2 (PCR) 04/18/22 04/19/22 04/19/22 23:33 06:10 10:21 WBC 12.4 H RBC 3.46 L [place] % (Auto) 8.8 H [place] # (Auto) 1.1 H Seg Neutrophils % Seg Neuts % (Manual) Lymphocytes % (Manual) Seg Neutrophils # 8.2 H Seg Neutrophils # Man Lymphocytes # (Manual) PT ABG pO2 ABG HCO3 ABG Base Excess ABG Hemoglobin Sodium Potassium Chloride Carbon Dioxide BUN Creatinine Glucose POC Glucose 123 H 130 H Lactic Acid Calcium Phosphorus Ferritin AST Total Creatine Kinase C-Reactive Protein Total Protein Albumin Urine WBC (Auto) Salicylates Acetaminophen Phenytoin Valproic Acid Levetiracetam SARS-CoV-2 (PCR) 04/19/22 04/19/22 04/19/22 10:21 12:11 16:46 WBC RBC [place] % (Auto) [place] # (Auto) Seg Neutrophils % Seg Neuts % (Manual) Lymphocytes % (Manual) Seg Neutrophils # Seg Neutrophils # Man Lymphocytes # (Manual) PT ABG pO2 ABG HCO3 ABG Base Excess ABG Hemoglobin Sodium Potassium 3.5 L Chloride Carbon Dioxide BUN 29 H Creatinine Glucose 122 H POC Glucose 157 H 149 H Lactic Acid Calcium Phosphorus Ferritin AST Total Creatine Kinase C-Reactive Protein Total Protein Albumin 3.3 L Urine WBC (Auto) Salicylates Acetaminophen Phenytoin Valproic Acid Levetiracetam SARS-CoV-2 (PCR) 04/19/22 04/20/22 04/20/22 23:46 05:50 12:06 WBC RBC [place] % (Auto) [place] # (Auto) Seg Neutrophils % Seg Neuts % (Manual) Lymphocytes % (Manual) Seg Neutrophils # Seg Neutrophils # Man Lymphocytes # (Manual) PT ABG pO2 ABG HCO3 ABG Base Excess ABG Hemoglobin Sodium Potassium Chloride Carbon Dioxide BUN Creatinine Glucose POC Glucose 129 H 120 H 133 H Lactic Acid Calcium Phosphorus Ferritin AST Total Creatine Kinase C-Reactive Protein Total Protein Albumin Urine WBC (Auto) Salicylates Acetaminophen Phenytoin Valproic Acid Levetiracetam SARS-CoV-2 (PCR) 04/20/22 04/20/22 04/21/22 17:50 21:12 05:57 WBC RBC [place] % (Auto) [place] # (Auto) Seg Neutrophils % Seg Neuts % (Manual) Lymphocytes % (Manual) Seg Neutrophils # Seg Neutrophils # Man Lymphocytes # (Manual) PT ABG pO2 ABG HCO3 ABG Base Excess ABG Hemoglobin Sodium Potassium Chloride Carbon Dioxide BUN Creatinine Glucose POC Glucose 131 H 139 H 120 H Lactic Acid Calcium Phosphorus Ferritin AST Total Creatine Kinase C-Reactive Protein Total Protein Albumin Urine WBC (Auto) Salicylates Acetaminophen Phenytoin Valproic Acid Levetiracetam SARS-CoV-2 (PCR) 04/21/22 04/21/22 04/21/22 11:56 17:05 21:57 WBC RBC [place] % (Auto) [place] # (Auto) Seg Neutrophils % Seg Neuts % (Manual) Lymphocytes % (Manual) Seg Neutrophils # Seg Neutrophils # Man Lymphocytes # (Manual) PT ABG pO2 ABG HCO3 ABG Base Excess ABG Hemoglobin Sodium Potassium Chloride Carbon Dioxide BUN Creatinine Glucose POC Glucose 129 H 118 H 152 H Lactic Acid Calcium Phosphorus Ferritin AST Total Creatine Kinase C-Reactive Protein Total Protein Albumin Urine WBC (Auto) Salicylates Acetaminophen Phenytoin Valproic Acid Levetiracetam SARS-CoV-2 (PCR) 04/21/22 04/22/22 04/22/22 23:36 06:07 06:58 WBC RBC 3.31 L [place] % (Auto) [place] # (Auto) Seg Neutrophils % 73.5 H Seg Neuts % (Manual) Lymphocytes % (Manual) Seg Neutrophils # 8.0 H Seg Neutrophils # Man Lymphocytes # (Manual) PT ABG pO2 ABG HCO3 ABG Base Excess ABG Hemoglobin Sodium Potassium 3.0 L Chloride Carbon Dioxide BUN 28 H Creatinine Glucose 129 H POC Glucose 113 H Lactic Acid Calcium Phosphorus Ferritin AST Total Creatine Kinase C-Reactive Protein Total Protein Albumin Urine WBC (Auto) Salicylates Acetaminophen Phenytoin Valproic Acid Levetiracetam SARS-CoV-2 (PCR) 04/22/22 04/22/22 04/22/22 06:58 11:39 16:48 WBC RBC [place] % (Auto) [place] # (Auto) Seg Neutrophils % Seg Neuts % (Manual) Lymphocytes % (Manual) Seg Neutrophils # Seg Neutrophils # Man Lymphocytes # (Manual) PT ABG pO2 ABG HCO3 ABG Base Excess ABG Hemoglobin Sodium Potassium 3.0 L Chloride Carbon Dioxide BUN 24 H Creatinine 0.5 L Glucose POC Glucose 119 H 157 H Lactic Acid Calcium Phosphorus Ferritin AST Total Creatine Kinase C-Reactive Protein Total Protein Albumin Urine WBC (Auto) Salicylates Acetaminophen Phenytoin Valproic Acid Levetiracetam SARS-CoV-2 (PCR) 04/22/22 04/23/22 04/23/22 23:42 06:20 23:49 WBC RBC [place] % (Auto) [place] # (Auto) Seg Neutrophils % Seg Neuts % (Manual) Lymphocytes % (Manual) Seg Neutrophils # Seg Neutrophils # Man Lymphocytes # (Manual) PT ABG pO2 ABG HCO3 ABG Base Excess ABG Hemoglobin Sodium Potassium Chloride Carbon Dioxide BUN Creatinine Glucose POC Glucose 116 H 108 H 106 H Lactic Acid Calcium Phosphorus Ferritin AST Total Creatine Kinase C-Reactive Protein Total Protein Albumin Urine WBC (Auto) Salicylates Acetaminophen Phenytoin Valproic Acid Levetiracetam SARS-CoV-2 (PCR) Allied health notes reviewed: nursing
--- NOTE | 2022-04-24 14:27 | Post Anesthesia Evaluation ---
- Post Anesthesia Evaluation Patient Participated: Yes Airway Patent: Yes Stable Respiratory Function: Yes Nausea/Vomiting: No Temp > 96.8F: Yes Pain Manageable: Yes Adequeate Hydration: Yes Anesthesia Complications: No
[2022-04-24] MEDS: HEPARIN 5,000 UNIT/1 ML VIAL SUB-Q SCH ×2 (16:57→21:05)
[2022-04-24] MEDS: SENNOSIDES/DOCUSATE SODIUM 8.6/50 MG TAB FEEDTUBE SCH (21:05)
[2022-04-25] MEDS ORDERED: SODIUM BICARBONATE 325 MG TAB FEEDTUBE PRN ×2 (07:40→09:44)
[2022-04-25] MEDS ORDERED: LIPASE 10,500/PROTEASE 25,000/AMYLASE 43,750 (UNITS) DR CAP FEEDTUBE PRN ×2 (07:40→09:44)
[2022-04-25] MEDS ORDERED: SIMPLE SYRUP 15 ML FEEDTUBE PRN ×4 (07:40→09:44)
--- NOTE | 2022-04-25 09:47 | Progress Note ---
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 COVID positive s/p PEG placement, awaiting COVID test result for discharge planning -Continue with seizure precautions and AEDs - continue lung protective strategies - bronchodilators with pulmonary hygiene per RT - avoid nephrotoxins - accuchecks with glycemic control per SSI (target blood glucose of 140-180 mg/dL; avoid hypoglycemia) - Maintenance of sleep-wake cycle, avoid delirium - enteral nutritional support - VTE prophylaxis - Mobility per protocol - continue other care per attending / other consultants COVID SPECIFIC INTERVENTIONS - s/p Remdesivir as per ID/Pulmonary developed protocols - Contact and airborne isolation per facility protocols CONDITION: FAIR PROGNOSIS: FAIR CODE STATUS: FULL CODE Subjective Date of service: 04/25/22 Principal diagnosis: Acute hypoxemic respiratory failure; COVID-19 infxn; UTI; Mental disability Interval history: Patient is seen today for: Acute hypoxemic respiratory failure; COVID-19 inf ection; UTI (urinary tract infection); Mental disability Seen and examined at bedside; 24hour events reviewed; nursing and respiratory care staff consulted; no adverse overnight events reported to me; resting peacefully in bed; remains on room air;no emesis or overt aspiration; mental status changes persist s/p PEG tube placement Objective Vital Signs - 12hr 04/24/22 04/25/22 23:08 06:23 Temperature 99.3 F 98.8 F Pulse Rate 98 H 104 H Respiratory 18 20 Rate Blood Pressure 128/69 146/66 O2 Sat by Pulse 99 96 Oximetry Constitutional: no acute distress, alert, other (Patient awake but not following commands. No acute respiratory distress.) Eyes: non-icteric ENT: oropharynx moist Neck: supple, no lymphadenopathy, no JVD Effort: normal Ascultation: Bilateral: clear, diminished breath sounds, rhonchi (scant) Percussion: Bilateral: not dull Cardiovascular: regular rate and rhythm Gastrointestinal: normoactive bowel sounds, soft, non-tender, non-distended, other (PEG) Integumentary: normal Extremities: no cyanosis, no edema, pulses normal, no ischemia or petechiae Neurologic: pupils equal and round CBC and BMP: 04/22/22 06:58 04/26/22 07:13 ABG, PT/INR, D-dimer: ABG ABG pH 7.408 pH Units (7.350-7.450) 04/15/22 12:35 ABG pCO2 43.3 mm Hg 04/15/22 12:35 ABG pO2 110.6 mm Hg (80.0-90.0) H 04/15/22 12:35 ABG O2 Saturation 98.0 % (95.0-99.0) 04/15/22 12:35 PT/INR, D-dimer PT 15.3 Sec. (12.2-14.9) H 04/12/22 09:11 INR 1.09 (0.87-1.13) 04/12/22 09:11 Abnormal lab findings: Abnormal Labs 04/12/22 04/12/22 04/12/22 09:11 09:11 09:11 WBC 12.8 H RBC [place] % (Auto) [place] # (Auto) Seg Neutrophils % Seg Neuts % (Manual) 83.0 H Lymphocytes % (Manual) 12.0 L Seg Neutrophils # Seg Neutrophils # Man 10.6 H Lymphocytes # (Manual) PT ABG pO2 ABG HCO3 ABG Base Excess ABG Hemoglobin Sodium 148 H Potassium Chloride 107.2 H Carbon Dioxide 21 L BUN 37 H Creatinine 3.2 H Glucose 102 H POC Glucose Lactic Acid Calcium Phosphorus Ferritin AST 48 H Total Creatine Kinase C-Reactive Protein Total Protein 9.0 H Albumin Urine WBC (Auto) Salicylates < 0.3 L Acetaminophen Phenytoin 1.2 L Valproic Acid < 2.8 L Levetiracetam SARS-CoV-2 (PCR) 04/12/22 04/12/22 04/12/22 09:11 09:11 09:38 WBC RBC [place] % (Auto) [place] # (Auto) Seg Neutrophils % Seg Neuts % (Manual) Lymphocytes % (Manual) Seg Neutrophils # Seg Neutrophils # Man Lymphocytes # (Manual) PT 15.3 H ABG pO2 ABG HCO3 ABG Base Excess ABG Hemoglobin Sodium Potassium Chloride Carbon Dioxide BUN Creatinine Glucose POC Glucose Lactic Acid 3.30 H* Calcium Phosphorus Ferritin AST Total Creatine Kinase C-Reactive Protein Total Protein Albumin Urine WBC (Auto) Salicylates Acetaminophen 5.0 L Phenytoin Valproic Acid Levetiracetam SARS-CoV-2 (PCR) 04/12/22 04/12/22 04/12/22 10:56 11:29 11:42 WBC RBC [place] % (Auto) [place] # (Auto) Seg Neutrophils % Seg Neuts % (Manual) Lymphocytes % (Manual) Seg Neutrophils # Seg Neutrophils # Man Lymphocytes # (Manual) PT ABG pO2 152.6 H ABG HCO3 ABG Base Excess -4.2 L ABG Hemoglobin Sodium Potassium Chloride Carbon Dioxide BUN Creatinine Glucose POC Glucose Lactic Acid Calcium Phosphorus Ferritin AST Total Creatine Kinase 1568 H C-Reactive Protein Total Protein Albumin Urine WBC (Auto) Salicylates Acetaminophen Phenytoin Valproic Acid Levetiracetam SARS-CoV-2 (PCR) Positive A 04/12/22 04/12/22 04/13/22 14:34 Unknown 00:56 WBC RBC [place] % (Auto) [place] # (Auto) Seg Neutrophils % Seg Neuts % (Manual) Lymphocytes % (Manual) Seg Neutrophils # Seg Neutrophils # Man Lymphocytes # (Manual) PT ABG pO2 ABG HCO3 ABG Base Excess ABG Hemoglobin Sodium Potassium Chloride Carbon Dioxide BUN Creatinine Glucose POC Glucose 111 H Lactic Acid Calcium Phosphorus Ferritin AST Total Creatine Kinase C-Reactive Protein Total Protein Albumin Urine WBC (Auto) < 182.0 H Salicylates Acetaminophen Phenytoin Valproic Acid Levetiracetam <2.0 L SARS-CoV-2 (PCR) 04/13/22 04/13/22 04/13/22 03:44 03:44 04:15 WBC 18.7 H RBC [place] % (Auto) [place] # (Auto) Seg Neutrophils % Seg Neuts % (Manual) 97.0 H Lymphocytes % (Manual) 2.0 L Seg Neutrophils # Seg Neutrophils # Man 18.1 H Lymphocytes # (Manual) 0.4 L PT ABG pO2 135.1 H ABG HCO3 ABG Base Excess -2.7 L ABG Hemoglobin 11.9 L Sodium Potassium 3.3 L D Chloride 107.2 H Carbon Dioxide BUN 41 H Creatinine 1.4 H D Glucose 123 H POC Glucose Lactic Acid Calcium Phosphorus Ferritin AST Total Creatine Kinase C-Reactive Protein Total Protein Albumin Urine WBC (Auto) Salicylates Acetaminophen Phenytoin Valproic Acid Levetiracetam SARS-CoV-2 (PCR) 04/13/22 04/13/22 04/13/22 11:47 15:45 18:18 WBC RBC [place] % (Auto) [place] # (Auto) Seg Neutrophils % Seg Neuts % (Manual) Lymphocytes % (Manual) Seg Neutrophils # Seg Neutrophils # Man Lymphocytes # (Manual) PT ABG pO2 119.0 H ABG HCO3 ABG Base Excess -3.7 L ABG Hemoglobin 11.8 L Sodium Potassium 5.1 H D Chloride 107.5 H Carbon Dioxide 14 L D BUN 36 H Creatinine Glucose 104 H POC Glucose 119 H Lactic Acid Calcium Phosphorus Ferritin AST 47 H Total Creatine Kinase C-Reactive Protein Total Protein Albumin 3.6 L Urine WBC (Auto) Salicylates Acetaminophen Phenytoin Valproic Acid Levetiracetam SARS-CoV-2 (PCR) 04/14/22 04/14/22 04/14/22 00:06 04:04 04:04 WBC 18.2 H RBC [place] % (Auto) [place] # (Auto) Seg Neutrophils % Seg Neuts % (Manual) Lymphocytes % (Manual) Seg Neutrophils # Seg Neutrophils # Man Lymphocytes # (Manual) PT ABG pO2 ABG HCO3 ABG Base Excess ABG Hemoglobin Sodium Potassium Chloride 107.6 H Carbon Dioxide BUN 33 H Creatinine Glucose 148 H POC Glucose 120 H Lactic Acid Calcium Phosphorus Ferritin AST Total Creatine Kinase 807 H C-Reactive Protein 9.70 H Total Protein Albumin Urine WBC (Auto) Salicylates Acetaminophen Phenytoin Valproic Acid Levetiracetam SARS-CoV-2 (PCR) 04/14/22 04/14/22 04/14/22 04:04 04:04 05:06 WBC RBC [place] % (Auto) [place] # (Auto) Seg Neutrophils % Seg Neuts % (Manual) Lymphocytes % (Manual) Seg Neutrophils # Seg Neutrophils # Man Lymphocytes # (Manual) PT ABG pO2 ABG HCO3 ABG Base Excess ABG Hemoglobin Sodium Potassium Chloride 108.8 H Carbon Dioxide BUN 34 H Creatinine Glucose 149 H POC Glucose 143 H Lactic Acid Calcium Phosphorus Ferritin 318.6 H AST Total Creatine Kinase C-Reactive Protein Total Protein Albumin 3.6 L Urine WBC (Auto) Salicylates Acetaminophen Phenytoin Valproic Acid Levetiracetam SARS-CoV-2 (PCR) 04/14/22 04/14/22 04/14/22 12:04 14:45 18:12 WBC RBC [place] % (Auto) [place] # (Auto) Seg Neutrophils % Seg Neuts % (Manual) Lymphocytes % (Manual) Seg Neutrophils # Seg Neutrophils # Man Lymphocytes # (Manual) PT ABG pO2 100.5 H ABG HCO3 ABG Base Excess ABG Hemoglobin 7.0 L Sodium Potassium Chloride Carbon Dioxide BUN Creatinine Glucose POC Glucose 139 H 120 H Lactic Acid Calcium Phosphorus Ferritin AST Total Creatine Kinase C-Reactive Protein Total Protein Albumin Urine WBC (Auto) Salicylates Acetaminophen Phenytoin Valproic Acid Levetiracetam SARS-CoV-2 (PCR) 04/14/22 04/15/22 04/15/22 23:19 04:31 04:31 WBC 15.7 H RBC [place] % (Auto) [place] # (Auto) Seg Neutrophils % Seg Neuts % (Manual) Lymphocytes % (Manual) Seg Neutrophils # Seg Neutrophils # Man Lymphocytes # (Manual) PT ABG pO2 ABG HCO3 ABG Base Excess ABG Hemoglobin Sodium 146 H Potassium 3.5 L Chloride 110.6 H Carbon Dioxide BUN 28 H Creatinine Glucose 116 H POC Glucose 122 H Lactic Acid Calcium Phosphorus Ferritin AST Total Creatine Kinase C-Reactive Protein Total Protein Albumin 3.8 L Urine WBC (Auto) Salicylates Acetaminophen Phenytoin Valproic Acid Levetiracetam SARS-CoV-2 (PCR) 04/15/22 04/15/22 04/15/22 05:19 11:52 12:35 WBC RBC [place] % (Auto) [place] # (Auto) Seg Neutrophils % Seg Neuts % (Manual) Lymphocytes % (Manual) Seg Neutrophils # Seg Neutrophils # Man Lymphocytes # (Manual) PT ABG pO2 110.6 H ABG HCO3 26.7 H ABG Base Excess ABG Hemoglobin 8.6 L Sodium Potassium Chloride Carbon Dioxide BUN Creatinine Glucose POC Glucose 124 H 133 H Lactic Acid Calcium Phosphorus Ferritin AST Total Creatine Kinase C-Reactive Protein Total Protein Albumin Urine WBC (Auto) Salicylates Acetaminophen Phenytoin Valproic Acid Levetiracetam SARS-CoV-2 (PCR) 04/15/22 04/16/22 04/16/22 18:08 00:07 05:00 WBC RBC [place] % (Auto) [place] # (Auto) Seg Neutrophils % Seg Neuts % (Manual) Lymphocytes % (Manual) Seg Neutrophils # Seg Neutrophils # Man Lymphocytes # (Manual) PT ABG pO2 ABG HCO3 ABG Base Excess ABG Hemoglobin Sodium Potassium Chloride Carbon Dioxide BUN 26 H Creatinine Glucose 102 H POC Glucose 139 H 114 H Lactic Acid Calcium Phosphorus 1.90 L Ferritin AST Total Creatine Kinase 377 H C-Reactive Protein Total Protein Albumin 3.4 L Urine WBC (Auto) Salicylates Acetaminophen Phenytoin Valproic Acid Levetiracetam SARS-CoV-2 (PCR) 04/16/22 04/16/22 04/16/22 05:00 11:43 17:24 WBC RBC [place] % (Auto) [place] # (Auto) Seg Neutrophils % Seg Neuts % (Manual) Lymphocytes % (Manual) Seg Neutrophils # Seg Neutrophils # Man Lymphocytes # (Manual) PT ABG pO2 ABG HCO3 ABG Base Excess ABG Hemoglobin Sodium 136 L Potassium Chloride Carbon Dioxide BUN 26 H Creatinine Glucose 104 H POC Glucose 128 H 134 H Lactic Acid Calcium 8.2 L Phosphorus Ferritin AST Total Creatine Kinase 535 H C-Reactive Protein Total Protein Albumin Urine WBC (Auto) Salicylates Acetaminophen Phenytoin Valproic Acid Levetiracetam SARS-CoV-2 (PCR) 04/16/22 04/17/22 04/17/22 23:44 06:14 08:11 WBC RBC [place] % (Auto) [place] # (Auto) Seg Neutrophils % Seg Neuts % (Manual) Lymphocytes % (Manual) Seg Neutrophils # Seg Neutrophils # Man Lymphocytes # (Manual) PT ABG pO2 ABG HCO3 ABG Base Excess ABG Hemoglobin Sodium Potassium Chloride Carbon Dioxide BUN Creatinine Glucose POC Glucose 139 H 125 H 127 H Lactic Acid Calcium Phosphorus Ferritin AST Total Creatine Kinase C-Reactive Protein Total Protein Albumin Urine WBC (Auto) Salicylates Acetaminophen Phenytoin Valproic Acid Levetiracetam SARS-CoV-2 (PCR) 04/17/22 04/17/22 04/17/22 08:20 10:25 23:57 WBC RBC [place] % (Auto) [place] # (Auto) Seg Neutrophils % Seg Neuts % (Manual) Lymphocytes % (Manual) Seg Neutrophils # Seg Neutrophils # Man Lymphocytes # (Manual) PT ABG pO2 ABG HCO3 ABG Base Excess ABG Hemoglobin Sodium Potassium Chloride Carbon Dioxide BUN 30 H Creatinine Glucose 117 H POC Glucose 118 H 135 H Lactic Acid Calcium Phosphorus Ferritin AST Total Creatine Kinase C-Reactive Protein Total Protein Albumin Urine WBC (Auto) Salicylates Acetaminophen Phenytoin Valproic Acid Levetiracetam SARS-CoV-2 (PCR) 04/18/22 04/18/22 04/18/22 07:05 11:34 18:14 WBC RBC [place] % (Auto) [place] # (Auto) Seg Neutrophils % Seg Neuts % (Manual) Lymphocytes % (Manual) Seg Neutrophils # Seg Neutrophils # Man Lymphocytes # (Manual) PT ABG pO2 ABG HCO3 ABG Base Excess ABG Hemoglobin Sodium Potassium Chloride Carbon Dioxide BUN Creatinine Glucose POC Glucose 121 H 150 H 123 H Lactic Acid Calcium Phosphorus Ferritin AST Total Creatine Kinase C-Reactive Protein Total Protein Albumin Urine WBC (Auto) Salicylates Acetaminophen Phenytoin Valproic Acid Levetiracetam SARS-CoV-2 (PCR) 04/18/22 04/19/22 04/19/22 23:33 06:10 10:21 WBC 12.4 H RBC 3.46 L [place] % (Auto) 8.8 H [place] # (Auto) 1.1 H Seg Neutrophils % Seg Neuts % (Manual) Lymphocytes % (Manual) Seg Neutrophils # 8.2 H Seg Neutrophils # Man Lymphocytes # (Manual) PT ABG pO2 ABG HCO3 ABG Base Excess ABG Hemoglobin Sodium Potassium Chloride Carbon Dioxide BUN Creatinine Glucose POC Glucose 123 H 130 H Lactic Acid Calcium Phosphorus Ferritin AST Total Creatine Kinase C-Reactive Protein Total Protein Albumin Urine WBC (Auto) Salicylates Acetaminophen Phenytoin Valproic Acid Levetiracetam SARS-CoV-2 (PCR) 04/19/22 04/19/22 04/19/22 10:21 12:11 16:46 WBC RBC [place] % (Auto) [place] # (Auto) Seg Neutrophils % Seg Neuts % (Manual) Lymphocytes % (Manual) Seg Neutrophils # Seg Neutrophils # Man Lymphocytes # (Manual) PT ABG pO2 ABG HCO3 ABG Base Excess ABG Hemoglobin Sodium Potassium 3.5 L Chloride Carbon Dioxide BUN 29 H Creatinine Glucose 122 H POC Glucose 157 H 149 H Lactic Acid Calcium Phosphorus Ferritin AST Total Creatine Kinase C-Reactive Protein Total Protein Albumin 3.3 L Urine WBC (Auto) Salicylates Acetaminophen Phenytoin Valproic Acid Levetiracetam SARS-CoV-2 (PCR) 04/19/22 04/20/22 04/20/22 23:46 05:50 12:06 WBC RBC [place] % (Auto) [place] # (Auto) Seg Neutrophils % Seg Neuts % (Manual) Lymphocytes % (Manual) Seg Neutrophils # Seg Neutrophils # Man Lymphocytes # (Manual) PT ABG pO2 ABG HCO3 ABG Base Excess ABG Hemoglobin Sodium Potassium Chloride Carbon Dioxide BUN Creatinine Glucose POC Glucose 129 H 120 H 133 H Lactic Acid Calcium Phosphorus Ferritin AST Total Creatine Kinase C-Reactive Protein Total Protein Albumin Urine WBC (Auto) Salicylates Acetaminophen Phenytoin Valproic Acid Levetiracetam SARS-CoV-2 (PCR) 04/20/22 04/20/22 04/21/22 17:50 21:12 05:57 WBC RBC [place] % (Auto) [place] # (Auto) Seg Neutrophils % Seg Neuts % (Manual) Lymphocytes % (Manual) Seg Neutrophils # Seg Neutrophils # Man Lymphocytes # (Manual) PT ABG pO2 ABG HCO3 ABG Base Excess ABG Hemoglobin Sodium Potassium Chloride Carbon Dioxide BUN Creatinine Glucose POC Glucose 131 H 139 H 120 H Lactic Acid Calcium Phosphorus Ferritin AST Total Creatine Kinase C-Reactive Protein Total Protein Albumin Urine WBC (Auto) Salicylates Acetaminophen Phenytoin Valproic Acid Levetiracetam SARS-CoV-2 (PCR) 04/21/22 04/21/22 04/21/22 11:56 17:05 21:57 WBC RBC [place] % (Auto) [place] # (Auto) Seg Neutrophils % Seg Neuts % (Manual) Lymphocytes % (Manual) Seg Neutrophils # Seg Neutrophils # Man Lymphocytes # (Manual) PT ABG pO2 ABG HCO3 ABG Base Excess ABG Hemoglobin Sodium Potassium Chloride Carbon Dioxide BUN Creatinine Glucose POC Glucose 129 H 118 H 152 H Lactic Acid Calcium Phosphorus Ferritin AST Total Creatine Kinase C-Reactive Protein Total Protein Albumin Urine WBC (Auto) Salicylates Acetaminophen Phenytoin Valproic Acid Levetiracetam SARS-CoV-2 (PCR) 04/21/22 04/22/22 04/22/22 23:36 06:07 06:58 WBC RBC 3.31 L [place] % (Auto) [place] # (Auto) Seg Neutrophils % 73.5 H Seg Neuts % (Manual) Lymphocytes % (Manual) Seg Neutrophils # 8.0 H Seg Neutrophils # Man Lymphocytes # (Manual) PT ABG pO2 ABG HCO3 ABG Base Excess ABG Hemoglobin Sodium Potassium 3.0 L Chloride Carbon Dioxide BUN 28 H Creatinine Glucose 129 H POC Glucose 113 H Lactic Acid Calcium Phosphorus Ferritin AST Total Creatine Kinase C-Reactive Protein Total Protein Albumin Urine WBC (Auto) Salicylates Acetaminophen Phenytoin Valproic Acid Levetiracetam SARS-CoV-2 (PCR) 04/22/22 04/22/22 04/22/22 06:58 11:39 16:48 WBC RBC [place] % (Auto) [place] # (Auto) Seg Neutrophils % Seg Neuts % (Manual) Lymphocytes % (Manual) Seg Neutrophils # Seg Neutrophils # Man Lymphocytes # (Manual) PT ABG pO2 ABG HCO3 ABG Base Excess ABG Hemoglobin Sodium Potassium 3.0 L Chloride Carbon Dioxide BUN 24 H Creatinine 0.5 L Glucose POC Glucose 119 H 157 H Lactic Acid Calcium Phosphorus Ferritin AST Total Creatine Kinase C-Reactive Protein Total Protein Albumin Urine WBC (Auto) Salicylates Acetaminophen Phenytoin Valproic Acid Levetiracetam SARS-CoV-2 (PCR) 04/22/22 04/23/22 04/23/22 23:42 06:20 23:49 WBC RBC [place] % (Auto) [place] # (Auto) Seg Neutrophils % Seg Neuts % (Manual) Lymphocytes % (Manual) Seg Neutrophils # Seg Neutrophils # Man Lymphocytes # (Manual) PT ABG pO2 ABG HCO3 ABG Base Excess ABG Hemoglobin Sodium Potassium Chloride Carbon Dioxide BUN Creatinine Glucose POC Glucose 116 H 108 H 106 H Lactic Acid Calcium Phosphorus Ferritin AST Total Creatine Kinase C-Reactive Protein Total Protein Albumin Urine WBC (Auto) Salicylates Acetaminophen Phenytoin Valproic Acid Levetiracetam SARS-CoV-2 (PCR) Allied health notes reviewed: nursing
--- NOTE | 2022-04-25 11:53 | Progress Note ---
Assessment and Plan Assessment and plan: This is a 57-year-old female with known past medical history of MR, obesity, nicotine dependence, seizure disorder admitted for status epilepticus and was intubated in the ED for airway protection Hospital Course to Date: 04/13: Stable on low vent setting this am. Off sedation, awake and tracking, not following commands. Patient does have history of MR, patient is functional and can voice her needs per the caregiver. No seizure like activity reported, EEG and Neurology consult pending. Continue IV Keppra. Patient remains afebrile and hemodynamicaly stable. PRN hydralazine added for hypertension. Continue current IV steroids, and empiric IV Abx. ID consulted for further rec for COVID infection. Renal function and CKP are improving post IVF hydration, continue IVF resuscitation. K repleted, continue to monitor electrolytes and replete as needed. Plan for PSV trial today, plan to wean for possible extubation per CCM. 04/14: Remains stable on the vent. No seizures like activities reported in the last 48hrs. Neurology recommendation noted. Patient tolerated PSV trial yesterday. Continue daily PSV trial, plan to wean for possible extubation per CCM. Hypertensive this am low dose BB added for BP control. Continue IV steroids, on Rocephin and Remdeservir per ID. 04/15: Remains stable on the vent. Tolerating PSV trial this am, plan for possibe extubation today per CCM. Remains hypertensive with refractory tachycardia with PRN hydralazine. On BB and Lisinopril added for better control. PRN switched to IV labetalol for SBP greater than 160. FWF increased for hypernatremia and K repleted, continue to monitor electrolytes and replete as needed. 04/16: s/p extubation, stable on RA. Currently nonverbal with Generalized weakness, however was able to shake head for yes or no this am. Lisinopril increased for BP control, continue low dose BB. Pending speech swallow eval, continue enteral nutrition via DHT for now. PT/OT also consulted for debility and discharge planning. Patient is stable for transfer to the floor. 04/17: Patient still with low grade fever, tolerating room air, ID and Pulmonary input noted, today will be Day 5 of Remdesivir and will complete antibiotics ceftriaxone also. If continued fever will likely need extension.Patient currently under treatment for COVID induced respiratory failure with hypoxia s/p extubation and also Sepsis secondary to Acute cystitis and COVID 19. No new seizure disorder. She does have a hx of MR and seizure as noted above. Leukocytosis is improved. I advised her Niece about her care so far and follow with PCP in one week of discharged. If tolerating diet and no new fever in 24 hrs, she can be discharged. We did discuss CODE STATUS on her again and she did affirm full code. 04/18: Awaiting speech evaluation. patient appears very lethargic still. Low grade fever and tachycardia noted overnight. Appears very dehydrated, will order NS 500 cc x 1. Will order repeat labs. She has completed remdesivir, rocephin for covid tx. 04/19: More alert today. Close to baseline mentation. Patient is a strict NPO due to concern for aspiration per ST assessment. Will place consultation to gastroe nterology for PEG tube. Spoke with POA/cousin Samara Castro ([phone]) who agreed with plan for PEG tube. Dispo for patient is [facility] vs SNF. CM working on referrals. 04/20: No new changes overnight. D/w with GI. Plan for PEG tube on Sunday. 04/21: no new changes. PEG still planned sunday. Ordered AM labs. 04/22: Low potassium noted on AM labs. Ordered 40 MEQ IV and 40 MEQ via feedtube. Recheck K in evening. PEG still planned Sunday. 04/23: K 3.7. PEG planned sunday. Dispo: [facility] possibly tuesday 04/24: PEG planned today. Will follow up after placement. Dispo: [facility]. 04/25: TF started. Plan to discharge tomorrow after shown tolerance of TFs. Assessment and Plan #Dysphagia - aspiration risk per Speech therapy - PEG tube placed by GI on 04/24 - TFs started, nutrition consulted #Status Epilepticus (resolved) #H/o Seizure Disorder #H/o Mental Retardation(MR) - Multifactorial - Patient with UTI and COVID positive - Per records from 09/2021, patient phenytoin level was elevated last admit and meds was held. Patient was D/Dany with PO Keppra BID - CT head/brain with chronic encephalomalacia/surgical changes in the frontal lobes. No acute intracranial abnormality. - s/p IV antibiotics - Intubated, awake and tracking. S/p Versed gtt. - Continue keppra - EEG pending - Neurology consult, appreciate recommendation - Per Neuro- continue 1000 mg PO Keppra BID - PRN Ativan for seizure like activities - Frequent reorientation - Aspiration and Seizure precaution - PRN Analgesia for CPOT greater than 3 - Maintenance of sleep-wake cycle #Acute Hypoxic Respiratory Failure (resolved) - Intubated in the ED on 04/12 for airway protection secondary to above - s/p extubation on 04/16, stable on RA - CCM consulted, appreciate recommendations - Aspiration precaution HOB above 30 - PRN ABG and CXR - Continue SPO2 monitoring for SPO2 goal above 92% - PRN O2 supplementation as needed #Sepsis (resolved) #Viral Pneumonia #COVID 19 Pneumonia #Coronavirus Infection #Urinary Tract Infection(UTI)/Cystitis - COVID PCR came back positive - CT reveal right lower lobe infiltrate vs atelectasis - UA consistent with UTI, CT scan shows mild bladder wall thickening suggesting cystitis - COVID PCR came back positive - sputum culture negative; 08/16 blood cultures with coagulase negative staph; patient s/p empiric antibiotics - Patient is afebrile, Leukocytosis improved, VSS - s/p ID consult, completed therapy with rocephin and remdesivir. - no fevers since 04/16. #Rhabdomyolysis - Probably due to multiple seizures - s/p IVF resuscitation, CPK improved #Acute Kidney Injury(JONA) most likely Vasomotor Nephropathy (resolved) #Hypokalemia - probably secondary to above - Per records, baseline scr is 1.1, Scr. as high as 3.2 this admit; current SCr 0.5 - Renal function back to baseline post IVF hydration - Strict intake and output - Avoid nephrotoxic medications; Renally dose medications - Monitor and replace electrolytes as needed - Trend BMP #Hypertension - Continue low dose BB, lisinopril increased for better control - Continue blood pressure monitor per protocol - PRN Hydralazine for SBP greater than 160 - Might benefits from antihypertensive regimen at discharge #GI/DVT Prophylaxis - PPI- Pepcid - Heparin SubQ - SCD to bilateral lower extremities while in bed #Advance Care Planning - Disease education data, care plan, diagnoses, and prognosis were discussed w ith patient's cousin and caregiver via phone. Patient is a FULL code. Patient's family acknowledged understanding and agreed with current care plan. History Interval history: No acute events overnight. PEG tube successfully placed yesterday. Tube feeds started today. Plan to discharge patient after tolerating TF x 24hrs. Hospitalist Physical - Physical exam Narrative exam: GENERAL: Well-developed well-nourished. In no acute distress. HEENT: Normocephalic. Atraumatic. NECK: Supple. CHEST/LUNGS: CTAB on room air HEART/CARDIOVASCULAR: RRR. No murmur, rubs or gallops appreciated. ABDOMEN: PEG tube with feeds running and abdominal binder in place. +BS. NT/ND. SKIN: No rashes noted. NEURO: No focal motor deficit. MUSCULOSKELETAL: No joint effusion EXTREMITIES: No cyanosis, clubbing or edema. PSYCH: Cooperative. - Constitutional Vitals: Temp Pulse Resp BP Pulse Ox 98.8 F 104 H 20 146/66 96 04/25/22 06:23 04/25/22 06:23 04/25/22 06:23 04/25/22 06:23 04/25/22 06:23 General appearance: Present: no acute distress, well-nourished, obese Results - Labs CBC & Chem 7: 04/22/22 06:58 04/22/22 19:39 Labs: Laboratory Last Values WBC 10.9 K/mm3 (4.5-11.0) 04/22/22 06:58 RBC 3.31 M/mm3 (3.65-5.03) L 04/22/22 06:58 Hgb 10.2 gm/dl (10.1-14.3) 04/22/22 06:58 Hct 30.8 % (30.3-42.9) 04/22/22 06:58 MCV 93 fl (79-97) 04/22/22 06:58 MCH 31 pg (28-32) 04/22/22 06:58 MCHC 33 % (30-34) 04/22/22 06:58 RDW 14.3 % (13.2-15.2) 04/22/22 06:58 Plt Count 330 K/mm3 (140-440) 04/22/22 06:58 Lymph % (Auto) 19.4 % (13.4-35.0) 04/22/22 06:58 Falls % (Auto) 6.5 % (0.0-7.3) 04/22/22 06:58 Eos % (Auto) 0.3 % (0.0-4.3) 04/22/22 06:58 Baso % (Auto) 0.3 % (0.0-1.8) 04/22/22 06:58 Lymph # (Auto) 2.1 K/mm3 (1.2-5.4) 04/22/22 06:58 Falls # (Auto) 0.7 K/mm3 (0.0-0.8) 04/22/22 06:58 Eos # (Auto) 0.0 K/mm3 (0.0-0.4) 04/22/22 06:58 Baso # (Auto) 0.0 K/mm3 (0.0-0.1) 04/22/22 06:58 Add Manual Diff Complete 04/13/22 03:44 Total Counted 100 04/13/22 03:44 Seg Neutrophils % 73.5 % (40.0-70.0) H 04/22/22 06:58 Seg Neuts % (Manual) 97.0 % (40.0-70.0) H 04/13/22 03:44 Band Neutrophils % 0 % 04/13/22 03:44 Lymphocytes % (Manual) 2.0 % (13.4-35.0) L 04/13/22 03:44 Reactive Lymphs % (Man) 0 % 04/13/22 03:44 Monocytes % (Manual) 1.0 % (0.0-7.3) 04/13/22 03:44 Eosinophils % (Manual) 0 % (0.0-4.3) 04/13/22 03:44 Basophils % (Manual) 0 % (0.0-1.8) 04/13/22 03:44 Metamyelocytes % 0 % 04/13/22 03:44 Myelocytes % 0 % 04/13/22 03:44 Promyelocytes % 0 % 04/13/22 03:44 Blast Cells % 0 % 04/13/22 03:44 Nucleated RBC % Not Reportable 04/13/22 03:44 Seg Neutrophils # 8.0 K/mm3 (1.8-7.7) H 04/22/22 06:58 Seg Neutrophils # Man 18.1 K/mm3 (1.8-7.7) H 04/13/22 03:44 Band Neutrophils # 0.0 K/mm3 04/13/22 03:44 Lymphocytes # (Manual) 0.4 K/mm3 (1.2-5.4) L 04/13/22 03:44 Abs React Lymphs (Man) 0.0 K/mm3 04/13/22 03:44 Monocytes # (Manual) 0.2 K/mm3 (0.0-0.8) 04/13/22 03:44 Eosinophils # (Manual) 0.0 K/mm3 (0.0-0.4) 04/13/22 03:44 Basophils # (Manual) 0.0 K/mm3 (0.0-0.1) 04/13/22 03:44 Metamyelocytes # 0.0 K/mm3 04/13/22 03:44 Myelocytes # 0.0 K/mm3 04/13/22 03:44 Promyelocytes # 0.0 K/mm3 04/13/22 03:44 Blast Cells # 0.0 K/mm3 04/13/22 03:44 WBC Morphology Not Reportable 04/13/22 03:44 Hypersegmented Neuts Not Reportable 04/13/22 03:44 Hyposegmented Neuts Not Reportable 04/13/22 03:44 Hypogranular Neuts Not Reportable 04/13/22 03:44 Smudge Cells Not Reportable 04/13/22 03:44 Toxic Granulation Not Reportable 04/13/22 03:44 Toxic Vacuolation Not Reportable 04/13/22 03:44 Dohle Bodies Not Reportable 04/13/22 03:44 Pelger-Huet Anomaly Not Reportable 04/13/22 03:44 Neeta Rods Not Reportable 04/13/22 03:44 Platelet Estimate Consistent w auto 04/13/22 03:44 Clumped Platelets Not Reportable 04/13/22 03:44 Plt Clumps, EDTA Not Reportable 04/13/22 03:44 Large Platelets Not Reportable 04/13/22 03:44 Giant Platelets Not Reportable 04/13/22 03:44 Platelet Satelliting Not Reportable 04/13/22 03:44 Plt Morphology Comment Not Reportable 04/13/22 03:44 RBC Morphology Not Reportable 04/13/22 03:44 Dimorphic RBCs Not Reportable 04/13/22 03:44 Polychromasia Not Reportable 04/13/22 03:44 Hypochromasia Not Reportable 04/13/22 03:44 Poikilocytosis Not Reportable 04/13/22 03:44 Anisocytosis Not Reportable 04/13/22 03:44 Microcytosis Not Reportable 04/13/22 03:44 Macrocytosis Not Reportable 04/13/22 03:44 Spherocytes Not Reportable 04/13/22 03:44 Pappenheimer Bodies Not Reportable 04/13/22 03:44 Sickle Cells Not Reportable 04/13/22 03:44 Target Cells Not Reportable 04/13/22 03:44 Tear Drop Cells Not Reportable 04/13/22 03:44 Ovalocytes Not Reportable 04/13/22 03:44 Helmet Cells Not Reportable 04/13/22 03:44 [place] Bodies Not Reportable 04/13/22 03:44 [place] Rings Not Reportable 04/13/22 03:44 [place] Cells Not Reportable 04/13/22 03:44 Bite Cells Not Reportable 04/13/22 03:44 Crenated Cell Not Reportable 04/13/22 03:44 Elliptocytes Not Reportable 04/13/22 03:44 Acanthocytes (Spur) Not Reportable 04/13/22 03:44 Rouleaux Not Reportable 04/13/22 03:44 Hemoglobin C Crystals Not Reportable 04/13/22 03:44 Schistocytes Not Reportable 04/13/22 03:44 Malaria parasites Not Reportable 04/13/22 03:44 Sanjay Bodies Not Reportable 04/13/22 03:44 Hem Pathologist Commnt No 04/13/22 03:44 PT 15.3 Sec. (12.2-14.9) H 04/12/22 09:11 INR 1.09 (0.87-1.13) 04/12/22 09:11 APTT 27.4 Sec. (24.2-36.6) 04/12/22 09:11 ABG pH 7.408 pH Units (7.350-7.450) 04/15/22 12:35 ABG pCO2 43.3 mm Hg 04/15/22 12:35 ABG pO2 110.6 mm Hg (80.0-90.0) H 04/15/22 12:35 ABG HCO3 26.7 mmol/L (20.0-26.0) H 04/15/22 12:35 ABG O2 Saturation 98.0 % (95.0-99.0) 04/15/22 12:35 ABG O2 Content 11.8 (0.0-44) 04/15/22 12:35 ABG Base Excess 1.8 mmol/L (-2.0-3.0) 04/15/22 12:35 ABG Hemoglobin 8.6 gm/dl (12.0-16.0) L 04/15/22 12:35 ABG Carboxyhemoglobin 1.0 % (0.0-5.0) 04/15/22 12:35 ABG Methemoglobin 0.5 % (0.0-1.5) 04/15/22 12:35 Oxyhemoglobin 96.5 % (95.0-99.0) 04/15/22 12:35 FiO2 30 % 04/15/22 12:35 Sodium 141 mmol/L (137-145) 04/22/22 06:58 Potassium 3.7 mmol/L (3.6-5.0) D 04/22/22 19:39 Chloride 102.4 mmol/L (98-107) 04/22/22 06:58 Carbon Dioxide 28 mmol/L (22-30) 04/22/22 06:58 Anion Gap 14 mmol/L 04/22/22 06:58 BUN 24 mg/dL (7-17) H 04/22/22 06:58 Creatinine 0.5 mg/dL (0.6-1.2) L 04/22/22 06:58 Estimated GFR > 60 ml/min 04/22/22 06:58 BUN/Creatinine Ratio 48 % 04/22/22 06:58 Glucose 92 mg/dL (65-100) 04/22/22 06:58 POC Glucose 97 mg/dL (70-105) 04/24/22 23:06 Lactic Acid 1.60 mmol/L (0.7-2.0) 04/12/22 11:42 Calcium 8.8 mg/dL (8.4-10.2) 04/22/22 06:58 Phosphorus 3.10 mg/dL (2.5-4.5) 04/17/22 08:20 Magnesium 1.70 mg/dL (1.7-2.3) 04/17/22 08:20 Ferritin 318.6 ng/mL (10.0-200.0) H 04/14/22 04:04 Total Bilirubin 0.40 mg/dL (0.1-1.2) 04/19/22 10:21 AST 30 units/L (5-40) 04/19/22 10:21 ALT 24 units/L (7-56) 04/19/22 10:21 Alkaline Phosphatase 81 units/L (35-129) 04/19/22 10:21 Total Creatine Kinase 377 units/L (30-135) H 04/16/22 05:00 Total Creatine Kinase 535 units/L (30-135) H 04/16/22 05:00 C-Reactive Protein 9.70 mg/dL (0.00-1.30) H 04/14/22 04:04 Total Protein 6.5 g/dL (6.3-8.2) 04/19/22 10:21 Albumin 3.3 g/dL (3.9-5) L 04/19/22 10:21 Albumin/Globulin Ratio 1.0 % 04/19/22 10:21 Procalcitonin 1.92 ng/mL (<0.15) 04/14/22 04:04 Urine Color Yellow (Yellow) 04/12/22 Unknown Urine Turbidity Cloudy (Clear) 04/12/22 Unknown Specific [place] (Man) 1.020 (1.003-1.030) 04/12/22 Unknown Ur Protein (Man) 4+ mg/dL (Negative) 04/12/22 Unknown Ur Ketones (Man) Negative (Negative) 04/12/22 Unknown Ur Nitrite (Man) Negative (Negative) 04/12/22 Unknown Ur Reducing Substances Not Reportable 04/12/22 Unknown Urine Bilirubin (Man) Negative (Negative) 04/12/22 Unknown Urine Ictotest Not Reportable 04/12/22 Unknown Leukocyte Esterase (Man) Large (Negative) 04/12/22 Unknown Urine WBC (Auto) < 182.0 /HPF (0.0-6.0) H 04/12/22 Unknown Urine RBC (Auto) 60.0 /HPF (0.0-6.0) 04/12/22 Unknown U Epithel Cells (Auto) 12.0 /HPF (0-13.0) 04/12/22 Unknown Urine RBC (Manual) 3+ (Negative) 04/12/22 Unknown Urine WBC Clumps 3+ /HPF 04/12/22 Unknown Urine Mucus 3+ /HPF 04/12/22 Unknown Salicylates < 0.3 mg/dL (2.8-20.0) L 04/12/22 09:11 Acetaminophen 5.0 ug/mL (10.0-30.0) L 04/12/22 09:11 Phenytoin 1.2 ug/mL (10.0-20.0) L 04/12/22 09:11 Valproic Acid < 2.8 ug/mL (50-100) L 04/12/22 09:11 Levetiracetam <2.0 mcg/mL (6.0-46.0) L 04/12/22 14:34 Plasma/Serum Alcohol < 0.01 % (0-0.07) 04/12/22 09:11 SARS-CoV-2 (PCR) Positive (Negative) A 04/12/22 10:56 Mckeon/IV: Voiding Method Incontinent Active Medications - Current Medications Current Medications: Generic Name Dose Route Start Last Admin Trade Name Freq PRN Reason Stop Dose Admin Acetaminophen 650 mg 04/12/22 12:38 04/16/22 23:44 Acetaminophen 325 Mg Tab PO 650 mg Q6H PRN Administration Pain MILD(1-3)/Fever >100.5/VALLADARES Albuterol 2.5 mg 04/12/22 12:38 Albuterol 2.5 Mg/3 Ml Nebu IH Q3HRT PRN Shortness Of Breath Lipase/Protease/Amylase 1 each 04/25/22 07:40 Lipase 10,500/Protease 25,000/Amylase 43,750 (Units) Dr Young FEEDTUBE PRN PRN For Clogged Feeding Tube Famotidine 20 mg 04/15/22 22:00 04/24/22 21:05 Famotidine 20 Mg Tab FEEDTUBE 20 mg BID ISIAH Administration Heparin Sodium (Porcine) 5,000 unit 04/12/22 22:00 04/24/22 21:05 Heparin 5,000 Unit/1 Ml Vial SUB-Q 5,000 unit Q12HR ISIAH Administration Hydrophilic Ointment 1 applic 04/12/22 09:35 Lip Therapy Vaseline TP Q2HR PRN Dry Lips Labetalol HCl 10 mg 04/15/22 09:00 04/16/22 05:05 Labetalol 20 Mg/4 Ml Inj IV 10 mg Q4H PRN Administration Hypertension Levetiracetam 1,000 mg 04/19/22 10:00 04/24/22 21:05 Levetiracetam 500 Mg/5 Ml Oral Liqd FEEDTUBE 1,000 mg BID ISIAH Administration Lisinopril 10 mg 04/16/22 10:00 04/24/22 09:24 Lisinopril 5 Mg Tab PO Not Given QDAY ISIAH Metoprolol Tartrate 12.5 mg 04/14/22 16:13 04/24/22 21:05 Metoprolol Tartrate 25 Mg Tab PO 12.5 mg BID ISIAH Administration Multi-Ingred Cream/Lotion/Oil/Oint 1 applic 04/12/22 09:35 Mineral Oil/Petrolatum, White Ophth Oint 3.5 Gm OU Q4HR PRN Dry Eye(s) Ondansetron HCl 4 mg 04/12/22 12:38 Ondansetron 4 Mg/2 Ml Inj IV Q8H PRN Nausea And Vomiting Polyethylene Glycol 17 gm 04/21/22 20:00 04/24/22 09:24 Polyethylene Glycol 3350 17 Gm Powder PO Not Given QDAY ISIAH Senna/Docusate Sodium 2 tab 04/21/22 22:00 04/24/22 21:05 Sennosides/Docusate Sodium 8.6/50 Mg Tab FEEDTUBE 2 tab QHS ISIAH Administration Simple Syrup 15 ml 04/25/22 07:40 Simple Syrup 15 Ml FEEDTUBE PRN PRN Hypoglycemia Simple Syrup 30 ml 04/25/22 07:40 Simple Syrup 15 Ml FEEDTUBE PRN PRN Hypoglycemia Sodium Bicarbonate 325 mg 04/25/22 07:40 Sodium Bicarbonate 325 Mg Tab FEEDTUBE PRN PRN For Clogged Feeding Tube Sodium Chloride 10 ml 04/12/22 22:00 04/24/22 21:06 Sodium Chloride 0.9% 10 Ml Flush Syringe IV 10 ml BID ISIAH Administration Sodium Chloride 10 ml 04/12/22 12:38 Sodium Chloride 0.9% 10 Ml Flush Syringe IV PRN PRN LINE FLUSH Nutrition/Malnutrition Assess - Dietary Evaluation Nutrition/Malnutrition Findings: Nutrition Notes Start: 04/12/22 16:12 Freq: Status: Active Protocol: Document 04/25/22 09:32 JOSI (Rec: 04/25/22 10:04 JOSI [id number]) Nutrition Notes Initial or Follow up Reassessment Other Pertinent Diagnosis Oropharyngeal Dysphagia, Seizures, COVID-19, Mental Disability. Current Diet TF-Jevity 1.2 Dajuan @ 60 ml/hr ( from L 04/25). Labs/Tests 04/25: N/A. Pertinent Medications 04/25: Nutritionally unremarkable. Height 5 ft 8 in Weight 113.3 kg [place] Body Weight (kg) 63.63 BMI 38.0 Weight change and time frame No body weight change reported in 2 weeks. Weight Status Obese Subjective/Other Information RD consult for write/mange TF assessment. Pt continues on NPO. I will prescribe TF to provide Pt with energy/protein needs during LOS. Pt is on Room Air, O2 saturation @ 100%, according to Physical Assessment History notes. SLAGGER note on 04/19/22 16:39: Patient does not make eye contact. She is resistant to po. Once a minimal amount was placed in the oral cavity, patient held the bolus with absent movement of lingual function for propulsion. Patient is currently not a candidate for po consumption. Recommend PEG placement. No further recommendations. - END OF NOTE. Procedure on 04/24: PEG-tube placement, well tolerated, according to Operative Report notes. Percent of energy/protein needs met: Prescribed TF-Jevity 1.2 Dajuan @ 60 ml/hr provides for energy/ protein needs (1,740 Kcal/80 g ) during LOS, 96% Kcal; 89% AA . Burn Absent Trauma Absent GI Symptoms Other Food Allergy No Skin Integrity/Comment R-Hip wound. 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 She is resistant to po. Once a minimal amount was placed in the oral cavity, patient held the bolus with absent movement of lingual function for propulsion. Patient is currently not a candidate for po consumption. Recommend PEG placement. No further recommendations. - END OF NOTE. Diagnosis Progress(for reassessment Continues documentation) #1 Nutrition Diagnosis Inadequate oral intake Comments: Procedure on 04/24: PEG-tube placement, well tolerated, according to Operative Report notes. Etiology Oropharyngeal Dysphagia. Diagnosis Progress(for reassessment Continues documentation) Is patient on ventilator? No Is Patient Ambulatory and/or Out of Bed No REE-([facility]-confined to bed) 2135.724 Kcal/Kg value to use for calculation 16 Approximate Energy Requirements Using 1813 kcal/Kg Calculation Used for Recommendations Kcal/kg Additional Notes Protein: 1-1.2 g/Kg AdjBW; 90- 108 g/day. Fluids: 1 ml/Kcal, or as per MD. Nutrition Intervention Nutrition Support: Start TF-Jevity 1.2 Dajuan @ 60 ml/hr. Flush: 100 ml water Q 4 hr, or asper MD. Kcal 1,740 Protein (gm) 80 Carbohydrates (gm) 246 Fat (gm) 57 Fluid (mL) 1,170 Fiber (gm) 26 % RDI: 96% Kcal; 89% AA. Goal #1 Provide at least 75% of energy /protein needs through Enteral Feeding during LOS. Goal #2 Adjust the dietary intervention to better serve Pt's needs and clinical conditions during LOS. Follow-Up By: 05/02/22 Additional Comments Continue monitoring TF tolerance and BM.
[2022-04-25] MEDS: levETIRAcetam 500 MG/5 ML ORAL LIQD FEEDTUBE SCH ×2 (11:55→22:31)
[2022-04-25] MEDS: HEPARIN 5,000 UNIT/1 ML VIAL SUB-Q SCH ×2 (11:56→22:32)
[2022-04-25] MEDS: POLYETHYLENE GLYCOL 3350 17 GM POWDER PO SCH (11:56)
[2022-04-25] MEDS: FAMOTIDINE 20 MG TAB FEEDTUBE SCH ×2 (11:57→22:31)
[2022-04-25] MEDS: METOPROLOL TARTRATE 25 MG TAB PO SCH ×2 (12:09→22:30)
[2022-04-25] MEDS: LISINOPRIL 5 MG TAB PO SCH (12:11)
--- NOTE | 2022-04-25 13:31 | Gastroenterology Progress Note ---
Assessment and Plan Okay to use PEG. Bumper was loosened appropriately. GI will sign off please call us back if we can be of any further assistance - Patient Problems (1) Acute respiratory failure Current Visit: Yes Status: Acute (2) Neurogenic dysphagia Current Visit: Yes Status: Acute (3) Fecal impaction in rectum Current Visit: Yes Status: Acute Subjective Date of service: 04/25/22 Principal diagnosis: Acute hypoxemic respiratory failure; COVID-19 infxn; UTI; Mental disability Interval history: Patient not answering questions coherently Does not appear in distress Objective - Constitutional Vitals: Temp Pulse Resp BP Pulse Ox 98.8 F 99 H 20 115/52 96 04/25/22 06:23 04/25/22 12:11 04/25/22 06:23 04/25/22 12:11 04/25/22 06:23 General appearance: no acute distress - Respiratory Respiratory effort: normal - Gastrointestinal General gastrointestinal: Present: soft, other (G tube in place, bumper loosened, no induration/erythema, +BS, abd soft) - Labs CBC & Chem 7: 04/22/22 06:58 04/22/22 19:39 Labs: Laboratory Results - last 24 hr 04/24/22 04/24/22 04/24/22 12:56 17:16 23:06 POC Glucose 79 90 97 Coronavirus (PCR) 04/24/22 04/25/22 04/25/22 Unknown 06:22 11:39 POC Glucose 95 114 H Coronavirus (PCR) Negative
[2022-04-25] MEDS: SENNOSIDES/DOCUSATE SODIUM 8.6/50 MG TAB FEEDTUBE SCH (22:31)
[2022-04-26 08:04] LABS: Blood Urea Nitrogen 15 mg/dL (7-17); Calcium 8.7 mg/dL (8.4-10.2); Hemolysis Index 14
[2022-04-26] MEDS ORDERED: POTASSIUM CHLORIDE 20 MEQ PACKET FEEDTUBE ONE (08:30)
--- NOTE | 2022-04-26 08:47 | Discharge Summary ---
Providers - Providers Date of Admission: 04/12/22 12:39 Date of discharge: 04/26/22 Attending physician: KATIANA GANDHI MD 04/12/22 09:34 Consult to Physician [CONS] Stat Comment: noted/ wallace Consulting Provider: ANAM JEONG Physician Instructions: Reason For Exam: Intubation, seizure, sepsis 04/12/22 09:35 Consult to Dietitian/Nutrition [CONS] Routine Physician Instructions: Reason For Exam: Reason for Consult: Evaluate nutritional intake 04/13/22 08:15 Consult to Physician [CONS] Routine Comment: Consulting Provider: PAPA AGUILERA Physician Instructions: Reason For Exam: Sespsis, UTI, COVID+ 04/13/22 08:24 Consult to Dietitian/Nutrition [CONS] Routine Physician Instructions: Reason For Exam: Reason for Consult: Write/Manage Tube Feeding 04/13/22 08:25 Consult to Physician [CONS] Routine Comment: Consulting Provider: HANSEL AKHTAR Physician Instructions: Reason For Exam: status epilepticus 04/16/22 08:46 Speech Therapy Evaluation and Treat [CONS] Routine Reason For Exam: swallow eval 04/16/22 15:14 Occupational Therapy Evaluate and Treat [CONS] Routine Comment: Reason For Exam: Generalized Weakness Physical Therapy Evaluation and Treat [CONS] Routine Comment: Reason For Exam: Generalized Weakness 04/19/22 15:03 Consult to Physician [CONS] Routine Comment: Consulting Provider: RELL AGGARWAL Physician Instructions: Reason For Exam: peg tube 04/21/22 13:00 Consult to Wound/ET Nurse [CONS] Routine Reason For Exam: wound eval 04/25/22 07:40 Consult to Dietitian/Nutrition [CONS] Routine Physician Instructions: Assess nutrtn needs, initiate, modify, manage TF Reason For Exam: Reason for Consult: Write/Manage Tube Feeding Reason for Consult: Write/Manage Tube Feeding Primary care physician: TICKET CLERK Hospitalization Reason for admission: status epilepticus Condition: Good Hospital course: 57-year-old female with history of cognitive impairment and seizure disorder who presented in status epilepticus. She was found to be in acute hypoxic respiratory failure and was intubated. EEG was completed. Labs are significant for COVID-19 infection and cystitis. Patient clinically improved and was extubated. She received remdesivir and Rocephin. PEG tube was placed due to neurogenic dysphagia. Patient also was found to have fecal impaction which resolved with oral medications. Once patient tolerated tube feeds, she was discharged back to long-term. Disposition: [facility] Final Discharge Diagnosis (Prints w/discharge instructions): Status epilepticus. History of seizure disorder. History of mental retardation. Acute hypoxic respiratory failure. Sepsis. Viral pneumonia. COVID-19 infection. Acute cystitis without hematuria. Coagulase negative bacteremia ruled out. Neurogenic dysphagia. Rhabdomyolysis. Acute kidney injury secondary to vasomotor nephropathy. Hypokalemia. Hypertension Time spent for discharge: 40 minutes Core Measure Documentation - Palliative Care Palliative Care/ Comfort Measures: Not Applicable - Core Measures Any of the following diagnoses?: none Exam - Physical Exam Narrative exam: GENERAL: Well-developed well-nourished. In no acute distress. HEENT: Normocephalic. Atraumatic. NECK: Supple. CHEST/LUNGS: CTAB on room air HEART/CARDIOVASCULAR: RRR. No murmur, rubs or gallops appreciated. ABDOMEN: PEG tube with feeds running and abdominal binder in place. +BS. NT/ND. SKIN: No rashes noted. NEURO: No focal motor deficit. MUSCULOSKELETAL: No joint effusion EXTREMITIES: No cyanosis, clubbing or edema. PSYCH: Cooperative. - Constitutional Vitals: Temp Pulse Resp BP Pulse Ox 99.2 F 99 H 18 114/70 98 04/25/22 13:32 04/25/22 22:30 04/25/22 22:00 04/25/22 22:30 04/25/22 22:00 Plan Care Plan Goals: Please follow up with your primary care provider at the long-term. Please have a repeat potassium check in 1 week. Follow up with: PRIMARY MD COOPER [Primary Care Provider] - 3-5 Days
[2022-04-26 08:55] LABS: BUN/Creatinine Ratio 30
[2022-04-26 11:18] VITALS: BP 130/72
[2022-04-26] MEDS: FAMOTIDINE 20 MG TAB FEEDTUBE SCH (11:21)
[2022-04-26] MEDS: levETIRAcetam 500 MG/5 ML ORAL LIQD FEEDTUBE SCH (11:21)
[2022-04-26] MEDS: POLYETHYLENE GLYCOL 3350 17 GM POWDER PO SCH (11:21)
[2022-04-26] MEDS: LISINOPRIL 5 MG TAB PO SCH (11:22)
[2022-04-26] MEDS: METOPROLOL TARTRATE 25 MG TAB PO SCH (11:22)
[2022-04-26] MEDS: HEPARIN 5,000 UNIT/1 ML VIAL SUB-Q SCH (11:45)
== END 2022-04-26 12:41 | DRG 871 ==
LOC: ED 09:01 → CC1 12:39 → 3A 04-16 18:44
PROVIDERS: ADMIT Internal Medicine; ATTEND Student in an Organized Health Care Education/Training Program
PROC: 5A1945Z Respiratory Ventilation, 24-96 Consecutive Hours (ICD-10-PCS; principal; 2022-04-12)
PROC: 0BH17EZ Insertion of Endotracheal Airway into Trachea, Via Natural or Artificial Opening (ICD-10-PCS; 2022-04-12)
PROC: 02HV33Z Insertion of Infusion Device into Superior Vena Cava, Percutaneous Approach (ICD-10-PCS; 2022-04-12)
PROC: B548ZZA Ultrasonography of Superior Vena Cava, Guidance (ICD-10-PCS; 2022-04-12)
PROC: XW033E5 Introduction of Remdesivir Anti-infective into Peripheral Vein, Percutaneous Approach, New Technology Group 5 (ICD-10-PCS; 2022-04-13)
PROC: 4A033R1 Measurement of Arterial Saturation, Peripheral, Percutaneous Approach (ICD-10-PCS; 2022-04-13)
PROC: 0DH63UZ Insertion of Feeding Device into Stomach, Percutaneous Approach (ICD-10-PCS; 2022-04-24)
DX: A41.89 Other specified sepsis (principal); J12.82 Pneumonia due to coronavirus disease 2019; U07.1 COVID-19; N17.0 Acute kidney failure with tubular necrosis; J96.01 Acute respiratory failure with hypoxia; M62.82 Rhabdomyolysis; N30.00 Acute cystitis without hematuria; G40.901 Epilepsy, unspecified, not intractable, with status epilepticus; I10 Essential (primary) hypertension; E87.6 Hypokalemia; G93.89 Other specified disorders of brain; E66.01 Morbid (severe) obesity due to excess calories; R13.19 Other dysphagia; K56.41 Fecal impaction; Z82.49 Family history of ischemic heart disease and other diseases of the circulatory system
CPT/HCPCS: 36415; 36600; 70450; 71045; 74018; 74176; 80048; 80053; 80164; 80177; 80185; 80320; 81001; 82140; 82550; 82728; 82803; 82962; 83735; 84100; 84132; 84145; 85007; 85025; 85027; 85610; 85730; 86140; 87040; 87070; 87205; 93005; 94002; 94003; 95819; G0378; J3490; J7060; J7070; G0480; J0360; J0690; J0696; J1100; J1170; J1644; J1953; J2250; J2704; J2920; J3370; J3480; J7030; J7040; J7050; U0003